=== PATIENT | female | born 1955 | race Caucasian/White ===

== ENCOUNTER → 2017-06-09 15:09 | Outpatient (CLI) | payer MEDICAID, SELFPAY ==
[2017-06-09 17:17] LABS: Absolute Lymphocyte Count 1.75 X10^3/ul (0.83-4.51); Absolute Neutrophil Count 6.3 X10^3/uL (2.0-7.7); Basophil# 0.05 X10^3/uL; Basophil% 0.5 % (0-1); Eosinophil# 0.25 X10^3/uL; Eosinophils% 2.7 % (0-5); Hematocrit 44.1 % (37-47); Hemoglobin 13.7 g/dl (12.0-15.0); Lymphocyte # 1.75 X10^3/ul (4.0); Lymphocyte % 19.1 % (19-41); Mean Corp Hgb Conc 31.1 g/gl (32-36); Mean Corpuscular Hgb 26.7 pg (27.0-32.0); Mean Corpuscular Volume 85.8 fL (81-99); Mean Platelet Vol. 10.9 fl (6.2-12.0); Monocyte# 0.77 X10^3/uL; Monocyte% 8.4 % (0-10); Neutrophil # 6.34 X10^3/uL (2.7-7.7); Neutrophil % 69.1 % (47-70); Platelet Count 270 K/mm3 (150-450); RBC Distribution Width CV 16.2 % (11.6-14.6); RBC Distribution Width SD 51.2 fl (35.1-43.9); Red Blood Count 5.14 M/mm3 (4.2-5.4); White Blood Count 9.2 K/mm3 (4.4-11.0)
[2017-06-09 17:22] LABS: POSITIVE COUNT NO; POSITIVE DIFFERENTIAL NO; POSITIVE MORPHOLOGY NO
[2017-06-09 17:55] LABS: Vitamin D,25 Hydroxy 10.7 ng/mL (29.95-100.01)
[2017-06-09 18:07] LABS: ALB/GLOB Ratio 0.8 RATIO (0.9-2.4); AST(SGOT) 51 U/L (15-37); Alanine Aminotransfer ALT/SGPT 56 U/L (13-56); Albumin, Serum 3.2 g/dL (3.2-5.0); Alkaline Phosphatase 132 U/L (45-117); Anion Gap 10 (5-15); BUN 13 mg/dL (7-18); BUN/Creat Ratio 14.2 RATIO (10-20); Calcium,Total 9.4 mg/dL (8.5-10.1); Chloride 102 mmol/L (98-107); Creatinine, Serum 0.91 mg/dL (0.55-1.02); EST Glomerular Filtration Rate 67 mL/min (>60); Est Glom Filt Rate - Afr Amer 80 mL/min (>60); Globulin 4.1 g/dL (2.2-4.2); Glucose 149 mg/dL (74-106); Potassium 3.6 mmol/L (3.5-5.1); Protein, Total 7.3 g/dL (6.4-8.2); Sodium Level 141 mmol/L (136-145); Thyroid Stim Hormone (TSH) 0.97 uIU/mL (0.358-3.74)
[2017-06-11 11:03] LABS: Hep C Antibodies 0.1 s/co ratio (0.0-0.9)
== END ==
PROVIDERS: Family Provider Family Medicine Geriatric Medicine; PCP Family Medicine Geriatric Medicine; Visit Provider Family Medicine Geriatric Medicine
DX: E11.9 Type 2 diabetes mellitus without complications (principal); E55.9 Vitamin D deficiency, unspecified; I10 Essential (primary) hypertension; Z13.89 Encounter for screening for other disorder
CPT/HCPCS: 36415; 80053; 82306; 84443; 85025; 86803

== ENCOUNTER → 2017-08-07 14:25 | Outpatient (CLI) | payer MEDICAID, SELFPAY | PROVIDERS: Family Provider Family Medicine Geriatric Medicine; PCP Family Medicine Geriatric Medicine; Visit Provider Nurse Practitioner Acute Care | DX: G47.33 Obstructive sleep apnea (adult) (pediatric) (principal) | CPT/HCPCS: 98960; G0463 ==

== ENCOUNTER → 2017-09-02 13:47 | Outpatient (CLI) | payer MEDICAID, SELFPAY ==
[2017-09-02 17:20] LABS: Absolute Lymphocyte Count 1.71 X10^3/ul (0.83-4.51); Absolute Neutrophil Count 4.5 X10^3/uL (2.0-7.7); Basophil# 0.04 X10^3/uL; Basophil% 0.6 % (0-1); Eosinophil# 0.24 X10^3/uL; Eosinophils% 3.3 % (0-5); Hematocrit 42.2 % (37-47); Hemoglobin 12.9 g/dl (12.0-15.0); Lymphocyte # 1.71 X10^3/ul (4.0); Lymphocyte % 23.7 % (19-41); Mean Corp Hgb Conc 30.6 g/gl (32-36); Mean Corpuscular Hgb 27.3 pg (27.0-32.0); Mean Corpuscular Volume 89.4 fL (81-99); Mean Platelet Vol. 10.7 fl (6.2-12.0); Monocyte# 0.74 X10^3/uL; Monocyte% 10.2 % (0-10); Neutrophil # 4.48 X10^3/uL (2.7-7.7); Neutrophil % 62.1 % (47-70); Platelet Count 230 K/mm3 (150-450); RBC Distribution Width CV 14.4 % (11.6-14.6); RBC Distribution Width SD 47.1 fl (35.1-43.9); Red Blood Count 4.72 M/mm3 (4.2-5.4); White Blood Count 7.2 K/mm3 (4.4-11.0)
[2017-09-02 17:23] LABS: POSITIVE COUNT NO; POSITIVE DIFFERENTIAL NO; POSITIVE MORPHOLOGY NO
[2017-09-02 17:58] LABS: ALB/GLOB Ratio 0.8 RATIO (0.9-2.4); AST(SGOT) 53 U/L (15-37); Alanine Aminotransfer ALT/SGPT 51 U/L (13-56); Albumin, Serum 3.1 g/dL (3.2-5.0); Alkaline Phosphatase 104 U/L (45-117); Anion Gap 9 (5-15); BUN 10 mg/dL (7-18); BUN/Creat Ratio 11.4 RATIO (10-20); Chloride 105 mmol/L (98-107); Creatinine, Serum 0.88 mg/dL (0.55-1.02); EST Glomerular Filtration Rate 70 mL/min (>60); Est Glom Filt Rate - Afr Amer 84 mL/min (>60); Globulin 3.8 g/dL (2.2-4.2); Glucose 152 mg/dL (74-106); Potassium 4.4 mmol/L (3.5-5.1); Protein, Total 6.9 g/dL (6.4-8.2); Sodium Level 142 mmol/L (136-145)
== END ==
PROVIDERS: Family Provider Family Medicine Geriatric Medicine; PCP Family Medicine Geriatric Medicine; Visit Provider Family Medicine Geriatric Medicine
DX: R10.9 Unspecified abdominal pain (principal)
CPT/HCPCS: 80053; 85025

== ENCOUNTER → 2017-09-02 15:58 | Outpatient (CLI) | payer MEDICAID, SELFPAY ==
--- NOTE | 2017-09-02 16:05 | RAD_ITS ---
STUDY: X-RAY - ABDOMEN/PELVIS REASON FOR EXAM: Female, 62 years old. Nausea. Diarrhea. Constipation. TECHNIQUE: AP supine and upright views of the abdomen and pelvis. COMPARISON: May 30, 2016. FINDINGS: Normal visualized lung bases. There is an unremarkable bowel gas pattern. There is no demonstrated free abdominal air. The visualized liver, spleen and kidneys are grossly normal in size and morphology. Normal soft tissue structures. Normal visualized osseous structures. RAD/Abd Inc Decub and/or Erect IMPRESSION: Normal x-ray examination of the abdomen and pelvis. Electronically Signed: Mauricio Grfifin MD at 16:55 EDT , Service support ,
== END ==
PROVIDERS: Family Provider Family Medicine Geriatric Medicine; PCP Family Medicine Geriatric Medicine; Visit Provider Family Medicine Geriatric Medicine
DX: R10.9 Unspecified abdominal pain (principal)
CPT/HCPCS: 74019; 80053; 85025

== ENCOUNTER → 2017-10-02 11:46 | Outpatient (CLI) | payer MEDICAID, SELFPAY ==
[2017-10-02 13:28] LABS: ALB/GLOB Ratio 0.8 RATIO (0.9-2.4); AST(SGOT) 45 U/L (15-37); Alanine Aminotransfer ALT/SGPT 50 U/L (13-56); Albumin, Serum 3.2 g/dL (3.2-5.0); Alkaline Phosphatase 102 U/L (45-117); Anion Gap 9 (5-15); BUN 8 mg/dL (7-18); BUN/Creat Ratio 7.5 RATIO (10-20); Calcium,Total 9.4 mg/dL (8.5-10.1); Chloride 103 mmol/L (98-107); Creatinine, Serum 1.07 mg/dL (0.55-1.02); EST Glomerular Filtration Rate 55 mL/min (>60); Est Glom Filt Rate - Afr Amer 67 mL/min (>60); Globulin 3.9 g/dL (2.2-4.2); Glucose 147 mg/dL (74-106); Protein, Total 7.1 g/dL (6.4-8.2); Sodium Level 142 mmol/L (136-145); Thyroid Stim Hormone (TSH) 1.61 uIU/mL (0.358-3.74)
[2017-10-02 15:36] LABS: Absolute Lymphocyte Count 1.62 X10^3/ul (0.83-4.51); Absolute Neutrophil Count 3.5 X10^3/uL (2.0-7.7); Basophil# 0.05 X10^3/uL; Basophil% 0.8 % (0-1); Eosinophil# 0.21 X10^3/uL; Eosinophils% 3.5 % (0-5); Hematocrit 41.6 % (37-47); Hemoglobin 13.3 g/dl (12.0-15.0); Lymphocyte # 1.62 X10^3/ul (4.0); Mean Corpuscular Hgb 28.2 pg (27.0-32.0); Mean Corpuscular Volume 88.1 fL (81-99); Monocyte# 0.65 X10^3/uL; Monocyte% 10.8 % (0-10); Neutrophil # 3.46 X10^3/uL (2.7-7.7); Neutrophil % 57.7 % (47-70); POSITIVE COUNT NO; POSITIVE DIFFERENTIAL NO; POSITIVE MORPHOLOGY NO; Platelet Count 209 K/mm3 (150-450); RBC Distribution Width CV 13.7 % (11.6-14.6); RBC Distribution Width SD 44.3 fl (35.1-43.9); Red Blood Count 4.72 M/mm3 (4.2-5.4)
== END ==
PROVIDERS: Family Provider Family Medicine Geriatric Medicine; PCP Family Medicine Geriatric Medicine; Visit Provider Family Medicine Geriatric Medicine
DX: E11.9 Type 2 diabetes mellitus without complications (principal); I10 Essential (primary) hypertension
CPT/HCPCS: 36415; 80053; 84443; 85025

== ENCOUNTER → 2017-10-03 09:02 | Outpatient (CLI) | payer MEDICAID, SELFPAY | PROVIDERS: Family Provider Family Medicine Geriatric Medicine; PCP Family Medicine Geriatric Medicine; Visit Provider Family Medicine Geriatric Medicine | DX: R19.7 Diarrhea, unspecified (principal) | CPT/HCPCS: 87493 ==

== ENCOUNTER → 2017-10-21 11:30 | Outpatient (CLI) | payer MEDICAID, SELFPAY ==
--- NOTE | 2017-10-21 11:35 | VDLE_ITS ---
Reason For Study: LEG SWELLING RIGHT LEFT GSV is normal. GSV is normal. CFV is compressible, spontaneous, phasic, CFV is compressible, spontaneous, phasic, competent and demonstrates normal competent, and demonstrates normal augmentation. augmentation. FV is compressible, spontaneous, phasic, FV is compressible, spontaneous, phasic, competent and demonstrates normal competent and demonstrates normal augmentation. augmentation. POP V is compressible, spontaneous, phasic, POP V is compressible, spontaneous, phasic, competent and demonstrates normal competent and demonstrates normal augmentation. augmentation. T/P Trunk is compressible. T/P Trunk is compressible. PTV is compressible. PTV is compressible. PTV visualized distally only. PTV visualized distally only. Procedure Exam performed in department. The study was technically difficult. A preliminary report was called and/or faxed to Dr. Nair. Interpretation Summary Deep veins of the lower extremities are bilaterally patent and compressible segmentally. There is no evidence of deep vein thrombosis on either side. Valvular competence appears intact within the proximal deep venous systems bilaterally. The greater saphenous veins appear bilaterally patent and compressible segmentally. The proximal portions of the posterior tibial veins were not visualized bilaterally. Ordering Physician: Kumar Nair Referring Physician: Kumar Nair Chi Performed By: Pattie Barnard RVT
[2017-10-21 12:35] LABS: Absolute Lymphocyte Count 1.78 X10^3/ul (0.83-4.51); Absolute Neutrophil Count 3.2 X10^3/uL (2.0-7.7); Anion Gap 7 (5-15); BUN 9 mg/dL (7-18); BUN/Creat Ratio 8.5 RATIO (10-20); Basophil# 0.04 X10^3/uL; Basophil% 0.7 % (0-1); Chloride 103 mmol/L (98-107); Creatinine, Serum 1.06 mg/dL (0.55-1.02); EST Glomerular Filtration Rate 56 mL/min (>60); Eosinophil# 0.22 X10^3/uL; Eosinophils% 3.8 % (0-5); Est Glom Filt Rate - Afr Amer 68 mL/min (>60); Glucose 176 mg/dL (74-106); Hematocrit 40.2 % (37-47); Hemoglobin 12.6 g/dl (12.0-15.0); Lymphocyte # 1.78 X10^3/ul (4.0); Lymphocyte % 30.6 % (19-41); Mean Corp Hgb Conc 31.3 g/gl (32-36); Mean Corpuscular Hgb 27.7 pg (27.0-32.0); Mean Corpuscular Volume 88.4 fL (81-99); Mean Platelet Vol. 11.1 fl (6.2-12.0); Monocyte# 0.54 X10^3/uL; Monocyte% 9.3 % (0-10); Neutrophil # 3.22 X10^3/uL (2.7-7.7); Neutrophil % 55.3 % (47-70); Platelet Count 198 K/mm3 (150-450); Potassium 4.2 mmol/L (3.5-5.1); RBC Distribution Width CV 14.1 % (11.6-14.6); RBC Distribution Width SD 44.8 fl (35.1-43.9); Red Blood Count 4.55 M/mm3 (4.2-5.4); Sodium Level 144 mmol/L (136-145); White Blood Count 5.8 K/mm3 (4.4-11.0)
[2017-10-21 12:36] LABS: POSITIVE COUNT NO; POSITIVE DIFFERENTIAL NO; POSITIVE MORPHOLOGY NO
[2017-10-21 13:06] LABS: D-Dimer Quantitative (DVT/PE) 0.64 FEU/ug/m (0.27-0.49)
== END ==
PROVIDERS: Family Provider Family Medicine Geriatric Medicine; PCP Family Medicine Geriatric Medicine; Visit Provider Family Medicine Geriatric Medicine
DX: R60.0 Localized edema (principal); R06.02 Shortness of breath
CPT/HCPCS: 36415; 80048; 85025; 85379; 93970

== ENCOUNTER → 2017-10-30 14:53 | Outpatient (CLI) | payer MEDICAID, SELFPAY ==
[2017-10-30 17:38] LABS: Anion Gap 5 (5-15); BUN 13 mg/dL (7-18); BUN/Creat Ratio 10.6 RATIO (10-20); Calcium,Total 9.2 mg/dL (8.5-10.1); Chloride 96 mmol/L (98-107); Creatinine, Serum 1.23 mg/dL (0.55-1.02); EST Glomerular Filtration Rate 47 mL/min (>60); Est Glom Filt Rate - Afr Amer 57 mL/min (>60); Glucose 328 mg/dL (74-106); Potassium 4.2 mmol/L (3.5-5.1); Sodium Level 137 mmol/L (136-145)
== END ==
PROVIDERS: Family Provider Family Medicine Geriatric Medicine; PCP Family Medicine Geriatric Medicine; Visit Provider Family Medicine Geriatric Medicine
DX: F32.9 Major depressive disorder, single episode, unspecified (principal)
CPT/HCPCS: 36415; 80048

== ENCOUNTER → 2017-12-04 09:44 | Outpatient (CLI) | payer MEDICAID, SELFPAY | PROVIDERS: Family Provider Family Medicine Geriatric Medicine; PCP Family Medicine Geriatric Medicine; Visit Provider Family Medicine Geriatric Medicine | DX: R19.7 Diarrhea, unspecified (principal) | CPT/HCPCS: 74019 ==

== ENCOUNTER → 2018-01-01 15:01 | Outpatient (CLI) | payer MEDICAID, SELFPAY ==
[2018-01-01 17:12] LABS: Absolute Lymphocyte Count 0.99 X10^3/ul (0.83-4.51); Absolute Neutrophil Count 3.2 X10^3/uL (2.0-7.7); Basophil# 0.04 X10^3/uL; Basophil% 0.8 % (0-1); Eosinophil# 0.13 X10^3/uL; Eosinophils% 2.7 % (0-5); Hematocrit 41.1 % (37-47); Hemoglobin 13.2 g/dl (12.0-15.0); Lymphocyte # 0.99 X10^3/ul (4.0); Lymphocyte % 20.2 % (19-41); Mean Corp Hgb Conc 32.1 g/gl (32-36); Mean Corpuscular Hgb 28.3 pg (27.0-32.0); Mean Platelet Vol. 11.8 fl (6.2-12.0); Monocyte# 0.54 X10^3/uL; Neutrophil # 3.19 X10^3/uL (2.7-7.7); Neutrophil % 65.1 % (47-70); Platelet Count 165 K/mm3 (150-450); RBC Distribution Width SD 44.9 fl (35.1-43.9); Red Blood Count 4.67 M/mm3 (4.2-5.4); White Blood Count 4.9 K/mm3 (4.4-11.0)
[2018-01-01 17:18] LABS: POSITIVE COUNT NO; POSITIVE DIFFERENTIAL NO; POSITIVE MORPHOLOGY NO
[2018-01-01 17:24] LABS: ALB/GLOB Ratio 0.7 RATIO (0.9-2.4); AST(SGOT) 148 U/L (15-37); Alanine Aminotransfer ALT/SGPT 86 U/L (13-56); Albumin, Serum 2.9 g/dL (3.2-5.0); Alkaline Phosphatase 140 U/L (45-117); Anion Gap 10 (5-15); BUN 9 mg/dL (7-18); BUN/Creat Ratio 9.1 RATIO (10-20); Chloride 94 mmol/L (98-107); Creatinine, Serum 0.99 mg/dL (0.55-1.02); EST Glomerular Filtration Rate 60 mL/min (>60); Est Glom Filt Rate - Afr Amer 73 mL/min (>60); Glucose 347 mg/dL (74-106); Potassium 4.3 mmol/L (3.5-5.1); Protein, Total 6.9 g/dL (6.4-8.2); Sodium Level 137 mmol/L (136-145)
== END ==
PROVIDERS: Family Provider Family Medicine Geriatric Medicine; PCP Family Medicine Geriatric Medicine; Visit Provider Family Medicine Geriatric Medicine
DX: E11.9 Type 2 diabetes mellitus without complications (principal); I10 Essential (primary) hypertension
CPT/HCPCS: 36415; 80053; 84443; 85025

== ENCOUNTER 2018-02-18 09:01 | Day surgery (SDC) | payer MEDICAID, SELFPAY ==
--- NOTE | 2018-02-04 15:20 | RAD_ITS ---
STUDY: X-RAY CHEST REASON FOR EXAM: Female, 62 years old. Shortness of breath and dizziness TECHNIQUE: PA and lateral views of the chest. COMPARISON: 02/03/2017 FINDINGS: The lungs are clear and expanded. There is no demonstrated pleural abnormality. Normal size heart. There are calcified mediastinal lymph nodes. Normal visualized pulmonary arteries. Normal visualized aortic arch and descending thoracic aorta. Normal visualized thoracic spine. Normal visualized ribs, clavicles, and shoulders. There is no demonstrated abnormality of the visualized soft tissue structures of the upper abdomen. RAD/Chest PA and Lateral IMPRESSION: No acute pulmonary process Electronically Signed: Sukhwinder Leary MD at 15:22 EDT , Service support ,
[2018-02-04 15:31] LABS: Absolute Lymphocyte Count 1.41 X10^3/ul (0.83-4.51); Absolute Neutrophil Count 3.1 X10^3/uL (2.0-7.7); Basophil# 0.05 X10^3/uL; Basophil% 0.9 % (0-1); Eosinophil# 0.24 X10^3/uL; Eosinophils% 4.5 % (0-5); Hematocrit 40.6 % (37-47); Hemoglobin 12.8 g/dl (12.0-15.0); Lymphocyte # 1.41 X10^3/ul (4.0); Lymphocyte % 26.3 % (19-41); Mean Corp Hgb Conc 31.5 g/gl (32-36); Mean Corpuscular Hgb 27.9 pg (27.0-32.0); Mean Corpuscular Volume 88.6 fL (81-99); Mean Platelet Vol. 11.1 fl (6.2-12.0); Monocyte# 0.55 X10^3/uL; Monocyte% 10.3 % (0-10); Neutrophil % 57.8 % (47-70); Platelet Count 159 K/mm3 (150-450); RBC Distribution Width CV 14.1 % (11.6-14.6); RBC Distribution Width SD 45.8 fl (35.1-43.9); Red Blood Count 4.58 M/mm3 (4.2-5.4); White Blood Count 5.4 K/mm3 (4.4-11.0)
[2018-02-04 15:32] LABS: POSITIVE COUNT NO; POSITIVE DIFFERENTIAL NO; POSITIVE MORPHOLOGY NO
[2018-02-04 15:43] LABS: International Normalized Ratio 1.2; Prothrombin Time (Protime)PT. 14.9 SECONDS (11.7-14.9)
[2018-02-04 15:44] LABS: Partial Thromboplast Time 26.4 Seconds (24.1-36.2)
[2018-02-04 15:56] LABS: Anion Gap 10 (5-15); BUN 11 mg/dL (7-18); BUN/Creat Ratio 10.8 RATIO (10-20); Calcium,Total 9.5 mg/dL (8.5-10.1); Chloride 96 mmol/L (98-107); Creatinine, Serum 1.02 mg/dL (0.55-1.02); EST Glomerular Filtration Rate 58 mL/min (>60); Est Glom Filt Rate - Afr Amer 71 mL/min (>60); Glucose 363 mg/dL (74-106); Potassium 3.6 mmol/L (3.5-5.1); Sodium Level 140 mmol/L (136-145)
[2018-02-10 09:02] VITALS: BMI 45.1
--- NOTE | 2018-02-18 10:46 | CL.D_ITS ---
Patient Name: FABIOLA RASMUSSEN Study Date: 02/18/2018 Performing: Sigifredo Qiu MD Ht: 68.89 inches 175 cm : 1955 Wt: 306.44 lbs 139 kg Age: 63 Gender: female BSA: 2.47 PROCEDURE(S) PERFORMED [id number]/COR/LV CLINICAL PROFILE AND INDICATIONS Indications: Suspected CAD, Other; dyspnea on exertion. Heart Failure: None Stress/Imaging Stress Echocardiogram: Yes Result: NegativeStress Echocardiogram: Negative Angina Classification Anginal Classification w/in 2 Weeks: CCS III CAD Presentations: Unstable angina. Comorbidities/Risk Factors: Hypertension Dyslipidemia CONCLUSIONS Normal coronary arteries Normal LV size, wall motion,and systolic function RECOMMENDATIONS Management as per referring Equity Research Analyst D/c plavix; pt's JENKINS most likely due to primary pulmonary issue. Manual sheath removal. DESCRIPTION OF PROCEDURE The patient arrived to the procedure lab. The risks and benefits of the procedure as well as a full d escription of our services here and current unavailability of surgical backup were fully explained to the patient and/or their significant other prior to the catheterization. The Timeout was completed, verifying the correct patient and procedure. The patient's procedural site was prepped and draped in the usual fashion. Local anesthetic was given subcutaneously to right groin region with Lidocaine 2%. Using a modified Seldinger technique, arterial access was obtained via the right femoral artery, a 4 Fr sheath was inserted Left Coronary Artery selective angiography was performed in multiple views us ing a 4 Fr. JL5 catheter. Right Coronary Artery selective angiography was then performed in multiple views using a 4 Fr. 3DRC catheter. Left Ventriculography was performed in BAUGH projection using a 4 Fr . Pigtail catheter. LV to AO pullback pressures were then recorded.The arterial sheath was pulled and manual compression applied until hemostasis is achieved. CORONARY ANGIOGRAPHY DOMINANCE: Right Dominant LEFT HEART ASSESSMENT Left Ventricular Ejection Fraction: by LV Gram 65 % Normal LV wall motion Normal Left Ventricular systolic function Normal Left Ventricular systolic function LVEDP: 19 mmHg LEFT MAIN: Angiographically normal LEFT ANTERIOR DECENDING ARTERY: Angiographically normal CIRCUMFLEX ARTERY: Angiographically normal RIGHT CORONARY ARTERY: Angiographically normal COMPLICATIONS No Complications PROCEDURE MEDICATIONS Oxygen: 2 L/min via nasal cannula Zofran 4 mg IV 02/18/2018 10:15:31 SUMMARY OF HEMODYNAMIC DATA Time AIR REST ECG 09:46:59 AO 146/58 (92) SA 10:23:44 LV 155/-20, 16 10:29:25 LV 146/-21, 18 10:29:32 LVp 150/-20, 19 10:29:42 AOp 148/58 (93) 10:29:47 Signed By Sigifredo Qiu MD On 02/18/2018 10:45:36 AM Sigifredo Qiu MD
== END 2018-02-18 15:15 | disposition home or self-care (01) ==
LOC: CLSP 09:02
PROVIDERS: Nurse Practitioner Family; Family Provider Internal Medicine; PCP Internal Medicine; Referring Provider Internal Medicine Cardiovascular Disease; Visit Provider Internal Medicine Cardiovascular Disease
DX: R06.09 Other forms of dyspnea (principal); E66.01 Morbid (severe) obesity due to excess calories; Z68.42 Body mass index [BMI] 45.0-49.9, adult; I10 Essential (primary) hypertension; E11.9 Type 2 diabetes mellitus without complications; J45.909 Unspecified asthma, uncomplicated; G47.33 Obstructive sleep apnea (adult) (pediatric); R60.0 Localized edema; E78.5 Hyperlipidemia, unspecified; F32.9 Major depressive disorder, single episode, unspecified; K21.9 Gastro-esophageal reflux disease without esophagitis; Z79.4 Long term (current) use of insulin; Z79.51 Long term (current) use of inhaled steroids; Z79.82 Long term (current) use of aspirin; Z79.891 Long term (current) use of opiate analgesic; Z79.899 Other long term (current) drug therapy
CPT/HCPCS: 36415; 71046; 80048; 85025; 85610; 85730; 93458; J7040; C1769; C1894; J2405; Q9967

== ENCOUNTER 2018-03-20 21:49 | Emergency (ER) | payer MEDICAID, SELFPAY ==
[2018-03-19 17:09] VITALS: BMI 40.8
[2018-03-20 21:49] VITALS: BP 120/66; PULSE 74; RESP 15; TEMP 36.3; BMI 40.4
[2018-03-20] MEDS: 0.9% Normal Saline 1,000 ML 1000 ML IV (22:35)
[2018-03-20] MEDS: Ondansetron 4 MG/2 ML Vial IV (22:35)
[2018-03-20] MEDS: Mag Hydrox/Al Hydrox/Simeth 30 ML UDC PO (22:46)
[2018-03-20 23:00] LABS: ALB/GLOB Ratio 0.6 RATIO (0.9-2.4); AST(SGOT) 51 U/L (15-37); Alanine Aminotransfer ALT/SGPT 23 U/L (13-56); Alkaline Phosphatase 146 U/L (45-117); Anion Gap 11 (5-15); BUN 15 mg/dL (7-18); BUN/Creat Ratio 9.7 RATIO (10-20); Calcium,Total 9.2 mg/dL (8.5-10.1); Chloride 94 mmol/L (98-107); Creatinine, Serum 1.54 mg/dL (0.55-1.02); EST Glomerular Filtration Rate 36 mL/min (>60); Est Glom Filt Rate - Afr Amer 44 mL/min (>60); Estimated Creatinine Clearance 39.58 ml/min; Globulin 4.8 g/dL (2.2-4.2); Glucose 362 mg/dL (74-106); Lipase 197 U/L (73-393); Potassium 3.5 mmol/L (3.5-5.1); Protein, Total 7.8 g/dL (6.4-8.2); Sodium Level 136 mmol/L (136-145)
[2018-03-20 23:03] LABS: Absolute Lymphocyte Count 1.64 X10^3/ul (0.83-4.51); Basophil# 0.03 X10^3/uL; Basophil% 0.5 % (0-1); Eosinophil# 0.14 X10^3/uL; Eosinophils% 2.1 % (0-5); Hematocrit 43.9 % (37-47); Hemoglobin 14.4 g/dl (12.0-15.0); Lymphocyte # 1.64 X10^3/ul (4.0); Lymphocyte % 25.2 % (19-41); Mean Corp Hgb Conc 32.8 g/gl (32-36); Mean Corpuscular Hgb 28.3 pg (27.0-32.0); Mean Corpuscular Volume 86.4 fL (81-99); Mean Platelet Vol. 11.3 fl (6.2-12.0); Monocyte# 0.62 X10^3/uL; Monocyte% 9.5 % (0-10); Neutrophil # 4.04 X10^3/uL (2.7-7.7); Neutrophil % 61.9 % (47-70); Platelet Count 227 K/mm3 (150-450); RBC Distribution Width CV 13.5 % (11.6-14.6); RBC Distribution Width SD 42.7 fl (35.1-43.9); Red Blood Count 5.08 M/mm3 (4.2-5.4); White Blood Count 6.5 K/mm3 (4.4-11.0)
[2018-03-20 23:07] LABS: POSITIVE COUNT NO; POSITIVE DIFFERENTIAL NO; POSITIVE MORPHOLOGY NO
--- NOTE | 2018-03-20 23:20 | ED.VISSUMM ---
- ER Visit Summary Date of Service: 03/20/18 Chief Complaint: Nausea vomiting and diarrhea History of Present Illness: The patient is a 63 F who presents with nausea vomiting and diarrhea for at least 3 months. She complains of feeling bloated. She complains of burning epigastric abdominal pain which is worse with eating. She notes that this is been worse over the past 2 days. She has been seen by her primary care physician. She was initially seen Dr. Nair and had a new appointment with Dr. Sims. She has had outpatient blood work, x-rays. She was referred for referred to surgery for upper endoscopy and also had a gastric emptying study ordered but did not follow-up with these. She saw her primary care physician again yesterday who again advised that she follow-up with surgery and have the gastric emptying study done. She states she has been prescribed Prilosec but it was not helping. However on further questioning she was only taking this sporadically and not consistently. She denies any fevers chest pain shortness of breath. Physical Examination: Afebrile vitals are normal Moist mucous membranes Heart regular rate and rhythm Lungs are clear Abdomen soft, epigastric tenderness without guarding without rebound nondistended Test Results: CBC CMP lipase notable for creatinine of 1.54 which is slightly increased from prior labs. Alkaline phosphatase and AST minimally elevated and similar to prior labs. Emergency Department Course and Treatment: Patient was treated here with IV fluids and Zofran. She was given a GI cocktail. On reevaluation she reports improvement but not resolution of symptoms. Given benign exam relatively unremarkable labs and chronicity of symptoms I do not feel any further emergent workup or hospital admission necessary at this time. I advised that if she begin taking Prilosec consistently. I advised that she follow-up with the Center is ordered by her primary care physician and surgical referral. She understands to return for new or worsening symptoms. She is agreeable to this plan. She was discharged. Treatment Plan: [] Disposition: Discharge Impression: Chronic epigastric abdominal pain Nausea vomiting diarrhea This note was generated with [employer] dictation software. It may contain incorrect words, spelling, and punctuation that were not noted in review of the chart prior to signing ED Disposition - Plan for ED Patient: Chief Complaint: Abd Pain Referrals: Chuck Sims MD [Primary Care Provider] -
--- NOTE | 2018-03-20 23:24 | ED.DCSUM_ITS ---
- ER Visit Summary Date of Service: 03/20/18 Chief Complaint: Nausea vomiting and diarrhea History of Present Illness: The patient is a 63 F who presents with nausea vomiting and diarrhea for at least 3 months. She complains of feeling bloated. She complains of burning epigastric abdominal pain which is worse with eating. She notes that this is been worse over the past 2 days. She has been seen by her primary care physician. She was initially seen Dr. Nair and had a new appointment with Dr. Sims. She has had outpatient blood work, x-rays. She was referred for referred to surgery for upper endoscopy and also had a gastric emptying study ordered but did not follow-up with these. She saw her primary care physician again yesterday who again advised that she follow-up with surgery and have the gastric emptying study done. She states she has been prescribed Prilosec but it was not helping. However on further questioning she was only taking this sporadically and not consistently. She denies any fevers chest pain shortness of breath. Physical Examination: Afebrile vitals are normal Moist mucous membranes Heart regular rate and rhythm Lungs are clear Abdomen soft, epigastric tenderness without guarding without rebound nondistended Test Results: CBC CMP lipase notable for creatinine of 1.54 which is slightly increased from prior labs. Alkaline phosphatase and AST minimally elevated and similar to prior labs. Emergency Department Course and Treatment: Patient was treated here with IV fluids and Zofran. She was given a GI cocktail. On reevaluation she reports improvement but not resolution of symptoms. Given benign exam relatively unremarkable labs and chronicity of symptoms I do not feel any further emergent workup or hospital admission necessary at this time. I advised that if she b egin taking Prilosec consistently. I advised that she follow-up with the Center is ordered by her primary care physician and surgical referral. She understands to return for new or worsening symptoms. She is agreeable to this plan. She was discharged. Treatment Plan: [] Disposition: Discharge Impression: Chronic epigastric abdominal pain Nausea vomiting diarrhea This note was generated with [employer] dictation software. It may contain incorrect words, spelling, and punctuation that were not noted in review of the chart prior to signing ED Disposition - Plan for ED Patient: Chief Complaint: Abd Pain Referrals: Chuck Sims MD [Primary Care Provider] -
--- NOTE | 2018-03-20 23:24 | ED.DEP ---
ED Disposition - Plan for ED Patient: Chief Complaint: Abd Pain Instructions: ED Abdominal Pain Unkn Cause Prescriptions: Omeprazole [Prilosec] 20 mg PO DAILY #30 cap Referrals: Chuck iSms MD [Primary Care Provider] -
[2018-03-20 23:37] VITALS: BP 122/57; PULSE 55; RESP 18; O2SAT 99
--- OUTSIDE RECORDS SUMMARY | 2018-06-24 07:57 | XMS RPT_ITS ---
:1955 Author Organization OHIP Support Name Relationship Address Phone CAM SMALL Unavailable [address] + [place] [address] UE Unavailable Unavailable Unavailable CAM SMALL Unavailable [address] + [place] [address] UE Unavailable Unavailable Unavailable CAM SMALL Unavailable [address] + [place] [address] UE Unavailable Unavailable Unavailable CAM SMALL Unavailable [address] + [place] [address] UE Unavailable Unavailable Unavailable CAM SMALL Unavailable [address] + [place] [address] UE Unavailable Unavailable Unavailable CAM SMALL Unavailable [address] + [place] [address] UE Unavailable Unavailable Unavailable CAM SMALL Unavailable [address] + [place] [address] UE Unavailable Unavailable Unavailable CAM SMALL Unavailable [address] + [place] [address] UE Unavailable Unavailable Unavailable CAM SMALL Unavailable [address] + [place] [address] UE Unavailable Unavailable Unavailable CAM SMALL Unavailable [address] + [place] [address] UE Unavailable Unavailable Unavailable CAM SMALL Unavailable [address] + [place] [address] UE Unavailable Unavailable Unavailable CAM SMALL Unavailable [address] + [place] [address] UE Unavailable Unavailable Unavailable CAM SMALL Unavailable [address] + [place] [address] UE Unavailable Unavailable Unavailable CAM SMALL Unavailable [address] + [place] [address] UE Unavailable Unavailable Unavailable CAM SMALL Unavailable [address] + [place] [address] UE Unavailable Unavailable Unavailable CAM SMALL Unavailable [address] + [place] [address] UE Unavailable Unavailable Unavailable CAM SMALL Unavailable [address] + [place] [address] UE Unavailable Unavailable Unavailable CAM SMALL Unavailable [address] + [place] [address] UE Unavailable Unavailable Unavailable CAM SMALL Unavailable [address] + [place] [address] UE Unavailable Unavailable Unavailable CAM SMALL Unavailable [address] + [place] [address] UE Unavailable Unavailable Unavailable CAM SMALL Unavailable [address] + [place] [address] UE Unavailable Unavailable Unavailable CAM SMALL Unavailable [address] + [place] [address] UE Unavailable Unavailable Unavailable CAM SMALL Unavailable [address] + [place] [address] UE Unavailable Unavailable Unavailable CAM SMALL Unavailable [address] + [place] [address] UE Unavailable Unavailable Unavailable CAM SMALL Unavailable [address] + [place] [address] UE Unavailable Unavailable Unavailable CAM SMALL Unavailable [address] + [place] [address] UE Unavailable Unavailable Unavailable CAM SMALL Unavailable [address] + [place] [address] UE Unavailable Unavailable Unavailable CAM SMALL Unavailable [address] + [place] [address] UE Unavailable Unavailable Unavailable CAM SMALL Unavailable [address] + [place] [address] UE Unavailable Unavailable Unavailable CAM SMALL Unavailable [address] + [place] [address] UE Unavailable Unavailable Unavailable CAM SMALL Unavailable [address] + [place] [address] UE Unavailable Unavailable Unavailable CAM SMALL Unavailable [address] + [place] [address] UE Unavailable Unavailable Unavailable CAM SMALL Unavailable [address] + [place] [address] UE Unavailable Unavailable Unavailable CAM SMALL Unavailable [address] + [place] [address] UE Unavailable Unavailable Unavailable CAM SMALL Unavailable [address] + [place] [address] UE Unavailable Unavailable Unavailable CAM SMALL Unavailable [address] + [place] [address] UE Unavailable Unavailable Unavailable Care Team Providers Name Role Phone Sigifredo Qiu Attending Unavailable Korey, Kumar Chi Referring Unavailable Oleghe, Efewongbe Attending Unavailable Oleghe, Efewongbe Referring Unavailable Oleghe, Efewongbe Primary Care Unavailable Augusto Cruz Attending Unavailable Robotham, Nancy Attending Unavailable Oleghe, Efewongbe Referring Unavailable Oleghe, Efewongbe Primary Care Unavailable Newton Medina Admitting Unavailable TereletsNewton brumfield Referring Unavailable Robotham, Nancy Consulting Unavailable SemenMadyson walkere Attending Unavailable Newton Medina Admitting Unavailable Newton Medina Attending Unavailable Newton Medina Referring Unavailable Oleghe, Efewongbe Primary Care Unavailable Robotham, Nancy Consulting Unavailable Newton Medina Consulting Unavailable Mike Dover Attending Unavailable Korey, Kumar Chi Referring Unavailable Newton Medina Admitting Unavailable Cari Montgomery PA-C Attending Unavailable Newton Medina Referring Unavailable Oleghe, Efewongbe Primary Care Unavailable Robotham, Nancy Consulting Unavailable Sementi, Vicky Consulting Unavailable Newton Medina Admitting Unavailable SemenVicky wakler Attending Unavailable Newton Medina Referring Unavailable Oleghe, Efewongbe Primary Care Unavailable Robotham, Nancy Consulting Unavailable Sementi, Vicky Consulting Unavailable Newton eMdina Admitting Unavailable SemenVicky walker Attending Unavailable Newton Medina Referring Unavailable Oleghe, Efewongbe Primary Care Unavailable Robotham, Nancy Consulting Unavailable Sementi, Vicky Consulting Unavailable Carol, Newton Admitting Unavailable Sementi, Vicky Attending Unavailable Carol, Newton Referring Unavailable Oleghe, Efewongbe Primary Care Unavailable Robotham, Nancy Consulting Unavailable Sementi, Vicky Consulting Unavailable Newton Gandhi GYN-C Attending Unavailable Oleghe, Efewongbe Referring Unavailable Sita Painter Attending Unavailable Robotham, Nancy Attending Unavailable Sementi, Vicky Referring Unavailable Barbra Fajardo Attending Unavailable Korey, Kumar Chi Referring Unavailable Korey, Kumar Chi Attending Unavailable Korey, Kumar Chi Primary Care Unavailable Fajardo, Barbra Attending Unavailable Fajardo, Barbra Referring Unavailable Korey, Kumar Chi Primary Care Unavailable Fajardo Barbra Attending Unavailable Korey, Kumar Chi Primary Care Unavailable Kishore Silva Attending Unavailable Sigifredo Qiu Attending Unavailable Korey, Kumar Chi Referring Unavailable Korey, Kumar Chi Primary Care Unavailable Korey, Kumar Chi Attending Unavailable Korey, Kumar Chi Primary Care Unavailable Korey, Kumar Chi Attending Unavailable Korey, Kumar Chi Referring Unavailable Korey, Kumar Chi Primary Care Unavailable Korey, Kumar Chi Attending Unavailable Korey, Kumar Chi Primary Care Unavailable Korey, Kumar Chi Attending Unavailable Korey, Kumar Chi Referring Unavailable Korey, Kumar Chi Primary Care Unavailable Korey, Kumar Chi Attending Unavailable Korey, Kumar Chi Referring Unavailable Korey, Kumar Chi Primary Care Unavailable Korey, Kumar Chi Attending Unavailable Korey, Kumar Chi Primary Care Unavailable Korey, Kumar Chi Attending Unavailable Korey, Kumar Chi Primary Care Unavailable Korey, Kumar Chi Attending Unavailable Korey, Kumar Chi Referring Unavailable Korey, Kumar Chi Primary Care Unavailable Carolina Prieto Attending Unavailable Korey, Kumar Chi Referring Unavailable Korey, Kumar Chi Attending Unavailable Korey, Kumar Chi Primary Care Unavailable Roof Justin H Attending Unavailable Korey, Kumar Chi Referring Unavailable Sigifredo Qiu Attending Unavailable Korey, Kumar Chi Referring Unavailable Sigifredo Qiu Attending Unavailable Sigifredo Qiu Referring Unavailable Roof, Justin H Consulting Unavailable Oleghe, Efewongbe Primary Care Unavailable Roof, Justin H Attending Unavailable Roof, Justin H Referring Unavailable Korey, Kumar Chi Primary Care Unavailable Oleghe, Efewongbe Attending Unavailable Korey, Kumar Chi Referring Unavailable Sigifredo Qiu Attending Unavailable Sigifredo Qiu Referring Unavailable PROBLEMS PROBLEMS DATE TYPE CONDITION / CODE ATTENDING STATUS SOURCE 04/03/2018 Unknown L89.302 - Pressure Newton Gandhi Active [place] ulcer of unspecified GYN-C [facility] buttock, stage 2 / Hospital L89.302(ICD-10) Repository 04/23/2018 Unknown R11.2 - Nausea with Robotham, Active [place] vomiting, unspecified Nancy [facility] / R11.2(ICD-10) Hospital Repository 04/23/2018 Unknown R10.13 - Epigastric Robotham, Active [place] pain / R10.13(ICD-10) [facility] Hospital Repository 04/23/2018 Unknown K29.70 - Gastritis, Robotham, Active [place] unspecified, without Nancy [facility] bleeding / Hospital K29.70(ICD-10) Repository 04/23/2018 Unknown K31.89 - Other Robotham, Active [place] diseases of stomach [facility] and duodenum / Hospital K31.89(ICD-10) Repository 02/18/2018 Unknown R06.00 - Dyspnea, Sigifredo Qiu Active [place] unspecified / Community R06.00(ICD-10) Hospital Repository 02/18/2018 Unknown E11.9 - Type 2 Sigifredo Qiu Active [place] diabetes mellitus [facility] without complications Hospital / E11.9(ICD-10) Repository 02/18/2018 Unknown I10 - Essential Sigifredo Qiu Active [place] (primary) hypertension [facility] / I10(ICD-10) Hospital Repository 02/18/2018 Unknown E78.5 - Sigifredo Qiu Active [place] Hyperlipidemia, [facility] unspecified / Hospital E78.5(ICD-10) Repository 02/18/2018 Unknown R94.39 - Abnormal Sigifredo Qiu Active [place] result of other [facility] cardiovascular Hospital function study / Repository R94.39(ICD-10) 02/18/2018 Unknown Z68.42 - Body mass Sigifredo Qiu Active [place] index (BMI) 45.0-49.9, Community adult / Z68.42(ICD-10) Hospital Repository 02/12/2018 Unknown R10.9 - Unspecified Oleghe, Active [place] abdominal pain / Efewongbe [facility] R10.9(ICD-10) Hospital Repository 02/12/2018 Unknown K31.84 - Gastroparesis Oleghe, Active [place] / K31.84(ICD-10) [facility] Hospital Repository 02/12/2018 Unknown R11.0 - Nausea / Oleghe, Active [place] R11.0(ICD-10) [facility] Repository 01/23/2018 Unknown R94.31 - Abnormal RoofJustin Active [place] electrocardiogram Community [ECG] [EKG] / Hospital R94.31(ICD-10) Repository 12/04/2017 Unknown R19.7 - Diarrhea, Koery, Kumar Chi Active [place] unspecified / Community R19.7(ICD-10) Hospital Repository 06/09/2017 Unknown E55.9 - Vitamin D Korey, Kumar Chi Active [place] deficiency, Community unspecified / Hospital E55.9(ICD-10) Repository 06/09/2017 Unknown Z13.89 - Encounter for Korey, Kumar Chi Active [place] screening for other Community disorder / Hospital Z13.89(ICD-10) Repository PROCEDURES PROCEDURES No Procedure Records FoundRESULTS RESULTS INTERNAL MEDICINE Observed: 04/09/2018 Status: F Source: [place] OFFICE VISIT 10:00 AM [facility] REPOSITORY [facility] [address] [place] [address] [place] [address] OFFICE VISIT Date of Service: 04/03/18 MR#: [id number] Acct: [id number] Name: TONYA RASMUSSEN Rep #: [id number] : 1955 Provider: Newton Gandhi NP Age/Sex: 63/F Location: [facility] Status: Signed Intake Vital Signs04/03/18 Body Mass Index (BMI) 40.6 04/03/18 Height 5 ft 9 in Intake Visit Reasons: 2week wound check Chief Complaint: F/U WOUND CHECK Is patient in pain?: Yes (lower back ) Pain scale (1-10): 6 Allergies cephalexin Adverse Reaction (Verified 03/24/18 14:28) Vomiting ciprofloxacin [From Cipro] Adverse Reaction (Verified 03/24/18 14:28) Nausea theophylline anhydrous [From Joe-Dur] Adverse Reaction (Verified 03/24/18 14:28) Nausea Medications Atenolol [Tenormin (beta shelby)] 50 mg PO BID 08/27/13 [History Confirmed 03/24/18] Losartan Potassium [Cozaar] 100 mg PO DAILY 08/27/13 [History Confirmed 03/24/18] traMADol [Ultram] 50 mg PO BID PRN PRN 08/19/16 [History Confirmed 03/24/18] Ropinirole HCl [Requip] 1 mg PO DAILY 02/11/17 [History Confirmed 03/24/18] insulin glargine (U-100) 100 unit/mL (3 mL) subcutaneous pen 60 unit SC DAILY ml 02/04/18 [History Confirmed 03/24/18] insulin lispro (U- 100) 100 unit/mL subcutaneous solution 20 unit SC .COMPLEX ml 02/04/18 [History Confirmed 03/24/18] calcium carbonate 600 mg lozenges 600 mg PO Q6H PRN PRN 03/19/18 [History Confirmed 03/24/18] Omeprazole [Prilosec] 20 mg PO DAILY #30 cap 03/20/18 [Rx Confirmed 03/24/18] Pregabalin [Lyrica] 75 mg PO BID 03/20/18 [History Confirmed 03/24/18] Albuterol Inhaler [Ventolin Hfa] 2 puff INHALATION PRN PRN 03/24/18 [History Confirmed 03/24/18] Cetirizine HCl [Zyrtec] 10 mg PO DAILY 03/24/18 [History Confirmed 03/24/18] Cranberry Fruit [Cranberry] 400 mg PO DAILY 03/24/18 [History Confirmed 03/24/18] Ergocalciferol [Vitamin D] 50,000 unit PO QMONTH 03/24/18 [History Confirmed 03/24/18] Fluticasone 220 Mcg [Flovent 220 Mcg] 2 puff INHALATION BID 03/24/18 [History Confirmed 03/24/18] Furosemide [Lasix] 40 mg PO BID 03/24/18 [History Confirmed 03/24/18] Lactobacillus Acidophilus [Acidophilus] 1 ea PO DAILY 03/24/18 [History Confirmed 03/24/18] Mag Hydrox/Al Hydrox/Simeth [Mylanta II] 15 ml PO Q4H PRN PRN 03/24/18 [History Confirmed 03/24/18] Ondansetron [Zofran Odt] 4 mg SUBLINGUAL Q8H PRN PRN 03/24/18 [History Confirmed 03/24/18] Tizanidine HCl [Zanaflex] 4 mg PO TID PRN PRN 03/24/18 [History Confirmed 03/24/18] Zolpidem Tartrate 10 mg PO DAILY 03/24/18 [History Confirmed 03/24/18] buPROPion XL [Wellbutrin Xl] 150 mg PO DAILY #30 tablet.xl 03/27/18 [Rx] Post menopausal: Yes PFSH Medical History Vitamin D deficiency (Chronic) Vision problems (Chronic) Osteoarthritis (Chronic) Back problem (Chronic) Seasonal allergies (Chronic) Shingles (Resolved) Depression (Chronic) Asthma (Chronic) Obstructive sleep apnea (Chronic) IBS (irritable bowel syndrome) (Chronic) Hypersomnia, unspecified (Chronic) GERD (gastroesophageal reflux disease) (Chronic) Type 2 diabetes mellitus (Chronic) Hypertension (Chronic) Abnormal electrocardiogram (Chronic) Hyperlipidemia (Chronic) Dyspnea (Chronic) Body mass index (BMI) of 45.0-49.9 in adult (Chronic) Abnormal cardiovascular stress test (Chronic) Chest pain on exertion (Resolved) Depression (Resolved) Surgical History History of left heart catheterization (Chronic 02/18/18) History of breast surgery (Acute) History of lumbar surgery (Chronic) Hx of cholecystectomy (Chronic) Family History Father Diabetes Heart disease Mother CVA (cerebral vascular accident) Psychiatric care Alzheimer disease Parkinson's disease Melanoma Osteoporosis Social History Smoking Status: Never smoker second hand exposure: No alcohol intake: never substance use type: does not use caffeine: Yes Type: coffee Number of servings: 2 what type of physical activity do you participate in: none seatbelt use: always do you feel safe at home: Yes additional social history: - retired [employer] HPI Chief Complaint: F/U WOUND CHECK Details: TONYA RASMUSSEN, is a 63 F who presents to the office today for a 2-week follow-up of her stage II pressure ulcer on the left buttock. She has a past medical history as listed above. The patient states that regarding her pressure ulcer on the left buttock, she has not noted any worsening, however she is unsure if there is any improvement. She has been using the daily Michaelle dressings without any difficulties and trying to stay off the area by alternating sitting positions in her chair at home. She denies any purulent drainage or systemic signs of infection at this time. It should be noted that patient did have a hospital stay from 03/24/2018 through 03/27/2018 for debility and nausea and vomiting and diarrhea thought to be secondary to IBS. The patient states that since being discharged from the hospital, her nausea and vomiting has resolved, however she continues to have approximately 3 episodes of diarrhea per day. She does state that she has a history of IBS with diarrhea. She also notes that she was started on Wellbutrin for her depression in the hospital and that she is tolerating this medication without any problems at this time. She does note that her blood sugars in the morning have been elevated and mostly greater than 200. Denies any hypo-or hyperglycemic symptoms though. She denies any other acute concerns at this time. ROS Const Constitutional: No weight change, body ache, chills, fatigue, sleep problems, fever(s), change in appetite, snoring, weakness, frequent falls, headache(s) or excessive sweating Eyes Eyes: No change in vision, eye pain, light sensitivity or blurry vision ENT ENT: No headache(s), abnormal hearing, ear pain, tinnitus, nasal congestion, sore throat or neck pain Resp Respiratory: No snoring, cough, shortness of breath or wheezing Cardio Cardiology: No excessive sweating, chest pain at rest, chest pain with exertion, shortness of breath, dyspnea on exertion, palpitations, orthopnea or lightheadedness Gastro GI: Positive for diarrhea (gastoparesis ); no abdominal pain, change in bowel habits, constipation, vomiting, nausea/dyspepsia or cramping Genitourinary-Female: No burning urination, painful urination, urinary incontinence, urinary frequency, abnormal vaginal bleeding, pelvic pain or other Musc Musculoskeletal: No neck pain, abnormal walking, joint pain, back pain, limited range of motion, numbness or tingling Skin Skin: Positive for skin ulcer (on back); no redness, dry skin, itching, lesions, wounds or rash Neuro Neurology: No weakness, frequent falls, headache(s), abnormal hearing, abnormal walking, numbness, tingling, abnormal speech, dizziness or memory loss Psych Psychiatric: No change in appetite, No memory loss, No anxiety, No depression, No Thoughts of harming yourself/Others Endo Endocrine: No fatigue, excessive sweating, cold intolerance, increased thirst/drinking, heat intolerance, flushing or increased hunger Aller/Imm Allergy/Immunologic: No wheezing, itchy eyes, hives or seasonal allergy symptoms Brijesh/Lymp Hematologic/Lymphatic: No easy bleeding, easy bruising or enlarged lymph nodes Exam Const General: cooperative, no acute distress Orientation: alert, awake, oriented x3 HENMT Head: atraumatic, normocephalic, normal to inspection Ears: hearing grossly normal bilaterally Resp Effort AND Inspection: normal respiratory effort, able to speak in complete sentences Auscultation: Bilateral: Clear to Auscultation Cardio Rate: regular rate Rhythm: regular rhythm Heart Sounds: S1 normal, S2 normal GI Inspection: obesity, normal to inspection Auscultation: normal bowel sounds Palpation: soft, no hepatosplenomegaly, nontender Skin General: dry skin Other: 0.5 x 0.5 stage II left buttock decubitus ulcer. Neuro General: alert, awake, oriented x3, moves all extremities, CN's II-XI intact bilaterally Extrem General: pedal edema Psych Appearance: grossly normal Mental Status: mental status grossly normal Mood: congruent mood Affect: normal affect Assessment AND Plan 1. Decubitus ulcer of buttock, stage 2 L89.302 Plan Referral to the wound healing center, no marked improvement on exam. Continue with daily Michaelle dressings and offloading mechanisms. Increase protein. Discussed red flag symptoms of infection that require urgent medical attention, patient verbalized understanding Orders Referrals: 2. IBS (irritable bowel syndrome) K58.9 Plan Patient does have a chronic history of IBS with diarrhea. Discussed conservative measures at this time such as utilizing fiber supplementation. Her nausea and vomiting has resolved. We will continue to follow. May need referral to GI in the future. 3. Type 2 diabetes mellitus E11.9 Plan Patient has noted fasting blood glucoses greater than 200, instructed her to increase her Lantus to 62 units nightly and to call in 1 week with a log and if still elevated will increase by another 2 units until better control. Patient to follow- up as previously scheduled and 4 weeks for her routine visit. 4. Depression F32.9 Plan Patient was started on Wellbutrin for her depression while at the hospital and is tolerating this medication well. Currently denies any thoughts of harming self or others. We will continue to follow. Wishes to hold off on counseling referral at this time. [place] disclaimer Plan Detail Follow Up As previously scheduled or sooner Coding Level of Care Code Off vis,est,level 4 Diagnoses Decubitus ulcer of buttock, stage 2 L89.302 IBS (irritable bowel syndrome) K58.9 Type 2 diabetes mellitus E11.9 Depression F32.9 04/09/18 1000 <Electronically signed by Newton MOREIRA> Date Newton MOREIRA Cosigner Signature: Date (if applicable) CC: DISCHARGE SUMMARY Observed: 04/02/2018 Status: F Source: CEMENT 1:30 PM [facility] REPOSITORY [facility] Medical Records Department [address] [place] [id number] Discharge Summary 03/27/18 1004 MR#: [id number] Acct: [id number] Name: TONYA RASMUSSEN Rep #: [id number] : 1955 63 From: Estelle Estes DO PCP: Chuck Sims MD Status: DIS ANAI Y Location: [place] [address] Discharge Date and Diagnosis Date of Admission: 03/24/18 Date of Discharge: 03/27/18 - Primary Discharge Diagnosis Active and Suspected Problems (Last Reviewed 03/24/18 @ 13:30 by Lissa Cantu) N/V/D of unknown etiology - resolved, suspect IBS Hypokalemia (Acute) Debility (Acute) - Secondary Discharge Diagnosis Chronic Problems (Last Reviewed 03/24/18 @ 13:30 by Lissa Cantu) History of left heart catheterization (Chronic 02/18/18) Normal coronaries and EF per [facility] done by Dr. Qiu @ [facility]: recommend looking at other/pulmonary causes of SOB Abdominal pain (Chronic) Vitamin D deficiency (Chronic) Vision problems (Chronic) Osteoarthritis (Chronic) Back problem (Chronic) Seasonal allergies (Chronic) Depression (Chronic) Asthma (Chronic) Obstructive sleep apnea (Chronic) IBS (irritable bowel syndrome) (Chronic) Hypersomnia, unspecified (Chronic) GERD (gastroesophageal reflux disease) (Chronic) Type 2 diabetes mellitus (Chronic) - uncontrolled Hypertension (Chronic) Abnormal electrocardiogram (Chronic) Hyperlipidemia (Chronic) Dyspnea (Chronic) Body mass index (BMI) of 45.0-49.9 in adult (Chronic) Abnormal cardiovascular stress test (Chronic) Stress echo 01/30/[address] or T wave changes to suggest ischemia but pt had extreme dyspnea Hospital Course and Treatment Imaging Results: Clinical Impression(s) from Imaging Studies Gastric Emptying Nuclear Medicine 03/25/18 07:44 IMPRESSION: 1. NORMAL 99m Tc sulfur colloid semi-solid phase (oatmeal) gastric emptying imaging examination. A. There is normal and preserved semi-solid phase gastric emptying compared to normal controls. (Alejandro chowdhury al, J Nucl Med Tech 38: 186, 2010). Electronically Signed: Jered Dempsey DO at 17:15 EST Tel , Service support , Laboratory Results - last 24 hr WBC RBC Consultations 03/24/18 21:04 Consult: Onc/Wound/building analyst/supervisor Routine Comment: Reason for Consult:: right buttocks pressure injury Procedures: EGD - Mild inflammation in the gastric antrum. The gastric antrum showed chronic inflammation and the GE junction showed no intestinal metaplasia., - - Gastric emptying study-normal Summary of Care Provided: The patient is a 63-year-old female with a past medical history of gastroparesis (per old H AND P), vitamin D deficiency, osteoarthritis, depression, asthma, obstructive sleep apnea, irritable bowel syndrome, hypersomnia, GERD, diabetes mellitus type 2, hypertension, hyperlipidemia, morbid obesity, osteoarthritis and chronic back pain who presented to the emergency department at [facility] on 03/24/2018 with complaint of persistent nausea and vomiting for several weeks. She was afebrile with stable vital signs at presentation to the emergency department. CBC was unremarkable. Potassium was low at 3.2 and the BUN was 8 with a creatinine of 1.1. Creatinine in January 2018 to 1.02. She was admitted to the hospital for observation and general surgery was consulted for possible endoscopy. A gastric emptying study was done and was normal with no evidence of gastroparesis. EGD was performed by Dr. Schulte and showed only mild gastritis in the gastric antrum with the pathology showing chronic inflammation. Biopsy was taken at the GE junction and there was no metaplasia present. Her symptoms resolved while she was in the hospital and prior to discharge she was eating a diet with no nausea or vomiting. She lives alone and she has no one to talk to. She admitted to being depressed and in fact had been evicted from her home prior to presenting to the hospital. She was very tearful several times with several different health care providers during her hosital stay. The SW was in contact with her family preservation caseworker at [facility] during the admission. She had been on Effexor in the past but, quit taking it because it decreased her libido. She was started on Wellbutrin XL 150 mg p.o. daily and we discussed the major side effects. She was initially wanting to go to [facility] [place] but changed her mind and wanted to go home with her friend Denice. She discharged home and will be staying with her friend Denice until other living circumstances could be provided. PHYSICAL EXAM: GENERAL: alert, oriented X 3, Cooperative, NAD ORAL: moist mucosa, no mucosal lesions NECK: No JVD, supple, trachea midline LUNGS: CTA, symmetric chest expansion HEART: RRR, Normal S1 and S2, no rub, no gallop ABDOMEN: soft, NT, ND, BS present, no guarding with palpation obese EXTREMITIES: no edema, no cyanosis, no calf tenderness SKIN: No rashes, no breakdown NEUROLOGIC: no focal neurologic deficits PSYCH: appropriate, normal affect, pleasant This note was generated with EZ4U dictation software. It may contain incorrect words, spelling, and punctuation that were not noted in checking the note before signing. - Physical Exam Vital Signs Temp Pulse Resp BP Pulse Ox 97.7 F L 65 18 101/47 L 92 03/27/18 08:20 03/27/18 08:21 03/27/18 08:21 03/27/18 08:20 03/27/18 08:21 Oxygen Delivery Method Room Air Weight: 275 lb 5.718 oz Body Mass Index (BMI) 40.6 Orthostatic Vital Signs Start: 03/26/18 06:10 Freq: q24h Status: Active Protocol: Activity Type Activity Date Activity User E-Sign Co-Sign Detail Recorded Client Recorded Date Recorded By Document 03/26/18 06:10 CDB [id number] 03/26/18 06:15 CDB Intake and Output for Last 24 Hours Intake Total 2891 / 2891 3270 / 3270 745 / 745 Output Total 300 / 300 1000 / 1000 Balance 2591 / 2591 2270 / 2270 745 / 745 Microbiology Past 72 Hours 03/25/18 16:53 Enteric Bacteriology - Final Stool 03/25/18 16:53 C. difficile DNA Amplification - Final Stool 03/25/18 16:53 Stool Lactoferrin - Final Stool Laboratory Tests Past 24 Hrs WBC 6.1 RBC 4.38 Hgb 12.4 Hct 39.5 MCV 90.2 MCH 28.3 MCHC 31.4 L RDW 14.7 H RDW Differential 48.3 H POC Glucose POC Glucose 135 H 199 H 197 H POC Glucose 128 H Discharge Activity: Return to Normal Activity Call your doctor if you observe: Fever of 101 or Higher Home Medications: Medications to take at Discharge Atenolol [Tenormin (beta shelby)] 50 mg PO BID 08/27/13 Losartan Potassium [Cozaar] 100 mg PO DAILY 08/27/13 traMADol [Ultram] 50 mg PO BID PRN PRN 08/19/16 Ropinirole HCl [Requip] 1 mg PO DAILY 02/11/17 insulin glargine (U-100) 100 unit/mL (3 mL) subcutaneous pen 60 unit SC DAILY ml 02/04/18 insulin lispro (U- 100) 100 unit/mL subcutaneous solution 20 unit SC .COMPLEX ml 02/04/18 calcium carbonate 600 mg lozenges 600 mg PO Q6H PRN PRN 03/19/18 Omeprazole [Prilosec] 20 mg PO DAILY #30 cap 03/20/18 Pregabalin [Lyrica] 75 mg PO BID 03/20/18 Albuterol Inhaler [Ventolin Hfa] 2 puff INHALATION PRN PRN 03/24/18 Cetirizine HCl [Zyrtec] 10 mg PO DAILY 03/24/18 Cranberry Fruit [Cranberry] 400 mg PO DAILY 03/24/18 Ergocalciferol [Vitamin D] 50,000 unit PO QMONTH 03/24/18 Fluticasone 220 Mcg [Flovent 220 Mcg] 2 puff INHALATION BID 03/24/18 Furosemide [Lasix] 40 mg PO BID 03/24/18 Lactobacillus Acidophilus [Acidophilus] 1 each PO DAILY 03/24/18 Mag Hydrox/Al Hydrox/Simeth [Mylanta II] 15 ml PO Q4H PRN PRN 03/24/18 Ondansetron [Zofran Odt] 4 mg SUBLINGUAL Q8H PRN PRN 03/24/18 Tizanidine HCl [Zanaflex] 4 mg PO TID PRN PRN 03/24/18 Zolpidem Tartrate 10 mg PO DAILY 03/24/18 buPROPion XL [Wellbutrin Xl] 150 mg PO DAILY #30 tablet.xl 03/27/18 Following Prescrptions Were Given to Patient: buPROPion XL [Wellbutrin Xl] 150 mg PO DAILY #30 tablet.xl Primary Care Physician: Chuck Sims MD [Primary Care Provider] - Please follow up with your Primary Care Physician in: 2 weeks Disposition: Home - with her friend Denice Minutes spent on discharge:: 35 Patient Condition:: Good Medical Necessity - Tobacco Use Smoking Status: Never smoker Tobacco Use: Non-smoker Meaningful Use Info Meaningful Use Diagnoses (Choose all that apply): None applicable Code Visit Inpatient E AND M: 02405 Disch Hosp 04/02/18 1330 <Electronically signed by Estelle Estes DO> Date Estelle Estes DO Cosigner Signature (if applicable): Date CC: Vicky Estes; Chuck Sims MD Signed BEDSIDE GLUCOSE Collected: 03/27/2018 Status: F Source: NIRAV 11:37 AM [facility] REPOSITORY TYPE CODE TESTS RESULT OUT OF REFERENCE UNITS RANGE LAB L501.080 70-110 mg/dL High BEDSIDE GLU 224 Result Comment: MANAGEMENT OF PATIENT CARE PER NURSING PROTOCOL Performed By: #### L501.080 #### [facility] Point of Care [address] [place] [address] DISCHARGE INSTRUCTION Observed: 03/27/2018 Status: F Source: NIRAV 10:04 AM [facility] REPOSITORY [facility] Medical Records Department [address] [place] [address] Instructions for Home/Discharge Instructions 03/27/18 0955 MR#: [id number] Acct: [id number] Name: TONYA RASMUSSEN Rep #: [id number] : 1955 63 From: Estelle Estes DO PCP: Chuck Sims MD Status: ADM ANAI - Discharge Diagnoses Current Active Problems: Current Active and Chronic Problems (Last Reviewed 03/24/18 @ 13:30 by Lissa Cantu) Debility (Acute) Chronic nausea and vomiting-etiology unk (Acute) You will use the following diet at home:: Other - if you have recurrent diarrhea I would encourage you to try a dairy free, gluten free diet, 1800 calorie diet Your food should be the consistency of: Mechanical soft (ground) Your liquids should be the consistency of: Regular/Thin Discharge Activity: Return to Normal Activity Call your doctor if you observe: Fever of 101 or Higher Additional Instructions: 1. Your HGBA1C is way to high. It is 10.7 and ideally it should be less than 7.0. Your blood sugars in the hospital have been pretty good on way less insulin......what this means is you are not following the diabetic/low carb diet. 2. I have started you on a new anti-depressant called Wellbutrin. This will not suppress libido. It can cause dry mouth and constipation. Take it in the morning once daily. 3. The gastric emptying study shows that your stomach empties normally. The scope showed minimal inflammation of the stomach. If the diarrhea and bloating and abdominal pain start again I would consider a dairly free, gluten free diet OR Dr. Sims may want to start you on a medication to treat irritable bowel. Allergies/Adverse Reactions: Allergies cephalexin Adverse Reaction (Verified 03/24/18 14:28) Vomiting ciprofloxacin [From Cipro] Adverse Reaction (Verified 03/24/18 14:28) Nausea theophylline anhydrous [From Joe-Dur] Adverse Reaction (Verified 03/24/18 14:28) Nausea Medications to take at Discharge Atenolol [Tenormin (beta hselby)] 50 mg PO BID 08/27/13 Losartan Potassium [Cozaar] 100 mg PO DAILY 08/27/13 traMADol [Ultram] 50 mg PO BID PRN PRN 08/19/16 Ropinirole HCl [Requip] 1 mg PO DAILY 02/11/17 insulin glargine (U-100) 100 unit/mL (3 mL) subcutaneous pen 60 unit SC DAILY ml 02/04/18 insulin lispro (U- 100) 100 unit/mL subcutaneous solution 20 unit SC .COMPLEX ml 02/04/18 calcium carbonate 600 mg lozenges 600 mg PO Q6H PRN PRN 03/19/18 Omeprazole [Prilosec] 20 mg PO DAILY #30 cap 03/20/18 Pregabalin [Lyrica] 75 mg PO BID 03/20/18 Albuterol Inhaler [Ventolin Hfa] 2 puff INHALATION PRN PRN 03/24/18 Cetirizine HCl [Zyrtec] 10 mg PO DAILY 03/24/18 Cranberry Fruit [Cranberry] 400 mg PO DAILY 03/24/18 Ergocalciferol [Vitamin D] 50,000 unit PO QMONTH 03/24/18 Fluticasone 220 Mcg [Flovent 220 Mcg] 2 puff INHALATION BID 03/24/18 Furosemide [Lasix] 40 mg PO BID 03/24/18 Lactobacillus Acidophilus [Acidophilus] 1 each PO DAILY 03/24/18 Mag Hydrox/Al Hydrox/Simeth [Mylanta II] 15 ml PO Q4H PRN PRN 03/24/18 Ondansetron [Zofran Odt] 4 mg SUBLINGUAL Q8H PRN PRN 03/24/18 Tizanidine HCl [Zanaflex] 4 mg PO TID PRN PRN 03/24/18 Zolpidem Tartrate 10 mg PO DAILY 03/24/18 buPROPion XL [Wellbutrin Xl] 150 mg PO DAILY #30 tablet.xl 03/27/18 The following prescriptions were given: buPROPion XL [Wellbutrin Xl] 150 mg PO DAILY #30 tablet.xl Primary Care Physician: Chuck Sims MD [Primary Care Provider] - Please follow up with your Primary Care Physician in: 2 weeks Test Results: Test results from this visit will be discussed in further detail at your follow-up appointment, if applicable. Proposed Discharge Date: 03/27/18 03/27/18 1004 <Electronically signed by Estelle Estes DO> Date Estelle Estes DO CC: Chuck Sims MD; Nancy Schulte MD BEDSIDE GLUCOSE Collected: 03/27/2018 Status: F Source: [place] 6:46 AM [facility] REPOSITORY TYPE CODE TESTS RESULT OUT OF REFERENCE UNITS RANGE LAB L501.080 70-110 mg/dL High BEDSIDE GLU 135 Result Comment: MANAGEMENT OF PATIENT CARE PER NURSING PROTOCOL Performed By: #### L501.080 #### [facility] Point of Care [facility] [address] [place], [place] [address] CBC W/DIFF, AUTOMATED Collected: 03/27/2018 Status: F Source: [place] 5:25 AM [facility] REPOSITORY TYPE CODE TESTS RESULT OUT OF RANGE REFERENCE UNITS LAB L100.1000 4.4-11.0 K/mm3 Normal WBC 6.1 LAB L100.1200 4.2-5.4 M/mm3 Normal RBC 4.38 LAB L100.1300 12.0-15.0 g/dl Normal HGB 12.4 LAB L100.1400 37-47 % Normal HCT 39.5 LAB L100.1500 81-99 fL Normal MCV 90.2 LAB L100.1600 27.0-32.0 pg Normal MCH 28.3 LAB L100.1700 32-36 g/gl Low MCHC 31.4 LAB L100.1810 11.6-14.6 % High RDW CV 14.7 LAB L100.1820 35.1-43.9 fl High RDW SD 48.3 LAB L100.1900 150-450 K/mm3 Normal PLT 210 LAB L100.2000 6.2-12.0 fl Normal MPV 10.3 LAB L100.2100 47-70 % Normal NEUT% 48.2 LAB L100.2200 19-41 % Normal LY% 35.4 LAB L100.2300 0-10 % Normal MONO% 10.0 LAB L100.2400 0-5 % High EO% 5.5 LAB L100.2500 0-1 % Normal BASO% 0.7 LAB L100.2550 0.0-0.9 % Normal IM GRAN % 0.200 Result Comment: IG% - Immature Granulocytes (promyelocytes, myelocytes and metamyelocytes) > 1% indicates that a LEFT SHIFT is Present. LAB L100.2620 2.0-7.7 X10 3/uL Normal Absolute Neut 3.0 LAB L100.2720 0.83-4.51 X10 3/ul Normal Absolute Lymph 2.17 Performed By: #### L100.0100 #### [facility] [address] [place], [address] BASIC METABOLIC Collected: 03/27/2018 Status: F Source: [place] PROFILE ([facility]) 5:25 AM [facility] REPOSITORY TYPE CODE TESTS RESULT OUT OF RANGE REFERENCE UNITS LAB L501.0100 74-106 mg/dL High GLU 138 Result Comment: Fasting Glucose result greater than or equal to 126 mg/dL suggests DIABETES MELLITUS per A.D.A. criteria. Please note revised GLUCOSE reference range effective 2017. LAB L501.1000 7-18 mg/dL Low BUN 5 LAB L501.1100 0.55-1.02 mg/dL Normal CREAT,SERUM 0.82 Result Comment: The validity of the calculated GFR AND GFRAA in patients over 70 years has not been determined. Clinical correlation is essential. LAB L501.1110 >60 mL/min Normal EST GFR 75 Result Comment: Non- GFR Calc LAB L501.1115 >60 mL/min Normal EST GFR - AA 91 Result Comment: GFR Calc LAB L501.1255 ml/min Normal Estimated CRCL 74.34 LAB L501.1300 10-20 RATIO Low BUN/CRE 6.1 LAB L501.2200 8.5-10 mg/dL Low .1 CA 7.6 LAB L501.5300 136-14 mmol/L High 5 NA 148 LAB L501.5600 3.5-5. mmol/L Normal 1 K 4.2 LAB L501.5900 98-107 mmol/L High CL 114 LAB L501.6100 21.0-3 mmol/L Normal 2.0 CO2 27.0 LAB L501.6200 5-15 Normal GAP 7 Performed By: #### L500.2500, L501.2300, L501.5200 #### [facility] [address] [place], [address] PHOSPHORUS Collected: 03/27/2018 Status: F Source: [place] 5:25 AM [facility] REPOSITORY TYPE CODE TESTS RESULT OUT OF RANGE REFERENCE UNITS LAB L501.2300 2.5-4.9 mg/dL Normal PHOS 2.7 Performed By: #### L500.2500, L501.2300, L501.5200 #### [facility] [address] [place], [address] MAGNESIUM Collected: 03/27/2018 Status: F Source: [place] 5:25 AM [facility] REPOSITORY TYPE CODE TESTS RESULT OUT OF RANGE REFERENCE UNITS LAB L501.5200 1.6-2.6 mg/dL Normal MG 2.1 Performed By: #### L500.2500, L501.2300, L501.5200 #### [facility] [address] [place], [address] BEDSIDE GLUCOSE Collected: 03/26/2018 Status: F Source: NIRAV 10:32 PM [facility] REPOSITORY TYPE CODE TESTS RESULT OUT OF REFERENCE UNITS RANGE LAB L501.080 70-110 mg/dL High BEDSIDE GLU 199 Result Comment: MANAGEMENT OF PATIENT CARE PER NURSING PROTOCOL Performed By: #### L501.080 #### [facility] Point of Care [address] [place] [address] BEDSIDE GLUCOSE Collected: 03/26/2018 Status: F Source: NIRAV 5:41 PM [facility] REPOSITORY TYPE CODE TESTS RESULT OUT OF REFERENCE UNITS RANGE LAB L501.080 70-110 mg/dL High BEDSIDE GLU 197 Result Comment: MANAGEMENT OF PATIENT CARE PER NURSING PROTOCOL Performed By: #### L501.080 #### [facility] Point of Care [address] [place] [address] BEDSIDE GLUCOSE Collected: 03/26/2018 Status: F Source: [place] 12:52 PM [facility] REPOSITORY TYPE CODE TESTS RESULT OUT OF REFERENCE UNITS RANGE LAB L501.080 70-110 mg/dL High BEDSIDE GLU 128 Result Comment: MANAGEMENT OF PATIENT CARE PER NURSING PROTOCOL Performed By: #### L501.080 #### [facility] Point of Care [address] [place] [address] OPERATIVE REPORT - Observed: 03/26/2018 Status: F Source: [place] ENDOSCOPY 12:18 PM [facility] REPOSITORY [facility] Medical Records Department [address] [place] [address] Operative Report - Endoscopy MR#: [id number] Acct: [id number] Name: TONYA RASMUSSEN Rep #: [id number] : 1955 63 From: Nancy Schulte MD PCP: Chuck Sims MD Status: ADM ANAI Patient Name: Tonya Rasmussen Procedure Date: 03/26/2018 11:54 AM Date of : 1955 Age: 63 Procedure: Upper GI endoscopy Indications: Epigastric abdominal pain, Nausea with vomiting Providers: Nancy Schulte MD Referring MD: Newton Medina Medicines: Monitored Anesthesia Care Patient Profile: This is a 63 year old female. Complications: No immediate complications. Procedure: Pre-Anesthesia Assessment: - Prior to the procedure, a History and Physical was performed, and patient medications and allergies were reviewed. The patient's tolerance of previous anesthesia was also reviewed. The risks and benefits of the procedure and the sedation options and risks were discussed with the patient. All questions were answered, and informed consent was obtained. Prior Anticoagulants: The patient has taken no previous anticoagulant or antiplatelet agents. ASA Grade Assessment: II - A patient with mild systemic disease. After reviewing the risks and benefits, the patient was deemed in satisfactory condition to undergo the procedure. After obtaining informed consent, the endoscope was passed under direct vision. Throughout the procedure, the patient's blood pressure, pulse, and oxygen saturations were monitored continuously. The gastroscope was introduced through the mouth, and advanced to the second part of duodenum. The upper GI endoscopy was accomplished without difficulty. The patient tolerated the procedure well. Scope In: 12:04:39 PM Scope Out: 12:09:32 PM Total Procedure Duration Time 0 hours 4 minutes 53 seconds Findings: The examined duodenum was normal. Mild inflammation was found in the gastric antrum. Biopsies were taken with a cold forceps for histology. Biopsies were taken with a cold forceps for Helicobacter pylori cultures. Mild mucosal changes were found at the gastroesophageal junction. Biopsies were taken with a cold forceps for histology. Impression: - Normal examined duodenum. - Gastritis. Biopsied. - Mucosal changes in the gastroesophageal junction. Biopsied. Recommendation: - Await pathology results. - [facility] patient [facility]. - Continue present medications including PPI. Procedure Code(s): --- Professional --- 12078, Esophagogastroduodenoscopy, flexible, transoral; with biopsy, single or multiple Diagnosis Code(s): --- Professional --- K29.70, Gastritis, unspecified, without bleeding K31.89, Other diseases of stomach and duodenum R10.13, Epigastric pain R11.2, Nausea with vomiting, unspecified CPT copyright 2017 [employer]. All rights reserved. The codes documented in this report are preliminary and upon medical billing coder review may be revised to meet current compliance requirements. MD Nancy Gold MD 03/26/2018 12:18:31 PM This report has been signed electronically. Number of Addenda: 0 Note Initiated On: 03/26/2018 11:54 AM 03/26/18 1218 Date Nancy Schulte MD Cosigner Signature: Date (if indicated) CC: Vicky Estes; Chuck Sims MD; Newton Medina DO; Nancy Schulte MD Date Dictated: 03/26/18 1154 Date Transcribed: Regional Economist: TR Signed GASTRIC BIOPSY Observed: 03/26/2018 Status: F Source: [place] 11:30 AM [facility] REPOSITORY Patient: TONYA RASMUSSEN : 1955 (63/F) Acct Num: [id number] Phys: Vicky Estes Unit Num: [id number] Loc: MS2 [id number] Specimen: [id number] Received: 03/26/18 - 1403 Spec Type: Gastric Bx TISSUES 1 TISSUES: A. Gastric mucous membrane B. Gastric mucous membrane COMMENT A. The results of immunohistochemistry for Helicobacter pylori will be reported separately ([id number]). B. Alcian blue/PAS stain with matched control is used in the evaluation of the specimen. GROSS DESCRIPTION A - Received in fixative is one container labeled with the patient's name and designated antrum biopsy. The specimen consists of one irregular fragment of light merida soft tissue that measures 0.3 x 0.3 x 0.1 cm. The specimen is totally submitted in one cassette. B - Received in fixative is one container labeled with the patient's name and designated GE junction biopsy. The specimen consists of one irregular fragment of light merida soft tissue that measures 0.3 x 0.3 x 0.1 cm. The specimen is totally submitted in one cassette. / RAMONE:cristhian 03/26/18 TC:3 CPT: 72558 x2, 91763 HEADER OPERATION: EGD ([facility]) PRE-OP DIAGNOSIS: Epigastric pain, nausea and vomiting TISSUE SUBMITTED: A - Antrum biopsy for H. pylori and path, B - GE junction biopsy MICROSCOPIC DESCRIPTION Slides are reviewed. A. The specimen shows fragments of gastric mucosa with chronic inflammatory cell infiltrates in the lamina propria consisting of lymphocytes and plasma cells, consistent with mild chronic gastritis. MICROSCOPIC DIAGNOSIS A. Antral biopsy: Mild gastritis. B. GE junction, biopsy: A fragment of gastric mucosa with chronic inflammation. Intestinal metaplasia (goblet cell metaplasia) is not identified. See comment. RAMONE:cristhian 03/27/18 Signed Junior Berry MD 03/30/18 <signature on file> Performed By: #### PGASB #### [facility] [address] [place], [address] BEDSIDE GLUCOSE Collected: 03/26/2018 Status: F Source: NIRAV 6:54 AM [facility] REPOSITORY TYPE CODE TESTS RESULT OUT OF REFERENCE UNITS RANGE LAB L501.080 70-110 mg/dL High BEDSIDE GLU 139 Result Comment: MANAGEMENT OF PATIENT CARE PER NURSING PROTOCOL Performed By: #### L501.080 #### [facility] Point of Care [address] [place] [address] COMPREHENSIVE METABOLIC Collected: 03/26/2018 Status: F Source: NIRAV PROFIL 5:25 AM [facility] REPOSITORY TYPE CODE TESTS RESULT OUT OF RANGE REFERENCE UNITS LAB L501.0100 74-106 mg/dL High GLU 143 Result Comment: Fasting Glucose result greater than or equal to 126 mg/dL suggests DIABETES MELLITUS per A.D.A. criteria. Please note revised GLUCOSE reference range effective 2017. LAB L501.1000 7-18 mg/dL Normal BUN 7 LAB L501.1100 0.55-1.02 mg/dL High CREAT,SERUM 1.11 Result Comment: The validity of the calculated GFR AND GFRAA in patients over 70 years has not been determined. Clinical correlation is essential. LAB L501.1110 >60 mL/min Low EST GFR 53 Result Comment: Non- GFR Calc LAB L501.1115 >60 mL/min Normal EST GFR - AA 64 Result Comment: GFR Calc LAB L501.1255 ml/min Normal Estimated CRCL 54.92 LAB L501.1300 10-20 RATIO Low BUN/CRE 6.3 LAB L501.1500 6.4-8. g/dL Low 2 T PROT 6.2 LAB L501.1800 3.2-5. g/dL Low 0 ALB 2.4 LAB L501.1950 2.2-4. g/dL Normal 2 GLOB 3.8 LAB L501.2000 0.9-2. RATIO Low 4 A/G 0.6 LAB L501.2200 8.5-10 mg/dL Low .1 CA 8.0 LAB L501.4100 15-37 U/L Normal AST 32 LAB L501.4305 45-117 U/L Normal ALK P 112 LAB L501.4405 13-56 U/L Normal ALT 17 LAB L501.4600 0.20-1 mg/dL Normal .00 T BILI 0.60 LAB L501.5300 136-14 mmol/L Normal 5 NA 144 LAB L501.5600 3.5-5. mmol/L Normal 1 K 3.5 LAB L501.5900 98-107 mmol/L Normal CL 106 LAB L501.6100 21.0-3 mmol/L Normal 2.0 CO2 30.0 LAB L501.6200 5-15 Normal GAP 8 Performed By: #### L500.4050, L500.4100, L501.2300, L501.5200 #### [facility] [address] [facility] [place], [place], [id number] LIPID PROFILE Collected: 03/26/2018 Status: F Source: [place] 5:25 AM [facility] REPOSITORY TYPE CODE TESTS RESULT OUT OF RANGE REFERENCE UNITS LAB L501.4900 200 mg/dL Normal CHOL 104 Result Comment: <200 mg/dL Desirable 200-240 mg/dL Borderline >240 mg/dL High Risk LAB L501.5000 mg/dL Normal TRIG 138 Result Comment: The drugs N-Acetylcysteine and Metamizole may falsely depress this assay. Serum Triglycerides Reference Interval Normal <150 mg/dL Borderline high 150 - 199 mg/dL High 200 - 499 mg/dL Very High > or = 500 mg/dL LAB L501.6400 mg/dL Low HDL 26 Result Comment: The drugs N-Acetylcysteine and Metamizole may falsely depress this assay. Reference Range HDL <40 mg/dL Low HDL Cholesterol HDL >or= 60 mg/dL High HDL Cholesterol LAB L501.6500 0-130 mg/dL Normal LDL 50 LAB L501.6600 5-40 mg/dL Normal VLDL 28 Performed By: #### L500.4050, L500.4100, L501.2300, L501.5200 #### [facility] [address] [place], [place], [id number] PHOSPHORUS Collected: 03/26/2018 Status: F Source: [place] 5:25 AM [facility] REPOSITORY TYPE CODE TESTS RESULT OUT OF RANGE REFERENCE UNITS LAB L501.2300 2.5-4.9 mg/dL Normal PHOS 2.5 Performed By: #### L500.4050, L500.4100, L501.2300, L501.5200 #### [facility] [address] [place], [address] MAGNESIUM Collected: 03/26/2018 Status: F Source: C[place] 5:25 AM [facility] REPOSITORY TYPE CODE TESTS RESULT OUT OF RANGE REFERENCE UNITS LAB L501.5200 1.6-2.6 mg/dL Normal MG 2.2 Performed By: #### L500.4050, L500.4100, L501.2300, L501.5200 #### [facility] [address] [facility] [place], [address] IMMUNOHISTOCHEMISTRY Observed: 03/26/2018 Status: F Source: [place] 12:00 AM [facility] REPOSITORY Patient: TONYA RASMUSSEN : 1955 (63/F) Acct Num: [id number] Phys: Vicky Estes Unit Num: [id number] Loc: MS2 [id number] Specimen: [id number] Received: 03/26/181446 Spec Type: IMMUNO TISSUES 1 TISSUES: A. Stomach, NOS SPECIMEN INFORMATION: Tissue Source: A - Antrum biopsy Clinical Info: Epigastric pain, nausea and vomiting Specimen Number: [id number] CPT code: 99818 METHODOLOGY: Deparaffinized sections of prefer/formalin-fixed tissue or PAP/DQ stained slides are incubated with monoclonal/polyclonal antibodies/oligonucleotide probes. Localization is made via biotin free immunoperoxidase method. Appropriate controls are performed and reacted as expected. Results on target cell population are indicated in the following table: RESULTS: ANTIBODY / CLONE RESULT Block A H Pylori (polyclonal) negative These tests were developed and their performance characteristics determined by [facility]. They may not have been cleared or approved by the U.S. Food and Drug Administration. The FDA has determined that such clearance or approval is not necessary. INTERPRETATION: A. Antrum, biopsy: Negative for Helicobacter pylori organisms. SJ:cristhian 03/27/18 PHYSICIAN AND INSTITUTION [address] [address] Signed Junior Berry MD 03/30/18 <signature on file> Performed By: #### PIMM #### [facility] Laboratory [address] [facility]. [place], [place], [address] BEDSIDE GLUCOSE Collected: 03/25/2018 Status: F Source: NIRAV 9:01 PM [facility] REPOSITORY TYPE CODE TESTS RESULT OUT OF REFERENCE UNITS RANGE LAB L501.080 70-110 mg/dL High BEDSIDE GLU 228 Result Comment: MANAGEMENT OF PATIENT CARE PER NURSING PROTOCOL Performed By: #### L501.080 #### [facility] Point of Care [address] [place] [address]. [place], [place] [id number] STOOL Observed: 03/25/2018 Status: F Source: NIRAV LACTOFERRIN/WBC 4:53 PM [facility] REPOSITORY Comments: SPECIMEN ALREADY IN LAB Stool Lacto/WBC Normal Reference Range = Negative Fecal WBC Lactoferrin Positive: Fecal WBC Lactoferrin present Performed By: #### M100.0605 #### [facility] Laboratory [address] [place] [address]. [place], [place], [id number] Observed: 03/25/2018 Status: F Source: NIRAV CDIFF (MOLECULAR) 4:53 PM [facility] REPOSITORY Is the patient receiving laxatives? N New/unexplained onset of 3 or more stools in past 24 hrs? Y Cdiff-Molecular Normal Reference Range = Negative C. Diff DNA Negative- No toxigenic C. Diff DNA Detected NAAT METHOD Testing was performed using nucleic acid amplification Performed By: #### M100.6796 #### [facility] [address] [place] [address]. [place], [place], [address] Observed: 03/25/2018 Status: F Source: NIRAV ENTERIC PATHOGEN 4:53 PM [facility] PANEL STOOL REPOSITORY Comments: SPECIMEN ALREADY IN LAB EP PANEL STOOL Normal Reference Range = Not Detected Not detected for Campylobacter group, Salmonella species, Shigella species, Vibrio Group, Yersinia enterocolitica, EHEC (Shiga Toxin 1, Shiga Toxin 2), Norovirus Gl/Gll, and Rotavirus A. Other common stool pathogens are not detected on this panel include: Aeromonas/Plesiomonas or parasites. Order testing for these organisms separately if suspected. This is an amplified DNA test which makes it both specific and sensitive. CAMPYLOBACTER Not Detected Salmonella Not Detected Shigella sp. Not Detected Shiga Toxin Not Detected Yersinia Not Detected VIBRIO Not Detected Norovirus Not Detected Rotavirus Not Detected Performed By: #### M100.637 #### [facility] Laboratory [address] [place], [address] BEDSIDE GLUCOSE Collected: 03/25/2018 Status: F Source: CEMENT 4:13 PM [facility] REPOSITORY TYPE CODE TESTS RESULT OUT OF REFERENCE UNITS RANGE LAB L501.080 70-110 mg/dL High BEDSIDE GLU 226 Result Comment: MANAGEMENT OF PATIENT CARE PER NURSING PROTOCOL Performed By: #### L501.080 #### [facility] Point of Care [address] [facility] [place] [address] BEDSIDE GLUCOSE Collected: 03/25/2018 Status: F Source: CEMENT 11:33 AM [facility] REPOSITORY TYPE CODE TESTS RESULT OUT OF REFERENCE UNITS RANGE LAB L501.080 70-110 mg/dL High BEDSIDE GLU 130 Result Comment: MANAGEMENT OF PATIENT CARE PER NURSING PROTOCOL Performed By: #### L501.080 #### [facility] Point of Care [address] [facility] [address] GASTRIC EMPTYING Observed: 03/25/2018 Status: F Source: CEMENT STUDY 7:45 AM [facility] REPOSITORY [facility] Imaging Services [address] [place] [address] Gastric Emptying Study MR#: [id number] Acct: [id number] Name: TONYA RASMUSSEN Rep #: [id number] : 1955 F 63 From: Jered Dempsey DO PCP: Chuck Sims MD Status: ADM ANAI Study: Gastric Emptying Study Date of Exam: 03/25/18 Exam# [id number] Ordering Dr: Estelle Estes DO CLINICAL: 63-year-old diabetic female with reported history of chronic nausea. SEMI-SOLID PHASE 99m Tc SULFUR COLLOID GASTRIC EMPTYING STUDY COMPARISON: None available FINDINGS: The patient was administered 1.2 mCi of 99m Tc sulfur colloid mixed with oatmeal and consumed per os. Image acquisitions in the anterior-posterior projections for a total of 60 minutes. There is prompt visualization of the stomach. There is no gastroesophageal reflux identified. The T1/2 linear fit was calculated to be 36.62 minutes, (Normal: 12-56 minutes). NM/Gastric Emptying Study IMPRESSION: 1. NORMAL 99m Tc sulfur colloid semi-solid phase (oatmeal) gastric emptying imaging examination. A. There is normal and preserved semi-solid phase gastric emptying compared to normal controls. (Alejandro et al, J Nucl Med Tech 38: 186, 2010). Electronically Signed: Jered Dempsey DO at 17:15 EST Tel , Service support , CC: Vicky Estes; Chuck Sims MD; Newton Medina DO Regional Economist: Signed CBC W/DIFF, AUTOMATED Collected: 03/25/2018 Status: F Source: NIRAV 7:04 AM [facility] REPOSITORY TYPE CODE TESTS RESULT OUT OF RANGE REFERENCE UNITS LAB L100.1000 4.4-11.0 K/mm3 Normal WBC 9.4 LAB L100.1200 4.2-5.4 M/mm3 Normal RBC 5.02 LAB L100.1300 12.0-15.0 g/dl Normal HGB 14.1 LAB L100.1400 37-47 % Normal HCT 43.8 LAB L100.1500 81-99 fL Normal MCV 87.3 LAB L100.1600 27.0-32.0 pg Normal MCH 28.1 LAB L100.1700 32-36 g/gl Normal MCHC 32.2 LAB L100.1810 11.6-14.6 % Normal RDW CV 14.2 LAB L100.1820 35.1-43.9 fl High RDW SD 44.7 LAB L100.1900 150-450 K/mm3 Normal PLT 246 LAB L100.2000 6.2-12.0 fl Normal MPV 10.4 LAB L100.2100 47-70 % Normal NEUT% 52.7 LAB L100.2200 19-41 % Normal LY% 32.4 LAB L100.2300 0-10 % High MONO% 11.9 LAB L100.2400 0-5 % Normal EO% 2.3 LAB L100.2500 0-1 % Normal BASO% 0.4 LAB L100.2550 0.0-0.9 % Normal IM GRAN % 0.300 Result Comment: IG% - Immature Granulocytes (promyelocytes, myelocytes and metamyelocytes) > 1% indicates that a LEFT SHIFT is Present. LAB L100.2620 2.0-7.7 X10 3/uL Normal Absolute Neut 5.0 LAB L100.2720 0.83-4.51 X10 3/ul Normal Absolute Lymph 3.06 Performed By: #### L100.0100, L500.2500 #### [facility] [address] [place], [address] BASIC METABOLIC Collected: 03/25/2018 Status: F Source: CEMENT PROFILE ([facility]) 7:04 AM [facility] REPOSITORY TYPE CODE TESTS RESULT OUT OF RANGE REFERENCE UNITS LAB L501.0100 74-106 mg/dL High GLU 114 Result Comment: Fasting Glucose result from 100 to 125 mg/dL suggests IMPAIRED HOMEOSTASIS per A.D.A. criteria. Please note revised GLUCOSE reference range effective 2017. LAB L501.1000 7-18 mg/dL Normal BUN 7 LAB L501.1100 0.55-1.02 mg/dL High CREAT,SERUM 1.06 Result Comment: The validity of the calculated GFR AND GFRAA in patients over 70 years has not been determined. Clinical correlation is essential. LAB L501.1110 >60 mL/min Low EST GFR 56 Result Comment: Non- GFR Calc LAB L501.1115 >60 mL/min Normal EST GFR - AA 68 Result Comment: GFR Calc LAB L501.1255 ml/min Normal Estimated CRCL 57.51 LAB L501.1300 10-20 RATIO Low BUN/CRE 6.6 LAB L501.2200 8.5-10 mg/dL Low .1 CA 7.9 LAB L501.5300 136-14 mmol/L Normal 5 NA 141 LAB L501.5600 3.5-5. mmol/L Low 1 K 3.1 LAB L501.5900 98-107 mmol/L Normal CL 106 LAB L501.6100 21.0-3 mmol/L Normal 2.0 CO2 26.0 LAB L501.6200 5-15 Normal GAP 9 Performed By: #### L100.0100, L500.2500 #### [facility] [address] [place], [address] HEMOGLOBIN A1C Collected: 03/25/2018 Status: F Source: NIRAV 7:04 AM [facility] REPOSITORY TYPE CODE TESTS RESULT OUT OF RANGE REFERENCE UNITS LAB L501.9985 4.2-6.3 % High HGB A1C 10.7 Performed By: #### L501.9985 #### [facility] [address] [facility] [address] PARTIAL THROMBOPLAST Collected: 03/25/2018 Status: F Source: NIRAV TIME 7:04 AM [facility] REPOSITORY TYPE CODE TESTS RESULT OUT OF RANGE REFERENCE UNITS LAB L300.4310 24.1-36.2 Seconds Normal PTT 26.9 Performed By: #### L300.4310 #### [facility] [address] [place], [address] BEDSIDE GLUCOSE Collected: 03/25/2018 Status: F Source: NIRAV 6:25 AM [facility] REPOSITORY TYPE CODE TESTS RESULT OUT OF REFERENCE UNITS RANGE LAB L501.080 70-110 mg/dL High BEDSIDE GLU 115 Result Comment: MANAGEMENT OF PATIENT CARE PER NURSING PROTOCOL Performed By: #### L501.080 #### [facility] Point of Care [address] [place] [address] BEDSIDE GLUCOSE Collected: 03/24/2018 Status: F Source: NIRAV 10:01 PM [facility] REPOSITORY TYPE CODE TESTS RESULT OUT OF REFERENCE UNITS RANGE LAB L501.080 70-110 mg/dL High BEDSIDE GLU 210 Result Comment: MANAGEMENT OF PATIENT CARE PER NURSING PROTOCOL Performed By: #### L501.080 #### [facility] Point of Care [address] [place] [address] HISTORY AND PHYSICAL Observed: 03/24/2018 Status: F Source: CEMENT EXAM 9:04 PM [facility] REPOSITORY [facility] Medical Records Department [address] [place] [address] History and Physical 03/24/182040 MR#: [id number] Acct: [id number] Name: TONYA RASMUSSEN Rep #: [id number] : 1955 63 From: Newton Medina DO PCP: Chuck Sims MD Status: ADM ANAI Y Location: [place] [address] Problem List (1) Debility Status: Acute (2) Chronic nausea and vomiting-etiology unk Status: Acute History of Present Illness Date of Admission: 03/24/18 Chief Complaint: Generalized debility, persistent nausea and vomiting times weeks The patient is a 63 year old F who was seen in the emergency room at [facility] after being sent there by a general surgeon who she saw in consultation today for persistent nausea and vomiting times several weeks-patient states that she is unable to keep any food down, according to general surgery, this was confirmed by a friend who stays with the patient. Patient also complained of generalized weakness. Patient's past medical record here that the last time she had an EGD performed was 2016 and it showed only GERD. Patient denies any shortness of breath, chest pain, cough, fever, or chills. Patient had lab performed in the emergency room, CBC was unremarkable, chemistry panel was remarkable for a creatinine of 1.1, potassium of 3.2, and a glucose of 250. Patient's BUN was not elevated despite the patient stating that she had not been able to eat or drink for several days. Patient lives alone, she admitted that she was unable to care for herself and requested admission for generalized debility and persistent nausea and vomiting. Patient will be placed in observation status on [facility] 2, she will be seen in consultation by general surgery and hopefully an EGD will be performed before her discharge to a [facility] facility. PT and OT will see the patient during her observation stay. Past Medical History Past Medical History (Chronic Problems): Chronic Problems (Last Reviewed 03/24/18 @ 13:30 by Lissa Cantu) History of left heart catheterization (Chronic 02/18/18) Normal coronaries and EF per [facility] done by Dr. Qiu @ [facility]: recommend looking at other/pulmonary causes of SOB Gastroparesis (Chronic) Abdominal pain (Chronic) Vitamin D deficiency (Chronic) Vision problems (Chronic) Osteoarthritis (Chronic) Back problem (Chronic) Seasonal allergies (Chronic) Depression (Chronic) Asthma (Chronic) Obstructive sleep apnea (Chronic) IBS (irritable bowel syndrome) (Chronic) Hypersomnia, unspecified (Chronic) GERD (gastroesophageal reflux disease) (Chronic) Type 2 diabetes mellitus (Chronic) Hypertension (Chronic) Abnormal electrocardiogram (Chronic) Hyperlipidemia (Chronic) Dyspnea (Chronic) Body mass index (BMI) of 45.0-49.9 in adult (Chronic) Abnormal cardiovascular stress test (Chronic) Stress echo 01/30/[address] or T wave changes to suggest ischemia but pt had extreme dyspnea Medical History: Medical History (Last Reviewed 03/24/18 @ 13:30 by Lissa Cantu) Vitamin D deficiency (Chronic) E55.9 Vision problems (Chronic) H54.7 Osteoarthritis (Chronic) M19.90 Back problem (Chronic) M53.9 Seasonal allergies (Chronic) J30.2 Shingles (Resolved) B02.9 Depression (Chronic) F32.9 Asthma (Chronic) J45.909 Obstructive sleep apnea (Chronic) G47.33 IBS (irritable bowel syndrome) (Chronic) K58.9 Hypersomnia, unspecified (Chronic) G47.10 GERD (gastroesophageal reflux disease) (Chronic) K21.9 Type 2 diabetes mellitus (Chronic) E11.9 Hypertension (Chronic) I10 Abnormal electrocardiogram (Chronic) R94.31 Hyperlipidemia (Chronic) E78.5 Dyspnea (Chronic) R06.00 Body mass index (BMI) of 45.0-49.9 in adult (Chronic) Z68.42 Abnormal cardiovascular stress test (Chronic) R94.39 Stress echo 01/30/[address] or T wave changes to suggest ischemia but pt had extreme dyspnea Chest pain on exertion (Resolved) R07.9 Depression (Resolved) F32.9 Allergies cephalexin Adverse Reaction (Verified 03/24/18 14:28) Vomiting ciprofloxacin [From Cipro] Adverse Reaction (Verified 03/24/18 14:28) Nausea theophylline anhydrous [From Joe-Dur] Adverse Reaction (Verified 03/24/18 14:28) Nausea Home Medications: Ambulatory Orders Medication Instructions Recorded Atenolol [Tenormin (Beta [facility])] 50 mg PO BID 0523/14 Losartan Potassium [Cozaar] 100 mg PO DAILY 08/27/13 Surgical History: Surgical History (Last Reviewed 03/24/18 @ 13:30 by Lissa Cantu) History of left heart catheterization (Chronic) Onset Date: 02/18/18 Z98.890 Normal coronaries and EF per [facility] done by Dr. 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[employer] SOFTWARE PROGRAMMER history Lives: Alone Smoking Status: Never smoker Tobacco Use: Non-smoker Alcohol: None Drugs: None - *Family History Maternal Family History: Family History (Last Reviewed 03/24/18 @ 13:30 by Lissa Cantu) Father Diabetes Heart disease Mother CVA (cerebral vascular accident) Psychiatric care Alzheimer disease Parkinson's disease Melanoma Osteoporosis History Items: - - Parkinson's disease Paternal Family History: Family History (Last Reviewed 03/24/18 @ 13:30 by Lissa Cantu) Father Diabetes Heart disease Mother CVA (cerebral vascular accident) Psychiatric care Alzheimer disease Parkinson's disease Melanoma Osteoporosis History Items: Diabetes Review of Systems Constitutional: Reports: Weakness, Fatigue. Denies: Anorexia, Chills, Fever, Night Sweats, Malaise Eyes: Denies: Blurred vision, Cataracts, Conjunctivae Inflammation, Double vision, Drainage HEENT: Denies: Difficulty Swallowing, Dysphasia, Ear Pain, Eye Pain, Hearing Changes, Nasal bleeding, Nasal Congestion, Post Nasal Drip Cardiovascular: Denies: Chest Pain, Claudication, Chest Pressure, Chest Tightness, Edema, Heaviness Respiratory: Denies: Cough, Hemoptysis, Pleuritic Pain, Shortness of Breath Gastrointestinal: Reports: Nausea, Vomiting. Denies: Abdominal Pain, Constipation, Diarrhea, Dyspepsia, Hematemesis, Hematochezia, Melena Genitourinary: Denies: Dysuria, Frequency, Hematuria, Incontinence, Nocturia Musculoskeletal: Reports: Back Pain. Denies: Foot Pain, Hand Pain, Joint swelling, Joint Tenderness, Leg Pain Skin: Reports: Wounds - Small wound to the right buttocks- timeframe unknown. Denies: Dryness, Jaundice, Pruritis, Rash Neurological: Denies: Blurred vision, Double vision, Change in Speech, Slurred speech, Incoordination, Numbness, Tremor, Seizures Psychiatric: Denies: Anxiety, Depression, Homicidal Ideations, Suicidal Ideations Endocrine: Denies: Heat/ Cold Intolerance, Polydipsia, Hx of Irradiation, Hx of Thyroiditis Hematologic/ Lymphatic: Denies: Adenopathy, Anemia, Easy Bruising, Petechiae, Purpura, Hx of blood clot VTE Information - Inpt Only VTE Present on Admission: No VTE Mechan Device Prophylaxis: None VTE Pharm Prophylaxis ordered?: Yes Patient Problems: Active and Suspected Problems (Last Reviewed 03/24/18 @ 13:30 by Lissa Cantu) Debility (Acute) Chronic nausea and vomiting-etiology unk (Acute) - Physical Exam General: Alert, Oriented x3, Cooperative, No apparent distress, Well developed, Well nourished HEENT: Atraumatic, PERRLA, EOMI, Normocephalic Oral: Moist Mucosa Neck: Supple, No JVD, Negative Carotid Bruits, No Nuchal Rigidity, Trachea Midline, Thyroid Normal Size and Texture Lungs: Clear to auscultation, Normal air movement, No rhonchi, No wheeze, No rales Cardiovascular: Regular rate, Regular Rhythm, Normal S1, Normal S2, No murmurs, No Ectopic Activity, PMI Normal, No rub noted, No Gallop Abdomen: Bowel Sounds Present, Soft, Non Tender, Non-Distended, No hernias noted Extremities: No clubbing, No cyanosis, No edema, Capillary Refill Less than 3 Seconds Skin: Ulcer/ Wound - Stage II pressure ulceration right buttocks medial-1 cm diameter, - - There is a small stage II pressure ulceration of the medial part of the right buttocks, this area is only 1 cm in diameter, no purulent drainage was noted Musculoskeletal: No Tenderness to Palpation of Joints or Extremities, No Muscle Wasting Neurological: Cranial nerves II-XII grossly intact, Neuro grossly intact, Sensory exam intact to light touch and pain, Coordination normal Psych/Mental Status: Normal Affect, Appropriate, Alert and oriented to time, place, person, mood and affect Vital Signs Temp Pulse Resp BP Pulse Ox 97.5 F L 52 L 16 150/56 H 96 03/24/18 16:50 03/24/18 16:50 03/24/18 16:50 03/24/18 16:50 03/24/18 16:50 Oxygen Delivery Method Room Air Weight: 124.9 kg Body Mass Index (BMI) 40.6 Intake and Output for Last 24 Hours Output Total 200 / 200 Balance -200 / -200 Laboratory Tests Past 24 Hrs WBC 6.8 RBC 5.15 Hgb 14.6 Hct 44.7 MCV 86.8 MCH 28.3 MCHC 32.7 POC Glucose POC Glucose 225 H Assessment/Plan All Active Problems (Last Reviewed 03/24/18 @ 13:30 by Lissa Cantu) Debility (Acute) Chronic nausea and vomiting-etiology unk (Acute) Decubitus ulcer of buttock, stage 2 (Acute) Shingles (Resolved) Chest pain on exertion (Resolved) Depression (Resolved) #1 generalized debility-exact etiology unclear, possibly psychologic overlay-patient was placed into observation status on [facility] 2, she was seen by PT and OT, patient wants to be admitted to a [facility] facility-she prefers [facility] #2 persistent nausea and vomiting times weeks according to the patient-patient has no evidence of dehydration however, patient will be seen by general surgery ( ) and she will need an EGD performed before she is transferred to a skilled facility, I talked with Dr. Schulte and she will try to do the EGD tomorrow if possible #3 type 2 diabetes-patient's blood sugars will be monitored #4 obstructive sleep apnea-noncompliant with treatment #5 GERD-again patient will need an EGD performed #6 morbid obesity #7 osteoarthritis #8 essential hypertension #9 pressure ulceration right decubitus-patient will be seen by wound care, currently she is using Aquacel on the wound daily #10 degenerative disc disease of the lumbar spine-patient is on Lyrica Code Visit OBSV E AND M: [id number] Initial observation care L3 03/24/182103 <Electronically signed by Newton Medina DO> Date Newton Medina DO Cosigner Signature: Date (if applicable) CC: Chuck Sims MD; Newton Medina Signed BEDSIDE GLUCOSE Collected: 03/24/2018 Status: F Source: CEMENT 5:06 PM [facility] REPOSITORY TYPE CODE TESTS RESULT OUT OF REFERENCE UNITS RANGE LAB L501.080 70-110 mg/dL High BEDSIDE GLU 225 Result Comment: MANAGEMENT OF PATIENT CARE PER NURSING PROTOCOL Performed By: #### L501.080 #### [facility] Point of Care [address] [facility] [address] EMERGENCY DEPARTMENT Observed: 03/24/2018 Status: F Source: CEMENT SUMMARY 3:41 PM [facility] REPOSITORY [facility] Medical Records Department [address] [place] [address] Emergency Department Summary 03/24/18 1536 MR#: [id number] Acct: [id number] Name: TONYA RASMUSSEN Rep #: [id number] : 1955 63 From: Yony Steele MD PCP: Chuck Sims MD Status: REG ER - ER Visit Summary Date of Service: 03/24/18 Chief Complaint: Nausea, vomiting diarrhea unable to care for self History of Present Illness: The patient is a 63 F who was seen several days ago in the emergency department and discharged to home. She was seen today by . She presents because of nausea, vomiting diarrhea for 3+ months. He states she is thirsty, has dry mouth and reports orthostatic symptoms. She states she is unable to care for herself. She lives alone. She denies fever, chills night sweats. She denies ocular, visual auditory symptoms. She denies cardiac respiratory symptoms. She denies dysuria, frequency or urgency. She denies hematuria. Past medical history of GERD, diabetes, hypertension, hypercholesterolemia, gastric paresis, and a bowel syndrome, obstructive sleep apnea and osteoarthritis. She is status post cholecystectomy. Physical Examination: Vital signs noted and blood pressure is slightly elevated 132/63. Heart rate 57. She is not febrile. She is edentulous. Dry mucosa. Nipples equal round reactive paradoxic muscle intact. Sclerae anicteric. TMs normal. Trachea midline. Lungs are clear to auscultation. Heart is slow and regular. Abdomen is soft nontender. She has not well groomed. Abdomen is soft nontender bowel sounds are diminished. She appears slightly pale. Neuro exam is nonfocal. Test Results: CBC is unremarkable. Electro panel is remarkable for a glucose of 250 and a creatinine 1.1. UA is pending. Emergency Department Course and Treatment: Consult was placed to case management and baseline blood work was obtained. I was informed by case management since she has care source she will require a 23 hour stay and insurance authorization before she can be placed. Treatment Plan: IV fluids and Case management to assist with discharge planning Disposition: 23-hour observation medical surgical floor Impression: 1. Nausea, vomiting diarrhea chronic 2. Mild dehydration 3. Renal insufficiency 4. Hyperglycemia, 250 in known diabetic 5. History of hypertension 6. History of irritable bowel syndrome 7. History of gastroparesis. This note was generated with EZ[employer] dictation software. It may contain incorrect words, spelling, and punctuation that were not noted in review of the chart prior to signing ED Disposition - Plan for ED Patient: Chief Complaint: Nausea/Vomiting Referrals: Chuck Sims MD [Primary Care Provider] - What to do if you have Problems For any increased pain, shortness of breath, bleeding, nausea or vomiting, chest pain, or any unexpected problems, contact your Primary Care Provider. Call [facility] ([phone]) or report to the closest Emergency Room. Call 911 if necessary. 03/24/18 1541 <Electronically signed by Yony Steele MD> Date Yony Steele MD Cosigner Signature (If Indicated): Date CC: Chuck Sims MD; Nancy Schulte MD CBC W/DIFF, AUTOMATED Collected: 03/24/2018 Status: F Source: NIRAV 3:02 PM [facility] REPOSITORY TYPE CODE TESTS RESULT OUT OF RANGE REFERENCE UNITS LAB L100.1000 4.4-11.0 K/mm3 Normal WBC 6.8 LAB L100.1200 4.2-5.4 M/mm3 Normal RBC 5.15 LAB L100.1300 12.0-15.0 g/dl Normal HGB 14.6 LAB L100.1400 37-47 % Normal HCT 44.7 LAB L100.1500 81-99 fL Normal MCV 86.8 LAB L100.1600 27.0-32.0 pg Normal MCH 28.3 LAB L100.1700 32-36 g/gl Normal MCHC 32.7 LAB L100.1810 11.6-14.6 % Normal RDW CV 13.7 LAB L100.1820 35.1-43.9 fl Normal RDW SD 43.1 LAB L100.1900 150-450 K/mm3 Normal PLT 199 LAB L100.2000 6.2-12.0 fl Normal MPV 9.9 LAB L100.2100 47-70 % Normal NEUT% 59.0 LAB L100.2200 19-41 % Normal LY% 27.3 LAB L100.2300 0-10 % High MONO% 11.2 LAB L100.2400 0-5 % Normal EO% 1.9 LAB L100.2500 0-1 % Normal BASO% 0.3 LAB L100.2550 0.0-0.9 % Normal IM GRAN % 0.300 Result Comment: IG% - Immature Granulocytes (promyelocytes, myelocytes and metamyelocytes) > 1% indicates that a LEFT SHIFT is Present. LAB L100.2620 2.0-7.7 X10 3/uL Normal Absolute Neut 4.0 LAB L100.2720 0.83-4.51 X10 3/ul Normal Absolute Lymph 1.85 Performed By: #### L100.0100 #### [facility] [address] [place], [address] BASIC METABOLIC Collected: 03/24/2018 Status: F Source: NIR[facility] PROFILE (BMP) 3:02 PM [facility] REPOSITORY TYPE CODE TESTS RESULT OUT OF RANGE REFERENCE UNITS LAB L501.0100 74-106 mg/dL High GLU 250 Result Comment: Glucose result greater than or equal to 200 mg/dL suggests DIABETES MELLITUS per A.D.A. criteria. Please note revised GLUCOSE reference range effective 2017. LAB L501.1000 7-18 mg/dL Normal BUN 8 LAB L501.1100 0.55-1.02 mg/dL High CREAT,SERUM 1.10 Result Comment: The validity of the calculated GFR AND GFRAA in patients over 70 years has not been determined. Clinical correlation is essential. LAB L501.1110 >60 mL/min Low EST GFR 54 Result Comment: Non- GFR Calc LAB L501.1115 >60 mL/min Normal EST GFR - AA 65 Result Comment: GFR Calc LAB L501.1255 ml/min Normal Estimated CRCL 55.42 LAB L501.1300 10-20 RATIO Low BUN/CRE 7.3 LAB L501.2200 8.5-10 mg/dL Normal .1 CA 8.8 LAB L501.5300 136-14 mmol/L Normal 5 NA 141 LAB L501.5600 3.5-5. mmol/L Low 1 K 3.2 LAB L501.5900 98-107 mmol/L Normal CL 101 LAB L501.6100 21.0-3 mmol/L Normal 2.0 CO2 30.0 LAB L501.6200 5-15 Normal GAP 10 Performed By: #### L500.2500 #### [facility] [address] [place], [address] SURGERY VISIT REPORT Observed: 03/24/2018 Status: F Source: CEMENT 2:20 PM [facility] REPOSITORY [facility] [address] [place] [address] OFFICE VISIT Date of Service: 03/24/18 MR#: [id number] Acct: [id number] Name: VALERYTONYA Kristyn Rep #: [id number] : 1955 Provider: Nancy Schulte MD Age/Sex: 63/F Location: [facility] Status: Signed Intake Vital Signs03/24/18 Body Mass Index (BMI) 40.4 Intake Visit Reasons: abd pain/vomiting/ diarrhea Chief Complaint: abd pain/ vomiting Informatics Consultant Required: No Is patient in pain?: No Allergies cephalexin Adverse Reaction (Verified 03/24/18 13:34) Vomiting ciprofloxacin [From Cipro] Adverse Reaction (Verified 03/24/18 13:34) Nausea theophylline anhydrous [From Joe-Dur] Adverse Reaction (Verified 03/24/18 13:34) Nausea Medications Atenolol [Tenormin (Beta Shelby)] 50 mg PO BID 08/27/13 [History Confirmed 03/24/18] Losartan Potassium [Cozaar] 100 mg PO DAILY 08/27/13 [History Confirmed 03/24/18] Zolpidem Tartrate [Ambien] 10 mg PO QHS PRN PRN 08/27/13 [History Confirmed 03/24/18] traMADol [Ultram (G)] 50 mg PO BID PRN PRN 08/19/16 [History Confirmed 03/24/18] Cranberry Fruit Extract [Cranberry] 250 mg PO DAILY 02/11/17 [History Confirmed 03/24/18] Ropinirole HCl [Requip] 1 mg PO DAILY 02/11/17 [History Confirmed 03/24/18] albuterol sulfate HFA 90 mcg/actuation aerosol inhaler 2 puff INHALATION Q4H PRN #18 g 06/09/17 [Rx Confirmed 03/24/18] aspirin 81 mg tablet,delayed release 81 mg PO QDAY 08/11/17 [History Confirmed 03/24/18] famciclovir 500 mg tablet 500 mg PO DAILY PRN 08/11/17 [History Confirmed 03/24/18] tizanidine 4 mg tablet 4 mg PO TID PRN 08/11/17 [History Confirmed 03/24/18] vortioxetine 20 mg tablet 20 mg PO .COMPLEX 08/11/17 [History Confirmed 03/24/18] furosemide 20 mg tablet 80 mg PO BID 02/04/18 [History Confirmed 03/24/18] insulin glargine (U-100) 100 unit/mL (3 mL) subcutaneous pen 60 unit SC DAILY ml 02/04/18 [History Confirmed 03/24/18] insulin lispro (U- 100) 100 unit/mL subcutaneous solution 20 unit SC .COMPLEX ml 02/04/18 [History Confirmed 03/24/18] cholecalciferol (vitamin D3) 50,000 unit capsule 50,000 unit PO QWEEK 02/12/18 [History Confirmed 03/24/18] fluticasone 220 mcg/actuation HFA aerosol inhaler 2 puff INHALATION BID g 02/12/18 [History Confirmed 03/24/18] fluticasone 50 mcg/actuation nasal spray,suspension 1 spray INTRANASAL DAILY 02/12/18 [History Confirmed 03/24/18] calcium carbonate 600 mg lozenges mg PO 03/19/18 [History Confirmed 03/24/18] Omeprazole [Prilosec] 20 mg PO DAILY #30 cap 03/20/18 [Rx Confirmed 03/24/18] Ondansetron [Zofran Odt] 4 mg PO Q8H PRN PRN #10 tab 03/20/18 [Rx Confirmed 03/24/18] Pregabalin [Lyrica] 75 mg PO BID 03/20/18 [History Confirmed 03/24/18] Is last menstrual period known: No Post menopausal: Yes Patient : No PFSH Medical History Vitamin D deficiency (Chronic) Vision problems (Chronic) Osteoarthritis (Chronic) Back problem (Chronic) Seasonal allergies (Chronic) Shingles (Resolved) Depression (Chronic) Asthma (Chronic) Obstructive sleep apnea (Chronic) IBS (irritable bowel syndrome) (Chronic) Hypersomnia, unspecified (Chronic) GERD (gastroesophageal reflux disease) (Chronic) Type 2 diabetes mellitus (Chronic) Hypertension (Chronic) Abnormal electrocardiogram (Chronic) Hyperlipidemia (Chronic) Dyspnea (Chronic) Body mass index (BMI) of 45.0-49.9 in adult (Chronic) Abnormal cardiovascular stress test (Chronic) Chest pain on exertion (Resolved) Depression (Resolved) Surgical History History of left heart catheterization (Chronic 02/18/18) History of breast surgery (Acute) History of lumbar surgery (Chronic) Hx of cholecystectomy (Chronic) Family History Father Diabetes Heart disease Mother CVA (cerebral vascular accident) Psychiatric care Alzheimer disease Parkinson's disease Melanoma Osteoporosis Social History Smoking Status: Never smoker second hand exposure: No alcohol intake: never substance use type: does not use caffeine: Yes Type: coffee Number of servings: 2 what type of physical activity do you participate in: none seatbelt use: always do you feel safe at home: Yes additional social history: - retired HPI HPI HPI: TONYA RASMUSSEN, is a 63 F who presents to the office today for EGD. Patient has been complaining of epigastric pain for months and patient states that she cannot room last time she was able to eat. She states food and liquids have been coming back up positive nausea and vomiting patient also states she is having diarrhea that is now foul-smelling for the last week. Normally patient does have diarrhea because she has IBS. Patient did go the ER on 03/20 and she was sent home after giving IV fluids and Zofran as well as some omeprazole. Patient states that her epigastric pains in 12/15 constantly that my Mylanta and omeprazole may help a little bit but she is only been on the omeprazole for 5 days. Patient has been staying with a friend for this weekend not been able to keep any food down and the friend corroborates the story. However patient does live on her own and states she cannot care for herself and she does have a decubitus ulcer as well as she does not get up very often. ROS General General: Yes weight change and appetite; no fatigue, colon cancer, breast cancer or weakness HEENT HEENT: Yes difficulty swallowing; no eye injury, eye surgery, swollen glands or hoarseness Endo Endocrine: Yes diabetes mellitus; no thyroid disease, thyroid cancer, Hair loss, heat intolerance or cold intolerance Cardio Cardiovascular: Yes high blood pressure; no murmur, pacemaker, heart disease, atrial fibrillation, heart attack, heart stent, palpitations, shortness of breat with exertion or chest pain Psych Psychiatric: Yes depression and anxiety; no hearing voices Resp Respiratory: No shortness of breath, Yes sleep apnea, No cough, No COPD, Yes asthma, No emphysema, No wheezing Gastro Gastrointestinal: Yes abdominal pain, Yes nausea or vomiting, Yes diarrhea, No constipation, No blood in stool, Yes acid reflux, Yes hemorrhoids, Yes ulcers, No gallbladder problem, No black,tarry stools Brijesh Hematologic: No blood thinners, No blood disorders, No bleeding, No anemia, No blood clots Neuro Neurologic: No weakness Exam Const General: frail appearing Cardio Heart Sounds: no murmurs GI Inspection: non-distended, obesity Palpation: soft, no guarding, tender in the epigastrum and in the LUQ Assessment AND Plan Problems 1. Epigastric pain R10.13 2. N AND V (nausea and vomiting) R11.2 3. Dehydration E86.0 Plan Discussed with the patient and her friend that her main issue is she is not able to keep any food or liquid down with the nausea and vomiting and is dehydrated. Recommend the patient go to the ER. Patient also states that she is unable to care for self discussed that that she may need help with placement so that she is able to better care of herself, including IV hydration, wound care to decubitus ulcer (per pt). Discussed that we could do an EGD in the future to check and see if there is anything obvious that could be causing this. Patient was also referred for gastric emptying study which initially she did not get I believe this has been reordered by Dr. Sims her PCP. I have discussed the above with the patient. I have offered the patient EGD for evaluation. I have explained the risks/benefits of the procedure and described the procedure. I have discussed the risks with the patient, including but not limited to: infection, bleeding, perforation of the GI tract requiring emergency surgery, inability to complete the procedure, injury to any internal organs, complications of anesthesia, etc. - the patient understands and agrees to proceed. I have answered all the patient's questions to the patient's satisfaction and the patient has no further questions. Nancy Schulte M.D. Pager: [phone] [facility] [address] [place] [address], [address] [place] [address] Office: [phone] Plan Detail Follow Up will plan EGD in future once pt medically stable/hydrated Coding Level of Care Code Off vis,est,level 4 Diagnoses Epigastric pain R10.13 N AND V (nausea and vomiting) R11.2 Dehydration E86.0 Time Spent (min) 30 03/24/18 1420 <Electronically signed by Nancy Schulte MD> Date Nancy Schulte MD Cosigner Signature: Date (if applicable) CC: Chuck Sims MD INTERNAL MEDICINE Observed: 03/24/2018 Status: F Source: NIRAV OFFICE VISIT 8:41 AM [facility] [address] [place] [address] [place] [address] OFFICE VISIT Date of Service: 03/19/18 MR#: [id number] Acct: [id number] Name: TONYA RASMUSSEN Rep #: [id number] : 1955 Provider: Chuck Sims MD Age/Sex: 63/F Location: [facility] Status: Signed Intake Vital Signs03/19/18 Height 5 ft 9 in 03/19/18 Weight: 277 lb 03/19/18 Body Mass Index (BMI) 40.8 03/19/18 Blood Pressure 131/75 H Intake Visit Reasons: 4 WK FOLLOW UP Chief Complaint: 4 Week FU Is patient in pain?: No Allergies cephalexin Adverse Reaction (Verified 03/20/18 21:55) Vomiting ciprofloxacin [From Cipro] Adverse Reaction (Verified 03/19/18 17:12) Nausea theophylline anhydrous [From Joe-Dur] Adverse Reaction (Verified 03/19/18 17:12) Nausea Medications Atenolol [Tenormin (Beta [place])] 50 mg PO BID 08/27/13 [History Confirmed 03/20/18] Losartan Potassium [Cozaar] 100 mg PO DAILY 08/27/13 [History Confirmed 03/19/18] Zolpidem Tartrate [Ambien] 10 mg PO QHS PRN PRN 08/27/13 [History Confirmed 03/20/18] traMADol [Ultram (G)] 50 mg PO BID PRN PRN 08/19/16 [History Confirmed 03/20/18] Cranberry Fruit Extract [Cranberry] 250 mg PO DAILY 02/11/17 [History Confirmed 03/19/18] Ropinirole HCl [Requip] 1 mg PO DAILY 02/11/17 [History Confirmed 03/19/18] albuterol sulfate HFA 90 mcg/actuation aerosol inhaler 2 puff INHALATION Q4H PRN #18 g 06/09/17 [Rx Confirmed 03/19/18] aspirin 81 mg tablet,delayed release 81 mg PO QDAY 08/11/17 [History Confirmed 03/19/18] famciclovir 500 mg tablet 500 mg PO DAILY PRN 08/11/17 [History Confirmed 03/19/18] tizanidine 4 mg tablet 4 mg PO TID PRN 08/11/17 [History Confirmed 03/19/18] vortioxetine 20 mg tablet 20 mg PO .COMPLEX 08/11/17 [History Confirmed 03/19/18] furosemide 20 mg tablet 80 mg PO BID 02/04/18 [History Confirmed 03/20/18] insulin glargine (U-100) 100 unit/mL (3 mL) subcutaneous pen 60 unit SC DAILY ml 02/04/18 [History Confirmed 03/20/18] insulin lispro (U- 100) 100 unit/mL subcutaneous solution 20 unit SC .COMPLEX ml 02/04/18 [History Confirmed 03/20/18] cholecalciferol (vitamin D3) 50,000 unit capsule 50,000 unit PO QWEEK 02/12/18 [History Confirmed 03/19/18] fluticasone 220 mcg/actuation HFA aerosol inhaler 2 puff INHALATION BID g 02/12/18 [History Confirmed 03/19/18] fluticasone 50 mcg/actuation nasal spray,suspension 1 spray INTRANASAL DAILY 02/12/18 [History Confirmed 03/19/18] calcium carbonate 600 mg lozenges mg PO 03/19/18 [History Confirmed 03/19/18] Omeprazole [Prilosec] 20 mg PO DAILY #30 cap 03/20/18 [Rx] Ondansetron [Zofran Odt] 4 mg PO Q8H PRN PRN #10 tab 03/20/18 [Rx] Pregabalin [Lyrica] 75 mg PO BID 03/20/18 [History Confirmed 03/20/18] PFSH Medical History Vitamin D deficiency (Chronic) Vision problems (Chronic) Osteoarthritis (Chronic) Back problem (Chronic) Seasonal allergies (Chronic) Shingles (Resolved) Depression (Chronic) Asthma (Chronic) Obstructive sleep apnea (Chronic) IBS (irritable bowel syndrome) (Chronic) Hypersomnia, unspecified (Chronic) GERD (gastroesophageal reflux disease) (Chronic) Type 2 diabetes mellitus (Chronic) Hypertension (Chronic) Abnormal electrocardiogram (Chronic) Hyperlipidemia (Chronic) Dyspnea (Chronic) Body mass index (BMI) of 45.0-49.9 in adult (Chronic) Abnormal cardiovascular stress test (Chronic) Chest pain on exertion (Resolved) Depression (Resolved) Surgical History History of left heart catheterization (Chronic 02/18/18) History of breast surgery (Acute) History of lumbar surgery (Chronic) Hx of cholecystectomy (Chronic) Family History Father Diabetes Heart disease Mother CVA (cerebral vascular accident) Psychiatric care Alzheimer disease Parkinson's disease Melanoma Osteoporosis Social History Smoking Status: Never smoker second hand exposure: No alcohol intake: never substance use type: does not use caffeine: Yes Type: coffee Number of servings: 2 what type of physical activity do you participate in: none seatbelt use: always do you feel safe at home: Yes additional social history: - retired HPI HPI Chief Complaint: 4 Week FU Details: TONYA RASMUSSEN, is a 63 F who presents to the office today for follow-up. During her last visit, she had presented with complaints of abdominal pain, and early satiety and change in her bowel habits. She was referred to general surgery for an EGD, a gastric emptying study and labs were ordered however patient did not get any of this done. She has noted no improvement in her symptoms. She states that she is barely able to keep anything down. She also reports left buttock pain/wound which she noted a couple of days ago. She states that she has been applying Neosporin with no significant change. She denies any discharge from the area. She admits to sitting for prolonged hours during the day. ROS Const Constitutional: Positive for weight change (Weight loss); no chills, fatigue, fever(s), frequent falls, malaise, weakness, sleep problems or change in appetite Eyes Eyes: No blurry vision, change in vision, double vision, discharge or visual disturbances ENT ENT: No abnormal hearing, ear pain, ear pressure, tinnitus or dizziness/vertigo Resp Respiratory: No cough, shortness of breath or wheezing Cardio Cardiology: No chest pain at rest, chest pain with exertion, shortness of breath, dyspnea on exertion, generalized swelling, irregular heart rhythm, lightheadedness, orthopnea, fast heart rate or palpitations Gastro GI: Positive for diarrhea (Green), vomiting and incontinent of stools; no abdominal pain, change in bowel habits, constipation or nausea/dyspepsia Genitourinary-Female: No difficulty urinating, burning urination, painful urination, urinary incontinence, urinary frequency, urinary urgency, urinary hesitancy, urinary retention, Frequent nighttime urination/ nocturia, sexual problems, genital lesions, abnormal vaginal bleeding, pelvic pain, vaginal dryness, vaginal odor or Vaginal Itching Musc Musculoskeletal: No joint pain, back pain, joint swelling, limited range of motion, numbness or tingling Skin Skin: Positive for sores (Between Butt Cheeks); no change in skin color, rash or wounds Breast Breast: No breast lump or breast pain Neuro Neurology: No frequent falls, weakness, visual disturbances, abnormal hearing, numbness, tingling, unsteady gait/balance, dizziness, loss of vision or memory loss Psych Psychiatric: No change in appetite, No memory loss, No anxiety, No depression, No Thoughts of harming yourself/Others Endo Endocrine: No fatigue, heat intolerance, increased thirst/drinking, increased hunger or increased urination Aller/Imm Allergy/Immunologic: No wheezing or seasonal allergy symptoms Brijesh/Lymp Hematologic/Lymphatic: No easy bleeding, easy bruising or enlarged lymph nodes Exam Const General: cooperative, no acute distress Orientation: alert, awake, oriented x3 [facility] Head: atraumatic, normocephalic, normal to inspection Ears: hearing grossly normal bilaterally Resp Effort AND Inspection: normal respiratory effort, able to speak in complete sentences Auscultation: Bilateral: Clear to Auscultation Cardio Rate: regular rate Rhythm: regular rhythm Heart Sounds: S1 normal, S2 normal GI Inspection: obesity Palpation: soft, no hepatosplenomegaly Skin General: dry skin Other: 0.5 x 0.5 stage II - III left buttock decubitus ulcer. Neuro General: alert, awake, oriented x3, moves all extremities, CN's II-XI intact bilaterally Extrem General: pedal edema Psych Appearance: grossly normal Mental Status: mental status grossly normal Mood: congruent mood Affect: normal affect Assessment AND Plan 1. Abdominal pain R10.9 Plan Ongoing. Poorly tolerant of meals. Reports episodes of nausea and vomiting. Had been referred for EGD however patient did not follow-up on scheduled date. She was advised to reschedule and have this done. She was also advised to follow-up with initial order for gastric emptying study and blood work. Follow-up with results. 2. Gastroparesis K31.84 Plan Same as above. Blood sugar log or A1c not done also. She was advised to follow-up with this. 3. Decubitus ulcer of buttock, stage 2 L89.302 Plan Patient admits to sitting for prolonged hours daily. Offloading advised. Starter Kit for Pomogran given. Change daily after cleansing with soap and water. Follow-up in 2 weeks. If worsening is noted, will refer to the wound center. This note was generated with E[employer] dictation software. It may contain incorrect words, spelling, and punctuation that were not noted in checking the note before signing. Coding Level of Care Code Off vis,est,level 3 Diagnoses Abdominal pain R10.9 Gastroparesis K31.84 Decubitus ulcer of buttock, stage 2 L89.302 03/24/18 0840 <Electronically signed by Chuck Sims MD> Date Chuck Sims MD Cosigner Signature: Date (if applicable) CC: DISCHARGE INSTRUCTION Observed: 03/20/2018 Status: F Source: CEMENT 11:25 PM [facility] REPOSITORY [facility] Medical Records Department [address] [place] [address] Discharge Instruction 03/20/18 2324 MR#: [id number] Acct: [id number] Name: TONYA RASMUSSEN Rep #: [id number] : 1955 63 From: Augusto Cruz MD PCP: Chuck Sims MD Status: REG ER ED Disposition - Plan for ED Patient: Chief Complaint: Abd Pain Instructions: ED Abdominal Pain Unkn Cause Prescriptions: Omeprazole [Prilosec] 20 mg PO DAILY #30 cap Referrals: Chuck Sims MD [Primary Care Provider] - What to do if you have Problems For any increased pain, shortness of breath, bleeding, nausea or vomiting, chest pain, or any unexpected problems, contact your Primary Care Provider. Call [facility] ([phone]) or report to the closest Emergency Room. Call 911 if necessary. 03/20/182324 <Electronically signed by Augusto Cruz MD> Date Augusto Cruz MD Cosigner Signature (If Indicated): Date CC: Chuck Sims MD EMERGENCY DEPARTMENT Observed: 03/20/2018 Status: F Source: CEMENT SUMMARY 11:24 PM [facility] REPOSITORY [facility] Medical Records Department [address] [place] [address] Emergency Department Summary 03/20/18 2320 MR#: [id number] Acct: [id number] Name: TONYA RASMUSSEN Rep #: [id number] : 1955 63 From: Augusto Cruz MD PCP: Chuck Sims MD Status: REG ER - ER Visit Summary Date of Service: 03/20/18 Chief Complaint: Nausea vomiting and diarrhea History of Present Illness: The patient is a 63 F who presents with nausea vomiting and diarrhea for at least 3 months. She complains of feeling bloated. She complains of burning epigastric abdominal pain which is worse with eating. She notes that this is been worse over the past 2 days. She has been seen by her primary care physician. She was initially seen Dr. Nair and had a new appointment with Dr. Sims. She has had outpatient blood work, x-rays. She was referred for referred to surgery for upper endoscopy and also had a gastric emptying study ordered but did not follow-up with these. She saw her primary care physician again yesterday who again advised that she follow-up with surgery and have the gastric emptying study done. She states she has been prescribed Prilosec but it was not helping. However on further questioning she was only taking this sporadically and not consistently. She denies any fevers chest pain shortness of breath. Physical Examination: Afebrile vitals are normal Moist mucous membranes Heart regular rate and rhythm Lungs are clear Abdomen soft, epigastric tenderness without guarding without rebound nondistended Test Results: CBC CMP lipase notable for creatinine of 1.54 which is slightly increased from prior labs. Alkaline phosphatase and AST minimally elevated and similar to prior labs. Emergency Department Course and Treatment: Patient was treated here with IV fluids and Zofran. She was given a GI cocktail. On reevaluation she reports improvement but not resolution of symptoms. Given benign exam relatively unremarkable labs and chronicity of symptoms I do not feel any further emergent workup or hospital admission necessary at this time. I advised that if she begin taking Prilosec consistently. I advised that she follow-up with the Center is ordered by her primary care physician and surgical referral. She understands to return for new or worsening symptoms. She is agreeable to this plan. She was discharged. Treatment Plan: [] Disposition: Discharge Impression: Chronic epigastric abdominal pain Nausea vomiting diarrhea This note was generated with EZ4U dictation software. It may contain incorrect words, spelling, and punctuation that were not noted in review of the chart prior to signing ED Disposition - Plan for ED Patient: Chief Complaint: Abd Pain Referrals: Chuck Sims MD [Primary Care Provider] - What to do if you have Problems For any increased pain, shortness of breath, bleeding, nausea or vomiting, chest pain, or any unexpected problems, contact your Primary Care Provider. Call [employer] [facility] ([phone]) or report to the closest Emergency Room. Call 911 if necessary. 03/20/18 4733 <Electronically signed by Augusto Cruz MD> Date Augusto Cruz MD Cosigner Signature (If Indicated): Date CC: Chuck Sims MD COMPREHENSIVE METABOLIC Collected: 03/20/2018 Status: F Source: NIRAV TAVERAS 10:06 PM [facility] REPOSITORY TYPE CODE TESTS RESULT OUT OF RANGE REFERENCE UNITS LAB L501.0100 74-106 mg/dL High GLU 362 Result Comment: Glucose result greater than or equal to 200 mg/dL suggests DIABETES MELLITUS per A.D.A. criteria. Please note revised GLUCOSE reference range effective 2017. LAB L501.1000 7-18 mg/dL Normal BUN 15 LAB L501.1100 0.55-1.02 mg/dL High CREAT,SERUM 1.54 Result Comment: The validity of the calculated GFR AND GFRAA in patients over 70 years has not been determined. Clinical correlation is essential. LAB L501.1110 >60 mL/min Low EST GFR 36 Result Comment: Non- GFR Calc LAB L501.1115 >60 mL/min Low EST GFR - AA 44 Result Comment: GFR Calc LAB L501.1255 ml/min Normal Estimated CRCL 39.58 LAB L501.1300 10-20 RATIO Low BUN/CRE 9.7 LAB L501.1500 6.4-8. g/dL Normal 2 T PROT 7.8 LAB L501.1800 3.2-5. g/dL Low 0 ALB 3.0 LAB L501.1950 2.2-4. g/dL High 2 GLOB 4.8 LAB L501.2000 0.9-2. RATIO Low 4 A/G 0.6 LAB L501.2200 8.5-10 mg/dL Normal .1 CA 9.2 LAB L501.4100 15-37 U/L High AST 51 Result Comment: Slight Hemolysis, Result may be falsely increased. LAB L501.4305 45-117 U/L High ALK P 146 LAB L501.4405 13-56 U/L Normal ALT 23 LAB L501.4600 0.20-1.00 mg/dL Normal T BILI 0.70 LAB L501.5300 136-145 mmol/L Normal NA 136 LAB L501.5600 3.5-5.1 mmol/L Normal K 3.5 Result Comment: Slight Hemolysis, Result may be falsely increased. LAB L501.5900 98-107 mmol/L Low CL 94 LAB L501.6100 21.0-32.0 mmol/L Normal CO2 31.0 LAB L501.6200 5-15 Normal GAP 11 Performed By: #### L500.4050, L501.2450 #### [facility] [address] [place], [address] LIPASE Collected: 03/20/2018 Status: F Source: CEMENT 10:06 PM [facility] REPOSITORY TYPE CODE TESTS RESULT OUT OF RANGE REFERENCE UNITS LAB L501.2450 73-393 U/L Normal LIPASE 197 Performed By: #### L500.4050, L501.2450 #### [facility] [address] [place], [address] CBC W/DIFF, AUTOMATED Collected: 03/20/2018 Status: F Source: CEMENT 10:06 PM [facility] REPOSITORY TYPE CODE TESTS RESULT OUT OF RANGE REFERENCE UNITS LAB L100.1000 4.4-11.0 K/mm3 Normal WBC 6.5 LAB L100.1200 4.2-5.4 M/mm3 Normal RBC 5.08 LAB L100.1300 12.0-15.0 g/dl Normal HGB 14.4 LAB L100.1400 37-47 % Normal HCT 43.9 LAB L100.1500 81-99 fL Normal MCV 86.4 LAB L100.1600 27.0-32.0 pg Normal MCH 28.3 LAB L100.1700 32-36 g/gl Normal MCHC 32.8 LAB L100.1810 11.6-14.6 % Normal RDW CV 13.5 LAB L100.1820 35.1-43.9 fl Normal RDW SD 42.7 LAB L100.1900 150-450 K/mm3 Normal PLT 227 LAB L100.2000 6.2-12.0 fl Normal MPV 11.3 LAB L100.2100 47-70 % Normal NEUT% 61.9 LAB L100.2200 19-41 % Normal LY% 25.2 LAB L100.2300 0-10 % Normal MONO% 9.5 LAB L100.2400 0-5 % Normal EO% 2.1 LAB L100.2500 0-1 % Normal BASO% 0.5 LAB L100.2550 0.0-0.9 % Normal IM GRAN % 0.800 Result Comment: IG% - Immature Granulocytes (promyelocytes, myelocytes and metamyelocytes) > 1% indicates that a LEFT SHIFT is Present. LAB L100.2620 2.0-7.7 X10 3/uL Normal Absolute Neut 4.0 LAB L100.2720 0.83-4.51 X10 3/ul Normal Absolute Lymph 1.64 Performed By: #### L100.0100 #### [facility] [address] [place], [address] INTERNAL MEDICINE Observed: 02/16/2018 Status: F Source: CEMENT OFFICE VISIT 4:28 PM [facility] REPOSITORY [facility] [address] [place] [address] [place] [address] OFFICE VISIT Date of Service: 02/12/18 MR#: [id number] Acct: [id number] Name: TONYA RASMUSSEN Rep #: [id number] : 1955 Provider: Chuck Sims MD Age/Sex: 63/F Location: [facility] [place] Status: Signed Intake Vital Signs02/12/18 Height 59 ft 02/12/18 Weight: 297 lb 02/12/18 Body Mass Index (BMI) 0.4 02/12/18 Blood Pressure 135/72 H Intake Visit Reasons: EST CARE Chief Complaint: Est Care Is patient in pain?: Yes (Back) Pain scale (1-10): 4 Allergies ciprofloxacin [From Cipro] Adverse Reaction (Verified 02/12/18 15:18) Nausea theophylline anhydrous [From Joe-Dur] Adverse Reaction (Verified 02/12/18 15:18) Nausea Medications Atenolol [Tenormin (Beta Shelby)] 50 mg PO BID 08/27/13 [History Confirmed 02/12/18] Losartan Potassium [Cozaar] 100 mg PO DAILY 08/27/13 [History Confirmed 02/12/18] Zolpidem Tartrate [Ambien] 5 mg PO QHS PRN PRN 08/27/13 [History Confirmed 02/12/18] Trazodone ER [Oleptro Er] 150 mg PO QHS 08/19/16 [History Confirmed 02/12/18] traMADol [Ultram (G)] 50 mg PO BID PRN PRN 08/19/16 [History Confirmed 02/12/18] Cranberry Fruit Extract [Cranberry] 250 mg PO DAILY 02/11/17 [History Confirmed 02/12/18] Ropinirole HCl [Requip] 1 mg PO DAILY 02/11/17 [History Confirmed 02/12/18] albuterol sulfate HFA 90 mcg/actuation aerosol inhaler 2 puff INHALATION Q4H PRN #18 g 06/09/17 [Rx Confirmed 02/12/18] aspirin 81 mg tablet,delayed release 81 mg PO QDAY 08/11/17 [History Confirmed 02/12/18] famciclovir 500 mg tablet 500 mg PO DAILY PRN 08/11/17 [History Confirmed 02/12/18] pregabalin 150 mg capsule 150 mg PO .q day cap 08/11/17 [History Confirmed 02/12/18] tizanidine 4 mg tablet 4 mg PO TID PRN 08/11/17 [History Confirmed 02/12/18] vortioxetine 20 mg tablet 20 mg PO .COMPLEX 08/11/17 [History Confirmed 02/12/18] clopidogrel 75 mg tablet 75 mg PO DAILY #30 tab 02/04/18 [Rx Confirmed 02/12/18] furosemide 20 mg tablet 40 mg PO DAILY 02/04/18 [History Confirmed 02/12/18] insulin glargine (U-100) 100 unit/mL (3 mL) subcutaneous pen 60 unit SC DAILY ml 02/04/18 [History Confirmed 02/12/18] insulin lispro (U- 100) 100 unit/mL subcutaneous solution 20 unit SC .COMPLEX ml 02/04/18 [History Confirmed 02/12/18] cholecalciferol (vitamin D3) 50,000 unit capsule 50,000 unit PO QWEEK 02/12/18 [History Confirmed 02/12/18] fluticasone 220 mcg/actuation HFA aerosol inhaler 2 puff INHALATION BID g 02/12/18 [History Confirmed 02/12/18] fluticasone 50 mcg/actuation nasal spray,suspension 1 spray INTRANASAL DAILY 02/12/18 [History Confirmed 02/12/18] metoclopramide 10 mg tablet 10 mg PO Q6H 02/12/18 [History Confirmed 02/12/18] omeprazole 40 mg capsule,delayed release 40 mg PO DAILY 02/12/18 [History Confirmed 02/12/18] PFSH Medical History Vitamin D deficiency (Chronic) Vision problems (Chronic) Osteoarthritis (Chronic) Back problem (Chronic) Seasonal allergies (Chronic) Shingles (Resolved) Depression (Chronic) Asthma (Chronic) Obstructive sleep apnea (Chronic) IBS (irritable bowel syndrome) (Chronic) Hypersomnia, unspecified (Chronic) GERD (gastroesophageal reflux disease) (Chronic) Type 2 diabetes mellitus (Chronic) Hypertension (Chronic) Abnormal electrocardiogram (Chronic) Hyperlipidemia (Chronic) Dyspnea (Chronic) Body mass index (BMI) of 45.0-49.9 in adult (Chronic) Abnormal cardiovascular stress test (Chronic) Chest pain on exertion (Resolved) Depression (Resolved) Surgical History History of breast surgery (Acute) History of lumbar surgery (Chronic) Hx of cholecystectomy (Chronic) Family History Father Diabetes Heart disease Mother CVA (cerebral vascular accident) Psychiatric care Alzheimer disease Parkinson's disease Melanoma Osteoporosis Social History Smoking Status: Never smoker second hand exposure: No alcohol intake: never substance use type: does not use caffeine: Yes Type: coffee Number of servings: 2 what type of physical activity do you participate in: none seatbelt use: always do you feel safe at home: Yes additional social history: - retired [employer] Chief Complaint: Est Care Details: TONYA RASMUSSEN, is a 63yo F who presents to the office today to establish care. She also has some concerns. She reports worsening abdominal pain over the last couple of months. Associated with nausea and early satiety. She states that she has lost about 20 pounds over this period. She has chronic history of reflux and last EGD was in 2001. She has tried several anti-acids with minimal relief and is currently on Mylanta and Tums. She also reports a history of diabetes and has been told that she had gastroparesis. Her last A1c was around 8. She has not had gastric emptying studies to the best of her knowledge. Follows up with Dr. Qiu in preparation she is scheduled to have had cath next week due to worsening shortness of breath, leg swelling and chest pain. She reports a history of sleep apnea but does admit to being poorly compliant with her CPAP. She denies any known history of pulmonary hypertension. ROS Const Constitutional: Positive for sleep problems; no fatigue, fever(s), frequent falls, weakness or change in appetite Eyes Eyes: No change in vision, double vision, discharge or visual disturbances ENT ENT: No abnormal hearing, ear pain, ear pressure, tinnitus or dizziness/vertigo Resp Respiratory: Positive for shortness of breath Cardio Cardiology: Positive for chest pain with exertion and dyspnea on exertion; no chest pain at rest, shortness of breath, generalized swelling, irregular heart rhythm, lightheadedness, orthopnea, fast heart rate or palpitations Gastro GI: Positive for abdominal pain, constipation, diarrhea, nausea/dyspepsia, vomiting, bloating and heartburn; no change in bowel habits Genitourinary-Female: Positive for urinary incontinence; no difficulty urinating, burning urination, painful urination, urinary frequency, urinary urgency, urinary hesitancy, urinary retention, Frequent nighttime urination/ nocturia, sexual problems, genital lesions, abnormal vaginal bleeding, pelvic pain, vaginal dryness, vaginal odor or Vaginal Itching Musc Musculoskeletal: Positive for back pain, numbness (Legs AND feet) and tingling (Legs AND feet); no joint pain, joint swelling or limited range of motion Skin Skin: Positive for dry skin; no change in skin color, rash or wounds Breast Breast: No breast lump or breast pain Neuro Neurology: Positive for numbness (Legs AND feet) and tingling (Legs AND feet); no frequent falls, weakness, abnormal hearing, unsteady gait/balance, dizziness, loss of vision, memory loss or visual disturbances Psych Psychiatric: No memory loss, No anxiety, No change in appetite, No Thoughts of harming yourself/Others Endo Endocrine: No fatigue, heat intolerance, increased thirst/drinking, increased hunger or increased urination Aller/Imm Allergy/Immunologic: No seasonal allergy symptoms Brijesh/Lymp Hematologic/Lymphatic: No easy bleeding, easy bruising or enlarged lymph nodes Exam Const General: cooperative, no acute distress Orientation: alert, awake, oriented x3 HENMT Head: atraumatic, normocephalic, normal to inspection Ears: hearing grossly normal bilaterally Resp Effort AND Inspection: normal respiratory effort, able to speak in complete sentences Auscultation: Bilateral: Clear to Auscultation Cardio Rate: regular rate Rhythm: regular rhythm Heart Sounds: S1 normal, S2 normal GI Inspection: obesity Palpation: soft, no hepatosplenomegaly Skin General: dry skin Neuro General: alert, awake, oriented x3, moves all extremities, CN's II-XI intact bilaterally Extrem General: pedal edema Psych Appearance: grossly normal Mental Status: mental status grossly normal Mood: congruent mood Affect: normal affect Assessment AND Plan 1. Abdominal pain R10.9 Plan Said to have been ongoing for months. Need upper abdominal pain. Prior history of cholecystectomy. Chronic history of GERD/reflux not very responsive to treatment. Associated history of nausea and vomiting. 20 pound weight loss. Referred to general surgery for possible EGD. Orders Referrals: 2. Gastroparesis K31.84 Plan Patient reports a prior history of gastroparesis. Has not had a gastric emptying study done. History of poorly controlled diabetes. Gastric emptying study ordered. Optimal blood sugar control strongly recommended. Small frequent meals. Follow-up in 1 month. Orders Orders: 3. Type 2 diabetes mellitus E11.9 Plan Not very well controlled per patient. Last A1c per patient was around 8. She admits to not been very compliant with medication or diet. Compliance strongly recommended. A1c ordered. Advised to keep a blood sugar log and follow- up in a month. Orders Orders: 4. Obstructive sleep apnea G47.33 Plan Chronic history of. Not very compliant with her CPAP. Now reports leg swelling and shortness of breath. ? Possibility of pulmonary hypertension due to poorly controlled sleep apnea. Compliance strongly encouraged. Scheduled to have a heart cath next week. Will await results and possibly refer to pulmonary for sleep apnea management and if present pulmonary hypertension. This note was generated with Swivelation software. It may contain incorrect words, spelling, and punctuation that were not noted in checking the note before signing. Plan Detail Other Orders Orders: Referrals: Coding Level of Care Code Off vis,new,level 4 Diagnoses Abdominal pain R10.9 Gastroparesis K31.84 Type 2 diabetes mellitus E11.9 Obstructive sleep apnea G47.33 02/16/18 1628 <Electronically signed by Chuck Sims MD> Date Chuck Sims MD Cosigner Signature: Date (if applicable) CC: OFFICE VISIT REPORT Observed: 02/15/2018 Status: F Source: NIRAV 12:34 PM [place] [address] [place] [address] OFFICE VISIT Date of Service: 02/04/18 MR#: [id number] Acct: [id number] Patient: TONYA RASMUSSEN Rep #: [id number] : 1955 Provider: Sigifredo Qiu MD Age/Sex: 62/F [place] [facility] [place] Signed Intake Intake Visit Reasons: (KISHORE) CATH TEACHING Chief Complaint: vaginal irritation Allergies ciprofloxacin [From Cipro] Adverse Reaction (Verified 02/12/18 15:18) Nausea theophylline anhydrous [From Joe-Dur] Adverse Reaction (Verified 02/12/18 15:18) Nausea Medications Atenolol [Tenormin (Beta Shelby)] 50 mg PO BID 08/27/13 [History Confirmed 02/12/18] Losartan Potassium [Cozaar] 100 mg PO DAILY 08/27/13 [History Confirmed 02/12/18] Zolpidem Tartrate [Ambien] 5 mg PO QHS PRN PRN 08/27/13 [History Confirmed 02/12/18] Trazodone ER [Oleptro Er] 150 mg PO QHS 08/19/16 [History Confirmed 02/12/18] traMADol [Ultram (G)] 50 mg PO BID PRN PRN 08/19/16 [History Confirmed 02/12/18] Cranberry Fruit Extract [Cranberry] 250 mg PO DAILY 02/11/17 [History Confirmed 02/12/18] Ropinirole HCl [Requip] 1 mg PO DAILY 02/11/17 [History Confirmed 02/12/18] albuterol sulfate HFA 90 mcg/actuation aerosol inhaler 2 puff INHALATION Q4H PRN #18 g 06/09/17 [Rx Confirmed 02/12/18] aspirin 81 mg tablet,delayed release 81 mg PO QDAY 08/11/17 [History Confirmed 02/12/18] famciclovir 500 mg tablet 500 mg PO DAILY PRN 08/11/17 [History Confirmed 02/12/18] pregabalin 150 mg capsule 150 mg PO .q day cap 08/11/17 [History Confirmed 02/12/18] tizanidine 4 mg tablet 4 mg PO TID PRN 08/11/17 [History Confirmed 02/12/18] vortioxetine 20 mg tablet 20 mg PO .COMPLEX 08/11/17 [History Confirmed 02/12/18] clopidogrel 75 mg tablet 75 mg PO DAILY #30 tab 02/04/18 [Rx Confirmed 02/12/18] furosemide 20 mg tablet 40 mg PO DAILY 02/04/18 [History Confirmed 02/12/18] insulin glargine (U-100) 100 unit/mL (3 mL) subcutaneous pen 60 unit SC DAILY ml 02/04/18 [History Confirmed 02/12/18] insulin lispro (U- 100) 100 unit/mL subcutaneous solution 20 unit SC .COMPLEX ml 02/04/18 [History Confirmed 02/12/18] cholecalciferol (vitamin D3) 50,000 unit capsule 50,000 unit PO QWEEK 02/12/18 [History Confirmed 02/12/18] fluticasone 220 mcg/actuation HFA aerosol inhaler 2 puff INHALATION BID g 02/12/18 [History Confirmed 02/12/18] fluticasone 50 mcg/actuation nasal spray,suspension 1 spray INTRANASAL DAILY 02/12/18 [History Confirmed 02/12/18] metoclopramide 10 mg tablet 10 mg PO Q6H 02/12/18 [History Confirmed 02/12/18] omeprazole 40 mg capsule,delayed release 40 mg PO DAILY 02/12/18 [History Confirmed 02/12/18] Nurse's Note: Patient here for cath teaching as has not had one before. Instructed about Plavix 75 mg: to start today and take 1 daily for cath next . RX to [facility]. She is to decrease her ASA to 81 mg a day. She will have echo this Fri at 2pm. She is going for labs and CXR now after instructions. She watched video. She verbalized understanding of all instructions (NPO after midnight night before, hold insulin and Lasix am of procedure, take other meds listed with sips of water). Assessment AND Plan Medications New: Discontinued: mometasone 200 mcg/actuation Discontinued Reason:2 puffs Inhalation Q12H 13 grams 6RF Pt no longer taking 02/15/18 1234 <Electronically signed by Sigifredo Qiu MD> Date Sigifredo Qiu MD Cosigner Signature: Date (if applicable) CC: Ksihore Silva CHEST PA AND LATERAL Observed: 02/04/2018 Status: F Source: NIRAV 3:09 PM [facility] REPOSITORY [facility] Imaging Services [address] [place], [place] [address] [address] Chest PA and Lateral MR#: [id number] Acct: [id number] Name: TONYA RASMUSSEN Rep #: [id number] : 1955 F 62 From: Prem Leary MD PCP: Korey YUNG,uKmar Avila [place] [facility] [place] Study: Chest PA and Lateral Date of Exam: 02/04/18 Exam# [id number] Ordering Dr: Justin Jarvis GYN-C STUDY: X-RAY CHEST REASON FOR EXAM: Female, 62 years old. Shortness of breath and dizziness TECHNIQUE: PA and lateral views of the chest. COMPARISON: 02/03/2017 FINDINGS: The lungs are clear and expanded. There is no demonstrated pleural abnormality. Normal size heart. There are calcified mediastinal lymph nodes. Normal visualized pulmonary arteries. Normal visualized aortic arch and descending thoracic aorta. Normal visualized thoracic spine. Normal visualized ribs, clavicles, and shoulders. There is no demonstrated abnormality of the visualized soft tissue structures of the upper abdomen. RAD/Chest PA and Lateral IMPRESSION: No acute pulmonary process Electronically Signed: Sukhwinder Leary MD at 15:22 EDT , Service support , CC: DAVE Jarvis; Kumar Nair MD Regional Economist: Signed CBC W/DIFF, AUTOMATED Collected: 02/04/2018 Status: F Source: NIRAV 10:30 AM [facility] REPOSITORY TYPE CODE TESTS RESULT OUT OF RANGE REFERENCE UNITS LAB L100.1000 4.4-11.0 K/mm3 Normal WBC 5.4 LAB L100.1200 4.2-5.4 M/mm3 Normal RBC 4.58 LAB L100.1300 12.0-15.0 g/dl Normal HGB 12.8 LAB L100.1400 37-47 % Normal HCT 40.6 LAB L100.1500 81-99 fL Normal MCV 88.6 LAB L100.1600 27.0-32.0 pg Normal MCH 27.9 LAB L100.1700 32-36 g/gl Low MCHC 31.5 LAB L100.1810 11.6-14.6 % Normal RDW CV 14.1 LAB L100.1820 35.1-43.9 fl High RDW SD 45.8 LAB L100.1900 150-450 K/mm3 Normal PLT 159 LAB L100.2000 6.2-12.0 fl Normal MPV 11.1 LAB L100.2100 47-70 % Normal NEUT% 57.8 LAB L100.2200 19-41 % Normal LY% 26.3 LAB L100.2300 0-10 % High MONO% 10.3 LAB L100.2400 0-5 % Normal EO% 4.5 LAB L100.2500 0-1 % Normal BASO% 0.9 LAB L100.2550 0.0-0.9 % Normal IM GRAN % 0.200 Result Comment: IG% - Immature Granulocytes (promyelocytes, myelocytes and metamyelocytes) > 1% indicates that a LEFT SHIFT is Present. LAB L100.2620 2.0-7.7 X10 3/uL Normal Absolute Neut 3.1 LAB L100.2720 0.83-4.51 X10 3/ul Normal Absolute Lymph 1.41 Performed By: #### L100.0100 #### [facility] [address] [place], [address] PROTHROMBIN TIME W/INR Collected: 02/04/2018 Status: F Source: CEMENT 10:30 AM [facility] REPOSITORY TYPE CODE TESTS RESULT OUT OF RANGE REFERENCE UNITS LAB L300.4150 11.7-14.9 SECONDS Normal PROTIME 14.9 LAB L300.4200 Normal INR 1.2 Performed By: #### L300.3900, L300.4310 #### [facility] [address] [place], [address] PARTIAL THROMBOPLAST Collected: 02/04/2018 Status: F Source: CEMENT TIME 10:30 AM [facility] REPOSITORY TYPE CODE TESTS RESULT OUT OF RANGE REFERENCE UNITS LAB L300.4310 24.1-36.2 Seconds Normal PTT 26.4 Performed By: #### L300.3900, L300.4310 #### [facility] [address] [facility] [address] BASIC METABOLIC Collected: 02/04/2018 Status: F Source: CEMENT PROFILE (BMP) 10:30 AM [facility] REPOSITORY TYPE CODE TESTS RESULT OUT OF RANGE REFERENCE UNITS LAB L501.0100 74-106 mg/dL High GLU 363 Result Comment: Glucose result greater than or equal to 200 mg/dL suggests DIABETES MELLITUS per A.D.A. criteria. Please note revised GLUCOSE reference range effective 2017. LAB L501.1000 7-18 mg/dL Normal BUN 11 LAB L501.1100 0.55-1.02 mg/dL Normal CREAT,SERUM 1.02 Result Comment: The validity of the calculated GFR AND GFRAA in patients over 70 years has not been determined. Clinical correlation is essential. LAB L501.1110 >60 mL/min Low EST GFR 58 Result Comment: Non- GFR Calc LAB L501.1115 >60 mL/min Normal EST GFR - AA 71 Result Comment: GFR Calc LAB L501.1300 10-20 RATIO Normal BUN/CRE 10.8 LAB L501.2200 8.5-10.1 mg/dL CA Normal 9.5 LAB L501.5300 136-145 mmol/L NA Normal 140 LAB L501.5600 3.5-5.1 mmol/L K Normal 3.6 LAB L501.5900 98-107 mmol/L Low CL 96 LAB L501.6100 21.0-32.0 mmol/L High CO2 34.0 LAB L501.6200 5-15 Normal GAP 10 Performed By: #### L500.2500 #### [facility] [address], [address] CARDIOLOGY VISIT Observed: 01/23/2018 Status: F Source: CEMENT REPORT 3:23 PM [facility] REPOSITORY [facility] [address] [place] [address] OFFICE VISIT Date of Service: 01/23/18 MR#: [id number] Acct: [id number] Name: TONYA RASMUSSEN Rep #: [id number] : 1955 Provider: DAVE Jarvis Age/Sex: 62/F Location: [facility] [place] Status: Signed HPI HPI Chief Complaint: vaginal irritation Details: TONYA RASMUSSEN, is a 62 F who presents to the office today for a cardiovascular outpatient follow-up. She has a history of severe obesity, hypertension, lifelong non-smoker, nondrinker, type 2 diabetes, asthma, status post laparoscopic cholecystectomy in 2002, obstructive sleep apnea with BiPAP therapy. She has a positive family history in her father of bypass surgery in his 70s, and mother and had no significant coronary disease. Her stress echocardiogram in January 2017 was considered positive due to profound shortness of breath, but due to shingles she did not undergo a heart catheterization. Pt. denies chest, arm, jaw, or neck discomfort. Her exercise tolerance is stable. Pt. denies symptoms of palpitations, lightheadedness, dizziness, near syncope, or syncopal episodes. Pt. denies edema or claudication issues. Pt. denies orthopnea, PND, fever, chills, blood in urine, blood in stool, myalgia, or unexplainable fatigue. She was taking 80mg of lasix BID d/t lower extremity edema. Upon follow-up for nausea, vomiting, and edema or lasix was discontinued. Since this was discontinued she developed worsening lower extremity edema and started lasix 40mg PO daily on her own. She denies unchanged SOB. She states SOB on mild exertion. Intake Vital Signs01/23/18 Height 5 ft 9 in 01/23/18 Weight: 306 lb 01/23/18 Body Mass Index (BMI) 45.1 01/23/18 Blood Pressure 128/74 H H H 01/23/18 Blood Pressure Location Lt brachial Intake Visit Reasons: Pitting edema Allergies ciprofloxacin [From Cipro] Adverse Reaction (Verified 01/23/18 13:14) Nausea theophylline anhydrous [From Joe-Dur] Adverse Reaction (Verified 01/23/18 13:14) Nausea Medications Atenolol [Tenormin (Beta Shelby)] 50 mg PO BID 08/27/13 [History Confirmed 12/31/17] Insulin Glargine [Lantus SoloStar Pen] 30 units SC QHS 08/27/13 [History Confirmed 12/31/17] Insulin Lispro [Humalog] 10 - 12 unit SQ TID 08/27/13 [History Confirmed 12/31/17] Losartan Potassium [Cozaar] 100 mg PO DAILY 08/27/13 [History Confirmed 12/31/17] Zolpidem Tartrate [Ambien] 5 mg PO QHS PRN PRN 08/27/13 [History Confirmed 12/31/17] Trazodone ER [Oleptro Er] 150 mg PO QHS 08/19/16 [History Confirmed 12/31/17] traMADol [Ultram (G)] 50 mg PO BID PRN PRN 08/19/16 [History Confirmed 12/31/17] Acetaminophen with Codeine [Acetaminophen-Cod #3 Tablet] 1 ea PO PRN PRN 02/11/17 [History Confirmed 12/31/17] Cranberry Fruit Extract [Cranberry] 250 mg PO DAILY 02/11/17 [History Confirmed 12/31/17] Estradiol [Estrace Vaginal Cream] 1 gm VAGINAL Q7D 02/11/17 [History Confirmed 12/31/17] Ropinirole HCl [Requip] 1 mg PO DAILY 02/11/17 [History Confirmed 12/31/17] albuterol sulfate HFA 90 mcg/actuation aerosol inhaler 2 puff INHALATION Q4H PRN #18 g 06/09/17 [Rx Confirmed 12/31/17] mometasone 200 mcg/actuation HFA aerosol inhaler 2 puff INHALATION Q12H #13 g 06/09/17 [Rx Confirmed 12/31/17] aspirin 81 mg tablet,delayed release 81 mg PO QDAY 08/11/17 [History Confirmed 12/31/17] famciclovir 500 mg tablet 500 mg PO DAILY PRN 08/11/17 [History Confirmed 12/31/17] pregabalin 150 mg capsule 150 mg PO .q day cap 08/11/17 [History Confirmed 12/31/17] tizanidine 4 mg tablet 4 mg PO TID PRN 08/11/17 [History Confirmed 12/31/17] vortioxetine 20 mg tablet 20 mg PO .COMPLEX 08/11/17 [History Confirmed 12/31/17] fluconazole 150 mg tablet 150 mg PO .COMPLEX #2 tab 12/31/17 [Rx Confirmed 12/31/17] nystatin 100,000 unit/gram topical cream 1 applic TOPICAL BID PRN #15 g 12/31/17 [Rx Confirmed 12/31/17] triamcinolone acetonide 0.5 % topical cream 1 applic TOPICAL BID #15 g 12/31/17 [Rx Confirmed 12/31/17] furosemide 80 mg tablet 40 mg PO DAILY tab 01/23/18 [History Confirmed 01/23/18] PFSH Medical History Type 2 diabetes mellitus (Chronic) Hypertension (Chronic) Abnormal electrocardiogram (Chronic) Hyperlipidemia (Chronic) Dyspnea (Chronic) Body mass index (BMI) of 45.0-49.9 in adult (Chronic) Abnormal cardiovascular stress test (Chronic) Shingles (Acute) Asthma (Chronic) Depression (Chronic) GERD (gastroesophageal reflux disease) (Chronic) Hypersomnia, unspecified (Chronic) IBS (irritable bowel syndrome) (Chronic) Obstructive sleep apnea (Chronic) Chest pain on exertion (Resolved) Depression (Resolved) Surgical History History of lumbar surgery (Chronic) Hx of cholecystectomy (Chronic) Family History Father Diabetes Heart disease Mother CVA (cerebral vascular accident) Psychiatric care Alzheimer disease Parkinson's disease Social History Smoking Status: Never smoker second hand exposure: No alcohol intake: never substance use type: does not use caffeine: Yes Type: coffee Number of servings: 2 what type of physical activity do you participate in: none seatbelt use: always do you feel safe at home: Yes additional social history: - retired ROS Const Const: Negative for fatigue, weakness, body ache, fever(s) or chills ENT ENT: Negative for dizziness Cardio Chest Pain: No Palpitations: No Edema: Bilateral Muscle aches with walking: None Resp Respiratory: Positive for SOB with activity; negative for SOB at rest, SOB orthopnea\SOB lying down or paroxysmal nocturnal dyspnea GI GI: Negative nausea, black,tarry stools, bright, red blood in stools or vomiting blood/hematemesis : Negative for hematuria or frequent nighttime urination/ nocturia Musc Musc: Negative for muscle aches/ myalgia Skin Skin: Negative non-healing lesions or rash Neuro Neuro: Negative for weakness, dizziness, lightheadedness, near syncope, syncope or orthostatic symptoms Endo Endo: Negative for fatigue Allergy Allergy/Immunology: Negative for rash Cardiology Exam Const Appearance: cooperative, healthy appearing and no acute distress Nutritional Appearance: well nourished and obese Orientation: alert, oriented x3 and oriented to person Head Head: normal to inspection, atraumatic and normocephalic Nose: external nose normal Face and Sinus: face symmetric Mouth: oral mucosae normal Eyes General: appearance normal, both eyes and all related structures Eyelids: eyelids normal Conjunctivae: conjunctivae normal Pupils: PERRL and normal by confrontation EOM: EOM intact bilaterally Neck Neck: normal visual inspection and full ROM Carotids: normal carotid upstroke Chest Chest inspection: normal inspection of the chest, symmetric chest movement and normal respiratory effort Auscultation: Bilateral: Clear to Auscultation Cardio Palpation: normal PMI Rate: regular rate Rhythm: regular rhythm Heart sounds: S1 normal and S2 normal; negative rub, gallop or murmur GI GI: normal to inspection, no hepatosplenomegaly, bowel sounds present and obese Neuro General: alert, oriented x3, awake, CN's II-XI intact bilaterally and moves all extremities Skin Skin: no rashes or lesions noted Extremities Pulses: Normal: Right Posterior Tibial Pulse, Left Posterior Tibial Pulse, Right Radial Pulse, Left Radial Pulse Lower Extremity Edema: +3: Bilateral Psych Psychological: normal affect Supplemental Info Stress echocardiogram from January 2017 was a technically difficult study. Resting ejection fraction 65%. It was considered to be a normal, adequate, modified Mike treadmill echocardiogram negative for ischemia by both EKG and echocardiographic criteria. She had very poor exercise capacity for age. She had appropriate blood pressure response to exercise. Assessment AND Plan 1. Dyspnea on exertion R06.09 Plan She continues to have dyspnea on exertion despite improvement in asthma. Her most recent stress echocardiogram January 2017 was normal and considered negative for ischemia by ECG and echocardiographic to. However, she became severely short of breath rather quickly. It was discussed at last office visit to consider heart catheterization due to this shortness of breath. However, this was delayed due to improvement in symptoms. This will be discussed further with Dr. Qiu regarding further evaluation with a heart catheterization. It was recommended that she undergo an echocardiogram to evaluate valvular status. Her stress echocardiogram showed ejection fraction 65%. She declined at this time and would like to see if a heart catheterization will be done first. 2. Edema, unspecified type R60.9 Plan This is patient's main concern. Her diuretic has been adjusted due to nausea. She was asked to adjust her diuretic to Lasix 40 mg twice daily. Hopefully with diuresis her lower extremity edema will improve. However, her edema is most likely multifactorial. 3. Essential hypertension I10 Plan Patient's blood pressure is well-controlled today in the office. We will continue to monitor this. We will not make any medication regimen changes. Orders Orders: 4. Pure hypercholesterolemia E78.00; E78.0 Plan It was recommended at last office visit that she begin a statin medication. She did not wish to do this at this time. Plan Detail Other Orders Orders: Additional Comments Thank you for allowing us to participate in the patient's plan of care, if you have any questions please do not hesitate to call. This note was generated using a voice recognition system and there may be incorrect words, spelling, or punctuation that were not noted upon reviewing the office note prior to saving. Coding Level of Care Code Off vis,est,level 3 Diagnoses Dyspnea on exertion R06.09 Dyspnea type: dyspnea on exertion Edema, unspecified type R60.9 Edema type: unspecified Essential hypertension I10 Hypertension type: essential hypertension Pure hypercholesterolemia E78.00; E78.0 Hyperlipidemia type: pure hypercholesterolemia Coding Level of Care Code Off vis,est,level 3 Diagnoses Dyspnea on exertion R06.09 Dyspnea type: dyspnea on exertion Edema, unspecified type R60.9 Edema type: unspecified Essential hypertension I10 Hypertension type: essential hypertension Pure hypercholesterolemia E78.00; E78.0 Hyperlipidemia type: pure hypercholesterolemia 01/23/18 1523 <Electronically signed by Justin GARCIAC> Date Justin GARCIAC Cosigner Signature: Date (if applicable) CC: GYN Justin Jarvis; Sigifredo Qiu MD; Kumar Nari MD CBC W/DIFF, AUTOMATED Collected: 01/01/2018 Status: F Source: NIRAV 3:02 PM [facility] REPOSITORY TYPE CODE TESTS RESULT OUT OF RANGE REFERENCE UNITS LAB L100.1000 4.4-11.0 K/mm3 Normal WBC 4.9 LAB L100.1200 4.2-5.4 M/mm3 Normal RBC 4.67 LAB L100.1300 12.0-15.0 g/dl Normal HGB 13.2 LAB L100.1400 37-47 % Normal HCT 41.1 LAB L100.1500 81-99 fL Normal MCV 88.0 LAB L100.1600 27.0-32.0 pg Normal MCH 28.3 LAB L100.1700 32-36 g/gl Normal MCHC 32.1 LAB L100.1810 11.6-14.6 % Normal RDW CV 14.0 LAB L100.1820 35.1-43.9 fl High RDW SD 44.9 LAB L100.1900 150-450 K/mm3 Normal PLT 165 LAB L100.2000 6.2-12.0 fl Normal MPV 11.8 LAB L100.2100 47-70 % Normal NEUT% 65.1 LAB L100.2200 19-41 % Normal LY% 20.2 LAB L100.2300 0-10 % High MONO% 11.0 LAB L100.2400 0-5 % Normal EO% 2.7 LAB L100.2500 0-1 % Normal BASO% 0.8 LAB L100.2550 0.0-0.9 % Normal IM GRAN % 0.200 Result Comment: IG% - Immature Granulocytes (promyelocytes, myelocytes and metamyelocytes) > 1% indicates that a LEFT SHIFT is Present. LAB L100.2620 2.0-7.7 X10 3/uL Normal Absolute Neut 3.2 LAB L100.2720 0.83-4.51 X10 3/ul Normal Absolute Lymph 0.99 Performed By: #### L100.0100 #### [facility] [address] [place], [address] COMPREHENSIVE METABOLIC Collected: 01/01/2018 Status: F Source: [facility] 3:02 PM [facility] REPOSITORY TYPE CODE TESTS RESULT OUT OF RANGE REFERENCE UNITS LAB L501.0100 74-106 mg/dL High GLU 347 Result Comment: Glucose result greater than or equal to 200 mg/dL suggests DIABETES MELLITUS per A.D.A. criteria. Please note revised GLUCOSE reference range effective 2017. LAB L501.1000 7-18 mg/dL Normal BUN 9 LAB L501.1100 0.55-1.02 mg/dL Normal CREAT,SERUM 0.99 Result Comment: The validity of the calculated GFR AND GFRAA in patients over 70 years has not been determined. Clinical correlation is essential. LAB L501.1110 >60 mL/min Normal EST GFR 60 Result Comment: Non- GFR Calc LAB L501.1115 >60 mL/min Normal EST GFR - AA 73 Result Comment: GFR Calc LAB L501.1300 10-20 RATIO Low BUN/CRE 9.1 LAB L501.1500 6.4-8.2 g/dL Normal T PROT 6.9 LAB L501.1800 3.2-5.0 g/dL Low ALB 2.9 LAB L501.1950 2.2-4.2 g/dL Normal GLOB 4.0 LAB L501.2000 0.9-2.4 RATIO Low A/G 0.7 LAB L501.2200 8.5-10.1 mg/dL Normal CA 9.0 LAB L501.4100 15-37 U/L High AST 148 LAB L501.4305 45-117 U/L High ALK P 140 LAB L501.4405 13-56 U/L High ALT 86 LAB L501.4600 0.20-1.00 mg/dL Normal T BILI 0.80 LAB L501.5300 136-145 mmol/L Normal NA 137 LAB L501.5600 3.5-5.1 mmol/L Normal K 4.3 LAB L501.5900 98-107 mmol/L Low CL 94 LAB L501.6100 21.0-32.0 mmol/L High CO2 33.0 LAB L501.6200 5-15 Normal GAP 10 Performed By: #### L500.4050, L501.9520 #### [facility] [address] [facility] [facility] [place], [address] THYROID STIM HORMONE Collected: 01/01/2018 Status: F Source: NIRAV (TSH) 3:02 PM [facility] REPOSITORY TYPE CODE TESTS RESULT OUT OF RANGE REFERENCE UNITS LAB L501.9520 0.358-3.74 uIU/mL Normal TSH 1.40 Performed By: #### L500.4050, L501.9520 #### [facility] [address] [place], [address] FEED WEIGHER OFFICE VISIT Observed: 12/31/2017 Status: F Source: NIRAV REPORT 12:08 PM [facility] REPOSITORY [facility] [address] [place] [address] OFFICE VISIT Date of Service: 12/31/17 MR#: [id number] Acct: [id number] Name: TONYA RASMUSSEN Kristyn Rep #: [id number] : 1955 Provider: DAVE Prieto Age/Sex: 62/F Location: [facility] Status: Signed Intake Vital Signs12/31/17 Height 5 ft 9 in 12/31/17 Weight: 305 lb 6 oz 12/31/17 Body Mass Index (BMI) 45.1 12/31/17 Blood Pressure 118/70 Intake Visit Reasons: ? vaginal infection Chief Complaint: vaginal irritation Informatics Consultant Required: No Is patient in pain?: Yes Allergies ciprofloxacin [From Cipro] Adverse Reaction (Verified 12/31/17 11:34) Nausea theophylline anhydrous [From Joe-Dur] Adverse Reaction (Verified 12/31/17 11:34) Nausea Medications Atenolol [Tenormin (Beta [place])] 50 mg PO BID 08/27/13 [History Confirmed 12/31/17] Insulin Glargine [Lantus SoloStar Pen] 30 units SC QHS 08/27/13 [History Confirmed 12/31/17] Insulin Lispro [Humalog] 10 - 12 unit SQ TID 08/27/13 [History Confirmed 12/31/17] Losartan Potassium [Cozaar] 100 mg PO DAILY 08/27/13 [History Confirmed 12/31/17] Zolpidem Tartrate [Ambien] 5 mg PO QHS PRN PRN 08/27/13 [History Confirmed 12/31/17] Trazodone ER [Oleptro Er] 150 mg PO QHS 08/19/16 [History Confirmed 12/31/17] traMADol [Ultram (G)] 50 mg PO BID PRN PRN 08/19/16 [History Confirmed 12/31/17] Acetaminophen with Codeine [Acetaminophen-Cod #3 Tablet] 1 ea PO PRN PRN 02/11/17 [History Confirmed 12/31/17] Cranberry Fruit Extract [Cranberry] 250 mg PO DAILY 02/11/17 [History Confirmed 12/31/17] Estradiol [Estrace Vaginal Cream] 1 gm VAGINAL Q7D 02/11/17 [History Confirmed 12/31/17] Ropinirole HCl [Requip] 1 mg PO DAILY 02/11/17 [History Confirmed 12/31/17] albuterol sulfate HFA 90 mcg/actuation aerosol inhaler 2 puff INHALATION Q4H PRN #18 g 06/09/17 [Rx Confirmed 12/31/17] mometasone 200 mcg/actuation HFA aerosol inhaler 2 puff INHALATION Q12H #13 g 06/09/17 [Rx Confirmed 12/31/17] aspirin 81 mg tablet,delayed release 81 mg PO QDAY 08/11/17 [History Confirmed 12/31/17] famciclovir 500 mg tablet 500 mg PO DAILY PRN 08/11/17 [History Confirmed 12/31/17] pregabalin 150 mg capsule 150 mg PO .q day cap 08/11/17 [History Confirmed 12/31/17] tizanidine 4 mg tablet 4 mg PO TID PRN 08/11/17 [History Confirmed 12/31/17] vortioxetine 20 mg tablet 20 mg PO .COMPLEX 08/11/17 [History Confirmed 12/31/17] furosemide 20 mg tablet 20 mg PO QDAY 08/14/17 [History Confirmed 12/31/17] fluconazole 150 mg tablet 150 mg PO .COMPLEX #2 tab 12/31/17 [Rx Confirmed 12/31/17] nystatin 100,000 unit/gram topical cream 1 applic TOPICAL BID PRN #15 g 12/31/17 [Rx Confirmed 12/31/17] triamcinolone acetonide 0.5 % topical cream 1 applic TOPICAL BID #15 g 12/31/17 [Rx Confirmed 12/31/17] Is last menstrual period known: No Post menopausal: Yes Patient : No : No PFSH Medical History Type 2 diabetes mellitus (Chronic) Hypertension (Chronic) Abnormal electrocardiogram (Chronic) Hyperlipidemia (Chronic) Dyspnea (Chronic) Body mass index (BMI) of 45.0-49.9 in adult (Chronic) Abnormal cardiovascular stress test (Chronic) Shingles (Acute) Asthma (Chronic) Depression (Chronic) GERD (gastroesophageal reflux disease) (Chronic) Hypersomnia, unspecified (Chronic) IBS (irritable bowel syndrome) (Chronic) Obstructive sleep apnea (Chronic) Chest pain on exertion (Resolved) Depression (Resolved) Surgical History History of lumbar surgery (Chronic) Hx of cholecystectomy (Chronic) Family History Father Diabetes Heart disease Mother CVA (cerebral vascular accident) Psychiatric care Alzheimer disease Parkinson's disease Social History Smoking Status: Never smoker second hand exposure: No alcohol intake: never substance use type: does not use caffeine: Yes Type: coffee Number of servings: 2 what type of physical activity do you participate in: none seatbelt use: always do you feel safe at home: Yes additional social history: - retired HPI ? vaginal infection: Details: TONYA RASMUSSEN is a 62 year old who presents for external and internal vaginal pain, itching, burning X 1 week. Using desitin without benefit. Uncontrolled diabetic. States really [place] when urine touches skin. Pregancy History 0 Elective abortions Hx Para Spontaneous abortions Exam Other: Significant erythema upper inner thighs, vulva and into vagina with some cracking. Consistent with monilia Assessment AND Plan Problems 1. Monilial intertrigo B37.2 Plan Rx nystatin, triamcinolone, diflucan Loose clothing. Avoid other topical creams, powders. RTO prn Medications New: Discontinued: Coding Level of Care Code Off vis,new,level 3 Diagnoses Monilial intertrigo B37.2 12/31/17 120 <Electronically signed by Carolina MOREIRA> Date Carolina GARCIAC Cosigner Signature: Date (if applicable) CC: ABD INC DECUB Observed: 12/04/2017 Status: F Source: NIRAV AND/OR ERECT 9:48 AM [facility] REPOSITORY [facility] Imaging Services [address] [place] [id number] Abd Inc Decub and/or Erect MR#: [id number] Acct: [id number] Name: TONYA RASMUSSEN Rep #: [id number] : 1955 F 62 From: Parth Adhikari MD PCP: Korey YUNG,Kumar Avila Status: REG CLI Study: Abd Inc Decub and/or Erect Date of Exam: 12/04/17 Exam# [id number] Ordering Dr: Kumar Nair MD STUDY: X-RAY - ABDOMEN/PELVIS REASON FOR EXAM: Female, 62 years old. Diarrhea TECHNIQUE: AP supine and upright views of the abdomen and pelvis. COMPARISON: Prior study 09/02/2017 FINDINGS: Normal visualized lung bases. Formed stool is seen throughout the colon to the level of the rectosigmoid. There is no demonstrated free abdominal air. The visualized liver, spleen and kidneys are grossly normal in size and morphology. Normal soft tissue structures. There are status post laminectomy changes at L3-L5. RAD/Abd Inc Decub and/or Erect IMPRESSION: Status post laminectomy changes of L3-L5. The bowel pattern is unremarkable with no evidence of ileus or obstruction. There is no free intraperitoneal air. Electronically Signed: Parth Adhikari MD at 17:03 EDT , Service support , CC: Kumar Nair MD Regional Economist: Signed BASIC METABOLIC Collected: 10/30/2017 Status: F Source: NIRAV PROFILE (BMP) 2:57 PM [facility] REPOSITORY TYPE CODE TESTS RESULT OUT OF RANGE REFERENCE UNITS LAB L501.0100 74-106 mg/dL High GLU 328 Result Comment: Glucose result greater than or equal to 200 mg/dL suggests DIABETES MELLITUS per A.D.A. criteria. Please note revised GLUCOSE reference range effective 2017. LAB L501.1000 7-18 mg/dL Normal BUN 13 LAB L501.1100 0.55-1.02 mg/dL High CREAT,SERUM 1.23 Result Comment: The validity of the calculated GFR AND GFRAA in patients over 70 years has not been determined. Clinical correlation is essential. LAB L501.1110 >60 mL/min Low EST GFR 47 Result Comment: Non- GFR Calc LAB L501.1115 >60 mL/min Low EST GFR - AA 57 Result Comment: GFR Calc LAB L501.1300 10-20 RATIO Normal BUN/CRE 10.6 LAB L501.2200 8.5-10.1 mg/dL CA Normal 9.2 LAB L501.5300 136-145 mmol/L NA Normal 137 LAB L501.5600 3.5-5.1 mmol/L K Normal 4.2 LAB L501.5900 98-107 mmol/L Low CL 96 LAB L501.6100 21.0-32.0 mmol/L High CO2 36.0 LAB L501.6200 5-15 Normal GAP 5 Performed By: #### L500.2500 #### [facility] [address], [address] VENOUS DUPLEX LOWER Observed: 10/21/2017 Status: F Source: CEMENT EXTREMITY 12:18 PM [facility] REPOSITORY [facility] Cardiovascular Services [address] [place] [address] Venous Duplex US - Mani Extrem 10/21/17 1135 MR#: [id number] Acct: [id number] Name: TONYA RASMUSSEN Rep #: [id number] : 1955 62 From: Geo Cabrera MD Attending Dr: Korey YUNG,Kumar Avila Status: REG CLI Ordering Dr: Kumar Nair MD Date: 10/21/17 Location: CVS Sex: F C Admitted: Reason For Study: LEG SWELLING RIGHT LEFT GSV is normal. GSV is normal. CFV is compressible, spontaneous, phasic, CFV is compressible, spontaneous, phasic, competent and demonstrates normal competent, and demonstrates normal augmentation. augmentation. FV is compressible, spontaneous, phasic, FV is compressible, spontaneous, phasic, competent and demonstrates normal competent and demonstrates normal augmentation. augmentation. POP V is compressible, spontaneous, phasic, POP V is compressible, spontaneous, phasic, competent and demonstrates normal competent and demonstrates normal augmentation. augmentation. T/P Trunk is compressible. T/P Trunk is compressible. PTV is compressible. PTV is compressible. PTV visualized distally only. PTV visualized distally only. Procedure Exam performed in department. The study was technically difficult. A preliminary report was called and/or faxed to Dr. Nair. Interpretation Summary Deep veins of the lower extremities are bilaterally patent and compressible segmentally. There is no evidence of deep vein thrombosis on either side. Valvular competence appears intact within the proximal deep venous systems bilaterally. The greater saphenous veins appear bilaterally patent and compressible segmentally. The proximal portions of the posterior tibial veins were not visualized bilaterally. Ordering Physician: Kumar Nair Referring Physician: Kumar Nair Chi Performed By: Pattie Barnard RVT 10/21/17 1218 Date Geo Cabrera MD CC: Kumar Nair MD Date Dictated: 10/21/17 1135 Date Transcribed: 10/21/17 1218 Regional Economist: Signed BASIC METABOLIC Collected: 10/21/2017 Status: F Source: NIRAV PROFILE (BMP) 12:13 PM [facility] REPOSITORY TYPE CODE TESTS RESULT OUT OF RANGE REFERENCE UNITS LAB L501.0100 74-106 mg/dL High GLU 176 Result Comment: Fasting Glucose result greater than or equal to 126 mg/dL suggests DIABETES MELLITUS per A.D.A. criteria. Please note revised GLUCOSE reference range effective 2017. LAB L501.1000 7-18 mg/dL Normal BUN 9 LAB L501.1100 0.55-1.02 mg/dL High CREAT,SERUM 1.06 Result Comment: The validity of the calculated GFR AND GFRAA in patients over 70 years has not been determined. Clinical correlation is essential. LAB L501.1110 >60 mL/min Low EST GFR 56 Result Comment: Non- GFR Calc LAB L501.1115 >60 mL/min Normal EST GFR - AA 68 Result Comment: GFR Calc LAB L501.1300 10-20 RATIO Low BUN/CRE 8.5 LAB L501.2200 8.5-10.1 mg/dL Normal CA 10.0 LAB L501.5300 136-145 mmol/L Normal NA 144 LAB L501.5600 3.5-5.1 mmol/L Normal K 4.2 LAB L501.5900 98-107 mmol/L Normal CL 103 LAB L501.6100 21.0-32.0 mmol/L High CO2 34.0 LAB L501.6200 5-15 Normal GAP 7 Performed By: #### L500.2500 #### [facility] [address] [place], [address] CBC W/DIFF, AUTOMATED Collected: 10/21/2017 Status: F Source: CEMENT 12:13 PM [facility] REPOSITORY TYPE CODE TESTS RESULT OUT OF RANGE REFERENCE UNITS LAB L100.1000 4.4-11.0 K/mm3 Normal WBC 5.8 LAB L100.1200 4.2-5.4 M/mm3 Normal RBC 4.55 LAB L100.1300 12.0-15.0 g/dl Normal HGB 12.6 LAB L100.1400 37-47 % Normal HCT 40.2 LAB L100.1500 81-99 fL Normal MCV 88.4 LAB L100.1600 27.0-32.0 pg Normal MCH 27.7 LAB L100.1700 32-36 g/gl Low MCHC 31.3 LAB L100.1810 11.6-14.6 % Normal RDW CV 14.1 LAB L100.1820 35.1-43.9 fl High RDW SD 44.8 LAB L100.1900 150-450 K/mm3 Normal PLT 198 LAB L100.2000 6.2-12.0 fl Normal MPV 11.1 LAB L100.2100 47-70 % Normal NEUT% 55.3 LAB L100.2200 19-41 % Normal LY% 30.6 LAB L100.2300 0-10 % Normal MONO% 9.3 LAB L100.2400 0-5 % Normal EO% 3.8 LAB L100.2500 0-1 % Normal BASO% 0.7 LAB L100.2550 0.0-0.9 % Normal IM GRAN % 0.300 Result Comment: IG% - Immature Granulocytes (promyelocytes, myelocytes and metamyelocytes) > 1% indicates that a LEFT SHIFT is Present. LAB L100.2620 2.0-7.7 X10 3/uL Normal Absolute Neut 3.2 LAB L100.2720 0.83-4.51 X10 3/ul Normal Absolute Lymph 1.78 Performed By: #### L100.0100 #### [facility] [address] [place], [place], [address] D-DIMER QUANTITATIVE Collected: 10/21/2017 Status: C Source: NIRAV (DVT/PE) 12:13 PM [facility] REPOSITORY Order Comment: CRITICAL VALUE VERIFIED. CALLED TO PHIL 10/21/17 1306 Makenzie Charles. RESULTS READ BACK BY SAME . TYPE CODE TESTS RESULT OUT OF RANGE REFERENCE UNITS LAB L300.8000 0.27-0.49 FEU/ug/m High alert D-DIMER 0.64 QUANT Result Comment: D-Dimer ELEVATED (>0.49): Additional studies and clinical assessments are indicated to conclude diagnosis of: Deep Vein Thrombosis (DVT) or Pulmonary Embolism (PE) CRITICAL VALUE VERIFIED. CALLED TO MILA 10/21/17 1305 Makenzie Charles. RESULTS READ BACK BY GALI . AMENDED REPORT 10/21/17 1306 D-DIMER QUANT previously reported as: 0.64 *H FEU/ug/m D-Dimer ELEVATED (>0.49): Additional studies and clinical assessments are indicated to conclude diagnosis of: Deep Vein Thrombosis (DVT) or Pulmonary Embolism (PE) Performed By: #### L300.8000 #### [facility] [address] [facility] [facility] [place], [place], [address] Observed: 10/03/2017 Status: F Source: NIRAV CDIFF (MOLECULAR) 8:00 AM [facility] REPOSITORY Cdiff-Molecular Normal Reference Range = Negative C. Diff DNA Negative- No toxigenic C. Diff DNA Detected NAAT METHOD Testing was performed using nucleic acid amplification Performed By: #### M100.6796 #### [facility] [address], [address] COMPREHENSIVE METABOLIC Collected: 10/02/2017 Status: F Source: NIRAV PROFIL 11:49 AM [facility] REPOSITORY TYPE CODE TESTS RESULT OUT OF RANGE REFERENCE UNITS LAB L501.0100 74-106 mg/dL High GLU 147 Result Comment: Fasting Glucose result greater than or equal to 126 mg/dL suggests DIABETES MELLITUS per A.D.A. criteria. Please note revised GLUCOSE reference range effective 2017. LAB L501.1000 7-18 mg/dL Normal BUN 8 LAB L501.1100 0.55-1.02 mg/dL High CREAT,SERUM 1.07 Result Comment: The validity of the calculated GFR AND GFRAA in patients over 70 years has not been determined. Clinical correlation is essential. LAB L501.1110 >60 mL/min Low EST GFR 55 Result Comment: Non- GFR Calc LAB L501.1115 >60 mL/min Normal EST GFR - AA 67 Result Comment: GFR Calc LAB L501.1300 10-20 RATIO Low BUN/CRE 7.5 LAB L501.1500 6.4-8.2 g/dL Normal T PROT 7.1 LAB L501.1800 3.2-5.0 g/dL Normal ALB 3.2 LAB L501.1950 2.2-4.2 g/dL Normal GLOB 3.9 LAB L501.2000 0.9-2.4 RATIO Low A/G 0.8 LAB L501.2200 8.5-10.1 mg/dL Normal CA 9.4 LAB L501.4100 15-37 U/L High AST 45 LAB L501.4305 45-117 U/L Normal ALK P 102 LAB L501.4405 13-56 U/L Normal ALT 50 LAB L501.4600 0.20-1.00 mg/dL Normal T BILI 0.50 LAB L501.5300 136-145 mmol/L Normal NA 142 LAB L501.5600 3.5-5.1 mmol/L Normal K 4.0 LAB L501.5900 98-107 mmol/L Normal CL 103 LAB L501.6100 21.0-32.0 mmol/L Normal CO2 30.0 LAB L501.6200 5-15 Normal GAP 9 Performed By: #### L500.4050, L501.9520 #### [facility] [address] [place], [place], [id number] THYROID STIM HORMONE Collected: 10/02/2017 Status: F Source: NIRAV (TSH) 11:49 AM [facility] REPOSITORY TYPE CODE TESTS RESULT OUT OF RANGE REFERENCE UNITS LAB L501.9520 0.358-3.74 uIU/mL Normal TSH 1.61 Performed By: #### L500.4050, L501.9520 #### [facility] [place] [address], [address] CBC W/DIFF, AUTOMATED Collected: 10/02/2017 Status: F Source: NIRAV 11:49 AM [facility] REPOSITORY TYPE CODE TESTS RESULT OUT OF RANGE REFERENCE UNITS LAB L100.1000 4.4-11.0 K/mm3 Normal WBC 6.0 LAB L100.1200 4.2-5.4 M/mm3 Normal RBC 4.72 LAB L100.1300 12.0-15.0 g/dl Normal HGB 13.3 LAB L100.1400 37-47 % Normal HCT 41.6 LAB L100.1500 81-99 fL Normal MCV 88.1 LAB L100.1600 27.0-32.0 pg Normal MCH 28.2 LAB L100.1700 32-36 g/gl Normal MCHC 32.0 LAB L100.1810 11.6-14.6 % Normal RDW CV 13.7 LAB L100.1820 35.1-43.9 fl High RDW SD 44.3 LAB L100.1900 150-450 K/mm3 Normal PLT 209 LAB L100.2000 6.2-12.0 fl Normal MPV 11.0 LAB L100.2100 47-70 % Normal NEUT% 57.7 LAB L100.2200 19-41 % Normal LY% 27.0 LAB L100.2300 0-10 % High MONO% 10.8 LAB L100.2400 0-5 % Normal EO% 3.5 LAB L100.2500 0-1 % Normal BASO% 0.8 LAB L100.2550 0.0-0.9 % Normal IM GRAN % 0.200 Result Comment: IG% - Immature Granulocytes (promyelocytes, myelocytes and metamyelocytes) > 1% indicates that a LEFT SHIFT is Present. LAB L100.2620 2.0-7.7 X10 3/uL Normal Absolute Neut 3.5 LAB L100.2720 0.83-4.51 X10 3/ul Normal Absolute Lymph 1.62 Performed By: #### L100.0100 #### [facility] [address] [place], [address] ABD INC DECUB Observed: 09/02/2017 Status: F Source: NIRAV AND/OR ERECT 4:04 PM [facility] REPOSITORY [facility] Imaging Services [address] [place] [address] Abd Inc Decub and/or Erect MR#: [id number] Acct: [id number] Name: TONYA RASMUSSEN Rep #: [id number] : 1955 F 62 From: Mauricio Griffin MD PCP: Kumar Nair MD, Chi Status: REG CLI Study: Abd Inc Decub and/or Erect Date of Exam: 09/02/17 Exam# [id number] Ordering Dr: Kumar Nair MD STUDY: X-RAY - ABDOMEN/PELVIS REASON FOR EXAM: Female, 62 years old. Nausea. Diarrhea. Constipation. TECHNIQUE: AP supine and upright views of the abdomen and pelvis. COMPARISON: May 30, 2016. FINDINGS: Normal visualized lung bases. There is an unremarkable bowel gas pattern. There is no demonstrated free abdominal air. The visualized liver, spleen and kidneys are grossly normal in size and morphology. Normal soft tissue structures. Normal visualized osseous structures. RAD/Abd Inc Decub and/or Erect IMPRESSION: Normal x-ray examination of the abdomen and pelvis. Electronically Signed: Mauricio Griffin MD at 16:55 EDT , Service support , CC: Kumar Nair MD Regional Economist: Signed CBC W/DIFF, AUTOMATED Collected: 09/02/2017 Status: F Source: CEMENT 1:53 PM [facility] REPOSITORY TYPE CODE TESTS RESULT OUT OF RANGE REFERENCE UNITS LAB L100.1000 4.4-11.0 K/mm3 Normal WBC 7.2 LAB L100.1200 4.2-5.4 M/mm3 Normal RBC 4.72 LAB L100.1300 12.0-15.0 g/dl Normal HGB 12.9 LAB L100.1400 37-47 % Normal HCT 42.2 LAB L100.1500 81-99 fL Normal MCV 89.4 LAB L100.1600 27.0-32.0 pg Normal MCH 27.3 LAB L100.1700 32-36 g/gl Low MCHC 30.6 LAB L100.1810 11.6-14.6 % Normal RDW CV 14.4 LAB L100.1820 35.1-43.9 fl High RDW SD 47.1 LAB L100.1900 150-450 K/mm3 Normal PLT 230 LAB L100.2000 6.2-12.0 fl Normal MPV 10.7 LAB L100.2100 47-70 % Normal NEUT% 62.1 LAB L100.2200 19-41 % Normal LY% 23.7 LAB L100.2300 0-10 % High MONO% 10.2 LAB L100.2400 0-5 % Normal EO% 3.3 LAB L100.2500 0-1 % Normal BASO% 0.6 LAB L100.2550 0.0-0.9 % Normal IM GRAN % 0.100 Result Comment: IG% - Immature Granulocytes (promyelocytes, myelocytes and metamyelocytes) > 1% indicates that a LEFT SHIFT is Present. LAB L100.2620 2.0-7.7 X10 3/uL Normal Absolute Neut 4.5 LAB L100.2720 0.83-4.51 X10 3/ul Normal Absolute Lymph 1.71 Performed By: #### L100.0100 #### [facility] [address] [place], [place], [address] COMPREHENSIVE METABOLIC Collected: 09/02/2017 Status: F Source: NIRAV [facility] 1:53 PM [facility] REPOSITORY TYPE CODE TESTS RESULT OUT OF RANGE REFERENCE UNITS LAB L501.0100 74-106 mg/dL High GLU 152 Result Comment: Fasting Glucose result greater than or equal to 126 mg/dL suggests DIABETES MELLITUS per A.D.A. criteria. Please note revised GLUCOSE reference range effective 2017. LAB L501.1000 7-18 mg/dL Normal BUN 10 LAB L501.1100 0.55-1.02 mg/dL Normal CREAT,SERUM 0.88 Result Comment: The validity of the calculated GFR AND GFRAA in patients over 70 years has not been determined. Clinical correlation is essential. LAB L501.1110 >60 mL/min Normal EST GFR 70 Result Comment: Non- GFR Calc LAB L501.1115 >60 mL/min Normal EST GFR - AA 84 Result Comment: GFR Calc LAB L501.1300 10-20 RATIO Normal BUN/CRE 11.4 LAB L501.1500 6.4-8.2 g/dL T Normal PROT 6.9 LAB L501.1800 3.2-5.0 g/dL Low ALB 3.1 LAB L501.1950 2.2-4.2 g/dL Normal GLOB 3.8 LAB L501.2000 0.9-2.4 RATIO Low A/G 0.8 LAB L501.2200 8.5-10.1 mg/dL CA Normal 9.0 LAB L501.4100 15-37 U/L High AST 53 LAB L501.4305 45-117 U/L Normal ALK P 104 LAB L501.4405 13-56 U/L Normal ALT 51 LAB L501.4600 0.20-1.00 mg/dL T Normal BILI 0.50 LAB L501.5300 136-145 mmol/L NA Normal 142 LAB L501.5600 3.5-5.1 mmol/L K Normal 4.4 LAB L501.5900 98-107 mmol/L CL Normal 105 LAB L501.6100 21.0-32.0 mmol/L Normal CO2 28.0 LAB L501.6200 5-15 Normal GAP 9 Performed By: #### L500.4050 #### [facility] [address] [place], [address] CARDIOLOGY VISIT Observed: 08/14/2017 Status: F Source: NIRAV REPORT 1:38 PM [facility] REPOSITORY [facility] [address] [place] [address] OFFICE VISIT Date of Service: 08/14/17 MR#: [id number] Acct: [id number] Name: TONYA RASMUSSEN Rep #: [id number] : 1955 Provider: Sigifredo Qiu MD Age/Sex: 62/F [place] [facility] [place] Signed HPI HPI Chief Complaint: Routine f/u Details: Referring physician: Dr. Schumacher Mrs. Rasmussen is a very pleasant 62-year-old severely obese female with a history of hypertension, lifelong nonsmoker, nondrinker, type II diabetes, asthma,status post laparoscopic cholecystectomy in 2002,no previous known cardiac history, last stress testwas a Lexiscannuclear in 2011 which was negative. Patient states that about 2 months prior to our initial visit, while she was rushing around in the rain trying to complete her chores, she developed severe shortness of breath with associated midsternal chest pressure as if someone had just punched her in the chest. The symptoms lasted for several minutes, and then resolved, nor were they present prior to this event. She did not seek medical attention at that time and reported to who referred her for evaluation. She has a positive family history in her father of bypass surgery in his 70s, and mother but had no significant coronary disease. In addition she has excessive snoring, wakes herself up with her own snoring, feels tired in the morning after sleeping, has a headache, and daytime somnolence and occasional falling asleep at a stoplight. She also complained of lower extremity edema during the hot weather, but this has resolved. On 01/30/17 she underwent a treadmill echocardiogram in which she only went 4 minutes and had profound dyspnea which may be an anginal equivalent. She denies any exertional angina, chest pain or change in activity level. 04/03/17 she underwent a sleep study which was positive for LUIZ and was referred for BiPAP therapy. Patient was seen by Dr. Dover who helped her with her asthma, and her shortness of breath has markedly improved. She originally was referred for catheterization in January 2017 but declined due to shingles. In our office today her blood pressure is 120/62, and pulse is 70 and regular. Her physical exam demonstrates no carotid bruits, clear lungs bilaterally, no wheezing, regular rate and rhythm, normal S1/S2, no murmurs or S3/S4 noted. She has no edema. Lipids are pending. EKG demonstrates normal sinus rhythm, normal axis, normal intervals, no evidence of previous myocardial infarction. Intake Vital Signs08/14/17 Height 5 ft 9 in Intake Visit Reasons: 6 M FU Allergies ciprofloxacin [From Cipro] Adverse Reaction (Verified 08/14/17 13:16) Nausea theophylline anhydrous [From Joe-Dur] Adverse Reaction (Verified 08/14/17 13:16) Nausea Medications Atenolol [Tenormin (Beta [facility])] 50 mg PO BID 08/27/13 [History Confirmed 08/14/17] Insulin Glargine [Lantus SoloStar Pen] 30 units SC QHS 08/27/13 [History Confirmed 08/14/17] Insulin Lispro [Humalog] 10 - 12 unit SQ TID 08/27/13 [History Confirmed 08/14/17] Losartan Potassium [Cozaar] 100 mg PO DAILY 08/27/13 [History Confirmed 08/14/17] Zolpidem Tartrate [Ambien] 5 mg PO QHS PRN PRN 08/27/13 [History Confirmed 08/14/17] Trazodone ER [Oleptro Er] 150 mg PO QHS 08/19/16 [History Confirmed 08/14/17] traMADol [Ultram (G)] 50 mg PO BID PRN PRN 08/19/16 [History Confirmed 08/14/17] Acetaminophen with Codeine [Acetaminophen-Cod #3 Tablet] 1 ea PO PRN PRN 02/11/17 [History Confirmed 08/14/17] Cranberry Fruit Extract [Cranberry] 250 mg PO DAILY 02/11/17 [History Confirmed 08/14/17] Estradiol [Estrace Vaginal Cream] 1 gm VAGINAL Q7D 02/11/17 [History Confirmed 08/14/17] Ropinirole HCl [Requip] 1 mg PO DAILY 02/11/17 [History Confirmed 08/14/17] albuterol sulfate HFA 90 mcg/actuation aerosol inhaler 2 puff INHALATION Q4H PRN #18 g 06/09/17 [Rx Confirmed 08/14/17] mometasone 200 mcg/actuation HFA aerosol inhaler 2 puff INHALATION Q12H #13 g 06/09/17 [Rx Confirmed 08/14/17] aspirin 81 mg tablet,delayed release 81 mg PO QDAY 08/11/17 [History Confirmed 08/14/17] famciclovir 500 mg tablet 500 mg PO DAILY PRN 08/11/17 [History Confirmed 08/14/17] pregabalin 150 mg capsule 150 mg PO .q day cap 08/11/17 [History Confirmed 08/14/17] tizanidine 4 mg tablet 4 mg PO TID PRN 08/11/17 [History Confirmed 08/14/17] vortioxetine 20 mg tablet 20 mg PO .COMPLEX 08/11/17 [History Confirmed 08/14/17] azithromycin 1 gram oral packet 1 g PO QDAY 08/14/17 [History Confirmed 08/14/17] furosemide 20 mg tablet 20 mg PO QDAY 08/14/17 [History Confirmed 08/14/17] PFSH Medical History Type 2 diabetes mellitus (Chronic) Hypertension (Chronic) Abnormal electrocardiogram (Chronic) Hyperlipidemia (Chronic) Dyspnea (Chronic) Body mass index (BMI) of 45.0-49.9 in adult (Chronic) Abnormal cardiovascular stress test (Chronic) Shingles (Acute) Asthma (Chronic) Depression (Chronic) GERD (gastroesophageal reflux disease) (Chronic) Hypersomnia, unspecified (Chronic) IBS (irritable bowel syndrome) (Chronic) Obstructive sleep apnea (Chronic) Chest pain on exertion (Resolved) Depression (Resolved) Surgical History History of lumbar surgery (Chronic) Hx of cholecystectomy (Chronic) Family History Father Diabetes Heart disease Mother CVA (cerebral vascular accident) Psychiatric care Alzheimer disease Parkinson's disease Social History Smoking Status: Never smoker second hand exposure: No alcohol intake: never substance use type: does not use caffeine: Yes Type: coffee Number of servings: 2 what type of physical activity do you participate in: none ROS Const Const: Negative for fatigue, weakness, difficulty sleeping, frequent falls, excessive sweating or headache(s) Eyes Eyes: Negative for loss of peripheral vision, transient loss of vision, blurry vision or double vision ENT ENT: Positive for other (Has chronic gum/tooth infections. Having tooth extractions next week.); negative for headache(s), dizziness, Nosebleed/epistaxis or balance problems Cardio Chest Pain: No Edema: Bilateral (trace BLE ankle edema) Muscle aches with walking: None Resp Respiratory: Positive for SOB with activity (when rushing aroung to do activities); negative for SOB at rest, SOB orthopnea\SOB lying down or paroxysmal nocturnal dyspnea Additional Details: CPAP GI GI: Negative nausea or heartburn : Negative for hematuria Musc Musc: Negative for muscle aches/ myalgia, muscle weakness, joint pain or balance problems Skin Skin: Negative non-healing lesions, unusual bruising or rash Neuro Neuro: Negative for weakness, frequent falls, blurry vision, lightheadedness, orthostatic symptoms, double vision, headache(s) or dizziness Brijesh Hematologic/Lymphatic: Negative for easy bruising Endo Endo: Negative for fatigue, excessive sweating or increased thirst/drinking Psych Psych: Negative for anxiety or depression Allergy Allergy/Immunology: Negative for hives, Negative for rash Cardiology Exam Const Appearance: cooperative, healthy appearing and no acute distress Nutritional Appearance: well nourished Orientation: alert, oriented x3 and oriented to person Head Head: normal to inspection, atraumatic and normocephalic Nose: external nose normal Face and Sinus: face symmetric Mouth: oral mucosae normal Eyes General: appearance normal, both eyes and all related structures Eyelids: eyelids normal Conjunctivae: conjunctivae normal Pupils: PERRL and normal by confrontation EOM: EOM intact bilaterally Neck Neck: normal visual inspection and full ROM Carotids: normal carotid upstroke Chest Chest inspection: normal inspection of the chest Auscultation: Bilateral: Clear to Auscultation Cardio Palpation: normal PMI Rate: regular rate Rhythm: regular rhythm Heart sounds: S1 normal and S2 normal GI GI: normal to inspection, no hepatosplenomegaly and bowel sounds present Neuro General: alert, oriented x3, awake, CN's II-XI intact bilaterally and moves all extremities Skin Skin: no rashes or lesions noted Extremities Pulses: Normal: Right Femoral Pulse, Left Femoral Pulse, Right Dorsalis Pedis Pulse, Left Dorsalis Pedis Pulse, Right Posterior Tibial Pulse, Left Posterior Tibial Pulse, Right Radial Pulse, Left Radial Pulse Lower Extremity Edema: None: Bilateral Psych Psychological: normal affect Assessment AND Plan 1. Abnormal cardiovascular stress test R94.39 Stress echo 01/30/[address] or T wave changes to suggest ischemia but pt had extreme dyspnea Plan 1. Abnormal cardiac stress test: Although the patient had profound dyspnea on exertion and only 1 about 4 minutes under stress test, she is quite obese, and her shortness of breath has markedly improved with asthma treatment. She has had no angina. At this point I believe we can hold off on catheterization until such time as her symptoms worsen. Her blood pressure is much better controlled. Recommend that she continue baby aspirin, atenolol, Lasix and losartan. 2. Hyperlipidemia E78.5 Plan 2. Hyperlipidemia: The patient reports that her cholesterol is under excellent control although I do not have those lipids. This apparently is controlled by Dr. Schumacher her PCP. Her LDL should be less than 70 given her diabetes. 3. Hypertension I10 Plan 3. Hypertension: Patient's blood pressure is optimized. Continue present management. In addition she is trying to use her CPAP as well as possible, but she works the payroll lead unfortunately. 4. Return office in 6 months. This note was generated using a voice recognition system and there may be incorrect words, spelling or punctuation that were not noted when reviewing the office note prior to saving. Plan Detail Follow Up +6M (Lazarus) Coding Level of Care Code Off vis,est,level 3 Diagnoses Abnormal cardiovascular stress test R94.39 Hyperlipidemia E78.5 Hypertension I10 Coding Level of Care Code Off vis,est,level 3 Diagnoses Abnormal cardiovascular stress test R94.39 Hyperlipidemia E78.5 Hypertension I10 08/14/17 1338 <Electronically signed by Sigifredo Qiu MD> Date Sigifredo Qiu MD Cosigner Signature: Date (if applicable) CC: Kumar Nair MD CBC W/DIFF, AUTOMATED Collected: 06/09/2017 Status: F Source: NIRAV 3:11 PM [facility] REPOSITORY TYPE CODE TESTS RESULT OUT OF RANGE REFERENCE UNITS LAB L100.1000 4.4-11.0 K/mm3 Normal WBC 9.2 LAB L100.1200 4.2-5.4 M/mm3 Normal RBC 5.14 LAB L100.1300 12.0-15.0 g/dl Normal HGB 13.7 LAB L100.1400 37-47 % Normal HCT 44.1 LAB L100.1500 81-99 fL Normal MCV 85.8 LAB L100.1600 27.0-32.0 pg Low MCH 26.7 LAB L100.1700 32-36 g/gl Low MCHC 31.1 LAB L100.1810 11.6-14.6 % High RDW CV 16.2 LAB L100.1820 35.1-43.9 fl High RDW SD 51.2 LAB L100.1900 150-450 K/mm3 Normal PLT 270 LAB L100.2000 6.2-12.0 fl Normal MPV 10.9 LAB L100.2100 47-70 % Normal NEUT% 69.1 LAB L100.2200 19-41 % Normal LY% 19.1 LAB L100.2300 0-10 % Normal MONO% 8.4 LAB L100.2400 0-5 % Normal EO% 2.7 LAB L100.2500 0-1 % Normal BASO% 0.5 LAB L100.2550 0.0-0.9 % Normal IM GRAN % 0.200 Result Comment: IG% - Immature Granulocytes (promyelocytes, myelocytes and metamyelocytes) > 1% indicates that a LEFT SHIFT is Present. LAB L100.2620 2.0-7.7 X10 3/uL Normal Absolute Neut 6.3 LAB L100.2720 0.83-4.51 X10 3/ul Normal Absolute Lymph 1.75 Performed By: #### L100.0100 #### [facility] [address] [place], [address] VITAMIN D,25 HYDROXY Collected: 06/09/2017 Status: F Source: NIRAV 3:11 PM [facility] REPOSITORY TYPE CODE TESTS RESULT OUT OF REFERENCE UNITS RANGE LAB L506.1000 29.95-100.01 ng/mL Low Vitamin D 10.7 25-OH Result Comment: Vitamin D 25(OH) Status Range Deficiency <20 ng/mL (50nmol/L) Insuffciency 20 - 30 ng/mL (50 - 75 nmol/L) Sufficiency 30 - 100 ng/mL (75 - 250 nmol/L) Toxicity >100 ng/mL (>250 nmol/L) Performed By: #### L506.1000 #### [facility] [address] [place], [address] COMPREHENSIVE METABOLIC Collected: 06/09/2017 Status: F Source: NIRAV [facility] 3:11 PM [facility] REPOSITORY TYPE CODE TESTS RESULT OUT OF RANGE REFERENCE UNITS LAB L501.0100 74-106 mg/dL High GLU 149 Result Comment: Fasting Glucose result greater than or equal to 126 mg/dL suggests DIABETES MELLITUS per A.D.A. criteria. Please note revised GLUCOSE reference range effective 2017. LAB L501.1000 7-18 mg/dL Normal BUN 13 LAB L501.1100 0.55-1.02 mg/dL Normal CREAT,SERUM 0.91 Result Comment: The validity of the calculated GFR AND GFRAA in patients over 70 years has not been determined. Clinical correlation is essential. LAB L501.1110 >60 mL/min Normal EST GFR 67 Result Comment: Non- GFR Calc LAB L501.1115 >60 mL/min Normal EST GFR - AA 80 Result Comment: GFR Calc LAB L501.1300 10-20 RATIO Normal BUN/CRE 14.2 LAB L501.1500 6.4-8.2 g/dL T Normal PROT 7.3 LAB L501.1800 3.2-5.0 g/dL Normal ALB 3.2 LAB L501.1950 2.2-4.2 g/dL Normal GLOB 4.1 LAB L501.2000 0.9-2.4 RATIO Low A/G 0.8 LAB L501.2200 8.5-10.1 mg/dL CA Normal 9.4 LAB L501.4100 15-37 U/L High AST 51 LAB L501.4305 45-117 U/L High ALK P 132 LAB L501.4405 13-56 U/L Normal ALT 56 Result Comment: Please note revised ALT reference range effective 2017. LAB L501.4600 0.20-1.00 mg/dL Normal T BILI 0.60 LAB L501.5300 136-145 mmol/L Normal NA 141 LAB L501.5600 3.5-5.1 mmol/L Normal K 3.6 LAB L501.5900 98-107 mmol/L Normal CL 102 LAB L501.6100 21.0-32.0 mmol/L Normal CO2 29.0 LAB L501.6200 5-15 Normal GAP 10 Performed By: #### L500.4050, L501.9520 #### [facility] [address] [facility] [facility] [place], [place], [address] THYROID STIM HORMONE Collected: 06/09/2017 Status: F Source: CEMENT (TSH) 3:11 PM [facility] REPOSITORY TYPE CODE TESTS RESULT OUT OF RANGE REFERENCE UNITS LAB L501.9520 0.358-3.74 uIU/mL Normal TSH 0.97 Performed By: #### L500.4050, L501.9520 #### [facility] [address] [place], [place], [address] HEPATITIS C ANTIBODIES Collected: 06/09/2017 Status: F Source: CEMENT 3:11 PM [facility] REPOSITORY TYPE CODE TESTS RESULT OUT OF RANGE REFERENCE UNITS LAB L3100.0650 0.0-0.9 s/co ratio Normal HEP C AB 0.1 Result Comment: Negative: < 0.8 Indeterminate: 0.8 - 0.9 Positive: > 0.9 The CDC recommends that a positive HCV antibody result be followed up with a HCV Nucleic Acid Amplification test (127704). Performed at: [facility] [id number] Senior Geologist: Rubin Nazario PhD, Phone: [phone] Performed By: #### L3100.0625 #### [facility] (refer to report for specific site) refer to report for address and phone number PULMONARY VISIT REPORT Observed: 06/09/2017 Status: F Source: CEMENT 3:07 PM [facility] REPOSITORY [facility] [address] [place] [address] OFFICE VISIT Date of Service: 06/09/17 MR#: [id number] Acct: [id number] Name: TONYA RASMUSSEN Rep #: [id number] : 1955 Provider: Barbra Fajardo Age/Sex: 62/F Location: [facility] [place] Status: Signed Assessment AND Plan 1. Moderate asthma, unspecified whether complicated, unspecified whether persistent J45.909 Status Chronic Plan She has had more wheezing recently, will place her back on her previous routine maintenance medications of an inhaled corticosteroid. According to her current prescription coverage it looks like Asmanex is best covered for her. She was instructed to rinse her mouth out after each use. She was also issued a prescription for a rescue inhaler. Pulmonary function test has been ordered. Follow-up in [address] Dover to discuss test results and determine if the current inhalant program is correct. 2. LUIZ (obstructive sleep apnea) G47.33 Status Chronic Plan She has been using and benefiting from current BiPAP settings. No indication for titration study at this time. Continue current prescription. Follow- up with Dr. Dover in 3 months. 3. Body mass index (BMI) of 45.0-49.9 in adult Z68.42 Status Chronic Plan She has been able to lose 10 pounds recently, she plans to continue cleaning eating and exercise. Continue to encourage weight loss. Plan Detail Other Orders Orders: Other Medications New: albuterol sulfate HFA 90 mcg/actuation (Vento2 puffs Inhalation Q4H PRN shortness of flako serafin HFA) th or wheezing Follow Up 3 Months (BWA) HPI 3 M FU: Chief Complaint: LUIZ HPI Comments Details: This patient presents to the office today for routine follow-up on her newly diagnosed obstructive sleep apnea, as well as her moderate persistent asthma. She is ambulatory and currently in room air. She has not been seen in the ED urgent care for any breathing problems since her last office visit. She has not required antibiotics or prednisone for any respiratory infections. She is not currently on any maintenance inhalers. She reports that previously she was on Pulmicort daily, and had a Ventolin rescue inhaler. She does not currently have a rescue inhaler. She does report increase in wheezing and shortness of breath. She has an occasional dry cough. She notices that her cough is most commonly present at night. She has shortness of breath on exertion, denies any shortness of breath during conversation or at rest. See complete review of systems. He completed a complete polysomnogram on March that showed an overall CMS apnea hypotony index of 8 events per hour, impression was mild obstructive sleep apnea and a CPAP titration study was recommended. Titration study was completed on April 03, 2017 and shows that she requires BiPAP of 21/15 cm of water. She was set up with BiPAP, and was using it faithfully. She was noticing that she felt more rested, denied any snoring through the mask or episodes of nocturia. Unfortunately, she recently spent some time in [place] taking care of an ill friend. Because of his illness he was restless at night and she was fearful that he would fall. During that time she did not wear the BiPAP. While not using her BiPAP she did notice that she felt more tired. She looks forward to being home and being able to wear her BiPAP faithfully again. She does report some lower extremity edema, is currently on diuretic for this. Intake Vital Signs06/09/17 Height 5 ft 9 in 06/09/17 Weight: 315 lb Intake Visit Reasons: 3 M FU [facility] [place] Vendor: [facility] Accompanied by: Self Allergies ciprofloxacin [From Cipro] Adverse Reaction (Verified 06/09/17 13:46) Nausea ciprofloxacin HCl [From Cipro] Adverse Reaction (Verified 06/09/17 13:46) Nausea theophylline anhydrous [From Joe-Dur] Adverse Reaction (Verified 06/09/17 13:46) Nausea Medications Atenolol [Tenormin (Beta [facility])] 50 mg PO BID 08/27/13 [History Confirmed 06/09/17] Insulin Glargine [Lantus SoloStar Pen] 30 units SC QHS 08/27/13 [History Confirmed 06/09/17] Insulin Lispro [Humalog] 10 - 12 unit SQ TID 08/27/13 [History Confirmed 06/09/17] Losartan Potassium [Cozaar] 100 mg PO DAILY 08/27/13 [History Confirmed 06/09/17] Zolpidem Tartrate [Ambien] 5 mg PO QHS PRN PRN 08/27/13 [History Confirmed 06/09/17] Furosemide [Lasix] 20 mg PO DAILY 08/19/16 [History Confirmed 06/09/17] Pregabalin [Lyrica] 150 mg PO DAILY 08/19/16 [History Confirmed 06/09/17] TraMADol [Ultram (G)] 50 mg PO BID PRN PRN 08/19/16 [History Confirmed 06/09/17] Trazodone ER [Oleptro Er] 150 mg PO QHS 08/19/16 [History Confirmed 06/09/17] Acetaminophen with Codeine [Acetaminophen-Cod #3 Tablet] 1 ea PO PRN PRN 02/11/17 [History Confirmed 06/09/17] Amoxicillin/Potassium Clav [Augmentin 875-125 Tablet] 1 ea PO PRN PRN 02/11/17 [History Confirmed 06/09/17] Cranberry Fruit Extract [Cranberry] 250 mg PO DAILY 02/11/17 [History Confirmed 06/09/17] Esomeprazole Magnesium [Nexium 24Hr] 20 mg PO DAILY 02/11/17 [History Confirmed 06/09/17] Estradiol [Estrace Vaginal Cream] 1 gm VAGINAL Q7D 02/11/17 [History Confirmed 06/09/17] Famciclovir [Famvir] 500 mg PO DAILY 02/11/17 [History Confirmed 06/09/17] Famotidine 40 mg PO DAILY 02/11/17 [History Confirmed 06/09/17] Ropinirole HCl [Requip] 1 mg PO DAILY 02/11/17 [History Confirmed 06/09/17] Vortioxetine Hydrobromide [Brintellix] 40 mg PO DAILY 02/11/17 [History Confirmed 06/09/17] albuterol sulfate HFA 90 mcg/actuation aerosol inhaler 2 puff INHALATION Q4H PRN #18 g 06/09/17 [Rx Confirmed 06/09/17] mometasone 200 mcg/actuation HFA aerosol inhaler 2 puff INHALATION Q12H #13 g 06/09/17 [Rx Confirmed 06/09/17] PFSH Medical History Asthma (Chronic) Depression (Chronic) Type 2 diabetes mellitus (Chronic) GERD (gastroesophageal reflux disease) (Chronic) Hypertension (Chronic) Nausea with vomiting (Chronic) Superficial dyspareunia (Chronic) Chest pain on exertion (Chronic) Abnormal electrocardiogram (Chronic) Hyperlipidemia (Chronic) Dyspnea (Chronic) Daytime somnolence (Chronic) Hypersomnia (Chronic) Body mass index (BMI) of 45.0-49.9 in adult (Chronic) Abnormal cardiovascular stress test (Chronic) Surgical History History of cholecystectomy (Resolved) Family History Father Diabetes Heart disease Mother CVA (cerebral vascular accident) Psychiatric care Alzheimer disease Social History Smoking Status: Never smoker second hand exposure: No alcohol intake: never substance use type: does not use caffeine: Yes Type: coffee Number of servings: 2 what type of physical activity do you participate in: none Review of Systems Const CONSTITUTIONAL: Positive body ache; negative anorexia, chills, daytime sleepiness, fever(s), night sweats, oral thrush, stops breathing during sleep, weight loss, sleeping in chair, fatigue, weight loss, weight gain, frequent colds, seasonal allergies, other, headache(s) or orthopnea EETM Ear Nose Throat Mouth: Positive hearing normal and dry mouth in morning; negative hard of hearing, hoarseness, change in vision, itchy eyes, eye pain, swallowing Difficulty, ear pain, nose bleed, headache(s), mouth pain, nasal congestion, nasal discharge, post nasal drip, sinus pain, sinus pressure, sore throat or other Cardio Cardiovascular: Negative chest pain, chest pain at rest, chest pain with activity, irregular heart rhythm, edema, shortness of breath when lying down, palpitations, murmur or other Resp Respiratory: Positive as per HPI, shortness of breath, wheezing and apnea; negative pain with cough, chest congestion, cough, chest tightness, pain on inspiration, inhalers, increase use of rescue inhalers, snoring or other Gastro Gastrointestional: Negative bloody stools, change in appetite, difficulty swallowing, reflux, hematemesis, melena stool, loose stool, constipation or other Genitourinary: Negative blood in urine, nocturia, pain with urination or other Musc Musculoskeletal: Positive body pain and back pain; negative neck pain or other Skin/Breast Skin/Breast: Positive dry skin; negative itching, rash, unusual bruising, breast lump or other Neuro Neurological: Negative restless legs, confusion, weakness or other Psych Psychocological: Positive hopelessness; negative abnormal sleep pattern, anxiety, thoughts of hurting self/others or other Lymph Lymphatic: Positive easy bleeding and easy bruising; negative swollen lymph nodes or other Exam Const Constitutional: Positive conversant, cooperative, in no acute respiratory distress, healthy appearing, well developed, well nourished, good hygiene and obese Head Head: Positive normocephalic and atraumatic; negative cyanosis of lips/distal nose Eyes Eye: Positive clear conjunctiva and nystagmus; negative scleral abnormality Ears Ear: Positive hearing normal and external ears normal; negative hard of hearing Nose Nose: Positive external nose normal and no nasal discharge; negative epistaxis Mouth Mouth: Positive oral mucosae normal, good dentition and crowded posterior oropharynx; negative post nasal drip, malodorous breath, no lesions or oral thrush present Mallampati Score: III: Mallampati Score Neck Neck: Positive normal visual inspection, full ROM, trachea midline, thick neck and female neck greater than 37 cm (15 in); negative lymphadenopathy, JVD or tender Chest Wall Chest: Positive normal inspection of the chest and symmetric chest movement; negative increased A/P diameter Resp lung sounds: Positive wheeze present on forced exhalation, diminished, normal expiratory time and normal respiratory effort; negative rhonchi, rales or dullness to percussion Cardio Cardiac: Positive regular rate, regular rhythm, S1 normal and S2 normal; negative murmur GI GI: Positive normal to inspection, normal bowel sounds and obese; negative distended Genitourinary: Positive deferred Musc Musculoskeletal: Positive steady gait and ROM normal; negative kyphosis or scoliosis Skin Pulmonary Skin Exam: Positive intact; negative rash, lesion, ulcers, erythema, dermal atrophy or scaly Pulses Pulse: Yes pulses normal x4 extremities Extremities Extremities: Yes edema Location: lower extremity location: Bilateral leg swelling: pitting pitting: trace, Yes capillary refill normal, No clubbing, No stasis dermatitis, No cyanosis Neuro Neurologic: Yes conversant, Yes no focal neuro deficits, Yes cooperative, Yes normal cognition, Yes normal coordination, Yes understands questions, Yes normal concentration Lymph Lymphatic: No lymphadenopathy, No tenderness, No cervical adenopathy, No axillary adenopathy Psych Appearance: Positive grossly normal, eye contact and well kempt Mental Status: Positive mental status grossly normal Mood: Positive congruent mood Affect: Positive normal affect Coding Level of Care Code Off vis,est,level 4 Diagnoses Moderate asthma, unspecified whether complicated, unspecified whether persistent J45.909 Asthma severity: moderate Asthma persistence: unspecified Asthma complication type: unspecified LUIZ (obstructive sleep apnea) G47.33 Body mass index (BMI) of 45.0-49.9 in adult Z68.42 06/09/17 1507 <Electronically signed by Barbra MOREIRA> Date Barbra MOREIRA Cosigner Signature: Date (if applicable) CC: Kumar Nair MD ALLERGIES ALLERGIES DATE TYPE / CODE NAME / CODE REACTION SEVERITY SOURCE 03/24/2018 Drug theophylline Nausea Unknown Dazey Allergy/416 anhydrous/[id number] [place] [id number]([address]) Repository 03/24/2018 Drug ciprofloxacin/F0060 Nausea Unknown Nirav Allergy/416 46528(RXNORM) [facility] 064459([facility] ED CT) Repository 03/24/2018 Drug cephalexin/N1615227 Vomiting Unknown Nirav Allergy/416 16(RXNORM) [facility] 263586([facility] ED CT) Repository 06/09/2017 Drug ciprofloxacin Nausea Unknown Dazey Allergy/416 HCl/[id number](RXNO [facility] 974916([facility] ED CT) Repository ENCOUNTERS ENCOUNTERS ADMIT/DISCHARGE ACCOUNT ADMITTING ENCOUNTER LOCATION SOURCE NUMBER CLASS 04/09/2018 [id number] Ambulatory BMSBuilding:B [place] 6 [place] Repository 04/03/2018/ [id number] Ambulatory BMSBuilding:B Nirav 8 4 [place].[facility] Repository 03/24/2018/ [id number] Thuy Medina Nirav Daz[place] 8 7 [place] [facility] ing:VP6Ovec: Repository TP667Fjl: 1 03/24/2018 [id number] Thyu Medina BMSBuilding:B Dazey 9 [place] Repository 03/24/2018 [id number] Tere[place], Ambulatory BMSBuilding:B Nirav 9 [place] [facility] Repository 03/24/2018 [id number] Tereletsky, Ambulatory BMSBuilding:B Nirav 9 [place] Repository 03/24/2018 [id number] Tereletsky, Ambulatory BMSBuilding:B Nirav 0 [place] Repository 03/24/2018 [id number] Shruthieletsky, Ambulatory BMSBuilding:B Nirav 4 [place] Repository 03/24/2018/ [id number] Ambulatory BMSBuilding:B Nirav 8 8 [place] Repository 03/24/2018/ [id number] Ambulatory BMSBuilding:B Nirav 8 9 [facility] Repository 03/20/2018/ [id number] Emergency Nirav Nirav 8 4 [facility] Hospital ing:ED Repository 03/20/2018 [id number] Ambulatory BMSBuilding:B Nirav 6 [place] Repository 03/19/2018/ [id number] Ambulatory BMSBuilding:B Nirav 8 9 [place].[facility] Repository 02/25/2018 [id number] Ambulatory Dazey Nirav 5 [facility] Hospital ing:CVS Repository 02/18/2018/ [id number] Ambulatory Dazey Nirav 8 7 [facility] Hospital ing:CLSP Repository 02/18/2018/ [id number] Ambulatory BMSBuilding:W Nirav 8 0 [facility] Repository 02/12/2018/ [id number] Ambulatory BMSBuilding:B Dazey 8 2 [place] Repository 02/04/2018/ [id number] Ambulatory BMSBuilding:B Nirav 8 6 [place] Repository 01/23/2018/ [id number] Ambulatory BMSBuilding:B Dazey 8 2 [place] Repository 01/01/2018 [id number] Ambulatory Nirav Nirav 5 [facility] Hospital ing:POLAB3 Repository 12/31/2017/ [id number] Ambulatory BMSBuilding:B Dazey 8 5 [place] Repository 12/04/2017 [id number] Ambulatory Nirav Dazey 4 [facility] ing[facility]RAD Repository 11/13/2017 [id number] Ambulatory Nirav Nirav 1 [facility] ing:LAB.FUTUR Repository E 10/30/2017 [id number] Ambulatory Nirav Nirav 1 [facility] ing:POLAB3 Repository 10/21/2017 [id number] Ambulatory Dazey Dazey 3 [facility] ing:[facility]S Repository 10/03/2017 [id number] Ambulatory Dazey Nirav 0 [facility] ing:LABSPEC Repository 10/02/2017 [id number] Ambulatory Dazey Nirav 4 [facility] ing:POLAB3 Repository 09/02/2017 [id number] Ambulatory Dazey Nirav 4 [facility] ing:RAD Repository 09/02/2017 [id number] Ambulatory Nirav Dazey 6 [facility] ing:POLAB3 Repository 08/14/2017/ [id number] Ambulatory BMSBuilding:B Nirav 8 7 [facility] Repository 08/11/2017 [id number] Ambulatory BMSBuilding:B Dazey 2 [place] Repository 08/07/2017 [id number] Ambulatory Dazey Nirav 1 [facility] ing:SL Repository 07/21/2017 [id number] Ambulatory Nirav Dazey 7 [facility] ing:PSN Repository 06/09/2017 [id number] Ambulatory Dazey Dazey 6 [facility] ing:POLAB3 Repository 06/09/2017/ [id number] Ambulatory BMSBuilding:B Nirav 8 8 [place].[facility] Repository 05/08/2017 [id number] Ambulatory BMSBuilding:B Nirav 5 [place].[facility]placed [facility] Repository PAYERS PAYERS ENCOUNTER GUARANTOR PAYER SUBSCRIBER SOURCE 04/09/2018 TONYA Simons Primary TONYA Simons [place] [id number] [facility] Number: [id number] [place] [id number] Repository 53475Fjr: (330) Date:2018-04-09P O [phone] (HP) [address]ATTN: [place] [address]BH: 04/09/2018 Secondary NOT GIVENUNK Nirav Insurance:SELF PAY [facility] Number: Effective Repository Date:2018-04-09 04/03/2018 TONYA Simons Primary TONYA Simons Nirav [id number] Insurance:CARESOURCEP FRECHETTEDOB: Community JANET olicy Number: [id number] [place] [id number] Repository 14624Bsy: (330) Date:2018-03-19P O [phone] (HP) [address]ATTN: [place] [address]VE: 04/03/2018 Secondary NOT GIVENUNK Nirav Insurance:SELF PAY [facility] Number: Effective Repository Date:2018-04-01 03/24/2018 TONYA Simons Primary TONYA Simons [place] [id number] Insurance:CARESOURCEP FRECHETTEDOB: Community JANET olicy Number: [id number] Valley, [place] [id number] Repository 43067Mqy: (330) Date:2018-03-24P O [phone] () [address]ATTN: [place] [address]OD: 03/24/2018 Secondary NOT GIVENUNK Dazey Insurance:SELF PAY [facility] Number: Effective Repository Date:2018-03-24 03/24/2018 TONYA Simons Primary TONYA Simons Nirav [id number] Insurance:CARESOURCEP FRECHETTEDOB: Community JANET olicy Number: [id number] Valley, [place] [id number] Repository 29123Tpo: (330) Date:2018-03-24P O [phone] (HP) [address]ATTN: [place] [address]KS: 03/24/2018 Secondary NOT GIVENUNK Dazey Insurance:SELF PAY [facility] Number: Effective Repository Date:2018-03-24 03/24/2018 TONYA Simons Primary TONYA Simons Nirav [id number] Insurance:CARESOURCEP FRECHETTEDOB: Community JANET olicy Number: [id number] Valley, [place] [id number] Repository 93642Uqc: (330) Date:2018-03-24P O [phone] (HP) [address]ATTN: [place] [address]WY: 03/24/2018 Secondary NOT GIVENUNK Nirav Insurance:SELF PAY [facility] Number: Effective Repository Date:2018-03-24 03/24/2018 TONYA Simons Primary TONYA Simons Nirav [id number] Insurance:CARESOURCEP FRECHETTEDOB: Community JANET olicy Number: [id number] Valley, [place] [id number] Repository 51236Mip: ([phone]) Date:2018-03-24P O [phone] (HP) [address]ATTN: [place] [address]PN: 03/24/2018 Secondary NOT GIVENUNK Dazey Insurance:SELF PAY [facility] Number: Effective Repository Date:2018-03-24 03/24/2018 TONYA Simons Primary TONYA Simons Nirav [id number] Insurance:CARESOURCEP FRECHETTEDOB: Community JANET olicy Number: [id number] Valley, [place] [id number] Repository 84795Iiw: (330) Date:2018-03-24P O [phone] (HP) [address]ATTN: [place] [address]EM: 03/24/2018 Secondary NOT GIVENUNK Nirav Insurance:SELF PAY [facility] Number: Effective Repository Date:2018-03-24 03/24/2018 TONYA Simons Primary TONYA Simons [place] [id number] Insurance:CARESOURCEP FRECHETTEDOB: Community JANET olicy Number: [id number] Valley, [place] [id number] Repository 77179Pai: (330) Date:2018-03-24P O [phone] () [address]ATTN: [place] [address]JN: 03/24/2018 Secondary NOT GIVENUNK Nirav Insurance:SELF PAY [facility] Number: Effective Repository Date:2018-03-24 03/24/2018 TONYA Simons Primary TONYA Simons [place] [id number] Insurance:CARESOURCEP FRECHETTEDOB: Community JANET olicy Number: [id number] Valley, [place] [id number] Repository 95237Hrk: (330) Date:2018-03-24P O [phone] () [address]ATTN: [place] [address]YK: 03/24/2018 Secondary NOT GIVENUNK Nirav Insurance:SELF PAY [facility] Number: Effective Repository Date:2018-03-24 03/24/2018 TONYA Simons Primary TONYA Simons [place] [id number] Insurance:CARESOURCEP FRECHETTEDOB: Community JANET olicy Number: [id number] Valley, [place] [id number] Repository 29207Gmm: (330) Date:2018-03-23P O [phone] () [address]ATTN: [place] [address]ZV: 03/24/2018 Secondary NOT GIVENUNK Dazey Insurance:SELF PAY [facility] Number: Effective Repository Date:2018-03-24 03/20/2018 TONYA Simons Primary TONYA Simons [place] [id number] Insurance:CARESOURCEP FRECHETTEDOB: Community JANET olicy Number: [id number] Valley, [place] [id number] Repository 573[address]Jmr: (330) Date:2018-03-20P O [phone] (HP) [address]ATTN: [place] [address]MI: 03/20/2018 Secondary NOT GIVENUNK Nirav Insurance:SELF PAY [facility] Number: Effective Repository Date:2018-03-20 03/20/2018 TONYA Simons Primary TONYA Simons Nirav [id number] Insurance:CARESOURCEP FRECHETTEDOB: Community JANET olicy Number: [id number] Valley, [place] [id number] Repository 23[address]Owv: (330) Date:2017-08-14P O [phone] () [address]ATTN: [place] [address]HB: 03/20/2018 Secondary NOT GIVENUNK Nirav Insurance:SELF PAY [facility] Number: Effective Repository Date:2017-08-14 03/19/2018 TONYA Simons Primary TONYA Simons [place] [id number] Insurance:CARESOURCEP FRECHETTEDOB: Community JANET olicy Number: [id number] Valley, [place] [id number] Repository 79[address]Nre: (330) Date:2018-02-12P O [phone] () [address]ATTN: [place] [address]OE: 03/19/2018 Secondary NOT GIVENUNK Dazey Insurance:SELF PAY [facility] Number: Effective Repository Date:2018-03-16 02/25/2018 TONYA Simons Primary TONYA Simons [place] [id number] Insurance:CARESOURCEP FRECHETTEDOB: Community JANET olicy Number: [id number] Valley, [place] [id number] Repository 27823Bql: (330) Date:2018-02-02P O [phone] (HP) [address]ATTN: [place] [address]NF: 02/25/2018 Secondary NOT GIVENUNK Nirav Insurance:SELF PAY [facility] Number: Effective Repository Date:2018-02-06 02/18/2018 TONYA Simons Primary TONYA Simons Nirav [id number] Insurance:CARESOURCEP FRECHETTEDOB: Community JANET olicy Number: [id number] Valley, [place] [id number] Repository 64179Vlo: (330) Date:2018-02-02P O [phone] (HP) [address]ATTN: CLAIMS [facility] [place] [address]MZ: 02/18/2018 Secondary NOT GIVENUNK Nirav Insurance:SELF PAY [facility] Number: Effective Repository Date:2018-02-02 02/18/2018 TONYA Simons Primary TONYA Simons Nirav [id number] Insurance:CARESOURCEP FRECHETTEDOB: Community JANET olicy Number: [id number] Valley, [place] [id number] Repository 38786Imj: ([phone]) Date:2018-02-02P O [phone] (HP) [address]ATTN: [place] [address]LU: 02/18/2018 Secondary NOT GIVENUNK Nirav Insurance:SELF PAY [facility] Number: Effective Repository Date:2018-02-18 02/12/2018 TONYA Simons Primary TONYA Simons [place] [id number] Insurance:CARESOURCEP FRECHETTEDOB: Community JANET olicy Number: [id number] Valley, [place] [id number] Repository 595[address]Dbp: (330) Date:2018-01-27P O [phone] (HP) [address]ATTN: [place] [address]ZK: 02/12/2018 Secondary NOT GIVENUNK Dazey Insurance:SELF PAY [facility] Number: Effective Repository Date:2018-02-12 02/04/2018 TONYA Simons Primary TONYA Simons Nirav [id number] Insurance:CARESOURCEP FRECHETTEDOB: Community JANET olicy Number: [id number] Valley, [place] [id number] Repository 00908Gtg: (330) Date:2018-02-04 O [phone] () [address]ATTN: [place] [address]PK: 02/04/2018 Secondary NOT GIVENUNK Dazey Insurance:SELF PAY [facility] Number: Effective Repository Date:2018-02-04 01/23/2018 TONYA Simons Primary TONYA Simons [place] [id number] Insurance:CARESOURCEP FRECHETTEDOB: Community JANET olicy Number: [id number] Valley, [place] [id number] Repository 99157Sgz: (330) Date:2018-01-21P O [phone] () [address]ATTN: [place] [address]SN: 01/23/2018 Secondary NOT GIVENUNK Dazey Insurance:SELF PAY [facility] Number: Effective Repository Date:2018-01-23 01/01/2018 TONYA Simons Primary TONYA Simons Nirav [id number] Insurance:CARESOURCEP FRECHETTEDOB: Community JANET olicy Number: [id number] Valley, [place] [id number] Repository 55039Wet: (330) Date:2018-01-01P O [phone] () [address]ATTN: [place] [address]VN: 01/01/2018 Secondary NOT GIVENUNK Nirav Insurance:SELF PAY [facility] Number: Effective Repository Date:2018-01-01 12/31/2017 TONYA Simons Primary TONYA Simons [place] [id number] Insurance:CARESOURCEP FRECHETTEDOB: Community JANET olicy Number: [id number] Valley, [place] [id number] Repository 58394Jmi: (330) Date:2017-12-30P O [phone] (HP) [address]ATTN: [place] [address]RW: 12/31/2017 Secondary NOT GIVENUNK Nirav Insurance:SELF PAY [facility] Number: Effective Repository Date:2017-12-31 12/04/2017 TONYA Simons Primary TONYA Simons Nirav [id number] Insurance:CARESOURCEP FRECHETTEDOB: Community JANET olicy Number: [id number] Valley, [place] [id number] Repository 22366Wcv: (330) Date:2017-12-04P O [phone] () [address]ATTN: [place] [address]SO: 12/04/2017 Secondary NOT GIVENUNK Dazey Insurance:SELF PAY [facility] Number: Effective Repository Date:2017-12-04 11/13/2017 TONYA Simons Primary TONYA Simons [place] [id number] Insurance:CARESOURCEP FRECHETTEDOB: Community JANET olicy Number: [id number] Valley, [place] [id number] Repository 79356Mcg: (330) Date:2017-10-30P O [phone] () [address]ATTN: [place] [address]PB: 11/13/2017 Secondary NOT GIVENUNK Dazey Insurance:SELF PAY [facility] Number: Effective Repository Date:2017-10-30 10/30/2017 TONYA Simons Primary TONYA Simons Nirav [id number] Insurance:CARESOURCEP FRECHETTEDOB: Community JANET olicy Number: [id number] Valley, [place] [id number] Repository 98441Zan: (330) Date:2017-10-30P O [phone] (HP) [address]ATTN[place] [address]CZ: 10/30/2017 Secondary NOT GIVENUNK Dazey Insurance:SELF PAY [facility] Number: Effective Repository Date:2017-10-30 10/21/2017 TONYA Simons Primary TONYA Simons [place] [id number] Insurance:CARESOURCEP FRECHETTEDOB: Community JANET olicy Number: [id number] Valley, [place] [id number] Repository 53[address]Jgq: (330) Date:2017-10-21P O [phone] (HP) [address]ATTN: CLAIMS [facility] [place] [address]VC: 10/21/2017 Secondary NOT GIVENUNK Dazey Insurance:SELF PAY [facility] Number: Effective Repository Date:2017-10-21 10/03/2017 TONYA Simons Primary TONYA Simons [place] [id number] Insurance:CARESOURCEP FRECHETTEDOB: Community JANET olicy Number: [id number] Valley, [place] [id number] Repository 24513Oeu: (330) Date:2017-10-03P O [phone] (HP) [address]ATTN: [place] [address]BG: 10/03/2017 Secondary NOT GIVENUNK Dazey Insurance:SELF PAY [facility] Number: Effective Repository Date:2017-10-03 10/02/2017 TONYA Simons Primary TONYA Simons Nirav [id number] Insurance:CARESOURCEP FRECHETTEDOB: Community JANET olicy [place]: [id number] [id number] Repository [address]Eud: ([phone]) Date:2017-10-02P O [phone] (HP) [address]ATTN: [place] [address]AV: 10/02/2017 Secondary NOT GIVENUNK Nirav Insurance:SELF PAY [facility] Number: Effective Repository Date:2017-10-02 09/02/2017 TONYA Simons Primary TONYA Simons Dazey [id number] Insurance:CARESOURCEP FRECHETTEDOB: Community JNAET olicy Number: [id number], [place] [id number] Repository [address]Iwb: ([phone]) Date:2017-09-02P O [phone] () [address]ATTN: [place] [address]ZS: 09/02/2017 Secondary NOT GIVENUNK Dazey Insurance:SELF PAY [facility] Number: Effective Repository Date:2017-09-02 09/02/2017 TONYA Simons Primary TONYA Simons Nirav [id number] Insurance:CARESOURCEP FRECHETTEDOB: Community JANET olicy Number: [id number], [place] [id number] Repository 17[address]Rrs: ([phone]) Date:2017-09-02P O [phone] () [address]ATTN: [place] [address]LI: 09/02/2017 Secondary NOT GIVENUNK Nirav Insurance:SELF PAY [facility] Number: Effective Repository Date:2017-09-02 08/14/2017 TONYA Simons Primary TONYA Simons Nirav [id number] Insurance:CARESOURCEP FRECHETTEDOB: Community JANET olicy Number: [id number], [place] [id number] Repository [address]Igg: ([phone]) Date:2017-03-18 O [phone] () [address]ATTN: [place] [address]EW: 08/14/2017 Secondary NOT GIVENUNK Nirav Insurance:SELF PAY [facility] Number: Effective Repository Date:2017-08-14 08/11/2017 TONYA Simons Primary TONYA Simons Dazey [id number] Insurance:CARESOURCEP FRECHETTEDOB: Community JANET olicy Number: [id number] Valley, [place] [id number] Repository [address]Mvi: (330) Date:2017-08-11P O [phone] (HP) [address]ATTN: [place] [address]RY: 08/11/2017 Secondary NOT GIVENUNK Dazey Insurance:SELF PAY [facility] Number: Effective Repository Date:2017-08-11 08/07/2017 TONYA Simons Primary TONYA Simons Dazey [id number] Insurance:CARESOURCEP FRECHETTEDOB: Community JANET olicy Number: [id number] Valley, [place] [id number] Repository [address]Bch: (330) Date:2017-07-16P O [phone] () [address]ATTN: [place] [address]TR: 08/07/2017 Secondary NOT GIVENUNK Dazey Insurance:SELF PAY [facility] Number: Effective Repository Date:2017-07-16 07/21/2017 TONYA Simons Primary TONYA Simons Dazey [id number] Insurance:CARESOURCEP FRECHETTEDOB: Community JANET olicy Number: [id number] Valley, [place] [id number] Repository [address]Xgt: ([phone]) Date:2017-06-09 O [phone] () [address]ATTN: [place] [address]KE: 07/21/2017 Secondary NOT GIVENUNK Nirav Insurance:SELF PAY [facility] Number: Effective Repository Date:2017-06-09 06/09/2017 TONYA Simons Primary TONYA Simons Dazey [id number] Insurance:CARESOURCEP FRECHETTEDOB: Community JANET olicy Number: [id number] Valley, [place] [id number] Repository [address]Vax: (330) Date:2017-06-09P O [phone] (HP) [address]ATTN: [place] [address]VK: 06/09/2017 Secondary NOT GIVENUNK Nirav Insurance:SELF PAY [facility] Number: Effective Repository Date:2017-06-09 06/09/2017 TONYA Simons Primary TONYA Simons Dazey [id number] Insurance:CARESOURCEP FRECHETTEDOB: Community JANET olicy Number: [id number] Valley, [place] [id number] Repository [address]Psc: ([phone]) Date:2017-03-17P O [phone] () [address]ATTN: [place] [address]AB: 06/09/2017 Secondary NOT GIVENUNK Dazey Insurance:SELF PAY [facility] Number: Effective Repository Date:2017-03-17 05/08/2017 Tonya Simons Primary Tonya Simons Nirav [id number] Insurance:CARESOURCEP FrechetteDOB: Community Janet olicy Number: [id number] [id number] Repository [address]Vce: ([phone]) Date:2017-03-13P O [phone] () [address]ATTN: [place] [address]EZ: 05/08/2017 Secondary NOT GIVENUNK Nirav Insurance:SELF PAY [facility] Number: Effective Repository Date:2017-03-13
== END 2018-03-20 23:38 | disposition home or self-care (01) ==
LOC: ED 22:32
PROVIDERS: Emergency Provider Emergency Medicine; Family Provider Internal Medicine; PCP Internal Medicine
DX: R10.13 Epigastric pain (principal); G89.29 Other chronic pain; R11.2 Nausea with vomiting, unspecified; R19.7 Diarrhea, unspecified; I10 Essential (primary) hypertension; E11.9 Type 2 diabetes mellitus without complications; Z79.4 Long term (current) use of insulin; Z79.891 Long term (current) use of opiate analgesic; Z79.899 Other long term (current) drug therapy
CPT/HCPCS: 80053; 83690; 85025; 96361; 96374; 99284; J7030; A4216; J2405

== ENCOUNTER 2018-03-24 14:22 | Observation (INO) | payer MEDICAID, SELFPAY ==
[2018-03-24 13:38] VITALS: BMI 40.4
[2018-03-24 14:25] VITALS: BP 132/63; PULSE 57; RESP 16; TEMP 36.6; O2SAT 100; BMI 40.4
[2018-03-24] MEDS: Ondansetron 4 MG/2 ML Vial IV (15:09)
[2018-03-24 15:12] LABS: Absolute Lymphocyte Count 1.85 X10^3/ul (0.83-4.51); Basophil# 0.02 X10^3/uL; Basophil% 0.3 % (0-1); Eosinophil# 0.13 X10^3/uL; Eosinophils% 1.9 % (0-5); Hematocrit 44.7 % (37-47); Hemoglobin 14.6 g/dl (12.0-15.0); Lymphocyte # 1.85 X10^3/ul (4.0); Lymphocyte % 27.3 % (19-41); Mean Corp Hgb Conc 32.7 g/gl (32-36); Mean Corpuscular Hgb 28.3 pg (27.0-32.0); Mean Corpuscular Volume 86.8 fL (81-99); Mean Platelet Vol. 9.9 fl (6.2-12.0); Monocyte# 0.76 X10^3/uL; Monocyte% 11.2 % (0-10); Neutrophil # 3.99 X10^3/uL (2.7-7.7); Platelet Count 199 K/mm3 (150-450); RBC Distribution Width CV 13.7 % (11.6-14.6); RBC Distribution Width SD 43.1 fl (35.1-43.9); Red Blood Count 5.15 M/mm3 (4.2-5.4); White Blood Count 6.8 K/mm3 (4.4-11.0)
[2018-03-24 15:14] LABS: POSITIVE COUNT NO; POSITIVE DIFFERENTIAL NO; POSITIVE MORPHOLOGY NO
[2018-03-24 15:20] LABS: Anion Gap 10 (5-15); BUN 8 mg/dL (7-18); BUN/Creat Ratio 7.3 RATIO (10-20); Calcium,Total 8.8 mg/dL (8.5-10.1); Chloride 101 mmol/L (98-107); EST Glomerular Filtration Rate 54 mL/min (>60); Est Glom Filt Rate - Afr Amer 65 mL/min (>60); Estimated Creatinine Clearance 55.42 ml/min; Glucose 250 mg/dL (74-106); Potassium 3.2 mmol/L (3.5-5.1); Sodium Level 141 mmol/L (136-145)
--- NOTE | 2018-03-24 15:36 | ED.VISSUMM ---
- ER Visit Summary Date of Service: 03/24/18 Chief Complaint: Nausea, vomiting diarrhea unable to care for self History of Present Illness: The patient is a 63 F who was seen several days ago in the emergency department and discharged to home. She was seen today by . She presents because of nausea, vomiting diarrhea for 3+ months. He states she is thirsty, has dry mouth and reports orthostatic symptoms. She states she is unable to care for herself. She lives alone. She denies fever, chills night sweats. She denies ocular, visual auditory symptoms. She denies cardiac respiratory symptoms. She denies dysuria, frequency or urgency. She denies hematuria. Past medical history of GERD, diabetes, hypertension, hypercholesterolemia, gastric paresis, and a bowel syndrome, obstructive sleep apnea and osteoarthritis. She is status post cholecystectomy. Physical Examination: Vital signs noted and blood pressure is slightly elevated 132/63. Heart rate 57. She is not febrile. She is edentulous. Dry mucosa. Nipples equal round reactive paradoxic muscle intact. Sclerae anicteric. TMs normal. Trachea midline. Lungs are clear to auscultation. Heart is slow and regular. Abdomen is soft nontender. She has not well groomed. Abdomen is soft nontender bowel sounds are diminished. She appears slightly pale. Neuro exam is nonfocal. Test Results: CBC is unremarkable. Electro panel is remarkable for a glucose of 250 and a creatinine 1.1. UA is pending. Emergency Department Course and Treatment: Consult was placed to case management and baseline blood work was obtained. I was informed by case management since she has care source she will require a 23 hour stay and insurance authorization before she can be placed. Treatment Plan: IV fluids and Case management to assist with discharge planning Disposition: 23-hour observation medical surgical floor Impression: 1. Nausea, vomiting diarrhea chronic 2. Mild dehydration 3. Renal insufficiency 4. Hyperglycemia, 250 in known diabetic 5. History of hypertension 6. History of irritable bowel syndrome 7. History of gastroparesis. This note was generated with [employer] dictation software. It may contain incorrect words, spelling, and punctuation that were not noted in review of the chart prior to signing ED Disposition - Plan for ED Patient: Chief Complaint: Nausea/Vomiting Referrals: Chuck Sims MD [Primary Care Provider] -
--- NOTE | 2018-03-24 15:39 | CM.ED ---
SOCIAL WORK ASSESSMENT REFERRAL DATE: 03/24/18 DATE OF ASSESSMENT: 03/24/18 INFORMANT: DR. YAO REASON FOR CONSULT: PT UNABLE TO CARE FOR SELF, WANTING [facility] PLACEMENT INFORMATION OBTAINED FROM: PT AND PT'S FRIEND, NAMAN DILLON (H) [phone] (C) [phone] LIVING ARRANGEMENTS: PT LIVES HOME ALONE IN AN APARTMENT WITH 1 STEP TO ENTER. PT AND FRIEND REPORT PT HAS BEEN STAYING WITH FRIEND SINCE FRIDAY SHE WAS NOT FEELING WELL ENOUGH TO CARE FOR SELF IN OWN HOME. EMPLOYMENT/FINANCIAL: PT PREVIOUSLY WAS HOME HEALTH AIDE. FRIEND REPORTS PT HAS HAD TO PULL FROM SKILLED NURSING SO HAS LIMITED INCOME. SUPPORTS: PT HAS GOOD SUPPORT FROM TWO FRIENDS, NAMAN DILLON AND HER BROTHER, SUNDEEP (BOTH PRESENT FOR ASSESSMENT). PT STATES HPOA IS BROTHER, CAM SMALL [phone]. SOCIAL/FAMILY STRESSORS: PT AND FRIEND STATES PT WAS IN ED ON FRIDAY AND IS NOT GETTING ANY BETTER. PT STATES HAS BEEN SICK FOR 4 MONTHS AND IS JUST EMOTIONALLY AND PHYSICALLY OVERWHELMED D/T ILLNESS. FRIEND MET WITH THIS WORKER PRIVATELY OUTSIDE PT'S ROOM AND STATES PT INFORMED HER SHE HAS BEEN PULLING FROM HER SKILLED NURSING AND HAS FINANCIAL BURDENS. FRIEND REPORTS PT STATED SHE IS BEING THREATENED WITH EVICTION. MENTAL HEALTH HX: PT WITH HX OF DEPRESSION AND REPORTS IS TREATED WITH MEDICATION AND FOLLOWS WITH COUNSELOR, LINN AT [facility]. SUBSTANCE ABUSE HX:PT DENIES ANY HX OF SUBSTANCE ABUSE. PHYSICIANS/PRACTITIONERS: PT FOLLOWS WITH DR. RAO FOR PRIMARY CARE. ASSESSMENT: WATCH ELECTRICIAN REFERRED FOR [facility] D/C PLANNING/[facility] PLACEMENT. PT REPORTED IS UNABLE TO CARE FOR SELF. THIS WORKER MET WITH PT AND PT'S FRIENDS, SUNDEEP AND NAMAN IN ROOM. PT GAVE PERMISSION FOR THIS WORKER TO SPEAK OPENLY WITH FRIENDS PRESENT. PT STATES HAS BEEN SICK FOR THE LAST 4 MONTHS AND WAS IN THE ED FRIDAY AND CONTINUES TO HAVE NAUSEA AND VOMITING. PT AND FRIEND FEEL PT WOULD BENEFIT FROM SNF. PT REQUESTING REFERRAL TO [facility] FIRST CHOICE AND [facility]OND CHOICE. PT ADMITS TO HX OF DEPRESSION AND STATES IS TREATED WITH MEDICATION AND FOLLOWS WITH COUNSELING AT [facility]. EXPLAINED PROCESS FOR REFERRAL AND NEED FOR INSURANCE AUTH PRIOR TO D/C. PT AND FRIEND VERBALIZE UNDERSTANDING. UPDATED DR. YAO ON THIS WORKER'S ASSESSMENT. ANTICIPATE PT TO BE ADMITTED OBSERVATION. PLAN: SNF- REFERRALS PENDING AT THIS TIME.
--- NOTE | 2018-03-24 16:04 | CM.ED ---
SOCIAL WORK NOTE SS MADE REFERRAL TO [facility], DO NOT ACCEPT PT'S INSURANCE AND NO BED AVAILABLE AT THIS TIME. CALL TO MÓNICA GASTONMAIL FOR JOHNNY REGARDING REFERRAL. AWAITING CALL BACK AT THIS TIME.
[2018-03-24 16:42] VITALS: BMI 40.6
[2018-03-24 16:44] VITALS: BMI 40.7
[2018-03-24 16:50] VITALS: BP 150/56; PULSE 52; RESP 16; TEMP 36.4; O2SAT 96
--- NOTE | 2018-03-24 16:57 | CM.ED ---
RECEIVED CALL BACK FROM JOHNNY AT [facility]. PER JOHNNY, WILL REVIEW REFERRAL AND GET BACK TO DUPLICATION SPECIALIST REGARDING BED CONFIRMATION.
[2018-03-24 17:21] LABS: Bedside Glucose 225 mg/dL (70-110)
[2018-03-24] MEDS: Insulin Lispro 100 UNIT/ML INSULN.PEN SC ×2 (17:33→22:02)
[2018-03-24] MEDS: Furosemide 40 MG Tablet PO (17:33)
[2018-03-24 20:15] VITALS: BP 121/48; PULSE 60; RESP 18; TEMP 36.4; O2SAT 99
[2018-03-24] MEDS: 0.9% Normal Saline 1,000 ML 75 ML IV (20:23)
[2018-03-24] MEDS: 0.9% NaCl Peripheral Flush Adult/Peds IV (20:23)
[2018-03-24] MEDS: traMADol 50 MG Tablet PO (20:28)
[2018-03-24] MEDS: Mag Hydrox/Al Hydrox/Simeth 30 ML UDC 15 ML PO (20:29)
--- NOTE | 2018-03-24 20:41 | PCM.HP.STD ---
Problem List (1) Debility Status: Acute (2) Chronic nausea and vomiting-etiology unk Status: Acute History of Present Illness Date of Admission: 03/24/18 Chief Complaint: Generalized debility, persistent nausea and vomiting times weeks The patient is a 63 year old F who was seen in the emergency room at [facility] after being sent there by a general surgeon who she saw in consultation today for persistent nausea and vomiting times several weeks-patient states that she is unable to keep any food down, according to general surgery, this was confirmed by a friend who stays with the patient. Patient also complained of generalized weakness. Patient's past medical record here that the last time she had an EGD performed was 2016 and it showed only GERD. Patient denies any shortness of breath, chest pain, cough, fever, or chills. Patient had lab performed in the emergency room, CBC was unremarkable, chemistry panel was remarkable for a creatinine of 1.1, potassium of 3.2, and a glucose of 250. Patient's BUN was not elevated despite the patient stating that she had not been able to eat or drink for several days. Patient lives alone, she admitted that she was unable to care for herself and requested admission for generalized debility and persistent nausea and vomiting. Patient will be placed in observation status on [facility] 2, she will be seen in consultation by general surgery and hopefully an EGD will be performed before her discharge to a residential facility. PT and OT will see the patient during her observation stay. Past Medical History Past Medical History (Chronic Problems): Chronic Problems (Last Reviewed 03/24/18 @ 13:30 by Lissa Cantu) History of left heart catheterization (Chronic 02/18/18) Normal coronaries and EF per [facility] done by Dr. Qiu @ [facility]: recommend looking at other/pulmonary causes of SOB Gastroparesis (Chronic) Abdominal pain (Chronic) Vitamin D deficiency (Chronic) Vision problems (Chronic) Osteoarthritis (Chronic) Back problem (Chronic) Seasonal allergies (Chronic) Depression (Chronic) Asthma (Chronic) Obstructive sleep apnea (Chronic) IBS (irritable bowel syndrome) (Chronic) Hypersomnia, unspecified (Chronic) GERD (gastroesophageal reflux disease) (Chronic) Type 2 diabetes mellitus (Chronic) Hypertension (Chronic) Abnormal electrocardiogram (Chronic) Hyperlipidemia (Chronic) Dyspnea (Chronic) Body mass index (BMI) of 45.0-49.9 in adult (Chronic) Abnormal cardiovascular stress test (Chronic) Stress echo 01/30/[address] or T wave changes to suggest ischemia but pt had extreme dyspnea Medical History: Medical History (Last Reviewed 03/24/18 @ 13:30 by Lissa Cantu) Vitamin D deficiency (Chronic) E55.9 Vision problems (Chronic) H54.7 Osteoarthritis (Chronic) M19.90 Back problem (Chronic) M53.9 Seasonal allergies (Chronic) J30.2 Shingles (Resolved) B02.9 Depression (Chronic) F32.9 Asthma (Chronic) J45.909 Obstructive sleep apnea (Chronic) G47.33 IBS (irritable bowel syndrome) (Chronic) K58.9 Hypersomnia, unspecified (Chronic) G47.10 GERD (gastroesophageal reflux disease) (Chronic) K21.9 Type 2 diabetes mellitus (Chronic) E11.9 Hypertension (Chronic) I10 Abnormal electrocardiogram (Chronic) R94.31 Hyperlipidemia (Chronic) E78.5 Dyspnea (Chronic) R06.00 Body mass index (BMI) of 45.0-49.9 in adult (Chronic) Z68.42 Abnormal cardiovascular stress test (Chronic) R94.39 Stress echo 01/30/[address] or T wave changes to suggest ischemia but pt had extreme dyspnea Chest pain on exertion (Resolved) R07.9 Depression (Resolved) F32.9 Allergies cephalexin Adverse Reaction (Verified 03/24/18 14:28) Vomiting ciprofloxacin [From Cipro] Adverse Reaction (Verified 03/24/18 14:28) Nausea theophylline anhydrous [From Joe-Dur] Adverse Reaction (Verified 03/24/18 14:28) Nausea Home Medications: Ambulatory Orders Medication Instructions Recorded Atenolol [Tenormin (Beta Shelby)] 50 mg PO BID 08/27/13 Losartan Potassium [Cozaar] 100 mg PO DAILY 08/27/13 traMADol [Ultram (G)] 50 mg PO BID PRN PRN 08/19/16 Ropinirole HCl [Requip] 1 mg PO DAILY 02/11/17 vortioxetine 20 mg tablet 40 mg PO DAILY 08/11/17 insulin glargine (U-100) 100 60 unit SC DAILY ml 02/04/18 unit/mL (3 mL) subcutaneous pen insulin lispro (U- 100) 100 20 unit SC .COMPLEX ml 02/04/18 unit/mL subcutaneous solution calcium carbonate 600 mg lozenges 600 mg PO Q6H PRN PRN 03/19/18 Omeprazole [Prilosec] 20 mg PO DAILY #30 cap 03/20/18 Pregabalin [Lyrica] 75 mg PO BID 03/20/18 Albuterol Inhaler [Ventolin Hfa] 2 puff INHALATION PRN PRN 03/24/18 Cetirizine HCl [Zyrtec] 10 mg PO DAILY 03/24/18 Cranberry Fruit [Cranberry] 400 mg PO DAILY 03/24/18 Ergocalciferol [Vitamin D] 50,000 unit PO QMONTH 03/24/18 Fluticasone 220 Mcg [Flovent (SP)] 2 puff INHALATION BID 03/24/18 Furosemide [Lasix] 40 mg PO BID 03/24/18 Lactobacillus Acidophilus 1 each PO DAILY 03/24/18 [Acidophilus] Mag Hydrox/Al Hydrox/Simeth 15 ml PO Q4H PRN PRN 03/24/18 [Mylanta II] Ondansetron [Zofran Odt] 4 mg SUBLINGUAL Q8H PRN PRN 03/24/18 Tizanidine HCl [Zanaflex] 4 mg PO TID PRN PRN 03/24/18 Zolpidem Tartrate 10 mg PO DAILY 03/24/18 Surgical History: Surgical History (Last Reviewed 03/24/18 @ 13:30 by Lissa Cantu) History of left heart catheterization (Chronic) Onset Date: 02/18/18 Z98.890 Normal coronaries and EF per [facility] done by Dr. 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 Lives: Alone Smoking Status: Never smoker Tobacco Use: Non-smoker Alcohol: None Drugs: None - *Family History Maternal Family History: Family History (Last Reviewed 03/24/18 @ 13:30 by Lissa Cantu) Father Diabetes Heart disease Mother CVA (cerebral vascular accident) Psychiatric care Alzheimer disease Parkinson's disease Melanoma Osteoporosis History Items: - - Parkinson's disease Paternal Family History: Family History (Last Reviewed 03/24/18 @ 13:30 by Lissa Cantu) Father Diabetes Heart disease Mother CVA (cerebral vascular accident) Psychiatric care Alzheimer disease Parkinson's disease Melanoma Osteoporosis History Items: Diabetes Review of Systems Constitutional: Reports: Weakness, Fatigue. Denies: Anorexia, Chills, Fever, Night Sweats, Malaise Eyes: Denies: Blurred vision, Cataracts, Conjunctivae Inflammation, Double vision, Drainage HEENT: Denies: Difficulty Swallowing, Dysphasia, Ear Pain, Eye Pain, Hearing Changes, Nasal bleeding, Nasal Congestion, Post Nasal Drip Cardiovascular: Denies: Chest Pain, Claudication, Chest Pressure, Chest Tightness, Edema, Heaviness Respiratory: Denies: Cough, Hemoptysis, Pleuritic Pain, Shortness of Breath Gastrointestinal: Reports: Nausea, Vomiting. Denies: Abdominal Pain, Constipation, Diarrhea, Dyspepsia, Hematemesis, Hematochezia, Melena Genitourinary: Denies: Dysuria, Frequency, Hematuria, Incontinence, Nocturia Musculoskeletal: Reports: Back Pain. Denies: Foot Pain, Hand Pain, Joint swelling, Joint Tenderness, Leg Pain Skin: Reports: Wounds - Small wound to the right buttocks-timeframe unknown. Denies: Dryness, Jaundice, Pruritis, Rash Neurological: Denies: Blurred vision, Double vision, Change in Speech, Slurred speech, Incoordination, Numbness, Tremor, Seizures Psychiatric: Denies: Anxiety, Depression, Homicidal Ideations, Suicidal Ideations Endocrine: Denies: Heat/ Cold Intolerance, Polydipsia, Hx of Irradiation, Hx of Thyroiditis Hematologic/ Lymphatic: Denies: Adenopathy, Anemia, Easy Bruising, Petechiae, Purpura, Hx of blood clot VTE Information - Inpt Only VTE Present on Admission: No VTE Mechan Device Prophylaxis: None VTE Pharm Prophylaxis ordered?: Yes Patient Problems: Active and Suspected Problems (Last Reviewed 03/24/18 @ 13:30 by Lissa Cantu) Debility (Acute) Chronic nausea and vomiting-etiology unk (Acute) - Physical Exam General: Alert, Oriented x3, Cooperative, No apparent distress, Well developed, Well nourished HEENT: Atraumatic, PERRLA, EOMI, Normocephalic Oral: Moist Mucosa Neck: Supple, No JVD, Negative Carotid Bruits, No Nuchal Rigidity, Trachea Midline, Thyroid Normal Size and Texture Lungs: Clear to auscultation, Normal air movement, No rhonchi, No wheeze, No rales Cardiovascular: Regular rate, Regular Rhythm, Normal S1, Normal S2, No murmurs, No Ectopic Activity, PMI Normal, No rub noted, No Gallop Abdomen: Bowel Sounds Present, Soft, Non Tender, Non-Distended, No hernias noted Extremities: No clubbing, No cyanosis, No edema, Capillary Refill Less than 3 Seconds Skin: Ulcer/ Wound - Stage II pressure ulceration right buttocks medial-1 cm diameter, - - There is a small stage II pressure ulceration of the medial part of the right buttocks, this area is only 1 cm in diameter, no purulent drainage was noted Musculoskeletal: No Tenderness to Palpation of Joints or Extremities, No Muscle Wasting Neurological: Cranial nerves II-XII grossly intact, Neuro grossly intact, Sensory exam intact to light touch and pain, Coordination normal Psych/Mental Status: Normal Affect, Appropriate, Alert and oriented to time, place, person, mood and affect Vital Signs Temp Pulse Resp BP Pulse Ox 97.5 F L 52 L 16 150/56 H 96 03/24/18 16:50 03/24/18 16:50 03/24/18 16:50 03/24/18 16:50 03/24/18 16:50 Oxygen Delivery Method Room Air Weight: 124.9 kg Body Mass Index (BMI) 40.6 Intake and Output for Last 24 Hours 03/22/18 03/23/18 03/24/18 23:59 23:59 23:59 Output Total 200 / 200 Balance -200 / -200 Laboratory Tests Past 24 Hrs 03/24/18 03/24/18 15:02 15:02 WBC 6.8 RBC 5.15 Hgb 14.6 Hct 44.7 MCV 86.8 MCH 28.3 MCHC 32.7 RDW 13.7 RDW Differential 43.1 Plt Count 199 MPV 9.9 Immature Gran % (Auto) 0.300 Neut % (Auto) 59.0 Lymph % (Auto) 27.3 [place] % (Auto) 11.2 H Eos % (Auto) 1.9 Baso % (Auto) 0.3 Absolute Neuts (auto) 4.0 Absolute Lymphs (auto) 1.85 Total Counted Not Reportable Sodium 141 Potassium 3.2 L Chloride 101 Carbon Dioxide 30.0 Anion Gap 10 BUN 8 Creatinine 1.10 H Estim Creat Clear Calc 55.42 Est GFR (MDRD) Af Amer 65 Est GFR (MDRD) Non-Af 54 L BUN/Creatinine Ratio 7.3 L Glucose 250 H Calcium 8.8 POC Glucose 03/24/18 17:06 POC Glucose 225 H Assessment/Plan All Active Problems (Last Reviewed 03/24/18 @ 13:30 by Lissa Cantu) Debility (Acute) Chronic nausea and vomiting-etiology unk (Acute) Decubitus ulcer of buttock, stage 2 (Acute) Shingles (Resolved) Chest pain on exertion (Resolved) Depression (Resolved) #1 generalized debility-exact etiology unclear, possibly psychologic overlay-patient was placed into observation status on [facility] 2, she was seen by PT and OT, patient wants to be admitted to a residential facility-she prefers [facility] #2 persistent nausea and vomiting times weeks according to the patient-patient has no evidence of dehydration however, patient will be seen by general surgery ( ) and she will need an EGD performed before she is transferred to a skilled facility, I talked with Dr. Schulte and she will try to do the EGD tomorrow if possible #3 type 2 diabetes-patient's blood sugars will be monitored #4 obstructive sleep apnea-noncompliant with treatment #5 GERD-again patient will need an EGD performed #6 morbid obesity #7 osteoarthritis #8 essential hypertension #9 pressure ulceration right decubitus-patient will be seen by wound care, currently she is using Aquacel on the wound daily #10 degenerative disc disease of the lumbar spine-patient is on Lyrica Code Visit OBSV E&M: 72100 Initial observation care L3
--- NOTE | 2018-03-24 20:46 | HP.PCM_ITS ---
Problem List (1) Debility Status: Acute (2) Chronic nausea and vomiting-etiology unk Status: Acute History of Present Illness Date of Admission: 03/24/18 Chief Complaint: Generalized debility, persistent nausea and vomiting times weeks The patient is a 63 year old F who was seen in the emergency room at [facility] after being sent there by a general surgeon who she saw in consultation today for persistent nausea and vomiting times several weeks- patient states that she is unable to keep any food down, according to general surgery, this was confirmed by a friend who stays with the patient. Patient also complained of generalized weakness. Patient's past medical record here that the last time she had an EGD performed was 2016 and it showed only GERD. Patient denies any shortness of breath, chest pain, cough, fever, or chills. Patient had lab performed in the emergency room, CBC was unremarkable, chemistry panel was remarkable for a creatinine of 1.1, potassium of 3.2, and a glucose of 250. Patient's BUN was not elevated despite the patient stating that she had not been able to eat or drink for several days. Patient lives alone, she admitted that she was unable to care for herself and requested admission for generalized debility and persistent nausea and vomiting. Patient will be placed in observation status on [facility] 2, she will be seen in consultation by general surgery and hopefully an EGD will be performed before her discharge to a correction facility. PT and OT will see the patient during her observation stay. Past Medical History Past Medical History (Chronic Problems): Chronic Problems (Last Reviewed 03/24/18 @ 13:30 by Lissa Cantu) History of left heart catheterization (Chronic 02/18/18) Normal coronaries and EF per [facility] done by Dr. Qiu @ [facility]: recommend looking at other/pulmonary causes of SOB Gastroparesis (Chronic) Abdominal pain (Chronic) Vitamin D deficiency (Chronic) Vision problems (Chronic) Osteoarthritis (Chronic) Back problem (Chronic) Seasonal allergies (Chronic) Depression (Chronic) Asthma (Chronic) Obstructive sleep apnea (Chronic) IBS (irritable bowel syndrome) (Chronic) Hypersomnia, unspecified (Chronic) GERD (gastroesophageal reflux disease) (Chronic) Type 2 diabetes mellitus (Chronic) Hypertension (Chronic) Abnormal electrocardiogram (Chronic) Hyperlipidemia (Chronic) Dyspnea (Chronic) Body mass index (BMI) of 45.0-49.9 in adult (Chronic) Abnormal cardiovascular stress test (Chronic) Stress echo 01/30/[address] or T wave changes to suggest ischemia but pt had extreme dyspnea Medical History: Medical History (Last Reviewed 03/24/18 @ 13:30 by Lissa Cantu) Vitamin D deficiency (Chronic) E55.9 Vision problems (Chronic) H54.7 Osteoarthritis (Chronic) M19.90 Back problem (Chronic) M53.9 Seasonal allergies (Chronic) J30.2 Shingles (Resolved) B02.9 Depression (Chronic) F32.9 Asthma (Chronic) J45.909 Obstructive sleep apnea (Chronic) G47.33 IBS (irritable bowel syndrome) (Chronic) K58.9 Hypersomnia, unspecified (Chronic) G47.10 GERD (gastroesophageal reflux disease) (Chronic) K21.9 Type 2 diabetes mellitus (Chronic) E11.9 Hypertension (Chronic) I10 Abnormal electrocardiogram (Chronic) R94.31 Hyperlipidemia (Chronic) E78.5 Dyspnea (Chronic) R06.00 Body mass index (BMI) of 45.0-49.9 in adult (Chronic) Z68.42 Abnormal cardiovascular stress test (Chronic) R94.39 Stress echo 01/30/[address] or T wave changes to suggest ischemia but pt had extreme dyspnea Chest pain on exertion (Resolved) R07.9 Depression (Resolved) F32.9 Allergies cephalexin Adverse Reaction (Verified 03/24/18 14:28) Vomiting ciprofloxacin [From Cipro] Adverse Reaction (Verified 03/24/18 14:28) Nausea theophylline anhydrous [From Joe-Dur] Adverse Reaction (Verified 03/24/18 14:28) Nausea Home Medications: Ambulatory Orders Medication Instructions Recorded Atenolol [Tenormin (Beta Shelby)] 50 mg PO BID 08/27/13 Losartan Potassium [Cozaar] 100 mg PO DAILY 08/27/13 traMADol [Ultram (G)] 50 mg PO BID PRN PRN 08/19/16 Ropinirole HCl [Requip] 1 mg PO DAILY 02/11/17 vortioxetine 20 mg tablet 40 mg PO DAILY 08/11/17 insulin glargine (U-100) 100 60 unit SC DAILY ml 02/04/18 unit/mL (3 mL) subcutaneous pen insulin lispro (U- 100) 100 20 unit SC .COMPLEX ml 02/04/18 unit/mL subcutaneous solution calcium carbonate 600 mg lozenges 600 mg PO Q6H PRN PRN 03/19/18 Omeprazole [Prilosec] 20 mg PO DAILY #30 cap 03/20/18 Pregabalin [Lyrica] 75 mg PO BID 03/20/18 Albuterol Inhaler [Ventolin Hfa] 2 puff INHALATION PRN PRN 03/24/18 Cetirizine HCl [Zyrtec] 10 mg PO DAILY 03/24/18 Cranberry Fruit [Cranberry] 400 mg PO DAILY 03/24/18 Ergocalciferol [Vitamin D] 50,000 unit PO QMONTH 03/24/18 Fluticasone 220 Mcg [Flovent (SP)] 2 puff INHALATION BID 03/24/18 Furosemide [Lasix] 40 mg PO BID 03/24/18 Lactobacillus Acidophilus 1 each PO DAILY 03/24/18 [Acidophilus] Mag Hydrox/Al Hydrox/Simeth 15 ml PO Q4H PRN PRN 03/24/18 [Mylanta II] Ondansetron [Zofran Odt] 4 mg SUBLINGUAL Q8H PRN PRN 03/24/18 Tizanidine HCl [Zanaflex] 4 mg PO TID PRN PRN 03/24/18 Zolpidem Tartrate 10 mg PO DAILY 03/24/18 Surgical History: Surgical History (Last Reviewed 03/24/18 @ 13:30 by Lissa Cantu) History of left heart catheterization (Chronic) Onset Date: 02/18/18 Z98.890 Normal coronaries and EF per [facility] done by Dr. 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 Lives: Alone Smoking Status: Never smoker Tobacco Use: Non-smoker Alcohol: None Drugs: None - *Family History Maternal Family History: Family History (Last Reviewed 03/24/18 @ 13:30 by Lissa Cantu) Father Diabetes Heart disease Mother CVA (cerebral vascular accident) Psychiatric care Alzheimer disease Parkinson's disease Melanoma Osteoporosis History Items: - - Parkinson's disease Paternal Family History: Family History (Last Reviewed 03/24/18 @ 13:30 by Lissa Cantu) Father Diabetes Heart disease Mother CVA (cerebral vascular accident) Psychiatric care Alzheimer disease Parkinson's disease Melanoma Osteoporosis History Items: Diabetes Review of Systems Constitutional: Reports: Weakness, Fatigue. Denies: Anorexia, Chills, Fever, Night Sweats, Malaise Eyes: Denies: Blurred vision, Cataracts, Conjunctivae Inflammation, Double vision, Drainage HEENT: Denies: Difficulty Swallowing, Dysphasia, Ear Pain, Eye Pain, Hearing Changes, Nasal bleeding, Nasal Congestion, Post Nasal Drip Cardiovascular: Denies: Chest Pain, Claudication, Chest Pressure, Chest Tightness, Edema, Heaviness Respiratory: Denies: Cough, Hemoptysis, Pleuritic Pain, Shortness of Breath Gastrointestinal: Reports: Nausea, Vomiting. Denies: Abdominal Pain, Constipation, Diarrhea, Dyspepsia, Hematemesis, Hematochezia, Melena Genitourinary: Denies: Dysuria, Frequency, Hematuria, Incontinence, Nocturia Musculoskeletal: Reports: Back Pain. Denies: Foot Pain, Hand Pain, Joint swelling, Joint Tenderness, Leg Pain Skin: Reports: Wounds - Small wound to the right buttocks-timeframe unknown. Denies: Dryness, Jaundice, Pruritis, Rash Neurological: Denies: Blurred vision, Double vision, Change in Speech, Slurred speech, Incoordination, Numbness, Tremor, Seizures Psychiatric: Denies: Anxiety, Depression, Homicidal Ideations, Suicidal Ideations Endocrine: Denies: Heat/ Cold Intolerance, Polydipsia, Hx of Irradiation, Hx of Thyroiditis Hematologic/ Lymphatic: Denies: Adenopathy, Anemia, Easy Bruising, Petechiae, Purpura, Hx of blood clot VTE Information - Inpt Only VTE Present on Admission: No VTE Mechan Device Prophylaxis: None VTE Pharm Prophylaxis ordered?: Yes Patient Problems: Active and Suspected Problems (Last Reviewed 03/24/18 @ 13:30 by Lissa Cantu) Debility (Acute) Chronic nausea and vomiting-etiology unk (Acute) - Physical Exam General: Alert, Oriented x3, Cooperative, No apparent distress, Well developed, Well nourished HEENT: Atraumatic, PERRLA, EOMI, Normocephalic Oral: Moist Mucosa Neck: Supple, No JVD, Negative Carotid Bruits, No Nuchal Rigidity, Trachea Midline, Thyroid Normal Size and Texture Lungs: Clear to auscultation, Normal air movement, No rhonchi, No wheeze, No rales Cardiovascular: Regular rate, Regular Rhythm, Normal S1, Normal S2, No murmurs, No Ectopic Activity, PMI Normal, No rub noted, No Gallop Abdomen: Bowel Sounds Present, Soft, Non Tender, Non-Distended, No hernias noted Extremities: No clubbing, No cyanosis, No edema, Capillary Refill Less than 3 Seconds Skin: Ulcer/ Wound - Stage II pressure ulceration right buttocks medial-1 cm diameter, - - There is a small stage II pressure ulceration of the medial part of the right buttocks, this area is only 1 cm in diameter, no purulent drainage was noted Musculoskeletal: No Tenderness to Palpation of Joints or Extremities, No Muscle Wasting Neurological: Cranial nerves II-XII grossly intact, Neuro grossly intact, Sensory exam intact to light touch and pain, Coordination normal Psych/Mental Status: Normal Affect, Appropriate, Alert and oriented to time, place, person, mood and affect Vital Signs Temp Pulse Resp BP Pulse Ox 97.5 F L 52 L 16 150/56 H 96 03/24/18 16:50 03/24/18 16:50 03/24/18 16:50 03/24/18 16:50 03/24/18 16:50 Oxygen Delivery Method Room Air Weight: 124.9 kg Body Mass Index (BMI) 40.6 Intake and Output for Last 24 Hours 03/22/18 03/23/18 03/24/18 23:59 23:59 23:59 Output Total 200 / 200 Balance -200 / -200 Laboratory Tests Past 24 Hrs 03/24/18 03/24/18 15:02 15:02 WBC 6.8 RBC 5.15 Hgb 14.6 Hct 44.7 MCV 86.8 MCH 28.3 MCHC 32.7 RDW 13.7 RDW Differential 43.1 Plt Count 199 MPV 9.9 Immature Gran % (Auto) 0.300 Neut % (Auto) 59.0 Lymph % (Auto) 27.3 [place] % (Auto) 11.2 H Eos % (Auto) 1.9 Baso % (Auto) 0.3 Absolute Neuts (auto) 4.0 Absolute Lymphs (auto) 1.85 Total Counted Not Reportable Sodium 141 Potassium 3.2 L Chloride 101 Carbon Dioxide 30.0 Anion Gap 10 BUN 8 Creatinine 1.10 H Estim Creat Clear Calc 55.42 Est GFR (MDRD) Af Amer 65 Est GFR (MDRD) Non-Af 54 L BUN/Creatinine Ratio 7.3 L Glucose 250 H Calcium 8.8 POC Glucose 03/24/18 17:06 POC Glucose 225 H Assessment/Plan All Active Problems (Last Reviewed 03/24/18 @ 13:30 by Lissa Cantu) Debility (Acute) Chronic nausea and vomiting-etiology unk (Acute) Decubitus ulcer of buttock, stage 2 (Acute) Shingles (Resolved) Chest pain on exertion (Resolved) Depression (Resolved) #1 generalized debility-exact etiology unclear, possibly psychologic overlay- patient was placed into observation status on [facility] 2, she was seen by PT and OT, patient wants to be admitted to a correction facility-she prefers [facility] #2 persistent nausea and vomiting times weeks according to the patient-patient has no evidence of dehydration however, patient will be seen by general surgery ( ) and she will need an EGD performed before she is transferred to a skilled facility, I talked with Dr. Schulte and she will try to do the EGD tomorrow if possible #3 type 2 diabetes-patient's blood sugars will be monitored #4 obstructive sleep apnea-noncompliant with treatment #5 GERD-again patient will need an EGD performed #6 morbid obesity #7 osteoarthritis #8 essential hypertension #9 pressure ulceration right decubitus-patient will be seen by wound care, currently she is using Aquacel on the wound daily #10 degenerative disc disease of the lumbar spine-patient is on Lyrica Code Visit OBSV E&M: [id number] Initial observation care L3
[2018-03-24] MEDS: Heparin Injection (Vial) 5,000 UNIT/ML VIAL 5000 UNIT SC ×2 (22:04→22:09)
[2018-03-24] MEDS: Atenolol 50 MG Tablet PO ×2 (22:05→22:09)
[2018-03-24] MEDS: Pregabalin 75 MG Capsule PO (22:08)
[2018-03-24] MEDS: hydrOXYzine PAM 25 MG Capsule PO (22:08)
[2018-03-24 22:15] LABS: Bedside Glucose 210 mg/dL (70-110)
[2018-03-25 02:15] VITALS: BP 132/94; PULSE 75; RESP 18; TEMP 36.2; O2SAT 97
[2018-03-25] MEDS: Mag Hydrox/Al Hydrox/Simeth 30 ML UDC 15 ML PO ×3 (02:57→20:35)
[2018-03-25 06:30] LABS: Bedside Glucose 115 mg/dL (70-110)
--- NOTE | 2018-03-25 07:32 | PCM.PROGNOTE ---
Patient Problems: Active and Suspected Problems (Last Reviewed 03/24/18 @ 13:30 by Lissa Cantu) Debility (Acute) Chronic nausea and vomiting-etiology unk (Acute) Subjective: The patient is a 63-year-old female with a past medical history of gastroparesis, vitamin D deficiency, osteoarthritis, depression, asthma,'s obstructive sleep apnea, irritable bowel syndrome, hypersomnia, GERD, diabetes mellitus type 2, hypertension, hyperlipidemia, morbid obesity, osteoarthritis and chronic back pain who presented to the emergency department at [facility] on 03/24/2018 with complaint of persistent nausea and vomiting for several weeks. She was afebrile with stable vital signs of presentation to the emergency department. CBC was unremarkable. Potassium was low at 3.2 and the BUN was 8 with a creatinine of 1.1. Creatinine in January 2018 to 1.02. She was admitted to the hospital for observation and general surgery was consulted for possible endoscopy. She has not been on a prokinetic agent. All events of the past 24 Hours have been reviewed Vital signs are stable and she is 97-99% saturated on room air. TMAX -afebrile I&O -oral intake since admission was 600 cc. Blood sugars -blood sugar at admission was 250. Fasting blood sugar today is 115 and the hemoglobin A1c is pending. Lab: Ending, will review when available. Weight: Her weight on February 10, 2018 was 306 pounds and currently she weighs 275 pounds and 5.7 ounces. Subjective: She denies ever being told she has gastroparesis. He complains of early satiety and having to have a bowel movement within 10-15 minutes after eating. She gets lightheaded when she stands up and sometimes feels her heart race. She admits to numbness in her feet. Tells me that her hemoglobin A1c has been as high as 14 in the past. Her last was 8. Hemoglobin A1c at admission was 10.7. Denies any recent antibiotics. No sick contacts. Not really complaining of abdominal pain. Gastric emptying study done today was normal - Physical Exam General: Alert, Oriented x3, Cooperative, No apparent distress, Well developed, Well nourished HEENT: Atraumatic, Normocephalic Oral: Moist Mucosa Neck: Supple, No JVD Lungs: Clear to auscultation Cardiovascular: Regular rate, Regular Rhythm, Normal S1, Normal S2, No murmurs, No Gallop Abdomen: Soft, Non Tender, Non-Distended, Hyperactive Bowel Sounds, Obese Extremities: No clubbing, No cyanosis, No edema Skin: No rashes, No breakdown Neurological: Cranial nerves II-XII grossly intact, Neuro grossly intact Psych/Mental Status: Normal Affect, Appropriate Vital Signs Temp Pulse Resp BP Pulse Ox 97.1 F L 75 18 132/94 H 97 03/25/18 02:15 03/25/18 02:15 03/25/18 02:15 03/25/18 02:15 03/25/18 02:15 Oxygen Delivery Method Room Air Weight: 275 lb 5.718 oz Body Mass Index (BMI) 40.6 Intake and Output for Last 24 Hours 03/23/18 03/24/18 03/25/18 23:59 23:59 23:59 Intake Total 1310 / 1310 Output Total 200 / 200 300 / 300 Balance -200 / -200 1010 / 1010 Laboratory Tests Past 24 Hrs 03/24/18 03/24/18 15:02 15:02 WBC 6.8 RBC 5.15 Hgb 14.6 Hct 44.7 MCV 86.8 MCH 28.3 MCHC 32.7 RDW 13.7 RDW Differential 43.1 Plt Count 199 MPV 9.9 Immature Gran % (Auto) 0.300 Neut % (Auto) 59.0 Lymph % (Auto) 27.3 [place] % (Auto) 11.2 H Eos % (Auto) 1.9 Baso % (Auto) 0.3 Absolute Neuts (auto) 4.0 Absolute Lymphs (auto) 1.85 Total Counted Not Reportable Sodium 141 Potassium 3.2 L Chloride 101 Carbon Dioxide 30.0 Anion Gap 10 BUN 8 Creatinine 1.10 H Estim Creat Clear Calc 55.42 Est GFR (MDRD) Af Amer 65 Est GFR (MDRD) Non-Af 54 L BUN/Creatinine Ratio 7.3 L Glucose 250 H Calcium 8.8 POC Glucose 03/25/18 03/24/18 03/24/18 06:25 22:01 17:06 POC Glucose 115 H 210 H 225 H Medical Necessity - Tobacco Use Smoking Status: Never smoker Tobacco Use: Non-smoker Assessment/Plan All Active Problems (Last Reviewed 03/24/18 @ 13:30 by Lissa Cantu) Debility (Acute) Chronic nausea and vomiting-etiology unk (Acute) Decubitus ulcer of buttock, stage 2 (Acute) Shingles (Resolved) Chest pain on exertion (Resolved) Depression (Resolved) impressions 1. nausea, early satiety, diarrhea without abdominal pain - gastric emptying study is negative. EGD scheduled tomorrow with Dr. Schulte. Trintellix has many GI side effects....will need to ask her how long she has been on the Trintellix and how this relates to her sx 2. Diabetes mellitus type 2-uncontrolled 3. Diabetic polyneuropathy 4. Vitamin D deficiency 5. Depression 6. Asthma 7. Obstructive sleep apnea 8. Irritable bowel syndrome 9. GERD 10. Hypertension 11. Hyperlipidemia 12. Morbid obesity 13. Hypokalemia Stool studies for fecal leukocytes and enteric pathogen panel. C. difficile has been sent and the results are currently pending. EGD in the a.m. with Dr. Schulte If the EGD is unremarkable and the gastric emptying study was normal need to consider getting her off Trintellix to see if the symptoms improve. Supplement the potassium Recheck lab in the a.m. Code Visit Inpatient E&M: 78691 Subs Hosp L2
[2018-03-25 07:33] VITALS: BP 126/61; PULSE 61; RESP 18; TEMP 36.4; O2SAT 93
--- NOTE | 2018-03-25 07:44 | NM_ITS ---
CLINICAL: 63-year-old diabetic female with reported history of chronic nausea. SEMI-SOLID PHASE 99m Tc SULFUR COLLOID GASTRIC EMPTYING STUDY COMPARISON: None available FINDINGS: The patient was administered 1.2 mCi of 99m Tc sulfur colloid mixed with oatmeal and consumed per os. Image acquisitions in the anterior-posterior projections for a total of 60 minutes. There is prompt visualization of the stomach. There is no gastroesophageal reflux identified. The T1/2 linear fit was calculated to be 36.62 minutes, (Normal: 12-56 minutes). NM/Gastric Emptying Study IMPRESSION: 1. NORMAL 99m Tc sulfur colloid semi-solid phase (oatmeal) gastric emptying imaging examination. A. There is normal and preserved semi-solid phase gastric emptying compared to normal controls. (Alejandro et al, J Nucl Med Tech 38: 186, 2010). Electronically Signed: Jered Dempsey DO at 17:15 EST Tel , Service support ,
[2018-03-25 07:50] LABS: Absolute Lymphocyte Count 3.06 X10^3/ul (0.83-4.51); Basophil# 0.04 X10^3/uL; Basophil% 0.4 % (0-1); Eosinophil# 0.22 X10^3/uL; Eosinophils% 2.3 % (0-5); Hematocrit 43.8 % (37-47); Hemoglobin 14.1 g/dl (12.0-15.0); Lymphocyte # 3.06 X10^3/ul (4.0); Lymphocyte % 32.4 % (19-41); Mean Corp Hgb Conc 32.2 g/gl (32-36); Mean Corpuscular Hgb 28.1 pg (27.0-32.0); Mean Corpuscular Volume 87.3 fL (81-99); Mean Platelet Vol. 10.4 fl (6.2-12.0); Monocyte# 1.12 X10^3/uL; Monocyte% 11.9 % (0-10); Neutrophil # 4.96 X10^3/uL (2.7-7.7); Neutrophil % 52.7 % (47-70); Platelet Count 246 K/mm3 (150-450); RBC Distribution Width CV 14.2 % (11.6-14.6); RBC Distribution Width SD 44.7 fl (35.1-43.9); Red Blood Count 5.02 M/mm3 (4.2-5.4); White Blood Count 9.4 K/mm3 (4.4-11.0)
[2018-03-25 08:00] LABS: POSITIVE COUNT NO; POSITIVE DIFFERENTIAL NO; POSITIVE MORPHOLOGY NO
[2018-03-25 08:16] LABS: Anion Gap 9 (5-15); BUN 7 mg/dL (7-18); BUN/Creat Ratio 6.6 RATIO (10-20); Calcium,Total 7.9 mg/dL (8.5-10.1); Chloride 106 mmol/L (98-107); Creatinine, Serum 1.06 mg/dL (0.55-1.02); EST Glomerular Filtration Rate 56 mL/min (>60); Est Glom Filt Rate - Afr Amer 68 mL/min (>60); Estimated Creatinine Clearance 57.51 ml/min; Glucose 114 mg/dL (74-106); Potassium 3.1 mmol/L (3.5-5.1); Sodium Level 141 mmol/L (136-145)
[2018-03-25 08:23] LABS: Hemoglobin A1c 10.7 % (4.2-6.3)
--- NOTE | 2018-03-25 08:51 | CASEMGMT ---
Addendum entered by Loren Olivares 03/25/18 10:55: SW spoke w/Kar[facility], she states can review referral, will need PT/OT. SW Faxed referral, will send PT/OT once completed. DIXIE Gold, COOK CHILL TECHNICIAN Original Note: LANDEN called [facility], message left for Karrie inquiring if they can take pt, requested return call. DIXIE Gold, COOK CHILL TECHNICIAN
--- NOTE | 2018-03-25 09:06 | PCM.PN.SRG ---
Patient Problems: Active and Suspected Problems (Last Reviewed 03/24/18 @ 13:30 by Lissa Cantu) Debility (Acute) Chronic nausea and vomiting-etiology unk (Acute) Subjective: Patient is evaluated resting comfortably in bed. She notes nausea, vomiting has greatly improved. She denies abdominal pain at this time. She notes she intermittently has epigastric pain. She also notes very potent flatus and diarrhea. She had an EGD and colonoscopy last year in August by Dr. Schulte which demonstrated unremarkable/normal colon. No biopsies were obtained. Upper scope demonstrated GERD. - Physical Exam General: Alert, Oriented x3, Cooperative Abdomen: Bowel Sounds Present, Soft, Non Tender, Obese Vital Signs Temp Pulse Resp BP Pulse Ox 97.5 F L 61 18 126/61 H 93 03/25/18 07:33 03/25/18 07:33 03/25/18 07:33 03/25/18 07:33 03/25/18 07:33 Oxygen Delivery Method Room Air Weight: 275 lb 5.718 oz Body Mass Index (BMI) 40.6 Intake and Output for Last 24 Hours 03/23/18 03/24/18 03/25/18 23:59 23:59 23:59 Intake Total 1310 / 1310 Output Total 200 / 200 300 / 300 Balance -200 / -200 1010 / 1010 Laboratory Tests Past 24 Hrs 03/24/18 03/24/18 03/25/18 15:02 15:02 07:04 WBC 6.8 9.4 RBC 5.15 5.02 Hgb 14.6 14.1 Hct 44.7 43.8 MCV 86.8 87.3 MCH 28.3 28.1 MCHC 32.7 32.2 RDW 13.7 14.2 RDW Differential 43.1 44.7 H Plt Count 199 246 MPV 9.9 10.4 Immature Gran % (Auto) 0.300 0.300 Neut % (Auto) 59.0 52.7 Lymph % (Auto) 27.3 32.4 [place] % (Auto) 11.2 H 11.9 H Eos % (Auto) 1.9 2.3 Baso % (Auto) 0.3 0.4 Absolute Neuts (auto) 4.0 5.0 Absolute Lymphs (auto) 1.85 3.06 Total Counted Not Reportable Not Reportable APTT Sodium 141 Potassium 3.2 L Chloride 101 Carbon Dioxide 30.0 Anion Gap 10 BUN 8 Creatinine 1.10 H Estim Creat Clear Calc 55.42 Est GFR (MDRD) Af Amer 65 Est GFR (MDRD) Non-Af 54 L BUN/Creatinine Ratio 7.3 L Glucose 250 H Hemoglobin A1c Calcium 8.8 03/25/18 03/25/18 03/25/18 07:04 07:04 07:04 WBC RBC Hgb Hct MCV MCH MCHC RDW RDW Differential Plt Count MPV Immature Gran % (Auto) Neut % (Auto) Lymph % (Auto) [place] % (Auto) Eos % (Auto) Baso % (Auto) Absolute Neuts (auto) Absolute Lymphs (auto) Total Counted APTT Pending Sodium 141 Potassium 3.1 L Chloride 106 Carbon Dioxide 26.0 Anion Gap 9 BUN 7 Creatinine 1.06 H Estim Creat Clear Calc 57.51 Est GFR (MDRD) Af Amer 68 Est GFR (MDRD) Non-Af 56 L BUN/Creatinine Ratio 6.6 L Glucose 114 H Hemoglobin A1c 10.7 H Calcium 7.9 L POC Glucose 03/25/18 03/24/18 03/24/18 06:25 22:01 17:06 POC Glucose 115 H 210 H 225 H Medical Necessity - Tobacco Use Smoking Status: Never smoker Tobacco Use: Non-smoker Assessment/Plan All Active Problems (Last Reviewed 03/24/18 @ 13:30 by Lissa Cantu) Debility (Acute) Chronic nausea and vomiting-etiology unk (Acute) Decubitus ulcer of buttock, stage 2 (Acute) Shingles (Resolved) Chest pain on exertion (Resolved) Depression (Resolved) I am following this patient in conjunction with Dr. Schulte Impression: Nausea, vomiting. Hx GERD. Epigastric pain Dr. Schulte will plan to perform an upper scope tomorrow around 11. Patient may have full liquids after her gastric emptying study. Procedure details, risks and benefits were reviewed. Patient has had the opportunity to ask and have questions answered. Patient verbally understands and agrees to proceed with the plan. Patient will be NPO after midnight. Code Visit Inpatient E&M: 70889 Subs Hosp L1
[2018-03-25] MEDS: 0.9% Normal Saline 1,000 ML 75 ML IV (09:47)
--- NOTE | 2018-03-25 10:20 | NURSING ---
wound photo: right inner buttock
[2018-03-25 10:37] LABS: Partial Thromboplast Time 26.9 Seconds (24.1-36.2)
[2018-03-25 11:41] LABS: Bedside Glucose 130 mg/dL (70-110)
[2018-03-25 13:49] VITALS: BP 117/58; PULSE 63; RESP 18; TEMP 36.7; O2SAT 98
[2018-03-25] MEDS: Pantoprazole Sodium 20 MG Tablet PO ×2 (14:02)
[2018-03-25] MEDS: Pramipexole Di-HCl 0.5 MG Tablet PO ×2 (14:03)
[2018-03-25] MEDS: Atenolol 50 MG Tablet PO (14:03)
[2018-03-25] MEDS: Losartan Potassium 100 MG Tablet PO ×2 (14:04)
[2018-03-25] MEDS: traMADol 50 MG Tablet PO (14:08)
[2018-03-25] MEDS: Pregabalin 75 MG Capsule PO ×2 (14:09)
--- NOTE | 2018-03-25 16:02 | CHAPLAIN ---
Type of Pastoral Visit _x__ Initial Visit ___ Follow-up Visit ___ On-call Visit ___ General Patient Visit ___ Spiritual Assessment ___ Family Conference ___ Bereavement ___ Rapid Response ___ Code Blue ___ Other (describe below) Pastoral Care Referral From _x__ Patient ___ Family ___ Nurse ___ Physician ___ Sales Representative Facility Services ___ Railroad Signal Operator ___ Other (describe below) Sacrament/Intervention _x__ Active listening ___ Anointing ___ Nondenominational ___ Bereavement ___ Communion _x__ Kayla exploration ___ _x__ Life review _x__ Prayer ___ Reconciliation ___ Sacrament of Sick _x__ Supportive presence ___ Wedding ___ Other (describe below) Pastoral Comments
[2018-03-25 16:21] LABS: Bedside Glucose 226 mg/dL (70-110)
[2018-03-25] MEDS: Insulin Lispro 100 UNIT/ML INSULN.PEN SC ×2 (16:59→21:02)
[2018-03-25 20:00] VITALS: BP 133/61; PULSE 54; RESP 16; TEMP 36.8; O2SAT 94
[2018-03-25] MEDS: Potassium Chloride 10mEq/100mL 10 MEQ/100 ML IV.SOLN. 100 MEQ IV BOLUS ×2 (20:42→22:46)
[2018-03-25] MEDS: tiZANidine HCl 2 MG Tablet 4 MG PO (20:43)
[2018-03-25] MEDS: Heparin Injection (Vial) 5,000 UNIT/ML VIAL 5000 UNIT SC (21:03)
[2018-03-25 21:10] LABS: Bedside Glucose 228 mg/dL (70-110)
[2018-03-25] MEDS: Zolpidem Tartrate 5 MG Tablet PO (22:50)
[2018-03-26] VITALS (10 sets, daily range): BP systolic 97–130; BP diastolic 45–82; PULSE 54–133; RESP 12–18; TEMP 36.2–36.6; O2SAT 94–99
--- NOTE | 2018-03-26 | IMM_PTH ---
PATIENT: FABIOLA RASMUSSEN LOC: MS2 U#:[id number] AGE/SX: 63/F [place] [facility] [place]24/[address]: Dr. Odalys Estes DO : 1955 BED: 1 DIS: 03/27/2018 SPEC #: [id number] RECD: 03/26/18 14:47 STATUS: SOUT REQ #: [id number] MARLEN: 03/26/18 00:[address]: Nancy Schulte DEPT: IMMUNOHISTOCHEMISTRY RECD BY: Ghazala Zamarripa ENTERED: 03/26/18 14:48 SP TYPE: IMMUNO OTHR DR: DO Dr. Chuck Orourke MD Dr. Mark Tereletsky, DO Tissues: A - Stomach, NOS Procedures: H Pylori (initial) Comments: @ Ordering doctor for H.PYLORI edited from to @ by WENDY at 03/26/18 1448 @ Submitting doctor edited from to @ by RGOOD at 03/26/18 1448 PHYSICIAN & INSTITUTION [place] [id number] SPECIMEN INFORMATION: Tissue Source: A - Antrum biopsy Clinical Info: Epigastric pain, nausea and vomiting Specimen Number: [id number] CPT code: 78189 METHODOLOGY: Deparaffinized sections of prefer/formalin-fixed tissue or PAP/DQ stained slides are incubated with monoclonal/polyclonal antibodies/oligonucleotide probes. Localization is made via biotin free immunoperoxidase method. Appropriate controls are performed and reacted as expected. Results on target cell population are indicated in the following table: RESULTS: ANTIBODY / CLONE RESULT Block A H Pylori (polyclonal) negative These tests were developed and their performance characteristics determined by [facility]. They may not have been cleared or approved by the U.S. Food and Drug Administration. The FDA has determined that such clearance or approval is not necessary. INTERPRETATION: A. Antrum, biopsy: Negative for Helicobacter pylori organisms. RAMONE:cristhian 03/27/18
[2018-03-26] MEDS: Potassium Chloride 10mEq/100mL 10 MEQ/100 ML IV.SOLN. 100 MEQ IV BOLUS ×2 (01:26→04:35)
[2018-03-26 06:14] LABS: ALB/GLOB Ratio 0.6 RATIO (0.9-2.4); AST(SGOT) 32 U/L (15-37); Alanine Aminotransfer ALT/SGPT 17 U/L (13-56); Albumin, Serum 2.4 g/dL (3.2-5.0); Alkaline Phosphatase 112 U/L (45-117); Anion Gap 8 (5-15); BUN 7 mg/dL (7-18); BUN/Creat Ratio 6.3 RATIO (10-20); Chloride 106 mmol/L (98-107); Cholesterol 104 mg/dL (200); Creatinine, Serum 1.11 mg/dL (0.55-1.02); EST Glomerular Filtration Rate 53 mL/min (>60); Est Glom Filt Rate - Afr Amer 64 mL/min (>60); Estimated Creatinine Clearance 54.92 ml/min; Globulin 3.8 g/dL (2.2-4.2); Glucose 143 mg/dL (74-106); High Density Lipoprotein 26 mg/dL; Magnesium 2.2 mg/dL (1.6-2.6); Phosphorus 2.5 mg/dL (2.5-4.9); Potassium 3.5 mmol/L (3.5-5.1); Protein, Total 6.2 g/dL (6.4-8.2); Sodium Level 144 mmol/L (136-145); Triglycerides 138 mg/dL; Very Low Density Lipoprotein 28 mg/dL (5-40)
[2018-03-26 07:01] LABS: Bedside Glucose 139 mg/dL (70-110)
[2018-03-26] MEDS: Budesonide Respules 0.5 MG/2 ML AMPUL.NEB. INHALATION ×2 (07:11→19:14)
--- NOTE | 2018-03-26 07:24 | PN_ITS ---
Patient Problems: Active and Suspected Problems (Last Reviewed 03/24/18 @ 13:30 by Lissa Cantu) Debility (Acute) Chronic nausea and vomiting-etiology unk (Acute) Subjective: All events of the past 24 hours been reviewed Afebrile since admission Orthostatic vital signs are positive with the heart rate going from 55 lying down to 133 standing up. The blood pressure went from 110/47 lying down to 97/60 standing up. Oral intake is 1125 since admission. Fluid balance is +3128 Lab today shows normal electrolytes with a potassium now 3.5 following supplementation. BUN is 7 with a creatinine of 1.11. LFTs are within normal limits. Gastric emptying study was negative To have EGD today with Dr. Schulte - Physical Exam Vital Signs Temp Pulse Resp BP Pulse Ox 98.3 F 54 L 16 110/47 L 98 03/25/18 20:00 03/26/18 07:12 03/26/18 07:12 03/26/18 06:10 03/26/18 07:12 Oxygen Delivery Method Room Air Weight: 275 lb 5.718 oz Body Mass Index (BMI) 40.6 Orthostatic Vital Signs Start: 03/26/18 06:10 Freq: q24h Status: Active Protocol: Activity Type Activity Date Activity User E-Sign Co-Sign Detail Recorded Client Recorded Date Recorded By Document 03/26/18 06:10 CDB [id number] 03/26/18 06:15 CDB 03/26/18 06:10 Orthostatic Vitals Standing -Blood Pressure (90/60-120/80 mm Hg) 97/60 -Extremity Use Right Arm -Pulse Rate (60-100 beats/min) 133 H Sitting -Blood Pressure (90/60-120/80 mm Hg) 125/66 H -Extremity Use Left Arm -Pulse Rate (60-100 beats/min) 65 Lying -Blood Pressure (90/60-120/80 mm Hg) 110/47 L -Extremity Use Left Arm -Pulse Rate (60-100 beats/min) 55 L Intake and Output for Last 24 Hours 03/24/18 03/25/18 03/26/18 23:59 23:59 23:59 Intake Total 2891 / 2891 1187 / 1187 Output Total 200 / 200 300 / 300 450 / 450 Balance -200 / -200 2591 / 2591 737 / 737 Microbiology Past 72 Hours 03/25/18 16:53 C. difficile DNA Amplification - Final Stool 03/25/18 16:53 Stool Lactoferrin - Final Stool Laboratory Tests Past 24 Hrs 03/25/18 03/25/18 03/25/18 07:04 07:04 07:04 WBC 9.4 RBC 5.02 Hgb 14.1 Hct 43.8 MCV 87.3 MCH 28.1 MCHC 32.2 RDW 14.2 RDW Differential 44.7 H Plt Count 246 MPV 10.4 Immature Gran % (Auto) 0.300 Neut % (Auto) 52.7 Lymph % (Auto) 32.4 [place] % (Auto) 11.9 H Eos % (Auto) 2.3 Baso % (Auto) 0.4 Absolute Neuts (auto) 5.0 Absolute Lymphs (auto) 3.06 Total Counted Not Reportable APTT 26.9 Sodium 141 Potassium 3.1 L Chloride 106 Carbon Dioxide 26.0 Anion Gap 9 BUN 7 Creatinine 1.06 H Estim Creat Clear Calc 57.51 Est GFR (MDRD) Af Amer 68 Est GFR (MDRD) Non-Af 56 L BUN/Creatinine Ratio 6.6 L Glucose 114 H Hemoglobin A1c Calcium 7.9 L Phosphorus Magnesium Total Bilirubin AST ALT Alkaline Phosphatase Total Protein Albumin Globulin Albumin/Globulin Ratio Triglycerides Cholesterol LDL Cholesterol VLDL Cholesterol HDL Cholesterol 03/25/18 03/26/18 07:04 05:25 WBC RBC Hgb Hct MCV MCH MCHC RDW RDW Differential Plt Count MPV Immature Gran % (Auto) Neut % (Auto) Lymph % (Auto) [place] % (Auto) Eos % (Auto) Baso % (Auto) Absolute Neuts (auto) Absolute Lymphs (auto) Total Counted APTT Sodium 144 Potassium 3.5 Chloride 106 Carbon Dioxide 30.0 Anion Gap 8 BUN 7 Creatinine 1.11 H Estim Creat Clear Calc 54.92 Est GFR (MDRD) Af Amer 64 Est GFR (MDRD) Non-Af 53 L BUN/Creatinine Ratio 6.3 L Glucose 143 H Hemoglobin A1c 10.7 H Calcium 8.0 L Phosphorus 2.5 Magnesium 2.2 Total Bilirubin 0.60 AST 32 ALT 17 Alkaline Phosphatase 112 Total Protein 6.2 L Albumin 2.4 L Globulin 3.8 Albumin/Globulin Ratio 0.6 L Triglycerides 138 Cholesterol 104 LDL Cholesterol 50 VLDL Cholesterol 28 HDL Cholesterol 26 L POC Glucose 03/26/18 03/25/18 03/25/18 06:54 21:01 16:13 POC Glucose 139 H 228 H 226 H 03/25/18 11:33 POC Glucose 130 H Medical Necessity - Tobacco Use Smoking Status: Never smoker Tobacco Use: Non-smoker Assessment/Plan All Active Problems (Last Reviewed 03/24/18 @ 13:30 by Lissa Cantu) Debility (Acute) Chronic nausea and vomiting-etiology unk (Acute) Decubitus ulcer of buttock, stage 2 (Acute) Shingles (Resolved) Chest pain on exertion (Resolved) Depression (Resolved)
--- NOTE | 2018-03-26 10:35 | NURSING ---
report called to Yesenia in [place]
--- NOTE | 2018-03-26 11:10 | CASEMGMT ---
Addendum entered by Luba Acevedo 03/26/18 13:34: SW received message from Karrie at [facility] stating she is able to accept pt and has submitted for pre-cert Original Note: Social Work Note SW faxed updated clinicals to Karrie at [facility]. SW placed a call to Karrie and left her a message informing her that this worker is following pt today and to let this worker know if she is able to accept pt. LANDEN waiting for call back from Karrie at [facility]. Plan: [facility] pending acceptance and pre-cert Luba Acevedo RIGGING SLINGER, SIEBEL ARCHITECT
--- NOTE | 2018-03-26 11:30 | GASB_PTH ---
PATIENT: FABIOLA RASMUSSEN LOC: MS2 U#:[id number] AGE/SX: 63/F ROOM: [facility] [place]03[place]24/[address]: Dr. Odalys Estes DO : 1955 BED: 1 DIS: 03/27/2018 SPEC #: [id number] RECD: 03/26/18 14:03 STATUS: CASSIUS BERTIN #: [id number] MARLEN: 03/26/18 11:[address]: Nancy Schulte DEPT: SURGICAL PATHOLOGY RECD BY: Jered Morejon ENTERED: 03/26/18 14:28 SP TYPE: Gastric Bx OTHR DR: DO Dr. Chuck Orourke MD Dr. Mark Tereletsky, DO Dr. Tamera Robotham, MD Tissues: A - Gastric mucous membrane B - Gastric mucous membrane Procedures: Special Stain Group II Surgery Specimen Level IV Alcian Blue/PAS (control) Comments: @ Ordering doctor for KRUPA edited from to @ by WENDY at 03/27/18923 @ Submitting doctor edited from to @ by RGOOD at 03/27/18923 HEADER OPERATION: EGD ([facility] [place]) PRE-OP DIAGNOSIS: Epigastric pain, nausea and vomiting TISSUE SUBMITTED: A - Antrum biopsy for H. pylori and path, B - GE junction biopsy MICROSCOPIC DIAGNOSIS A. Antral biopsy: Mild gastritis. B. GE junction, biopsy: A fragment of gastric mucosa with chronic inflammation. Intestinal metaplasia (goblet cell metaplasia) is not identified. See comment. SJ:cristhian 03/27/18 COMMENT A. The results of immunohistochemistry for Helicobacter pylori will be reported separately ([id number]). B. Alcian blue/PAS stain with matched control is used in the evaluation of the specimen. MICROSCOPIC DESCRIPTION Slides are reviewed. A. The specimen shows fragments of gastric mucosa with chronic inflammatory cell infiltrates in the lamina propria consisting of lymphocytes and plasma cells, consistent with mild chronic gastritis. GROSS DESCRIPTION A - Received in fixative is one container labeled with the patient's name and designated antrum biopsy. The specimen consists of one irregular fragment of light merida soft tissue that measures 0.3 x 0.3 x 0.1 cm. The specimen is totally submitted in one cassette. B - Received in fixative is one container labeled with the patient's name and designated GE junction biopsy. The specimen consists of one irregular fragment of light merida soft tissue that measures 0.3 x 0.3 x 0.1 cm. The specimen is totally submitted in one cassette. / SJ:rg 03/26/18 TC:3 CPT: 53053 x2, 84674
--- NOTE | 2018-03-26 12:18 | OP.ENDO_ITS ---
Patient Name: Tonya Richardson Procedure Date: 03/26/2018 11:54 AM Date of : 1955 Age: 63 Procedure: Upper GI endoscopy Indications: Epigastric abdominal pain, Nausea with vomiting Providers: Nancy Schulte MD Referring MD: Newton Medina Medicines: Monitored Anesthesia Care Patient Profile: This is a 63 year old female. Complications: No immediate complications. Procedure: Pre-Anesthesia Assessment: - Prior to the procedure, a History and Physical was performed, and patient medications and allergies were reviewed. The patient's tolerance of previous anesthesia was also reviewed. The risks and benefits of the procedure and the sedation options and risks were discussed with the patient. All questions were answered, and informed consent was obtained. Prior Anticoagulants: The patient has taken no previous anticoagulant or antiplatelet agents. ASA Grade Assessment: II - A patient with mild systemic disease. After reviewing the risks and benefits, the patient was deemed in satisfactory condition to undergo the procedure. After obtaining informed consent, the endoscope was passed under direct vision. Throughout the procedure, the patient's blood pressure, pulse, and oxygen saturations were monitored continuously. The gastroscope was introduced through the mouth, and advanced to the second part of duodenum. The upper GI endoscopy was accomplished without difficulty. The patient tolerated the procedure well. Scope In: 12:04:39 PM Scope Out: 12:09:32 PM Total Procedure Duration Time 0 hours 4 minutes 53 seconds Findings: The examined duodenum was normal. Mild inflammation was found in the gastric antrum. Biopsies were taken with a cold forceps for histology. Biopsies were taken with a cold forceps for Helicobacter pylori cultures. Mild mucosal changes were found at the gastroesophageal junction. Biopsies were taken with a cold forceps for histology. Impression: - Normal examined duodenum. - Gastritis. Biopsied. - Mucosal changes in the gastroesophageal junction. Biopsied. Recommendation: - Await pathology results. - [facility] patient to [facility]. - Continue present medications including PPI. Procedure Code(s): --- Professional --- 58650, Esophagogastroduodenoscopy, flexible, transoral; with biopsy, single or multiple Diagnosis Code(s): --- Professional --- K29.70, Gastritis, unspecified, without bleeding K31.89, Other diseases of stomach and duodenum R10.13, Epigastric pain R11.2, Nausea with vomiting, unspecified CPT copyright 2017 [employer]. All rights reserved. The codes documented in this report are preliminary and upon slat basket maker helper machine review may be revised to meet current compliance requirements. MD Nancy Gold MD 03/26/2018 12:18:31 PM This report has been signed electronically. Number of Addenda: 0 Note Initiated On: 03/26/2018 11:54 AM
[2018-03-26 12:55] LABS: Bedside Glucose 128 mg/dL (70-110)
[2018-03-26] MEDS: Pantoprazole Sodium 20 MG Tablet PO (14:54)
[2018-03-26] MEDS: Pregabalin 75 MG Capsule PO ×2 (14:55→22:35)
[2018-03-26] MEDS: Atenolol 50 MG Tablet PO ×2 (14:55→22:36)
[2018-03-26] MEDS: Losartan Potassium 100 MG Tablet PO (14:55)
[2018-03-26] MEDS: Pramipexole Di-HCl 0.5 MG Tablet PO (14:56)
[2018-03-26] MEDS: Insulin Lispro 100 UNIT/ML INSULN.PEN SC ×2 (17:43→22:34)
[2018-03-26 17:50] LABS: Bedside Glucose 197 mg/dL (70-110)
--- NOTE | 2018-03-26 18:43 | PCM.PROGNOTE ---
Patient Problems: Active and Suspected Problems (Last Reviewed 03/24/18 @ 13:30 by Lissa Cantu) Debility (Acute) Chronic nausea and vomiting-etiology unk (Acute) Subjective: All events of the past 24 hours were reviewed. Gastric emptying study was normal EGD today showed only mild gastritis She was able to take 1125 p.o. today. Blood sugars are mostly controlled Enteric pathogen panel was negative C. difficile was negative Fecal leukocytes are positive Continues to have loose stool Also continues to complain of nausea Objective: PHYSICAL EXAM: GENERAL: alert, oriented X 3, Cooperative, NAD ORAL: moist mucosa, no mucosal lesions NECK: No JVD, supple, trachea midline LUNGS: CTA, symmetric chest expansion HEART: RRR, Normal S1 and S2, no rub, no gallop ABDOMEN: soft, NT, ND, BS present, no guarding with palpation EXTREMITIES: no edema, no cyanosis, no calf tenderness SKIN: No rashes, no breakdown NEUROLOGIC: no focal neurologic deficits PSYCH: appropriate, normal affect, pleasant - Physical Exam Vital Signs Temp Pulse Resp BP Pulse Ox 97.8 F 55 L 14 130/58 H 99 03/26/18 12:45 03/26/18 12:45 03/26/18 12:45 03/26/18 12:45 03/26/18 12:45 Oxygen Delivery Method Room Air Weight: 275 lb 5.718 oz Body Mass Index (BMI) 40.6 Orthostatic Vital Signs Start: 03/26/18 06:10 Freq: q24h Status: Active Protocol: Activity Type Activity Date Activity User E-Sign Co-Sign Detail Recorded Client Recorded Date Recorded By Document 03/26/18 06:10 CDB [id number] 03/26/18 06:15 CDB 03/26/18 06:10 Orthostatic Vitals Standing -Blood Pressure (90/60-120/80 mm Hg) 97/60 -Extremity Use Right Arm -Pulse Rate (60-100 beats/min) 133 H Sitting -Blood Pressure (90/60-120/80 mm Hg) 125/66 H -Extremity Use Left Arm -Pulse Rate (60-100 beats/min) 65 Lying -Blood Pressure (90/60-120/80 mm Hg) 110/47 L -Extremity Use Left Arm -Pulse Rate (60-100 beats/min) 55 L Intake and Output for Last 24 Hours 03/24/18 03/25/18 03/26/18 23:59 23:59 23:59 Intake Total 2891 / 2891 3270 / 3270 Output Total 200 / 200 300 / 300 1000 / 1000 Balance -200 / -200 2591 / 2591 2270 / 2270 Microbiology Past 72 Hours 03/25/18 16:53 Enteric Bacteriology - Final Stool 03/25/18 16:53 C. difficile DNA Amplification - Final Stool 03/25/18 16:53 Stool Lactoferrin - Final Stool Laboratory Tests Past 24 Hrs 03/26/18 05:25 Sodium 144 Potassium 3.5 Chloride 106 Carbon Dioxide 30.0 Anion Gap 8 BUN 7 Creatinine 1.11 H Estim Creat Clear Calc 54.92 Est GFR (MDRD) Af Amer 64 Est GFR (MDRD) Non-Af 53 L BUN/Creatinine Ratio 6.3 L Glucose 143 H Calcium 8.0 L Phosphorus 2.5 Magnesium 2.2 Total Bilirubin 0.60 AST 32 ALT 17 Alkaline Phosphatase 112 Total Protein 6.2 L Albumin 2.4 L Globulin 3.8 Albumin/Globulin Ratio 0.6 L Triglycerides 138 Cholesterol 104 LDL Cholesterol 50 VLDL Cholesterol 28 HDL Cholesterol 26 L POC Glucose 03/26/18 03/26/18 03/26/18 17:41 12:52 06:54 POC Glucose 197 H 128 H 139 H 03/25/18 21:01 POC Glucose 228 H Medical Necessity - Tobacco Use Smoking Status: Never smoker Tobacco Use: Non-smoker Assessment/Plan All Active Problems (Last Reviewed 03/24/18 @ 13:30 by Lissa Cantu) Debility (Acute) Chronic nausea and vomiting-etiology unk (Acute) Decubitus ulcer of buttock, stage 2 (Acute) Shingles (Resolved) Chest pain on exertion (Resolved) Depression (Resolved) impressions 1. nausea, early satiety, diarrhea without abdominal pain - gastric emptying study is negative. EGD scheduled tomorrow with Dr. Schulte. Trintellix has many GI side effects....will need to ask her how long she has been on the Trintellix and how this relates to her sx 2. Diabetes mellitus type 2-uncontrolled 3. Diabetic polyneuropathy 4. Vitamin D deficiency 5. Depression 6. Asthma 7. Obstructive sleep apnea 8. Irritable bowel syndrome 9. GERD 10. Hypertension 11. Hyperlipidemia 12. Morbid obesity 13. Hypokalemia Gastric emptying study is normal, EGD showed only mild gastritis. I suspect the symptoms may be secondary to the Trintellix. We will decrease the Trintellix to 20 mg daily for 1 week and then to 10 mg daily for 1 week and then discontinue to see if symptoms improve. Will likely need to start a different antidepressant. She is currently not receiving Trintellix because this is not on formulary. We will have her try and have family bring in the Trintellix to prevent withdrawal symptoms since her dose is high. Recheck lab in the a.m. Plan on fci at discharge
[2018-03-26] MEDS: traMADol 50 MG Tablet PO (20:39)
[2018-03-26] MEDS: Zolpidem Tartrate 5 MG Tablet PO (22:33)
[2018-03-26 22:55] LABS: Bedside Glucose 199 mg/dL (70-110)
[2018-03-27 02:20] VITALS: BP 147/62; PULSE 61; RESP 18; TEMP 36.8; O2SAT 95
--- NOTE | 2018-03-27 02:39 | NURSING ---
IV pump alarming on entering pt's room 'infusion complete'. pt stated 'that was it' and she no longer wanted the infusion continued. Explained to patient the purpose of the IV fluids and potassium additive. Pt still wanting infusion to be stopped and wanted IV removed. She stated earlier in the evening that the IV site was tender and she wanted the infusion stopped after the current bag was complete. This nurse had offered to replace the IV earlier in the shift and pt declined. Offered again at this time and pt declined again. Explained the purpose of keeping IV access while pt is in hospital. Pt still wanting IV removed. Same attended and Charge nurse notified.
[2018-03-27] MEDS: tiZANidine HCl 2 MG Tablet 4 MG PO (03:32)
[2018-03-27 05:52] LABS: Absolute Lymphocyte Count 2.17 X10^3/ul (0.83-4.51); Basophil# 0.04 X10^3/uL; Basophil% 0.7 % (0-1); Eosinophil# 0.34 X10^3/uL; Eosinophils% 5.5 % (0-5); Hematocrit 39.5 % (37-47); Hemoglobin 12.4 g/dl (12.0-15.0); Lymphocyte # 2.17 X10^3/ul (4.0); Lymphocyte % 35.4 % (19-41); Mean Corp Hgb Conc 31.4 g/gl (32-36); Mean Corpuscular Hgb 28.3 pg (27.0-32.0); Mean Corpuscular Volume 90.2 fL (81-99); Mean Platelet Vol. 10.3 fl (6.2-12.0); Monocyte# 0.61 X10^3/uL; Neutrophil # 2.96 X10^3/uL (2.7-7.7); Neutrophil % 48.2 % (47-70); Platelet Count 210 K/mm3 (150-450); RBC Distribution Width CV 14.7 % (11.6-14.6); RBC Distribution Width SD 48.3 fl (35.1-43.9); Red Blood Count 4.38 M/mm3 (4.2-5.4); White Blood Count 6.1 K/mm3 (4.4-11.0)
[2018-03-27 05:55] LABS: POSITIVE COUNT NO; POSITIVE DIFFERENTIAL NO; POSITIVE MORPHOLOGY NO
[2018-03-27 06:11] LABS: Anion Gap 7 (5-15); BUN 5 mg/dL (7-18); BUN/Creat Ratio 6.1 RATIO (10-20); Calcium,Total 7.6 mg/dL (8.5-10.1); Chloride 114 mmol/L (98-107); Creatinine, Serum 0.82 mg/dL (0.55-1.02); EST Glomerular Filtration Rate 75 mL/min (>60); Est Glom Filt Rate - Afr Amer 91 mL/min (>60); Estimated Creatinine Clearance 74.34 ml/min; Glucose 138 mg/dL (74-106); Magnesium 2.1 mg/dL (1.6-2.6); Phosphorus 2.7 mg/dL (2.5-4.9); Potassium 4.2 mmol/L (3.5-5.1); Sodium Level 148 mmol/L (136-145)
[2018-03-27 06:51] LABS: Bedside Glucose 135 mg/dL (70-110)
[2018-03-27 08:20] VITALS: BP 101/47; PULSE 54; RESP 18; TEMP 36.5; O2SAT 94
[2018-03-27 08:21] VITALS: PULSE 65; RESP 18; O2SAT 92
[2018-03-27] MEDS: Budesonide Respules 0.5 MG/2 ML AMPUL.NEB. INHALATION (08:21)
[2018-03-27] MEDS: Pregabalin 75 MG Capsule PO (09:35)
[2018-03-27] MEDS: traMADol 50 MG Tablet PO (09:35)
[2018-03-27] MEDS: Pantoprazole Sodium 20 MG Tablet PO (09:37)
[2018-03-27] MEDS: Pramipexole Di-HCl 0.5 MG Tablet PO (09:37)
--- NOTE | 2018-03-27 10:03 | DCINST_ITS ---
- Discharge Diagnoses Current Active Problems: Current Active and Chronic Problems (Last Reviewed 03/24/18 @ 13:30 by Lissa Cantu) Debility (Acute) Chronic nausea and vomiting-etiology unk (Acute) You will use the following diet at home:: Other - if you have recurrent diarrhea I would encourage you to try a dairy free, gluten free diet, 1800 calorie diet Your food should be the consistency of: Mechanical soft (ground) Your liquids should be the consistency of: Regular/Thin Discharge Activity: Return to Normal Activity Call your doctor if you observe: Fever of 101 or Higher Additional Instructions: 1. Your HGBA1C is way to high. It is 10.7 and ideally it should be less than 7.0. Your blood sugars in the hospital have been pretty good on way less insulin......what this means is you are not following the diabetic/low carb diet. 2. I have started you on a new anti-depressant called Wellbutrin. This will not suppress libido. It can cause dry mouth and constipation. Take it in the morning once daily. 3. The gastric emptying study shows that your stomach empties normally. The scope showed minimal inflammation of the stomach. If the diarrhea and bloating and abdominal pain start again I would consider a dairly free, gluten free diet OR Dr. Sims may want to start you on a medication to treat irritable bowel. Allergies/Adverse Reactions: Allergies cephalexin Adverse Reaction (Verified 03/24/18 14:28) Vomiting ciprofloxacin [From Cipro] Adverse Reaction (Verified 03/24/18 14:28) Nausea theophylline anhydrous [From Joe-Dur] Adverse Reaction (Verified 03/24/18 14:28) Nausea Medications to take at Discharge Atenolol [Tenormin (beta tyrese)] 50 mg PO BID 08/27/13 Losartan Potassium [Cozaar] 100 mg PO DAILY 08/27/13 traMADol [Ultram] 50 mg PO BID PRN PRN 08/19/16 Ropinirole HCl [Requip] 1 mg PO DAILY 02/11/17 insulin glargine (U-100) 100 unit/mL (3 mL) subcutaneous pen 60 unit SC DAILY ml 02/04/18 insulin lispro (U- 100) 100 unit/mL subcutaneous solution 20 unit SC .COMPLEX ml 02/04/18 calcium carbonate 600 mg lozenges 600 mg PO Q6H PRN PRN 03/19/18 Omeprazole [Prilosec] 20 mg PO DAILY #30 cap 03/20/18 Pregabalin [Lyrica] 75 mg PO BID 03/20/18 Albuterol Inhaler [Ventolin Hfa] 2 puff INHALATION PRN PRN 03/24/18 Cetirizine HCl [Zyrtec] 10 mg PO DAILY 03/24/18 Cranberry Fruit [Cranberry] 400 mg PO DAILY 03/24/18 Ergocalciferol [Vitamin D] 50,000 unit PO QMONTH 03/24/18 Fluticasone 220 Mcg [Flovent 220 Mcg] 2 puff INHALATION BID 03/24/18 Furosemide [Lasix] 40 mg PO BID 03/24/18 Lactobacillus Acidophilus [Acidophilus] 1 each PO DAILY 03/24/18 Mag Hydrox/Al Hydrox/Simeth [Mylanta II] 15 ml PO Q4H PRN PRN 03/24/18 Ondansetron [Zofran Odt] 4 mg SUBLINGUAL Q8H PRN PRN 03/24/18 Tizanidine HCl [Zanaflex] 4 mg PO TID PRN PRN 03/24/18 Zolpidem Tartrate 10 mg PO DAILY 03/24/18 buPROPion XL [Wellbutrin Xl] 150 mg PO DAILY #30 tablet.xl 03/27/18 The following prescriptions were given: buPROPion XL [Wellbutrin Xl] 150 mg PO DAILY #30 tablet.xl Primary Care Physician: Chuck Sims MD [Primary Care Provider] - Please follow up with your Primary Care Physician in: 2 weeks Test Results: Test results from this visit will be discussed in further detail at your follow- up appointment, if applicable. Proposed Discharge Date: 03/27/18
--- NOTE | 2018-03-27 10:06 | DS.PCM_ITS ---
Discharge Date and Diagnosis Date of Admission: 03/24/18 Date of Discharge: 03/27/18 - Primary Discharge Diagnosis Active and Suspected Problems (Last Reviewed 03/24/18 @ 13:30 by Lissa Cantu) N/V/D of unknown etiology - resolved, suspect IBS Hypokalemia (Acute) Debility (Acute) - Secondary Discharge Diagnosis Chronic Problems (Last Reviewed 03/24/18 @ 13:30 by Lissa Cantu) History of left heart catheterization (Chronic 02/18/18) Normal coronaries and EF per [facility] done by Dr. Qiu @ [facility]: recommend looking at other/pulmonary causes of SOB Abdominal pain (Chronic) Vitamin D deficiency (Chronic) Vision problems (Chronic) Osteoarthritis (Chronic) Back problem (Chronic) Seasonal allergies (Chronic) Depression (Chronic) Asthma (Chronic) Obstructive sleep apnea (Chronic) IBS (irritable bowel syndrome) (Chronic) Hypersomnia, unspecified (Chronic) GERD (gastroesophageal reflux disease) (Chronic) Type 2 diabetes mellitus (Chronic) - uncontrolled Hypertension (Chronic) Abnormal electrocardiogram (Chronic) Hyperlipidemia (Chronic) Dyspnea (Chronic) Body mass index (BMI) of 45.0-49.9 in adult (Chronic) Abnormal cardiovascular stress test (Chronic) Stress echo 01/30/[address] or T wave changes to suggest ischemia but pt had extreme dyspnea Hospital Course and Treatment Imaging Results: Clinical Impression(s) from Imaging Studies Gastric Emptying Nuclear Medicine 03/25/18 07:44 IMPRESSION: 1. NORMAL 99m Tc sulfur colloid semi-solid phase (oatmeal) gastric emptying imaging examination. A. There is normal and preserved semi-solid phase gastric emptying compared to normal controls. (Alejandro et al, J Nucl Med Tech 38: 186, 2010). Electronically Signed: Jered Dempsey DO at 17:15 EST Tel , Service support , Laboratory Results - last 24 hr 03/26/18 03/26/18 03/26/18 12:52 17:41 22:32 WBC RBC Hgb Hct MCV MCH MCHC RDW RDW Differential Plt Count MPV Immature Gran % (Auto) Neut % (Auto) Lymph % (Auto) [place] % (Auto) Eos % (Auto) Baso % (Auto) Absolute Neuts (auto) Absolute Lymphs (auto) Total Counted Sodium Potassium Chloride Carbon Dioxide Anion Gap BUN Creatinine Estim Creat Clear Calc Est GFR (MDRD) Af Amer Est GFR (MDRD) Non-Af BUN/Creatinine Ratio Glucose Calcium Phosphorus Magnesium POC Glucose 128 H 197 H 199 H 03/27/18 03/27/18 03/27/18 05:25 05:25 06:46 WBC 6.1 RBC 4.38 Hgb 12.4 Hct 39.5 MCV 90.2 MCH 28.3 MCHC 31.4 L RDW 14.7 H RDW Differential 48.3 H Plt Count 210 MPV 10.3 Immature Gran % (Auto) 0.200 Neut % (Auto) 48.2 Lymph % (Auto) 35.4 [place] % (Auto) 10.0 Eos % (Auto) 5.5 H Baso % (Auto) 0.7 Absolute Neuts (auto) 3.0 Absolute Lymphs (auto) 2.17 Total Counted Not Reportable Sodium 148 H Potassium 4.2 Chloride 114 H Carbon Dioxide 27.0 Anion Gap 7 BUN 5 L Creatinine 0.82 Estim Creat Clear Calc 74.34 Est GFR (MDRD) Af Amer 91 Est GFR (MDRD) Non-Af 75 BUN/Creatinine Ratio 6.1 L Glucose 138 H Calcium 7.6 L Phosphorus 2.7 Magnesium 2.1 POC Glucose 135 H Consultations 03/24/18 21:04 Consult: Onc/Wound/drill foreman Routine Comment: Reason for Consult:: right buttocks pressure injury Procedures: EGD - Mild inflammation in the gastric antrum. The gastric antrum showed chronic inflammation and the GE junction showed no intestinal metaplasia., - - Gastric emptying study-normal Summary of Care Provided: The patient is a 63-year-old female with a past medical history of gastroparesis (per old H&P), vitamin D deficiency, osteoarthritis, depression, asthma, obstructive sleep apnea, irritable bowel syndrome, hypersomnia, GERD, diabetes mellitus type 2, hypertension, hyperlipidemia, morbid obesity, osteoarthritis and chronic back pain who presented to the emergency department at [facility] on 03/24/2018 with complaint of persistent nausea and vomiting for several weeks. She was afebrile with stable vital signs at presentation to the emergency department. CBC was unremarkable. Potassium was low at 3.2 and the BUN was 8 with a creatinine of 1.1. Creatinine in January 2018 to 1.02. She was admitted to the hospital for observation and general surgery was consulted for possible endoscopy. A gastric emptying study was done and was normal with no evidence of gastroparesis. EGD was performed by Dr. Schulte and showed only mild gastritis in the gastric antrum with the pathology showing chronic inflammation. Biopsy was taken at the GE junction and there was no metaplasia present. Her symptoms resolved while she was in the hospital and prior to discharge she was eating a diet with no nausea or vomiting. She lives alone and she has no one to talk to. She admitted to being depressed and in fact had been evicted from her home prior to presenting to the hospital. She was very tearful several times with several different health care providers during her hosital stay. The SW was in contact with her sample case porter at [facility] during the admission. She had been on Effexor in the past but, quit taking it because it decreased her libido. She was started on Wellbutrin XL 150 mg p.o. daily and we discussed the major side effects. She was initially wanting to go to [facility] at [place] but changed her mind and wanted to go home with her friend Denice. She discharged home and will be staying with her friend Denice until other living circumstances could be provided. PHYSICAL EXAM: GENERAL: alert, oriented X 3, Cooperative, NAD ORAL: moist mucosa, no mucosal lesions NECK: No JVD, supple, trachea midline LUNGS: CTA, symmetric chest expansion HEART: RRR, Normal S1 and S2, no rub, no gallop ABDOMEN: soft, NT, ND, BS present, no guarding with palpation obese EXTREMITIES: no edema, no cyanosis, no calf tenderness SKIN: No rashes, no breakdown NEUROLOGIC: no focal neurologic deficits PSYCH: appropriate, normal affect, pleasant This note was generated with NodePrimeation software. It may contain incorrect words, spelling, and punctuation that were not noted in checking the note before signing. - Physical Exam Vital Signs Temp Pulse Resp BP Pulse Ox 97.7 F L 65 18 101/47 L 92 03/27/18 08:20 03/27/18 08:21 03/27/18 08:21 03/27/18 08:20 03/27/18 08:21 Oxygen Delivery Method Room Air Weight: 275 lb 5.718 oz Body Mass Index (BMI) 40.6 Orthostatic Vital Signs Start: 03/26/18 06:10 Freq: q24h Status: Active Protocol: Activity Type Activity Date Activity User E-Sign Co-Sign Detail Recorded Client Recorded Date Recorded By Document 03/26/18 06:10 CDB [id number] 03/26/18 06:15 CDB 03/26/18 06:10 Orthostatic Vitals Standing -Blood Pressure (90/60-120/80 mm Hg) 97/60 -Extremity Use Right Arm -Pulse Rate (60-100 beats/min) 133 H Sitting -Blood Pressure (90/60-120/80 mm Hg) 125/66 H -Extremity Use Left Arm -Pulse Rate (60-100 beats/min) 65 Lying -Blood Pressure (90/60-120/80 mm Hg) 110/47 L -Extremity Use Left Arm -Pulse Rate (60-100 beats/min) 55 L Intake and Output for Last 24 Hours 03/25/18 03/26/18 03/27/18 23:59 23:59 23:59 Intake Total 2891 / 2891 3270 / 3270 745 / 745 Output Total 300 / 300 1000 / 1000 Balance 2591 / 2591 2270 / 2270 745 / 745 Microbiology Past 72 Hours 03/25/18 16:53 Enteric Bacteriology - Final Stool 03/25/18 16:53 C. difficile DNA Amplification - Final Stool 03/25/18 16:53 Stool Lactoferrin - Final Stool Laboratory Tests Past 24 Hrs 03/27/18 03/27/18 05:25 05:25 WBC 6.1 RBC 4.38 Hgb 12.4 Hct 39.5 MCV 90.2 MCH 28.3 MCHC 31.4 L RDW 14.7 H RDW Differential 48.3 H Plt Count 210 MPV 10.3 Immature Gran % (Auto) 0.200 Neut % (Auto) 48.2 Lymph % (Auto) 35.4 [place] % (Auto) 10.0 Eos % (Auto) 5.5 H Baso % (Auto) 0.7 Absolute Neuts (auto) 3.0 Absolute Lymphs (auto) 2.17 Total Counted Not Reportable Sodium 148 H Potassium 4.2 Chloride 114 H Carbon Dioxide 27.0 Anion Gap 7 BUN 5 L Creatinine 0.82 Estim Creat Clear Calc 74.34 Est GFR (MDRD) Af Amer 91 Est GFR (MDRD) Non-Af 75 BUN/Creatinine Ratio 6.1 L Glucose 138 H Calcium 7.6 L Phosphorus 2.7 Magnesium 2.1 POC Glucose 03/27/18 03/26/18 03/26/18 06:46 22:32 17:41 POC Glucose 135 H 199 H 197 H 03/26/18 12:52 POC Glucose 128 H Discharge Activity: Return to Normal Activity Call your doctor if you observe: Fever of 101 or Higher Home Medications: Medications to take at Discharge Atenolol [Tenormin (beta tyrese)] 50 mg PO BID 08/27/13 Losartan Potassium [Cozaar] 100 mg PO DAILY 08/27/13 traMADol [Ultram] 50 mg PO BID PRN PRN 08/19/16 Ropinirole HCl [Requip] 1 mg PO DAILY 02/11/17 insulin glargine (U-100) 100 unit/mL (3 mL) subcutaneous pen 60 unit SC DAILY ml 02/04/18 insulin lispro (U- 100) 100 unit/mL subcutaneous solution 20 unit SC .COMPLEX ml 02/04/18 calcium carbonate 600 mg lozenges 600 mg PO Q6H PRN PRN 03/19/18 Omeprazole [Prilosec] 20 mg PO DAILY #30 cap 03/20/18 Pregabalin [Lyrica] 75 mg PO BID 03/20/18 Albuterol Inhaler [Ventolin Hfa] 2 puff INHALATION PRN PRN 03/24/18 Cetirizine HCl [Zyrtec] 10 mg PO DAILY 03/24/18 Cranberry Fruit [Cranberry] 400 mg PO DAILY 03/24/18 Ergocalciferol [Vitamin D] 50,000 unit PO QMONTH 03/24/18 Fluticasone 220 Mcg [Flovent 220 Mcg] 2 puff INHALATION BID 03/24/18 Furosemide [Lasix] 40 mg PO BID 03/24/18 Lactobacillus Acidophilus [Acidophilus] 1 each PO DAILY 03/24/18 Mag Hydrox/Al Hydrox/Simeth [Mylanta II] 15 ml PO Q4H PRN PRN 03/24/18 Ondansetron [Zofran Odt] 4 mg SUBLINGUAL Q8H PRN PRN 03/24/18 Tizanidine HCl [Zanaflex] 4 mg PO TID PRN PRN 03/24/18 Zolpidem Tartrate 10 mg PO DAILY 03/24/18 buPROPion XL [Wellbutrin Xl] 150 mg PO DAILY #30 tablet.xl 03/27/18 Following Prescrptions Were Given to Patient: buPROPion XL [Wellbutrin Xl] 150 mg PO DAILY #30 tablet.xl Primary Care Physician: Chuck Sims MD [Primary Care Provider] - Please follow up with your Primary Care Physician in: 2 weeks Disposition: Home - with her friend Denice Minutes spent on discharge:: 35 Patient Condition:: Good Medical Necessity - Tobacco Use Smoking Status: Never smoker Tobacco Use: Non-smoker Meaningful Use Info Meaningful Use Diagnoses (Choose all that apply): None applicable Code Visit Inpatient E&M: 19631 Disch Hosp
[2018-03-27] MEDS: buPROPion (XL) 150 MG TABLET.XL PO (11:28)
[2018-03-27] MEDS: Loperamide 2 MG Capsule 4 MG PO (11:28)
[2018-03-27] MEDS: Insulin Lispro 100 UNIT/ML INSULN.PEN SC (11:37)
[2018-03-27 11:46] LABS: Bedside Glucose 224 mg/dL (70-110)
--- NOTE | 2018-03-27 14:40 | CASEMGMT ---
Addendum entered by Holly Anderson 03/27/18 15:50: SW provided pt with written information with Crisis phone number, suicide prevention lifeline phone number and phone number for Rob. Pt states she has all of this information and is aware of services. NABEEL Michael Original Note: Social Work SW spoke with physician who states pt is improving and feels she can return home today and does not need SNF placement. SW spoke with PT who confirms this and does not feel continued home health therapy is needed. SW entered pt room and introduced self and role at [facility]. Pt confirms that she feels she can return home at this time and then pt begins to cry. Pt informs SW that she has been evicted from her home and shows SW a text message she received from her landlord a few minutes ago stating that an eviction notice has been served today due to lack of payment. Pt very upset and crying. SW explained to pt that she can return to her home and has 30 days until she must be out of apartment. Pt stating understanding of this but that she does not know where she will go. When asked about social supports pt states her brother is important to her but he does not check on her often. Pt does have a friend who will transport home. Pt also states she has a block and case maker at [facility], Helena Theodore. Pt states she cannot reach her but was agreeable for SW to call her and let her know about eviction notice and needed assistance to find other housing. Emotional support provided to pt and pt then states all of this makes me feel suicidal. SW inquired of pt if she has ever attempted to harm herself in the past and pt denied any previous attempts. SW inquired if pt had a plan to harm herself and she states she would drive to a [employer] and put the exhaust in her car. Pt stating she has thought of this in the past. Pt then identifying protective measures stating, I believe in God and I know that I could never kill myself, it is not right. It would hurt my brother so much. Pt also stating I would have to be drunk or stoned to have enough courage to kill myself SW inquired of alcohol and drug use and pt adamantly denies use of any substance. Pt then proceeds to tell SW about difficult situations in her life several years ago. Pt becoming angry when sharing information. Very animated, pounding fist on her leg and raising voice for emphasis when explaining how upset she was about situation. LANDEN asked about mental health history. Pt states she has depression and is not currently medicated as the medicine makes her have no feelings at all. Pt has seen a counselor at [facility] in the past but states that counselor has left. SW encouraged pt to call and make an appointment with other counselor but pt states she will just have to start all over from the beginning and there is no guarantee that counselor will not leave. SW attempted to reorient pt to situation at hand. Discussed positive aspects of current situation, not needing hospitalization nor custodial and have a home to go to at this time. Pt did agree that these are positive things in life. LANDEN informed pt that SW will reach out to Helena Theodore CM at [facility] to be in contact with pt and encouraged pt to call [facility] to set up counseling appointment. Pt agreeable to return home and will call her friend for a ride home. VM left with TEO Montelongo requesting return call. SELENA left with Karrie at [facility] informing to cancel admission referral as pt will be returning home. LANDEN notified DESMOND Soler regarding suicidal comments by pt. RN notified of pt comments. Plan: Return home with no continued services at this time. NABEEL Michael
--- NOTE | 2018-03-27 16:06 | CASEMGMT ---
Social Work Assessment Referral Date: 03/27/2018 Date of Assessment: 03/27/2018 Informant: NABEEL Michael Reason for Consult: Suicidal Comment Information obtained from: Medical record and pt. Pt is a 63 y/o female that upon entering room is sitting upright in her chair with tears in her eyes. Throughout assessment she presents with a labile affect changing between various emotions and tones of voice throughout the duration of the assessment. Pt is alert and oriented x4 and able to participate. Living Arrangements: Pt reports to have been evicted by her landlord today. Confirm with the pt that she is getting a 30 day eviction notice and has time to sort out an alternative plan. Pt is very tearful and states that she is angry. Emotional support provided. Pt states that she is broke and unable to afford the rent. She does state that she will be able to stay with her friend Denice, but does not know for how long. Her friend Denice is picking her up at discharge and the pt will go to Denice's home to stay this weekend. Employment/Financial: Pt stopped working in 2014 when her late fiance was dying of cancer and she wanted to spend more time with him. States, this place took everything from me. 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 She states that she needed $2000 out of her OPERS and it was an all or nothing policy and she had to take all the funds out and there was a penalty of $20,000 and she was given $50,000. She has run through this paying for rent and utilities and other necessities. She is on Medicaid and gets assistance through [facility], but claims to have no funds at this time. Pt expresses extreme frustration and anger towards this entity. Emotional support provided and discuss at length the pt's experience while working here. Supports: Brother and friend, Denice. Pt states that she is not close with her brother, but she does identify him as a support. States that Denice and her family have taken the pt in, and they are her new family. Social/Family Stressors:The pt was made aware of her mother's affair while to her father at the age of 15. Reports an effort and need to fix it. Ultimately her parents and her mother the man she had an affair with. She reports that her mother abandoned her and they did not end up having a good relationship. She lived with her mother for a short while at the age of 19 and her step-father told her, If I was still living with my parents at the age of 19 or 20, I would be ashamed and put a gun to my head. She states that she told her mother and that her mother chose to stay with the pt's step-father and they never had a good relationship again. Pt felt alienated from her family. She did in the 70s and then got . She had a long-term fiance afterwards that passed of cancer. She expresses sadness, anger, frustration and pain as a result of his in 2014. Mental Health Hx: Pt reports a hx of depression and a hx of anti-depressants. States that this began when she found out that her late fiance had Stage IV Cancer. She has not seen a counselor in 8 months. She has a pillowcase folder at [facility], Helena Alejandraboca rat[place], that she feels comfortable with. She declines to have a counseling appointment at this time. Pt provided with contact information for [facility], and the Crisis Line through [facility]. Pt made suicidal comment while on inpatient unit. Completed the [place]-Suicide Severity Rating Scale with pt and determined that she could discharge safely into the community. Pt does report praying to not wake up to relieve the pain. States that if she were to kill herself she would take her car to a remote location and extend a hose from the exhaust pipe to the window and cause by CO2. She does have her own car, but will not have access to it this weekend as she is going to her friend's home and is unable to provide a location that she would do this at. States that she prays she just does not wake up and has a divine intervention such as a heart attack like my cousin that she does not wake from. Protective Factors: Gnosticist - Pt states that she wants to be reunited with her late fiance in [facility], and knows that if she completes suicide she would not have an afterlife with him. She also identifies her brother and her friend Denice as supportive factors. States that her brother would feel guilty, and that she does not know that Denice could handle it as Denice has lost both her and son to suicide. Pt again confirms that she would not harm herself, and has not had these thoughts in a long time. Risk Factors: Feelings of abandonment by her mother in her childhood, and loss of her significant other 3 years ago. Substance Use Hx: Pt denies substance use or abuse. Interventions: C-SSRS and determined that pt is safe to discharge to community. Discussed case with NABEEL Mihcael and confirmed plan for home. Pt provided with contact information for pillowcase folder and the crisis line by NABEEL Michael. PLAN: Discharge to friend Denice's home. Bety Moore, TAIL END RIDER, MEDICAL CLAIMS EXAMINER
--- NOTE | 2018-03-30 11:09 | CASEMGMT ---
SW received a voicemail back from pt's field nurse case manager at [facility], Helena Snow, returning Holly's call from last week. Pt had given Holly permission to call Helena last week and let her know that pt was evicted. SW called Helena back at [facility], got her voicemail. SW did leave her a message letting her know that pt was evicted, and that she can call this SW back but would probably be best to call the pt directly as she is no longer in the hospital. DIXIE Gold, CHIEF HYDROELECTRIC STATION OPERATOR
--- OUTSIDE RECORDS SUMMARY | 2018-06-26 02:51 | XMS RPT_ITS ---
:1955 Author Organization OH[employer] Support Name Relationship Address Phone CAM SMALL Unavailable [address] + [place] [address] UE Unavailable Unavailable Unavailable CAM SMALL Unavailable [address] + [place] [address] UE Unavailable Unavailable Unavailable CAM SMALL Unavailable [address] + [place] [address] UE Unavailable Unavailable Unavailable CAM SMALL Unavailable [address] + [place] [address] UE Unavailable Unavailable Unavailable CAM SMALL Unavailable [address] + [place] [address] UE Unavailable Unavailable Unavailable CAM SMALL Unavailable [address] + [place] [address] UE Unavailable Unavailable Unavailable CAM SMALL Unavailable [address] + [place] [address] UE Unavailable Unavailable Unavailable CAM SMALL Unavailable [address] + [place] [address] UE Unavailable Unavailable Unavailable CAM SMALL Unavailable [address] + [place] [address] UE Unavailable Unavailable Unavailable CAM SMALL Unavailable [address] + [place] [address] UE Unavailable Unavailable Unavailable CAM SMALL Unavailable [address] + [place] [address] UE Unavailable Unavailable Unavailable CAM SMALL Unavailable [address] + [place] [address] UE Unavailable Unavailable Unavailable CAM SMALL Unavailable [address] + [place] [address] UE Unavailable Unavailable Unavailable CAM SMALL Unavailable [address] + [place] [address] UE Unavailable Unavailable Unavailable CAM SMALL Unavailable [address] + [place] [address] UE Unavailable Unavailable Unavailable CAM SMALL Unavailable [address] + [place] [address] UE Unavailable Unavailable Unavailable CAM SMALL Unavailable [address] + [place] [address] UE Unavailable Unavailable Unavailable CAM SMALL Unavailable [address] + [place] [address] UE Unavailable Unavailable Unavailable CAM SMALL Unavailable [address] + [place] [address] UE Unavailable Unavailable Unavailable CAM SMALL Unavailable [address] + [place] [address] UE Unavailable Unavailable Unavailable CAM SMALL Unavailable [address] + [place] [address] UE Unavailable Unavailable Unavailable CAM SMALL Unavailable [address] + [place] [address] UE Unavailable Unavailable Unavailable CAM SMALL Unavailable [address] + [place] [address] UE Unavailable Unavailable Unavailable CAM SMALL Unavailable [address] + [place] [address] UE Unavailable Unavailable Unavailable CAM SMALL Unavailable [address] + [place] [address] UE Unavailable Unavailable Unavailable CAM SMALL Unavailable [address] + [place] [address] UE Unavailable Unavailable Unavailable CAM SMALL Unavailable [address] + [place] [address] UE Unavailable Unavailable Unavailable CAM SMALL Unavailable [address] + [place] [address] UE Unavailable Unavailable Unavailable CAM SMALL Unavailable [address] + [place] [address] UE Unavailable Unavailable Unavailable CAM SMALL Unavailable [address] + [place] [address] UE Unavailable Unavailable Unavailable CAM SMALL Unavailable [address] + [place] [address] UE Unavailable Unavailable Unavailable CAM SMALL Unavailable [address] + [place] [address] UE Unavailable Unavailable Unavailable CAM SMALL Unavailable [address] + [place] [address] UE Unavailable Unavailable Unavailable CAM SMALL Unavailable [address] + [place] [address] UE Unavailable Unavailable Unavailable CAM SMALL Unavailable [address] + [place] [address] UE Unavailable Unavailable Unavailable CAM SMALL Unavailable [address] + [place] [address] UE Unavailable Unavailable Unavailable Care Team Providers Name Role Phone Sigifredo Qiu Attending Unavailable Korey, Kumar Chi Referring Unavailable Oleghe, Efewongbe Attending Unavailable Oleghe, Efewongbe Referring Unavailable Oleghe, Efewongbe Primary Care Unavailable Augusto Cruz Attending Unavailable Robotham, Nancy Attending Unavailable Oleghe, Efewongbe Referring Unavailable Oleghe, Efewongbe Primary Care Unavailable Newton Medina Admitting Unavailable ShruthieletsNewton brumfield Referring Unavailable Roboth[place], Nancy Consulting Unavailable Sementi, Vicky Attending Unavailable Newton Medina Admitting Unavailable Newton Medina Attending Unavailable Newton Medina Referring Unavailable Oleghe, Efewongbe Primary Care Unavailable Rob[place], Nancy Consulting Unavailable Newton Medina Consulting Unavailable Newton Medina Admitting Unavailable Cari Montgomery PA-C Attending Unavailable Newton Medina Referring Unavailable Oleghe, Efewongbe Primary Care Unavailable [place], Nancy Consulting Unavailable Sementi, Vicky Consulting Unavailable Carol Newton Admitting Unavailable Sementi, Vicky Attending Unavailable Newton Medina Referring Unavailable Oleghe, Efewongbe Primary Care Unavailable Roboth[place], Nancy Consulting Unavailable Sementi, Vicky Consulting Unavailable Carol Newton Admitting Unavailable Sementi, Vicky Attending Unavailable Newton Medina Referring Unavailable Oleghe, Efewongbe Primary Care Unavailable Robotham, Nancy Consulting Unavailable Sementi, Vicky Consulting Unavailable Newton Medina Admitting Unavailable Sementi, Vicky Attending Unavailable Tereletsky, Newton Referring Unavailable Oleghe, Efewongbe Primary Care Unavailable [place], Nancy Consulting Unavailable Sementi, Vicky Consulting Unavailable Newton Gandhi RECREATION FACILITY MANAGER-C Attending Unavailable Oleghe, Efewongbe Referring Unavailable Sita Painter Attending Unavailable Robotham, Nancy Attending Unavailable Sementi, Vicky Referring Unavailable Mike Dover Attending Unavailable Korey, Kumar Chi Referring Unavailable FajardoBarbra Attending Unavailable Korey, Kumar Chi Referring Unavailable Korey, Kumar Chi Attending Unavailable Korey, Kumar Chi Primary Care Unavailable Fajardo, Barbra Attending Unavailable Fajardo, Barbra Referring Unavailable Korey, Kuamr Chi Primary Care Unavailable Fajardo Barbra Attending [...] Unavailable Korey, Kumar Chi Primary Care Unavailable RoofJustin H Attending Unavailable Korey, Kumar Chi Referring [...] Unknown L89.302 - Pressure Newton Gandhi Active [facility] [place] ulcer of unspecified RECREATION FACILITY MANAGER-C [facility] buttock, stage 2 / Hospital L89.302(ICD-10) Repository 04/23/2018 Unknown R11.2 - Nausea with Rob[place]am, Active [place] vomiting, unspecified Nancy [facility] / R11.2(ICD-10) Hospital Repository 04/23/2018 Unknown R10.13 - Epigastric Rob[place]am, Active [place] pain / R10.13(ICD-10) [facility] Hospital Repository 04/23/2018 Unknown K29.70 - Gastritis, [place], Active [facility] [place] unspecified, without Nancy [facility] bleeding / Hospital K29.70(ICD-10) Repository 04/23/2018 Unknown K31.89 - Other Robotham, Active [place] diseases of stomach [facility] and duodenum / Hospital K31.89(ICD-10) Repository 02/18/2018 Unknown R06.00 - Dyspnea, Sigifredo Qiu Active [facility] unspecified / Community R06.00(ICD-10) Hospital Repository 02/18/2018 Unknown E11.9 - Type 2 Sigifredo Qiu Active [place] diabetes mellitus [facility] without complications Hospital / E11.9(ICD-10) Repository 02/18/2018 Unknown I10 - Essential Sigifredo Qiu Active [place] (primary) hypertension [facility] / I10(ICD-10) Hospital Repository 02/18/2018 Unknown E78.5 - Sigifredo Qiu Active [facility] [place] Hyperlipidemia, [facility] unspecified / Hospital E78.5(ICD-10) Repository 02/18/2018 Unknown R94.39 - Abnormal Sigifredo Qiu Active [place] result of other [facility] cardiovascular Hospital function study / Repository R94.39(ICD-10) 02/18/2018 Unknown Z68.42 - Body mass Sigifredo Qiu Active [place] index (BMI) 45.0-49.9, Community adult / Z68.42(ICD-10) Hospital Repository 02/12/2018 Unknown R10.9 - Unspecified Oleghe, Active [place] abdominal pain / Efewongbe [facility] R10.9(ICD-10) Hospital Repository 02/12/2018 Unknown K31.84 - Gastroparesis Oleghe, Active [place] / K31.84(ICD-10) [facility] Hospital Repository 02/12/2018 Unknown R11.0 - Nausea / Oleghe, Active [place] R11.0(ICD-10) [facility] Repository 01/23/2018 Unknown R94.31 - Abnormal RoofJustin Active [place] electrocardiogram Community [ECG] [EKG] / Hospital R94.31(ICD-10) Repository 12/04/2017 Unknown R19.7 - Diarrhea, Korey, Kumar Chi Active [place] unspecified / Community R19.7(ICD-10) Hospital Repository 06/09/2017 Unknown E55.9 - Vitamin D Korey, Kumar Chi Active [facility] deficiency, Community unspecified / Hospital E55.9(ICD-10) Repository 06/09/2017 Unknown Z13.89 - Encounter for Korey, Kumar Chi Active [facility] screening for other Community disorder / Hospital Z13.89(ICD-10) Repository PROCEDURES PROCEDURES No Procedure Records FoundRESULTS RESULTS INTERNAL MEDICINE Observed: 04/09/2018 Status: F Source: [place] OFFICE VISIT 10:00 AM [facility] REPOSITORY [facility] [address] [place] [address] [place] [address] OFFICE VISIT Date of Service: 04/03/18 MR#: [id number] Acct: [id number] Name: TONYA RASMUSSEN Rep #: [id number] : 1955 Provider: Newton Gandhi NP Age/Sex: 63/F Location: [facility] Status: Signed Intake Vital Signs04/03/18 Body [...] home: Yes additional social history: - retired [employer] HPI Chief Complaint: F/U WOUND CHECK Details: [...] DISCHARGE SUMMARY Observed: 04/02/2018 Status: F Source: [place] 1:30 PM [facility] REPOSITORY [facility] Medical Records Department [address] [place] [address] Discharge Summary 03/27/18 1004 MR#: [id number] Acct: [id number] Name: TONYA RASMUSSEN Rep #: [id number] : 1955 63 From: Estelle Estes DO PCP: Chuck Sims MD Status: DIS ANAI Y Location: [place] [address] Discharge Date and Diagnosis Date of Admission: [...] (Chronic 02/18/18) Normal coronaries and EF per [facility] done by Dr. Qiu @ [facility]: recommend looking at other/pulmonary causes [...] hr WBC RBC Consultations 03/24/18 21:04 Consult: Onc/Wound/practice business asst Routine Comment: Reason for Consult:: right buttocks [...] who presented to the emergency department at [facility] on 03/24/2018 with complaint of persistent nausea [...] The SW was in contact with her nurse case manager at [facility] during the admission. She had been on Effexor in the past but, quit taking it because it decreased her libido. She was started on Wellbutrin XL 150 mg p.o. daily and we discussed the major side effects. She was initially wanting to go to [facility] [place] but changed her mind and wanted to [...] affect, pleasant This note was generated with [employer] dictation software. It may contain incorrect words, [...] Date Recorded By Document 03/26/18 06:10 CDB [id number] 03/26/18 06:15 CDB Intake and Output for [...] applicable Code Visit Inpatient E AND M: 30595 Disch Hosp 04/02/18 1330 <Electronically signed by Estelle Estes DO> Date Estelle Estes DO Cosigner Signature (if applicable): Date CC: Vicky Estes; Chuck Sims MD Signed BEDSIDE GLUCOSE Collected: 03/27/2018 Status: F Source: [place] 11:37 AM [facility] REPOSITORY TYPE CODE TESTS RESULT OUT OF REFERENCE UNITS RANGE LAB L501.080 70-110 mg/dL High BEDSIDE GLU 224 Result Comment: MANAGEMENT OF PATIENT CARE PER NURSING PROTOCOL Performed By: #### L501.080 #### [facility] Point of Care [address] [place] [address] DISCHARGE INSTRUCTION Observed: 03/27/2018 Status: F Source: [place] 10:04 AM [facility] REPOSITORY [facility] Medical Records Department [address] [place] [address] Instructions for Home/Discharge Instructions 03/27/18 0955 MR#: [id number] Acct: [id number] Name: TONYA RASMUSSEN Rep #: [id number] : 1955 63 From: Estelle Estes DO [...] BEDSIDE GLUCOSE Collected: 03/27/2018 Status: F Source: [place] 6:46 AM [facility] REPOSITORY TYPE CODE TESTS RESULT OUT OF REFERENCE UNITS RANGE LAB L501.080 70-110 mg/dL High BEDSIDE GLU 135 Result Comment: MANAGEMENT OF PATIENT CARE PER NURSING PROTOCOL Performed By: #### L501.080 #### [facility] Point [facility] [place], [place] [address] CBC W/DIFF, AUTOMATED Collected: 03/27/2018 Status: F Source: [place] 5:25 AM [facility] REPOSITORY TYPE CODE TESTS RESULT OUT OF [...] Lymph 2.17 Performed By: #### L100.0100 #### [facility] [address] [place], [address] BASIC METABOLIC Collected: 03/27/2018 Status: F Source: [place] PROFILE ([facility]) 5:25 AM [facility] REPOSITORY TYPE CODE TESTS RESULT OUT OF [...] Performed By: #### L500.2500, L501.2300, L501.5200 #### [facility] [address] [place], [address] PHOSPHORUS Collected: 03/27/2018 Status: F Source: [place] 5:25 AM [facility] REPOSITORY TYPE CODE TESTS RESULT OUT OF RANGE REFERENCE UNITS LAB L501.2300 2.5-4.9 mg/dL Normal PHOS 2.7 Performed By: #### L500.2500, L501.2300, L501.5200 #### [facility] [address] [place], [address] MAGNESIUM Collected: 03/27/2018 Status: F Source: [place] 5:25 AM [facility] REPOSITORY TYPE CODE TESTS RESULT OUT OF RANGE REFERENCE UNITS LAB L501.5200 1.6-2.6 mg/dL Normal MG 2.1 Performed By: #### L500.2500, L501.2300, L501.5200 #### [facility] [address] [facility] [address] [place], [address] BEDSIDE GLUCOSE Collected: 03/26/2018 Status: F Source: [place] 10:32 PM [facility] REPOSITORY TYPE CODE TESTS RESULT OUT OF REFERENCE UNITS RANGE LAB L501.080 70-110 mg/dL High BEDSIDE GLU 199 Result Comment: MANAGEMENT OF PATIENT CARE PER NURSING PROTOCOL Performed By: #### L501.080 #### [facility] Point of Care [address] [place] [address] BEDSIDE GLUCOSE Collected: 03/26/2018 Status: F Source: [place] 5:41 PM [facility] REPOSITORY TYPE CODE TESTS RESULT OUT OF REFERENCE UNITS RANGE LAB L501.080 70-110 mg/dL High BEDSIDE GLU 197 Result Comment: MANAGEMENT OF PATIENT CARE PER NURSING PROTOCOL Performed By: #### L501.080 #### [facility] Point of Care [address] [place] [address] BEDSIDE GLUCOSE Collected: 03/26/2018 Status: F Source: [place] 12:52 PM [facility] REPOSITORY TYPE CODE TESTS RESULT OUT OF REFERENCE UNITS RANGE LAB L501.080 70-110 mg/dL High BEDSIDE GLU 128 Result Comment: MANAGEMENT OF PATIENT CARE PER NURSING PROTOCOL Performed By: #### L501.080 #### [facility] Point of Care [address] [place] [address] OPERATIVE REPORT - Observed: 03/26/2018 Status: F Source: [place] ENDOSCOPY 12:18 PM [facility] REPOSITORY [facility] Medical Records Department [address] [place] [address] Operative Report - Endoscopy MR#: [id number] Acct: [id number] Name: TONYA RASMUSSEN Rep #: [id number] : 1955 63 From: Nancy Schulte MD [...] including PPI. Procedure Code(s): --- Professional --- 03877, Esophagogastroduodenoscopy, flexible, transoral; with biopsy, single or multiple Diagnosis Code(s): --- Professional --- K29.70, Gastritis, unspecified, without bleeding K31.89, Other diseases of stomach and duodenum R10.13, Epigastric pain R11.2, Nausea with vomiting, unspecified CPT copyright 2017 [employer]. All rights reserved. The codes documented in this report are preliminary and upon supportive employment case manager review may be revised to meet current compliance requirements. MD Nancy Gold MD 03/26/2018 12:18:31 PM This report has been signed electronically. Number of Addenda: 0 Note Initiated On: 03/26/2018 11:54 AM 03/26/18 1218 Date Nancy Schulte MD Cosigner Signature: Date (if indicated) CC: Vicky Estes; Chuck Sims MD; Newton Medina DO; Nancy Schulte MD Date Dictated: 03/26/18 1154 Date Transcribed: Histopath Tech: TR Signed GASTRIC BIOPSY Observed: 03/26/2018 Status: F Source: [place] 11:30 AM [facility] REPOSITORY Patient: TONYA RASMUSSEN : 1955 (63/F) Acct Num: [id number] Phys: Vicky Estes Unit Num: [id number] Loc: MS2 MS254-7 Specimen: [id number] Received: 03/26/18 - 1403 Spec Type: Gastric Bx TISSUES 1 TISSUES: A. Gastric mucous membrane B. Gastric mucous membrane COMMENT A. The results of immunohistochemistry for Helicobacter pylori will be reported separately ([id number]). B. Alcian blue/PAS stain with matched control [...] one cassette. / RAMONE:cristhian 03/26/18 TC:3 CPT: 79953 x2, 64979 HEADER OPERATION: [place] PRE[place] DIAGNOSIS: Epigastric pain, nausea and vomiting [...] on file> Performed By: #### PGASB #### [facility] [address] [place], [address] BEDSIDE GLUCOSE Collected: 03/26/2018 Status: F Source: [place] 6:54 AM [facility] REPOSITORY TYPE CODE TESTS RESULT OUT OF REFERENCE UNITS RANGE LAB L501.080 70-110 mg/dL High BEDSIDE GLU 139 Result Comment: MANAGEMENT OF PATIENT CARE PER NURSING PROTOCOL Performed By: #### L501.080 #### [facility] Point of Care [address] [place] [address] COMPREHENSIVE METABOLIC Collected: 03/26/2018 Status: F Source: [place] PROFIL 5:25 AM [facility] REPOSITORY TYPE CODE TESTS RESULT OUT OF [...] By: #### L500.4050, L500.4100, L501.2300, L501.5200 #### [facility] [address] [facility] [place], [place], [id number] LIPID PROFILE Collected: 03/26/2018 Status: F Source: [place] 5:25 AM [facility] REPOSITORY TYPE CODE TESTS RESULT OUT OF [...] By: #### L500.4050, L500.4100, L501.2300, L501.5200 #### [facility] [address] [place], [place], [address] PHOSPHORUS Collected: 03/26/2018 Status: F Source: [place] 5:25 AM [facility] REPOSITORY TYPE CODE TESTS RESULT OUT OF RANGE REFERENCE UNITS LAB L501.2300 2.5-4.9 mg/dL Normal PHOS 2.5 Performed By: #### L500.4050, L500.4100, L501.2300, L501.5200 #### [facility] [address] [place], [address] MAGNESIUM Collected: 03/26/2018 Status: F Source: [place] 5:25 AM [facility] REPOSITORY TYPE CODE TESTS RESULT OUT OF RANGE REFERENCE UNITS LAB L501.5200 1.6-2.6 mg/dL Normal MG 2.2 Performed By: #### L500.4050, L500.4100, L501.2300, L501.5200 #### [facility] [address] [facility] [place], [address] IMMUNOHISTOCHEMISTRY Observed: 03/26/2018 Status: F Source: [place] 12:00 AM [facility] REPOSITORY Patient: TONYA RASMUSSEN : 1955 (63/F) Acct Num: [id number] Phys: Vicky Estes Unit Num: [id number] Loc: MS2 IL225-1 Specimen: [id number] Received: 03/26/181446 Spec Type: IMMUNO TISSUES 1 TISSUES: A. Stomach, NOS SPECIMEN INFORMATION: Tissue Source: A - Antrum biopsy Clinical Info: Epigastric pain, nausea and vomiting Specimen Number: [id number] CPT code: 28731 METHODOLOGY: Deparaffinized sections of prefer/formalin-fixed tissue or [...] developed and their performance characteristics determined by [facility]. They may not have been cleared or approved by the U.S. Food and Drug Administration. The FDA has determined that such clearance or approval is not necessary. INTERPRETATION: A. Antrum, biopsy: Negative for Helicobacter pylori organisms. SJ:cristhian 03/27/18 PHYS[facility]IAN [facility] [address] [address] Signed Junior Berry MD 03/30/18 <signature on file> Performed By: #### PIMM #### [facility] [address] [facility] [place], [place], [address] BEDSIDE GLUCOSE Collected: 03/25/2018 Status: F Source: [place] 9:01 PM [facility] REPOSITORY TYPE CODE TESTS RESULT OUT OF REFERENCE UNITS RANGE LAB L501.080 70-110 mg/dL High BEDSIDE GLU 228 Result Comment: MANAGEMENT OF PATIENT CARE PER NURSING PROTOCOL Performed By: #### L501.080 #### [facility] Point of Care [address] [place] [address]. [place], [place] [address] STOOL Observed: 03/25/2018 Status: F Source: [place] LACTOFERRIN/WBC 4:53 PM [facility] REPOSITORY Comments: SPECIMEN ALREADY IN LAB Stool Lacto/WBC Normal Reference Range = Negative Fecal WBC Lactoferrin Positive: Fecal WBC Lactoferrin present Performed By: #### M100.0605 #### [facility] [address] [place] [address]. [place], [place], [address] Observed: 03/25/2018 Status: F Source: [place] CDIFF (MOLECULAR) 4:53 PM [facility] REPOSITORY Is the patient receiving laxatives? N New/unexplained onset of 3 or more stools in past 24 hrs? Y Cdiff-Molecular Normal Reference Range = Negative C. Diff DNA Negative- No toxigenic C. Diff DNA Detected NAAT METHOD Testing was performed using nucleic acid amplification Performed By: #### M100.6796 #### [facility] [address] [place] [address]. [place], [place], [address] Observed: 03/25/2018 Status: F Source: [place] ENTERIC PATHOGEN 4:53 PM [facility] PANEL STOOL REPOSITORY Comments: SPECIMEN ALREADY IN [...] Not Detected Performed By: #### M100.637 #### [facility] [address] [place], [address] BEDSIDE GLUCOSE Collected: 03/25/2018 Status: F Source: [place] 4:13 PM [facility] REPOSITORY TYPE CODE TESTS RESULT OUT OF REFERENCE UNITS RANGE LAB L501.080 70-110 mg/dL High BEDSIDE GLU 226 Result Comment: MANAGEMENT OF PATIENT CARE PER NURSING PROTOCOL Performed By: #### L501.080 #### [facility] Point of Care [address] [facility] [place] [address] BEDSIDE GLUCOSE Collected: 03/25/2018 Status: F Source: [place] 11:33 AM [facility] REPOSITORY TYPE CODE TESTS RESULT OUT OF REFERENCE UNITS RANGE LAB L501.080 70-110 mg/dL High BEDSIDE GLU 130 Result Comment: MANAGEMENT OF PATIENT CARE PER NURSING PROTOCOL Performed By: #### L501.080 #### [facility] Point of Care [address] [facility] [place] [address] GASTRIC EMPTYING Observed: 03/25/2018 Status: F Source: [place] STUDY 7:45 AM [facility] REPOSITORY [facility] Imaging Services [address] [place] [address] Gastric Emptying Study MR#: [id number] Acct: [id number] Name: TONYA RASMUSSEN Rep #: [id number] : 1955 F 63 From: Jered Dempsey DO PCP: Chuck Sims MD Status: ADM ANAI Study: Gastric Emptying Study Date of Exam: 03/25/18 Exam# [id number] Ordering Dr: Estelle Estes DO CLINICAL: 63-year-old [...] Estes; Chuck Sims MD; Newton Medina DO Histopath Tech: Signed CBC W/DIFF, AUTOMATED Collected: 03/25/2018 Status: F Source: [place] 7:04 AM [facility] REPOSITORY TYPE CODE TESTS RESULT OUT OF [...] 3.06 Performed By: #### L100.0100, L500.2500 #### [facility] [address] [place], [address] BASIC METABOLIC Collected: 03/25/2018 Status: F Source: [place] PROFILE ([facility]) 7:04 AM [facility] REPOSITORY TYPE CODE TESTS RESULT OUT OF [...] 9 Performed By: #### L100.0100, L500.2500 #### [facility] [address] [place], [address] HEMOGLOBIN A1C Collected: 03/25/2018 Status: F Source: [place] 7:04 AM [facility] REPOSITORY TYPE CODE TESTS RESULT OUT OF RANGE REFERENCE UNITS LAB L501.9985 4.2-6.3 % High HGB A1C 10.7 Performed By: #### L501.9985 #### [facility] [address] [facility] [address] PARTIAL THROMBOPLAST Collected: 03/25/2018 Status: F Source: [place] TIME 7:04 AM [facility] REPOSITORY TYPE CODE TESTS RESULT OUT OF RANGE REFERENCE UNITS LAB L300.4310 24.1-36.2 Seconds Normal PTT 26.9 Performed By: #### L300.4310 #### [facility] [address] [place], [address] BEDSIDE GLUCOSE Collected: 03/25/2018 Status: F Source: NIRAV 6:25 AM [facility] REPOSITORY TYPE CODE TESTS RESULT OUT OF REFERENCE UNITS RANGE LAB L501.080 70-110 mg/dL High BEDSIDE GLU 115 Result Comment: MANAGEMENT OF PATIENT CARE PER NURSING PROTOCOL Performed By: #### L501.080 #### [facility] Point of Care [address] [place] [address] BEDSIDE GLUCOSE Collected: 03/24/2018 Status: F Source: NIRAV 10:01 PM [facility] REPOSITORY TYPE CODE TESTS RESULT OUT OF REFERENCE UNITS RANGE LAB L501.080 70-110 mg/dL High BEDSIDE GLU 210 Result Comment: MANAGEMENT OF PATIENT CARE PER NURSING PROTOCOL Performed By: #### L501.080 #### [facility] Point of Care [address] [place] [address] HISTORY AND PHYSICAL Observed: 03/24/2018 Status: F Source: [place] EXAM 9:04 PM [facility] REPOSITORY [facility] Medical Records Department [address] [place] [address] History and Physical 03/24/182040 MR#: [id number] Acct: [id number] Name: TONYA RASMUSSEN Rep #: [id number] : 1955 63 From: Newton Medina DO PCP: Chuck Sims MD Status: ADM ANAI Y Location: [place] [address] Problem List (1) Debility Status: Acute (2) Chronic nausea and vomiting-etiology unk Status: Acute History of Present Illness Date of Admission: 03/24/18 Chief Complaint: Generalized debility, persistent nausea and vomiting times weeks The patient is a 63 year old F who was seen in the emergency room at [facility] after being sent there by a general [...] will be placed in observation status on [facility] 2, she will be seen in consultation by general surgery and hopefully an EGD will be performed before her discharge to a long term facility. PT and OT will see the patient during her observation stay. Past Medical History Past Medical History (Chronic Problems): Chronic Problems (Last Reviewed 03/24/18 @ 13:30 by Lissa Cantu) History of left heart catheterization (Chronic 02/18/18) Normal coronaries and EF per [facility] done by Dr. Qiu @ [facility]: recommend looking at other/pulmonary causes [...] 02/18/18 Z98.890 Normal coronaries and EF per [facility] done by Dr. Qiu @ [facility]: recommend looking at other/pulmonary causes of SOB History of breast surgery Z98.890 Rt History of lumbar surgery Z98.890 Hx of cholecystectomy Z90.49 Surgical History: - - Lumbar laminectomy, cholecystectomy, surgery for removal of breast fibroids Psychiatric History: No pertinent psych hx ENT PHYSICIAN History: No pertinent ENT PHYSICIAN history Lives: Alone Smoking Status: Never smoker [...] overlay-patient was placed into observation status on [facility], she was seen by PT and OT, patient wants to be admitted to a long term facility-she prefers [facility] #2 persistent nausea and vomiting times weeks [...] Lyrica Code Visit OBSV E AND M: 97976 Initial observation care L3 03/24/182103 <Electronically signed by Newton Medina DO> Date Newton Medina DO Cosigner Signature: Date (if applicable) CC: Chuck Sims MD; Newton Medina Signed BEDSIDE GLUCOSE Collected: 03/24/2018 Status: F Source: [place] 5:06 PM [facility] REPOSITORY TYPE CODE TESTS RESULT OUT OF REFERENCE UNITS RANGE LAB L501.080 70-110 mg/dL High BEDSIDE GLU 225 Result Comment: MANAGEMENT OF PATIENT CARE PER NURSING PROTOCOL Performed By: #### L501.080 #### [facility] Point of Care [address] [place] [address] EMERGENCY DEPARTMENT Observed: 03/24/2018 Status: F Source: [place] SUMMARY 3:41 PM [facility] REPOSITORY [facility] Medical Records Department [address] [place] [address] Emergency Department Summary 03/24/18 1536 MR#: [id number] Acct: [id number] Name: TONYA RASMUSSEN Rep #: [id number] : 1955 63 From: Yony Steele MD [...] of gastroparesis. This note was generated with [employer] dictation software. It may contain incorrect words, [...] your Primary Care Provider. Call [facility] ([phone]) or report to the closest Emergency Room. Call 911 if necessary. 03/24/18 1541 <Electronically signed by Yony Steele MD> Date Yony Steele MD Cosigner Signature (If Indicated): Date CC: Chuck Sims MD; Nancy Schulte MD CBC W/DIFF, AUTOMATED Collected: 03/24/2018 Status: F Source: NIRAV 3:02 PM [facility] REPOSITORY TYPE CODE TESTS RESULT OUT OF [...] Lymph 1.85 Performed By: #### L100.0100 #### [facility] [address] [place], [address] BASIC METABOLIC Collected: 03/24/2018 Status: F Source: NIRAV PROFILE (BMP) 3:02 PM [facility] REPOSITORY TYPE CODE TESTS RESULT OUT OF [...] GAP 10 Performed By: #### L500.2500 #### [facility] [address] [facility] [place], [address] SURGERY VISIT REPORT Observed: 03/24/2018 Status: F Source: [place] 2:20 PM [facility] REPOSITORY [facility] [address] [place] [address] OFFICE VISIT Date of Service: 03/24/18 MR#: [id number] Acct: [id number] Name: VALERYTONYA Kristyn Rep #: [id number] : 1955 Provider: Nancy Schulte MD Age/Sex: 63/F Location: [facility] Status: Signed Intake Vital Signs03/24/18 Body Mass Index (BMI) 40.4 Intake Visit Reasons: abd pain/vomiting/ diarrhea Chief Complaint: abd pain/ vomiting Gun Perforator Required: No Is patient in pain?: No [...] no further questions. Nancy Schulte M.D. Pager: [phone] [facility] [address] [place] [address], [address] [place] [address] Office: [phone] Plan Detail Follow Up will plan EGD [...] F Source: NIRAV OFFICE VISIT 8:41 AM [facility] [address] [place] [address] OFFICE VISIT Date of Service: 03/19/18 MR#: [id number] Acct: [id number] Name: TONYA RASMUSSEN Rep #: [id number] : 1955 Provider: Chuck Sims MD Age/Sex: 63/F Location: [facility] Status: Signed Intake Vital Signs03/19/18 Height 5 [...] acute distress Orientation: alert, awake, oriented x3 [facility] Head: atraumatic, normocephalic, normal to inspection Ears: [...] wound center. This note was generated with [employer] dictation software. It may contain incorrect words, [...] DISCHARGE INSTRUCTION Observed: 03/20/2018 Status: F Source: [place] 11:25 PM [facility] REPOSITORY [facility] Medical Records Department [address] [place] [address] Discharge Instruction 03/20/18 2324 MR#: [id number] Acct: [id number] Name: TONYA RASMUSSEN Rep #: [id number] : 1955 63 From: Augusto Cruz MD [...] your Primary Care Provider. Call [facility] ([phone]) or report to the closest Emergency Room. Call 911 if necessary. 03/20/182324 <Electronically signed by Augusto Cruz MD> Date Augusto Cruz MD Cosigner Signature (If Indicated): Date CC: Chuck Sims MD EMERGENCY DEPARTMENT Observed: 03/20/2018 Status: F Source: [place] SUMMARY 11:24 PM [facility] REPOSITORY [facility] Medical Records Department [address] [place] [address] Emergency Department Summary 03/20/18 2320 MR#: [id number] Acct: [id number] Name: TONYA RASMUSSEN Rep #: [id number] : 1955 63 From: Augusto Cruz MD [...] vomiting diarrhea This note was generated with [employer] dictation software. It may contain incorrect words, [...] problems, contact your Primary Care Provider. Call [facility] ([phone]) or report to the closest Emergency Room. Call 911 if necessary. 03/20/18 3642 <Electronically signed by Augusto Cruz MD> Date Augusto Cruz MD Cosigner Signature (If Indicated): Date CC: Chuck Sims MD COMPREHENSIVE METABOLIC Collected: 03/20/2018 Status: F Source: NIRAV TAVERAS 10:06 PM [facility] REPOSITORY TYPE CODE TESTS RESULT OUT OF [...] 11 Performed By: #### L500.4050, L501.2450 #### [facility] [address] [facility] [place], [address] LIPASE Collected: 03/20/2018 Status: F Source: [place] 10:06 PM [facility] REPOSITORY TYPE CODE TESTS RESULT OUT OF RANGE REFERENCE UNITS LAB L501.2450 73-393 U/L Normal LIPASE 197 Performed By: #### L500.4050, L501.2450 #### [facility] [address] [facility] [place], [address] CBC W/DIFF, AUTOMATED Collected: 03/20/2018 Status: F Source: [place] 10:06 PM [facility] REPOSITORY TYPE CODE TESTS RESULT OUT OF [...] Lymph 1.64 Performed By: #### L100.0100 #### [facility] [address] [place], [address] INTERNAL MEDICINE Observed: 02/16/2018 Status: F Source: [place] OFFICE VISIT 4:28 PM [facility] REPOSITORY [facility] [address] [place] [address] [place] [address] OFFICE VISIT Date of Service: 02/12/18 MR#: [id number] Acct: [id number] Name: TONYA RASMUSSEN Rep #: [id number] : 1955 Provider: Chuck Sims MD Age/Sex: 63/F Location: [facility] Status: Signed Intake Vital Signs02/12/18 Height 59 [...] home: Yes additional social history: - retired [employer] Chief Complaint: Est Care Details: TONYA RASMUSSEN, [...] pulmonary hypertension. This note was generated with [employer] software. It may contain incorrect words, spelling, [...] 02/15/2018 Status: F Source: NIRAV 12:34 PM [place] [address] [place] [address] OFFICE VISIT Date of Service: 02/04/18 MR#: [id number] Acct: [id number] Patient: TONYA RASMUSSEN Rep #: [id number] : 1955 Provider: Sigifredo Qiu MD Age/Sex: 62/F Location: [place] Status: Signed Intake Intake Visit Reasons: (KISHORE) [...] for cath next . RX to [facility]. She is to decrease her ASA to [...] MD Cosigner Signature: Date (if applicable) CC: Kishore Silva CHEST PA AND LATERAL Observed: 02/04/2018 Status: F Source: NIRAV 3:09 PM [facility] REPOSITORY [facility] Imaging Services [address] [place], [place] [address] [address] Chest PA and Lateral MR#: [id number] Acct: [id number] Name: TONYA RASMUSSEN Rep #: [id number] : 1955 F 62 From: Prem Leary MD PCP: Korey YUNG,Kumar Avila Status: [facility] Study: Chest PA and Lateral Date of Exam: 02/04/18 Exam# [id number] Ordering Dr: Justin Jarvis RECREATION FACILITY MANAGER-C STUDY: X-RAY CHEST REASON FOR EXAM: Female, [...] , CC: DAVE Jarvis; Kumar Nair MD Histopath Tech: Signed CBC W/DIFF, AUTOMATED Collected: 02/04/2018 Status: F Source: NIRAV 10:30 AM [facility] REPOSITORY TYPE CODE TESTS RESULT OUT OF [...] Lymph 1.41 Performed By: #### L100.0100 #### [facility] [address] [place], [address] PROTHROMBIN TIME W/INR Collected: 02/04/2018 Status: F Source: [place] 10:30 AM [facility] REPOSITORY TYPE CODE TESTS RESULT OUT OF RANGE REFERENCE UNITS LAB L300.4150 11.7-14.9 SECONDS Normal PROTIME 14.9 LAB L300.4200 Normal INR 1.2 Performed By: #### L300.3900, L300.4310 #### [facility] [address] [place], [address] PARTIAL THROMBOPLAST Collected: 02/04/2018 Status: F Source: [place] TIME 10:30 AM [facility] REPOSITORY TYPE CODE TESTS RESULT OUT OF RANGE REFERENCE UNITS LAB L300.4310 24.1-36.2 Seconds Normal PTT 26.4 Performed By: #### L300.3900, L300.4310 #### [facility] [address] [facility] [address] BASIC METABOLIC Collected: 02/04/2018 Status: F Source: [place] PROFILE (BMP) 10:30 AM [facility] REPOSITORY TYPE CODE TESTS RESULT OUT OF [...] GAP 10 Performed By: #### L500.2500 #### [facility] [address] [place], [address] CARDIOLOGY VISIT Observed: 01/23/2018 Status: F Source: [place] REPORT 3:23 PM [facility] REPOSITORY [facility] [address] [place] [address] OFFICE VISIT Date of Service: 01/23/18 MR#: [id number] Acct: [id number] Name: TONYA RASMUSSEN Rep #: [id number] : 1955 Provider: DAVE Jarvis Age/Sex: 62/F Location: [facility] Status: Signed HPI HPI Chief Complaint: [...] GARCIAC Cosigner Signature: Date (if applicable) CC: RECREATION FACILITY MANAGER Justin Jarvis; Sigifredo Qiu MD; Kumar Nair MD CBC W/DIFF, AUTOMATED Collected: 01/01/2018 Status: F Source: NIRAV 3:02 PM [facility] REPOSITORY TYPE CODE TESTS RESULT OUT OF [...] Lymph 0.99 Performed By: #### L100.0100 #### [facility] [address] [place], [address] COMPREHENSIVE METABOLIC Collected: 01/01/2018 Status: F Source: [facility] 3:02 PM [facility] REPOSITORY TYPE CODE TESTS RESULT OUT OF [...] 10 Performed By: #### L500.4050, L501.9520 #### [facility] [address] [facility] [place], [address] THYROID STIM HORMONE Collected: 01/01/2018 Status: F Source: NIRAV (TSH) 3:02 PM [facility] REPOSITORY TYPE CODE TESTS RESULT OUT OF RANGE REFERENCE UNITS LAB L501.9520 0.358-3.74 uIU/mL Normal TSH 1.40 Performed By: #### L500.4050, L501.9520 #### [facility] [address] [place], [address] HOUSING COORDINATOR OFFICE VISIT Observed: 12/31/2017 Status: F Source: NIRAV REPORT 12:08 PM [facility] REPOSITORY [facility] [address] [place] [address] OFFICE VISIT Date of Service: 12/31/17 MR#: [id number] Acct: [id number] Name: TONYA RASMUSSEN Kristyn Rep #: [id number] : 1955 Provider: DAVE Prieto Age/Sex: 62/F Location: [facility] Status: Signed Intake Vital Signs12/31/17 Height 5 ft 9 in 12/31/17 Weight: 305 lb 6 oz 12/31/17 Body Mass Index (BMI) 45.1 12/31/17 Blood Pressure 118/70 Intake Visit Reasons: ? 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 12/31/17 1204 <Electronically signed by Carolina MOREIRA> Date Carolina G[place]CIAC Cosigner Signature: Date (if applicable) CC: ABD INC DECUB Observed: 12/04/2017 Status: F Source: NIRAV AND/OR ERECT 9:48 AM [facility] REPOSITORY [facility] Imaging Services [address] [place] [address] Abd Inc Decub and/or Erect MR#: [id number] Acct: [id number] Name: TONYA RASMUSSEN Rep #: [id number] : 1955 F 62 From: Parth Adhikari MD PCP: Korey YUNG,Kumar Avila Status: REG CLI Study: Abd Inc Decub and/or Erect Date of Exam: 12/04/17 Exam# [id number] Ordering Dr: Kumar Nair MD STUDY: X-RAY [...] Service support , CC: Kumar Nair MD Histopath Tech: Signed BASIC METABOLIC Collected: 10/30/2017 Status: F Source: NIRAV PROFILE (BMP) 2:57 PM [facility] REPOSITORY TYPE CODE TESTS RESULT OUT OF [...] GAP 5 Performed By: #### L500.2500 #### [facility] [address] [place], [address] VENOUS DUPLEX LOWER Observed: 10/21/2017 Status: F Source: [place] EXTREMITY 12:18 PM [facility] REPOSITORY [facility] Cardiovascular Services [address] [place] [address] Venous Duplex US - Mani Extrem 10/21/17 1135 MR#: [id number] Acct: [id number] Name: TONYA RASMUSSEN Rep #: [id number] : 1955 62 From: Geo Cabrera MD [...] Dictated: 10/21/17 1135 Date Transcribed: 10/21/17 1218 Histopath Tech: Signed BASIC METABOLIC Collected: 10/21/2017 Status: F Source: NIRAV PROFILE (BMP) 12:13 PM [facility] REPOSITORY TYPE CODE TESTS RESULT OUT OF [...] GAP 7 Performed By: #### L500.2500 #### [facility] [address] [place], [address] CBC W/DIFF, AUTOMATED Collected: 10/21/2017 Status: F Source: [place] 12:13 PM [facility] REPOSITORY TYPE CODE TESTS RESULT OUT OF [...] Lymph 1.78 Performed By: #### L100.0100 #### [facility] [address] [place], [place], [address] D-DIMER QUANTITATIVE Collected: 10/21/2017 Status: C Source: NIRAV (DVT/PE) 12:13 PM [facility] REPOSITORY Order Comment: CRITICAL VALUE VERIFIED. CALLED [...] Embolism (PE) Performed By: #### L300.8000 #### [facility] [address] [place], [place], [address] Observed: 10/03/2017 Status: F Source: NIRAV CDIFF (MOLECULAR) 8:00 AM [facility] REPOSITORY Cdiff-Molecular Normal Reference Range = Negative C. Diff DNA Negative- No toxigenic C. Diff DNA Detected NAAT METHOD Testing was performed using nucleic acid amplification Performed By: #### M100.6796 #### [facility] [address] [facility] [place], [address] COMPREHENSIVE METABOLIC Collected: 10/02/2017 Status: F Source: NIRAV PROFIL 11:49 AM [facility] REPOSITORY TYPE CODE TESTS RESULT OUT OF [...] 9 Performed By: #### L500.4050, L501.9520 #### [facility] [address] [place], [place], [address] THYROID STIM HORMONE Collected: 10/02/2017 Status: F Source: NIRAV (TSH) 11:49 AM [facility] REPOSITORY TYPE CODE TESTS RESULT OUT OF RANGE REFERENCE UNITS LAB L501.9520 0.358-3.74 uIU/mL Normal TSH 1.61 Performed By: #### L500.4050, L501.9520 #### [facility] [place], [address] CBC W/DIFF, AUTOMATED Collected: 10/02/2017 Status: F Source: NIRAV 11:49 AM [facility] REPOSITORY TYPE CODE TESTS RESULT OUT OF [...] Lymph 1.62 Performed By: #### L100.0100 #### [facility] [address] [place], [address] ABD INC DECUB Observed: 09/02/2017 Status: F Source: NIRAV AND/OR ERECT 4:04 PM [facility] REPOSITORY [facility] Imaging Services [address] [place] [address] Abd Inc Decub and/or Erect MR#: [id number] Acct: [id number] Name: TONYA RASMUSSEN Rep #: [id number] : 1955 F 62 From: Mauricio Griffin MD PCP: Kumar Nair MD, Chi Status: REG CLI Study: Abd Inc Decub and/or Erect Date of Exam: 09/02/17 Exam# [id number] Ordering Dr: Kumar Nair MD STUDY: X-RAY [...] Service support , CC: Kumar Nair MD Histopath Tech: Signed CBC W/DIFF, AUTOMATED Collected: 09/02/2017 Status: F Source: [place] 1:53 PM [facility] REPOSITORY TYPE CODE TESTS RESULT OUT OF [...] Lymph 1.71 Performed By: #### L100.0100 #### [facility] [address] [place], [place], [address] COMPREHENSIVE METABOLIC Collected: 09/02/2017 Status: F Source: [facility] [facility] 1:53 PM [facility] REPOSITORY TYPE CODE TESTS RESULT OUT OF [...] GAP 9 Performed By: #### L500.4050 #### [facility] [address] [place], [address] CARDIOLOGY VISIT Observed: 08/14/2017 Status: F Source: NIRAV REPORT 1:38 PM [facility] REPOSITORY [facility] 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 4. Return office in 6 months. [...] 06/09/2017 Status: F Source: NIRAV 3:11 PM [facility] REPOSITORY TYPE CODE TESTS RESULT OUT OF [...] Lymph 1.75 Performed By: #### L100.0100 #### [facility] [address] [place], [address] VITAMIN D,25 HYDROXY Collected: 06/09/2017 Status: F Source: NIRAV 3:11 PM [facility] REPOSITORY TYPE CODE TESTS RESULT OUT OF REFERENCE UNITS RANGE LAB L506.1000 29.95-100.01 ng/mL Low Vitamin D 10.7 25-OH Result Comment: Vitamin D 25(OH) Status Range Deficiency <20 ng/mL (50nmol/L) Insuffciency 20 - 30 ng/mL (50 - 75 nmol/L) Sufficiency 30 - 100 ng/mL (75 - 250 nmol/L) Toxicity >100 ng/mL (>250 nmol/L) Performed By: #### L506.1000 #### [facility] [address] [place], [address] COMPREHENSIVE METABOLIC Collected: 06/09/2017 Status: F Source: [facility] 3:11 PM [facility] REPOSITORY TYPE CODE TESTS RESULT OUT OF [...] 10 Performed By: #### L500.4050, L501.9520 #### [facility] [address] [place], [place], [address] THYROID STIM HORMONE Collected: 06/09/2017 Status: F Source: [place] (TSH) 3:11 PM [facility] REPOSITORY TYPE CODE TESTS RESULT OUT OF RANGE REFERENCE UNITS LAB L501.9520 0.358-3.74 uIU/mL Normal TSH 0.97 Performed By: #### L500.4050, L501.9520 #### [facility] [address] [place], [place], [address] HEPATITIS C ANTIBODIES Collected: 06/09/2017 Status: F Source: [place] 3:11 PM [facility] REPOSITORY TYPE CODE TESTS RESULT OUT OF RANGE REFERENCE UNITS LAB L3100.0650 0.0-0.9 s/co ratio Normal HEP C AB 0.1 Result Comment: Negative: < 0.8 Indeterminate: 0.8 - 0.9 Positive: > 0.9 The CDC recommends that a positive HCV antibody result be followed up with a HCV Nucleic Acid Amplification test (148850). Performed at: [facility] [id number] Instrument Tech: Rubin Nazario PhD, Phone: [phone] Performed By: #### L3100.0625 #### [facility] (refer to report for specific site) refer to report for address and phone number PULMONARY VISIT REPORT Observed: 06/09/2017 Status: F Source: [place] 3:07 PM [facility] REPOSITORY [facility] [address] [place] [address] OFFICE VISIT Date of Service: 06/09/17 MR#: [id number] Acct: [id number] Name: TONYA RASMUSSEN Rep #: [id number] : 1955 Provider: Barbra Fajardo Age/Sex: 62/F Location: [facility] Status: Signed Assessment AND Plan 1. Moderate [...] Unfortunately, she recently spent some time in [place] taking care of an ill friend. Because [...] lb Intake Visit Reasons: 3 M FU [facility] Vendor: ERUM Accompanied by: Self Allergies ciprofloxacin [...] SEVERITY SOURCE 03/24/2018 Drug theophylline Nausea Unknown [facility] Allergy/416 anhydrous/[id number] [place] [id number]([address]) Repository 03/24/2018 Drug ciprofloxacin/F0060 Nausea Unknown [place] Allergy/416 57179(RXNORM) [facility] 752523([facility] ED CT) Repository 03/24/2018 Drug cephalexin/[id number] Vomiting Unknown [place] Allergy/416 16(RXNORM) [facility] 306335([facility] ED CT) Repository 06/09/2017 Drug ciprofloxacin Nausea Unknown [facility] Allergy/416 HCl/[id number](RXNO [facility] 891635([facility] ED CT) Repository ENCOUNTERS ENCOUNTERS ADMIT/DISCHARGE ACCOUNT ADMITTING ENCOUNTER LOCATION SOURCE NUMBER CLASS 04/09/2018 [id number] Ambulatory BMSBuilding:B [facility] 6 [place] Repository 04/03/2018/ [id number] Ambulatory BMSBuilding:B [place] 8 4 [place].[facility] Repository 03/24/2018/ [id number] Thuy Medina [place] [facility] [address] [place] [facility] ing:MV6Btst: Repository CM126Sln: 1 03/24/2018 [id number] Thuy Medina BMSBuilding:B [facility] [address] [place] Repository 03/24/2018 [id number] [place], Ambulatory BMSBuilding:B [place] [address] [place].[facility] Repository 03/24/2018 [id number] [place], Ambulatory BMSBuilding:B [place] [address] [place] [facility] Repository 03/24/2018 [id number] Tereletsky, Ambulatory BMSBuilding:B Nirav 0 [place] Repository 03/24/2018 [id number] Shruthieletsky, Ambulatory BMSBuilding:B Nirav 4 [place] Repository 03/24/2018/ [id number] Ambulatory BMSBuilding:B Nirav 8 8 [place] Repository 03/24/2018/ [id number] Ambulatory BMSBuilding:B Nirav 8 9 [facility] Repository 03/20/2018/ [id number] Emergency Nirav Nirav 8 4 [facility] Hospital ing:ED Repository 03/20/2018 [id number] Ambulatory BMSBuilding:B Nirav 6 [place].[facility] Repository 03/19/2018/ [id number] Ambulatory BMSBuilding:B Nirav 8 9 [place].[facility] Repository 02/25/2018 [id number] Ambulatory [place] Nirav 5 [facility] Hospital ing:CVS Repository 02/18/2018/ [id number] Ambulatory [place] Nirav 8 7 [facility] Hospital ing:CLSP Repository 02/18/2018/ [id number] Ambulatory BMSBuilding:W Nirav 8 0 [facility] Repository 02/12/2018/ [id number] Ambulatory BMSBuilding:B [place] 8 2 [place].[facility] Repository 02/04/2018/ [id number] Ambulatory BMSBuilding:B Nirav 8 6 [place].[facility] Repository 01/23/2018/ [id number] Ambulatory BMSBuilding:B [place] 8 2 [place] Repository 01/01/2018 [id number] Ambulatory Nirav Nirav 5 [facility] Hospital ing:POLAB3 Repository 12/31/2017/ [id number] Ambulatory BMSBuilding:B [place] 8 5 [place] Hospital Repository 12/04/2017 [id number] Ambulatory [place]irav [place] 4 [facility] Repository 11/13/2017 [id number] Ambulatory Nirav Nirav 1 [facility] ing:LAB.FUTUR Repository E 10/30/2017 [id number] Ambulatory Nirav Nirav 1 [facility] ing:POLAB3 Repository 10/21/2017 [id number] Ambulatory [place] 3 [facility] ing[facility]CVS Repository 10/03/2017 [id number] Ambulatory [place] Nirav 0 [facility] ing[facility]LABSPEC Repository 10/02/2017 [id number] Ambulatory [place] Nirav 4 [facility] ing:POLAB3 Repository 09/02/2017 [id number] Ambulatory [place] Nirav 4 [facility] ing:RAD Repository 09/02/2017 [id number] Ambulatory [place]irav [place] 6 [facility] ing:POLAB3 Repository 08/14/2017/ [id number] Ambulatory BMSBuilding:B Nirav 8 7 [place] Repository 08/11/2017 [id number] Ambulatory BMSBuilding:B [place] 2 [place] Repository 08/07/2017 [id number] Ambulatory [place] Nirav 1 [facility] ing:SL Repository 07/21/2017 [id number] Ambulatory Nirav [place] 7 [facility] ing:PSN Repository 06/09/2017 [id number] Ambulatory [place] 6 [facility] ing:POLAB3 Repository 06/09/2017/ [id number] Ambulatory BMSBuilding:B Nirav 8 8 [place] Repository 05/08/2017 [id number] Ambulatory BMSBuilding:B Nirav 5 [place] Repository PAYERS PAYERS ENCOUNTER GUARANTOR PAYER SUBSCRIBER SOURCE 04/09/2018 TONYA Simons Primary TONYA Simons [place] [id number] Insurance:[facility] HEALTHEVANOB: [facility] Number: [id number], [place] [id number] Repository 26232Chh: (330) Date:2018-04-09P O [phone] (HP) [address]ATTN: [place] [address]ZZ: 04/09/2018 Secondary NOT GIVENUNK Nirav Insurance:SELF PAY [facility] Number: Effective Repository Date:2018-04-09 04/03/2018 TONYA Simons Primary TONYA Simons Nirav [id number] Insurance:CARESOURCEP FRECHETTEDOB: Community JANET olicy Number: [id number], [place] [id number] Repository 71623Kql: (330) Date:2018-03-19P O [phone] (HP) [address]ATTN: [place] [address]YN: 04/03/2018 Secondary NOT GIVENUNK Nirav Insurance:SELF PAY [facility] Number: Effective Repository Date:2018-04-01 03/24/2018 TONYA Simons Primary TONYA Simons [place] [id number] Insurance:CARESOURCEP FRECHETTEDOB: Community JANET olicy Number: [id number], [place] [id number] Repository 42578Kad: (330) Date:2018-03-24P O [phone] () [address]ATTN: [place] [address]DV: 03/24/2018 Secondary NOT GIVENUNK [place] Insurance:SELF PAY [facility] Number: Effective Repository Date:2018-03-24 03/24/2018 TONYA Simons Primary TONYA Simons Nirav [id number] Insurance:CARESOURCEP FRECHETTEDOB: Community JANET olicy Number: [id number], [place] [id number] Repository 68693Xhe: (330) Date:2018-03-24P O [phone] (HP) [address]ATTN: [place] [address]AX: 03/24/2018 Secondary NOT GIVENUNK [place] Insurance:SELF PAY [facility] Number: Effective Repository Date:2018-03-24 03/24/2018 TONYA Simons Primary TONYA Simons Nirav [id number] Insurance:CARESOURCEP FRECHETTEDOB: Community JANET olicy Number: [id number], [place] [id number] Repository 68936Pod: (330) Date:2018-03-24P O [phone] (HP) [address]ATTN: [place] [address]YZ: 03/24/2018 Secondary NOT GIVENUNK Nirav Insurance:SELF PAY [facility] Number: Effective Repository Date:2018-03-24 03/24/2018 TONYA Simons Primary TONYA Simons Nirav [id number] Insurance:CARESOURCEP FRECHETTEDOB: Community JANET olicy Number: [id number], [place] [id number] Repository 25622Ssf: (330) Date:2018-03-24P O [phone] (HP) [address]ATTN: [place] [address]FK: 03/24/2018 Secondary NOT GIVENUNK [place] Insurance:SELF PAY [facility] Number: Effective Repository Date:2018-03-24 03/24/2018 TONYA Simons Primary TONYA Simons Nirav [id number] Insurance:CARESOURCEP FRECHETTEDOB: Community JANET olicy Number: [id number], [place] [id number] Repository 65370Sbg: (330) Date:2018-03-24P O [phone] (HP) [address]ATTN: [place] [address]MI: 03/24/2018 Secondary NOT GIVENUNK Nirav Insurance:SELF PAY [facility] Hospital Number: Effective Repository Date:2018-03-24 03/24/2018 TONYA Simons Primary TONYA Simons [place] [id number] Insurance:CARESOURCEP FRECHETTEDOB: Community JANET olicy Number: [id number], [place] [id number] Repository 94787Joc: (330) Date:2018-03-24P O [phone] () [address]ATTN: [place] [address]LA: 03/24/2018 Secondary NOT GIVENUNK Nirav Insurance:SELF PAY [facility] Number: Effective Repository Date:2018-03-24 03/24/2018 TONYA Simons Primary TONYA Simons [place] [id number] Insurance:CARESOURCEP FRECHETTEDOB: Community JANET olicy Number: [id number], [place] [id number] Repository 19883Nmt: (330) Date:2018-03-24P O [phone] () [address]ATTN: [place] [address]FL: 03/24/2018 Secondary NOT GIVENUNK Nirav Insurance:SELF PAY [facility] Number: Effective Repository Date:2018-03-24 03/24/2018 TONYA Simons Primary TONYA Simons [place] [id number] Insurance:CARESOURCEP FRECHETTEDOB: Community JANET olicy Number: [id number], [place] [id number] Repository 97032Fje: (330) Date:2018-03-23P O [phone] () [address]ATTN: [place] [address]BN: 03/24/2018 Secondary NOT GIVENUNK [place] Insurance:SELF PAY [facility] Number: Effective Repository Date:2018-03-24 03/20/2018 TONYA Simons Primary TONYA Simons [place] [id number] Insurance:CARESOURCEP FRECHETTEDOB: Community JANET olicy Number: [id number], [place] [id number] Repository 67065Xgr: (330) Date:2018-03-20P O [phone] (HP) [address]ATTN: [place] [address]PR: 03/20/2018 Secondary NOT GIVENUNK Nirav Insurance:SELF PAY [facility] Number: Effective Repository Date:2018-03-20 03/20/2018 TONYA Simons Primary TONYA Simons Nirav [id number] Insurance:CARESOURCEP FRECHETTEDOB: Community JANET olicy Number: [id number], [place] [id number] Repository 95516Mif: (330) Date:2017-08-14P O [phone] () [address]ATTN: [place] [address]BL: 03/20/2018 Secondary NOT GIVENUNK Nirav Insurance:SELF PAY [facility] Number: Effective Repository Date:2017-08-14 03/19/2018 TONYA Simons Primary TONYA Simons [place] [id number] Insurance:CARESOURCEP FRECHETTEDOB: Community JANET olicy Number: [id number], [place] [id number] Repository 83898Dll: (330) Date:2018-02-12P O [phone] () [address]ATTN: [place] [address]HV: 03/19/2018 Secondary NOT GIVENUNK [place] Insurance:SELF PAY [facility] Number: Effective Repository Date:2018-03-16 02/25/2018 TONYA Simons Primary TONYA Simons [place] [id number] Insurance:CARESOURCEP FRECHETTEDOB: Community JANET olicy Number: [id number], [place] [id number] Repository 03685Fij: (330) Date:2018-02-02P O [phone] (HP) [address]ATTN: [place] [address]WW: 02/25/2018 Secondary NOT GIVENUNK Nirav Insurance:SELF PAY [facility] Number: Effective Repository Date:2018-02-06 02/18/2018 TONYA Simons Primary TONYA Simons Nirav [id number] Insurance:CARESOURCEP FRECHETTEDOB: Community JANET o[facility]y Number: [id number], [place] [id number] Repository 36872Ivy: (330) Date:2018-02-02P O [phone] (HP) [address]ATTN: CLAIMS [facility] [place] [address]ZI: 02/18/2018 Secondary NOT GIVENUNK Nirav Insurance:SELF PAY [facility] Number: Effective Repository Date:2018-02-02 02/18/2018 TONYA Simons Primary TONYA Simons Nirav [id number] Insurance:CARESOURCEP FRECHETTEDOB: Community JANET olicy Number: [id number], [place] [id number] Repository 70704Vuv: (460) Date:2018-02-02P O [phone] (HP) [address]ATTN: [place] [address]EX: 02/18/2018 Secondary NOT GIVENUNK Nirav Insurance:SELF PAY [facility] Number: Effective Repository Date:2018-02-18 02/12/2018 TONYA Simons Primary TONYA Simons [place] [id number] Insurance:CARESOURCEP FRECHETTEDOB: Community JANET olicy Number: [id number], [place] [id number] Repository 61327Wqm: (330) Date:2018-01-27P O [phone] (HP) [address]ATTN: [place] [address]ZM: 02/12/2018 Secondary NOT GIVENUNK [place] Insurance:SELF PAY [facility] Hospital Number: Effective Repository Date:2018-02-12 02/04/2018 TONYA Simons Primary TONYA Simons Nirav [id number] Insurance:CARESOURCEP FRECHETTEDOB: Community J[place]ET o[facility] Number: [id number], [place] [id number] Repository 84120Ewd: (330) Date:2018-02-04 O [phone] () [address]ATTN: [place] [address]PQ: 02/04/2018 Secondary NOT GIVENUNK [place] Insurance:SELF PAY [facility] Number: Effective Repository Date:2018-02-04 01/23/2018 TONYA Simons Primary TONYA Simons [place] [id number] Insurance:CARESOURCEP FRECHETTEDOB: Community JANET olicy Number: [id number], [place] [id number] Repository 19960Jts: (330) Date:2018-01-21P O [phone] () [address]ATTN: [place] [address]AR: 01/23/2018 Secondary NOT GIVENUNK [place] Insurance:SELF PAY [facility] Number: Effective Repository Date:2018-01-23 01/01/2018 TONYA Simons Primary TONYA Simons Nirav [id number] Insurance:CARESOURCEP FRECHETTEDOB: Community JANET o[facility]y Number: [id number], [place] [id number] Repository 66477Dfx: (330) Date:2018-01-01P O [phone] () [address]ATTN: [place] [address]LW: 01/01/2018 Secondary NOT GIVENUNK Nirav Insurance:SELF PAY [facility] Number: Effective Repository Date:2018-01-01 12/31/2017 TONYA Simons Primary TONYA Simons [place] [id number] Insurance:CARESOURCEP FRECHETTEDOB: Community JANET olicy Number: [id number], [place] [id number] Repository 80159Fva: (330) Date:2017-12-30P O [phone] (HP) [address]ATTN: [place] [address]HC: 12/31/2017 Secondary NOT GIVENUNK Nirav Insurance:SELF PAY [facility] Number: Effective Repository Date:2017-12-31 12/04/2017 TONYA Simons Primary TONYA Simons Nirav [id number] Insurance:CARESOURCEP FRECHETTEDOB: Community [place] o[facility] Number: [id number], [place] [id number] Repository 61200Vjo: (330) Date:2017-12-04P O [phone] () [address]ATTN: [place] [address]AA: 12/04/2017 Secondary NOT GIVENUNK [place] Insurance:SELF PAY [facility] Number: Effective Repository Date:2017-12-04 11/13/2017 TONYA Simons Primary TONYA Simons [place] [id number] Insurance:CARESOURCEP FRECHETTEDOB: Community J[place] o[facility] Number: [id number], [place] [id number] Repository 77325Itr: (330) Date:2017-10-30P O [phone] () [address]ATTN: [place] [address]CZ: 11/13/2017 Secondary NOT GIVENUNK [place] Insurance:SELF PAY [facility] Number: Effective Repository Date:2017-10-30 10/30/2017 TONYA Simons Primary TONYA Simons Nirav [id number] Insurance:CARESOURCEP FRECHETTEDOB: Community [facility] o[facility] Number: [id number], [place] [id number] Repository 30897Dve: (330) Date:2017-10-30P O [phone] (HP) [address]ATTN: [place] [address]NB: 10/30/2017 Secondary NOT GIVENUNK [place] Insurance:SELF PAY [facility] Number: Effective Repository Date:2017-10-30 10/21/2017 TONYA Simons Primary TONYA Simons [place] [id number] Insurance:CARESOURCEP FRECHETTEDOB: Community JANET olicy Number: [id number], [place] [id number] Repository 48039Swa: (330) Date:2017-10-21P O [phone] (HP) [address]ATTN: CLAIMS [facility] [place] [address]KE: 10/21/2017 Secondary NOT GIVENUNK [place] Insurance:SELF PAY [facility] Number: Effective Repository Date:2017-10-21 10/03/2017 TONYA Simons Primary TONYA Simons [place] [id number] Insurance:CARESOURCEP FRECHETTEDOB: Community JANET olicy Number: [id number], [place] [id number] Repository 42791Asr: (330) Date:2017-10-03P O [phone] (HP) [address]ATTN: [place] [address]WB: 10/03/2017 Secondary NOT GIVENUNK [place] Insurance:SELF PAY [facility] Number: Effective Repository Date:2017-10-03 10/02/2017 TONYA Simons Primary TONYA Simons Nirav [id number] Insurance:CARESOURCEP FRECHETTEDOB: Community JANET olicy Number: [id number], [place] [id number] Repository 17974Hca: (330) Date:2017-10-02P O [phone] (HP) [address]ATTN: [place] [address]FC: 10/02/2017 Secondary NOT GIVENUNK Nirav Insurance:SELF PAY [facility] Hospital Number: Effective Repository Date:2017-10-02 09/02/2017 TONYA Simons Primary TONYA Simons [place] [id number] Insurance:CARESOURCEP FRECHETTEDOB: Community JANET olicy Number: [id number], [place] [id number] Repository 91056Inr: (330) Date:2017-09-02P O [phone] () [address]ATTN: [place] [address]NC: 09/02/2017 Secondary NOT GIVENUNK [place] Insurance:SELF PAY [facility] Number: Effective Repository Date:2017-09-02 09/02/2017 TONYA Simons Primary TONYA Simons Nirav [id number] Insurance:CARESOURCEP FRECHETTEDOB: Community JANET olicy Number: [id number], [place] [id number] Repository 47502Vbu: (330) Date:2017-09-02P O [phone] () [address]ATTN: [place] [address]XJ: 09/02/2017 Secondary NOT GIVENUNK Nirav Insurance:SELF PAY [facility] Number: Effective Repository Date:2017-09-02 08/14/2017 TONYA Simons Primary TONYA Simons Nirav [id number] Insurance:CARESOURCEP FRECHETTEDOB: Community JANET olicy Number: [id number], [place] [id number] Repository 64613Ipf: (330) Date:2017-03-18 O [phone] () [address]ATTN: [place] [address]GZ: 08/14/2017 Secondary NOT GIVENUNK Nirav Insurance:SELF PAY [facility] Number: Effective Repository Date:2017-08-14 08/11/2017 TONYA Simons Primary TONYA Simons [place] [id number] Insurance:CARESOURCEP FRECHETTEDOB: Community JANET olicy Number: [id number], [place] [id number] Repository 53973Qsc: (330) Date:2017-08-11P O [phone] (HP) [address]ATTN: [place] [address]AM: 08/11/2017 Secondary NOT GIVENUNK [place] Insurance:SELF PAY [facility] Number: Effective Repository Date:2017-08-11 08/07/2017 TONYA Simons Primary TONYA Simons [place] [id number] Insurance:CARESOURCEP FRECHETTEDOB: Community JANET olicy Number: [id number], [place] [id number] Repository 64111Nus: (330) Date:2017-07-16P O [phone] () [address]ATTN: [place] [address]ZT: 08/07/2017 Secondary NOT GIVENUNK [place] Insurance:SELF PAY [facility] Number: Effective Repository Date:2017-07-16 07/21/2017 TONYA Simons Primary TONYA Simons [place] [id number] Insurance:CARESOURCEP FRECHETTEDOB: Community JANET olicy Number: [id number], [place] [id number] Repository 71281Plu: (330) Date:2017-06-09 O [phone] () [address]ATTN: [place] [address]TM: 07/21/2017 Secondary NOT GIVENUNK Nirav Insurance:SELF PAY [facility] Number: Effective Repository Date:2017-06-09 06/09/2017 TONYA Simons Primary TONYA Simons [place] [id number] Insurance:CARESOURCEP FRECHETTEDOB: Community JANET olicy Number: [id number], [place] [id number] Repository 02784Ixm: (330) Date:2017-06-09P O [phone] (HP) [address]ATTN: [place] [address]KZ: 06/09/2017 Secondary NOT GIVENUNK Nirav Insurance:SELF PAY [facility] Number: Effective Repository Date:2017-06-09 06/09/2017 TONYA Simons Primary TONYA Simons [place] [id number] Insurance:CARESOURCEP FRECHETTEDOB: Community JANET olicy Number: [id number], [place] [id number] Repository 75551Qgk: (330) Date:2017-03-17P O [phone] () [address]ATTN: [place] [address]BH: 06/09/2017 Secondary NOT GIVENUNK [place] Insurance:SELF PAY [facility] Number: Effective Repository Date:2017-03-17 05/08/2017 Tonya Simons Primary Tonya Simons Nirav [id number] Insurance:CARESOURCEP FrechetteDOB: Community Janet olicy Number: [id number] Town, [place] [id number] Repository 70659Nbh: (370) Date:2017-03-13P O [phone] () [address]ATTN: [place] [address]ZC: 05/08/2017 Secondary NOT GIVENUNK Nirav Insurance:SELF PAY [facility] Number: Effective Repository Date:2017-03-13
== END 2018-03-27 15:54 | disposition home or self-care (01) ==
LOC: ED 14:44 → MS2 15:58
PROVIDERS: Anesthesiology; Surgery; Admitting Provider Internal Medicine; Emergency Provider Emergency Medicine; Family Provider Internal Medicine; PCP Internal Medicine; Referring Provider Internal Medicine; Visit Provider Internal Medicine
PROC: 0DJ08ZZ Inspection of Upper Intestinal Tract, Via Natural or Artificial Opening Endoscopic (ICD-10-PCS; CPT 43235; principal; 2018-03-26 11:25)
DX: R11.2 Nausea with vomiting, unspecified (principal); E87.6 Hypokalemia; I10 Essential (primary) hypertension; K21.9 Gastro-esophageal reflux disease without esophagitis; K31.84 Gastroparesis; G47.33 Obstructive sleep apnea (adult) (pediatric); M19.90 Unspecified osteoarthritis, unspecified site; K58.0 Irritable bowel syndrome with diarrhea; E11.65 Type 2 diabetes mellitus with hyperglycemia; E86.0 Dehydration; E11.43 Type 2 diabetes mellitus with diabetic autonomic (poly)neuropathy; E78.5 Hyperlipidemia, unspecified; Z79.899 Other long term (current) drug therapy; Z79.4 Long term (current) use of insulin; Z79.51 Long term (current) use of inhaled steroids; L89.312 Pressure ulcer of right buttock, stage 2; E66.01 Morbid (severe) obesity due to excess calories; Z68.41 Body mass index [BMI] 40.0-44.9, adult; Z71.3 Dietary counseling and surveillance; M51.36 Other intervertebral disc degeneration, lumbar region; E55.9 Vitamin D deficiency, unspecified; F32.9 Major depressive disorder, single episode, unspecified; K29.70 Gastritis, unspecified, without bleeding
CPT/HCPCS: 43239; 36415; 78264; 80048; 80053; 80061; 82962; 83036; 83630; 83735; 84100; 85025; 85730; 87493; 87506; 88305; 88313; 88342; 93005; 94640; 96361; 96372; 96374; 97161; 97166; 97530; 97802; 99218; 99282; A9541; J7030; A4216; G0378; J2405

== ENCOUNTER → 2018-10-14 | Outpatient (CLI) | payer MEDICAID, SELFPAY ==
[2018-09-02 15:29] VITALS: BMI 40.6
[2018-10-23 13:37] LABS: Fats, Neutral NORMAL
[2018-10-23 13:38] LABS: Fats, Total NORMAL
== END | disposition home or self-care (01) ==
LOC: LAB 09-30 15:29 → LABSPEC 10-15 08:48
PROVIDERS: Family Provider Internal Medicine; PCP Internal Medicine
DX: R19.7 Diarrhea, unspecified (principal)
CPT/HCPCS: 82705

== ENCOUNTER 2019-01-08 15:00 | Outpatient (RCR) | payer MEDICAID, SELFPAY ==
[2018-10-14 17:02] VITALS: BMI 40.6
[2018-11-11 16:23] VITALS: BMI 40.6
--- NOTE | 2018-12-16 12:00 | HP.PTEVAL ---
Patient's Visit Information FABIOLA RASMUSSEN is a 63 year old F referred to Physical Therapy by JESSY JO with a diagnosis of POSTLAMINECTOMY SYNDROME. BACK PAIN.. Date of Evaluation: 12/16/18 Physical Therapist: Vanita Long PT, Cert MDT - Visit Plan Frequency: 2-3x /Week Duration: 4-6 Weeks Plan: GAIT TRAINING, POSTURE CORRECTION/STRENGTHENING, INSTRUCTION IN APPROPRIATE BODY MECHANICS AND ACTIVITY MODIFICATIONS. DLS STARTING WITH A NEUTRAL SPINE PROGRESSING ROM TOLERATED. DESIREE LE ROM, STRETCHING AND STRENGTHENING. HEP INSTRUCTION. *MINIMAL LIFTING > 10 LBS, BENDING, PUSHING, PULLING, TWISTING AND OVER HEAD EXTENSION FOR 4-6 WEEKS. PATIENT HAS A PERMANANT 20LB LIFTING LIMIT. - Subjective Findings: Work/Leisure: RETIRED. SITS WITH THE ELDERLY MOTHER OF A FRIEND NEEDED. Disability: NO. Present symptoms: MORE PAIN AND NUMBNESS IN LEGS AND FEET. BACK PAIN. 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 LEFT GROIN PAIN. Present since: 2011 BUT HAS BECOME WORSE IN THE LAST FEW MONTHS. Pain Scale: WORST 9/10, LEAST 0/10. Currently: 0/10. Commenced as a result of: PROBLEMS EVER SINCE SURGERY AND RECENT WORSENING FOR NO APPARENT REASON. Symptoms at onset: LEFT HIP AND LEG ALMOST GAVE OUT WHILE WALKING A FEW MONTHS AGO. Worse: STANDING AND WALKING, STANDING IN GROCERY LINE TO CHECK OUT. WALKING TO GROCERY SHOP, TRYING TO DO HOUSEWORK. SDLY - PATIENT REPORTS SHE USE TO BE ABLE TO LIE ON HER LEFT SIDE UNTIL A COUPLE MONTHS AGO - THE NERVE JUST WON'T LET ME DO THAT. Better: SITTING. SUPINE LYING. Disturbed sleep: YES. Previous history/Previous treatment: DR. NOLASCO LAMINECTOMY 2011. PHYSICAL THERAPY. NO CHIROPRACTOR. TRIED INJECTIONS BEFORE AND AFTER BACK SURGERY. LEFT HIP/SCIATIC INJECTION PENDING JAN [address] PATINO WITH COMPREHENSIVE PAIN MGMT. Coughing/sneezing/straining: NEGATIVE. Gait: PATIENT REPORTS SHE CAN WALK FOR SHORT DISTANCES. DISTANCE LIMITED DUE TO BACK PAIN. LEGS START TO BURN AND GET NUMB WITH PROLONGED WALKING. LLE ISN'T RELIABLE IN STANDING OR WALKING. IT WANTS TO BUCKLE. HAS TO GET IN AND OUT OF THE SHOWER QUICKLY. Difficulty initiating urinatin: INCONTINENT. Accidents: MULTIPLE FALLS WITH LAST FALL ABOUT 4 MONTHS AGO. WAS AT [employer]HE[employer]'S HOUSE AND FELL GETTING INTO HOUSE. NO FX'S. WAS REALLY BRUISED UP. CAUGHT TOES ON THRESHOLD. Unexplained weight loss: NO BUT LOST 50 LBS IN A FEW MONTHS FROM FEB TO MAR 2018 DUE TO GASTROPARESIS. Imaging: NONE RECENT. PMH: GASTROPARESIS, IDDM. Recent major surgery: 2011 LUMBAR LAMINECTOMY. OTHER: PATIENT HAS NOT BEEN USING ANY ASSITIVE DEVICES. - Objective Sitting/Standing Posture: POOR. INCREASED KYPHOSIS. Lordosis: REDUCED. Lateral shift: NO. Relevant shift: N/A. Active Correction of posture: BETTER FOR A FEW MINTUTES. Other Observations: INDEP SLOW ANTALGIC GAIT INTO PT WITHOUT ANY LOB AND WITHOUT ANY AD'S. PATIENT IS VERY UE DEPEND TO TRANSFER FROM SIT TO STAND. Motor deficit: RIGHT LE GROSSLY 5/5 WITH MMT'ING EXCEPT HIP 4/5. LLE: HIP FLEX 4-/5, ABD 4-/5, ADD 4-/5, IR 4/5, ER 3+/5, EXT 4-/5, KNEE EXT 4/5, KNEE FLEX 4/5, ANKLE 5/5. Sensory deficit: DESIREE LE'S INTACT AND SYMMETRICAL WITH LT TOUCH TESTING TODAY BUT FEET NT. ROM deficit: TIGHT DESIREE HIP FLEXORS AND HIP ROTATORS. TESTING OF LEFT HIP ER PROVOKES GROIN PAIN. Reflexes: NT. Dural Signs: POSITIVE LLE. Lumbar mvmt loss: flex - MIN. ext - TARI. R SG - TARI. L SG - TARI. PATIENT DENIES INCREASED PAIN WITH LUMBAR ROM TESTING BUT C/O STIFFNESS. Core strength: POOR. Palpation: NO ACUTE TENDERNESS OF LOWER THORACIC, LUMBAR, SACRAL OR DESIREE HIP REGIONS WITH LIGHT PALPATION TODAY. THIS PT RECOMMENDS CANE OR WALKER AT ALL TIMES FOR SAFETY DUE TO HX OF MULTIPLE FALLS AND LLE WEAKNESS AND BUCKLINIG. PATIENT IS AGREEABLE. - Goals Goal 1:: DECREASE C/O BACK AND DESIREE LE SX'S. Goal Time Frame: 4-6 Weeks Goal 2:: IMPROVE PERSONAL CARE, LIFTING, WALKING, SITTING, STANDING, SLEEP, SOCIAL LIFE, TRAVEL AND HOMEMAKING FUNCTION Goal Time Frame: 4-6 Weeks Goal 3:: INSTRUCT IN PROPHYLAXIS Goal Time Frame: 4-6 Weeks - Rehabilitation Potential Rehabilitation Potential: Fair - Anticipated Interventions Patient/Client Instruction: Educate patient on: Condition, Plan of Care, Risk Factors, Benefits of Fitness Program For the Purpose of:: To improve self management Therapeutic Exercise to Include: Strength training, Body mechanics, Postural training, Flexibilty training, Gait and locomotor training, Dynamic Lumbar Stabilization For the Purpose of:: To decrease pain, To improve muscle performance and motor function, To increase tolerance to activity/condition/position, To improve ability of physical actions for home/community/work/leisure, To improve gait and locomotor functions TENS: Yes Cryotherapy (ice pack, ice massage): Yes Thermo therapy (hot pack): Yes Ultrasound (thermal/non thermal): Yes For the Purpose of:: To decrease pain, To decrease swelling/inflammation, To improve nutrient delivery to tissue Thank you for the opportunity to evaluate your patient. For Medicare and Medicare HMO plans, please review the plan of care and approve it. It will need to be FAXED BACK to us at [phone] for Medicare purposes. For Medicare only, by signing this I certify the plan of care. Please let me know if there are questions or concerns regarding this plan of care. Physician Signature: Date:
--- NOTE | 2019-01-08 15:41 | HP.PTDCSUM_ITS ---
HP - PT D/C Summary It has been my pleasure to treat FABIOLA RASMUSSEN under orders from JESSY JO, for the diagnosis of POSTLAMINECTOMY SYNDROME. BACK PAIN. for a total of 6 visit(s). Discharge Date: 01/08/19 Please see the following information for a summary of their discharge status. - Subjective Subjective: PATIENT REPORTS HER AGILITY - BEING ABLE TO GET AROUND - HAS IMPROVED A LITTLE BIT SINCE STARTING PT. SHE REPORTS HER PAIN IS NO BETTER AND NO WORSE OVER-ALL BUT IT IS TEMPORARILY WORSE AFTER PT. PAIN MGMT CONSULT YESTERDAY. SHE ORDERED X-RAYS OF HER UPPER BACK BECAUSE SHE HAS A NEW PAIN THAT STARTS IN HER RIGHT UPPER BACK AND RADIATES TO HER SHOULDER AND CHEST AND HER RIGHT ARM GOES NUMB. LUMBAR JADEN PENDING Jan. PATIENT REPORTS SHE WANTS TO WORK AT HOME AT HER OWN PACE ON HER HOME EX PROGRAM AT THIS TIME. - Pain Lumbar Spine Pain Intensity (Out of 10): 8 LLE Pain Intensity (Out of 10): 0 - Overall Improvement % Improvement: 35 - Objective Objective/Function: INDEP SLOW ANTALGIC GAIT INTO PT WITHOUT ANY LOB AND WITHOUT ANY AD'S. PATIENT IS VERY UE DEPEND TO TRANSFER FROM SIT TO STAND. Motor deficit: RIGHT LE GROSSLY 5/5 WITH MMT'ING EXCEPT HIP 4/5. LLE: HIP FLEX 4- /5, ABD 4-/5, ADD 4-/5, IR 4/5, ER 4-/5, EXT 4-/5, KNEE EXT 5/5, KNEE FLEX 5/5, ANKLE 5/5. Sensory deficit: DESIREE LE'S INTACT AND SYMMETRICAL WITH LT TOUCH TESTING TODAY BUT FEET NT. ROM deficit: TIGHT DESIREE HIP FLEXORS AND HIP ROTATORS. Reflexes: NT. Dural Signs: POSITIVE LLE. Lumbar mvmt loss: flex - MIN. ext - TARI. R SG - TARI. L SG - TARI. PATIENT DENIES INCREASED PAIN WITH LUMBAR ROM TESTING BUT C/O STIFFNESS. Core strength: POOR. Palpation: NO ACUTE TENDERNESS OF LOWER THORACIC, LUMBAR, SACRAL OR DESIREE HIP REGIONS WITH LIGHT PALPATION TODAY. THIS PT STILL RECOMMENDS CANE OR WALKER AT ALL TIMES FOR SAFETY DUE TO HX OF MULTIPLE FALLS AND LLE WEAKNESS AND BUCKLINIG. PATIENT IS AGREEABLE BUT DID NOT BRING HER CANE TODAY. - Goals Goal 1:: DECREASE C/O BACK AND DESIREE LE SX'S. Goal Progress: Not Progressing Goal 2:: IMPROVE PERSONAL CARE, LIFTING, WALKING, SITTING, STANDING, SLEEP, SOCIAL LIFE, TRAVEL AND HOMEMAKING FUNCTION Goal Progress: Progressing Goal 3:: INSTRUCT IN PROPHYLAXIS Goal Progress: Goal Met - Plan Plan: D/C TO HEP. PATIENT AGREEABLE. - D/C Information If there are questions or concerns regarding this patient's physical therapy, please feel free to call me at [phone]. Thank you for the referral of this patient. Sincerely, Vanita Long, PT, Cert MDT
== END 2019-01-08 19:00 | disposition home or self-care (01) ==
LOC: PT 15:00
PROVIDERS: Family Provider Internal Medicine; PCP Internal Medicine
DX: M53.87 Other specified dorsopathies, lumbosacral region (principal); M96.1 Postlaminectomy syndrome, not elsewhere classified
CPT/HCPCS: 97110; 97162; 97530

== ENCOUNTER → 2019-01-29 | Outpatient (CLI) | payer MEDICAID, SELFPAY ==
[2019-01-29 10:52] VITALS: BMI 40.6
[2019-01-29 12:32] LABS: Anion Gap 4 (5-15); BUN 9 mg/dL (7-18); BUN/Creat Ratio 10.2 RATIO (10-20); Calcium,Total 9.4 mg/dL (8.5-10.1); Chloride 108 mmol/L (98-107); Creatinine, Serum 0.88 mg/dL (0.55-1.02); EST Glomerular Filtration Rate 69 mL/min (>60); Est Glom Filt Rate - Afr Amer 83 mL/min (>60); Glucose 145 mg/dL (74-106); Potassium 4.2 mmol/L (3.5-5.1); Sodium Level 141 mmol/L (136-145)
== END | disposition home or self-care (01) ==
LOC: BIMLAB 11:23
PROVIDERS: Family Provider Internal Medicine; PCP Internal Medicine; Visit Provider Internal Medicine
DX: E11.9 Type 2 diabetes mellitus without complications (principal); I10 Essential (primary) hypertension
CPT/HCPCS: 36415; 80048

== ENCOUNTER → 2019-02-04 | Outpatient (CLI) | payer MEDICAID, SELFPAY ==
[2018-11-11 16:23] VITALS: BMI 40.6
[2019-01-29 10:52] VITALS: BMI 40.6
--- NOTE | 2019-02-04 09:56 | RAD_ITS ---
STUDY: X-RAY - THORACIC SPINE REASON FOR EXAM: Female, 63 years old. Back pain. TECHNIQUE: 3 view(s) of the thoracic spine were obtained. COMPARISON: Prior comparable comparison studies are not available for review at this time. FINDINGS: There is an increase in the normal thoracic kyphosis. There is no substantial scoliosis. There is multilevel endplate spondylosis of the thoracic vertebrae. There is multilevel disc space narrowing of the thoracic spine. There are multiple calcified hilar lymph nodes. RAD/Thoracic Spine 3 Views IMPRESSION: 1. Multilevel degenerative disc disease, and spondylosis of the thoracic spine. 2. No radiographic evidence of acute compression fracture. Electronically Signed: Shameka Castellano MD at 8:26 EDT , Service support ,
--- NOTE | 2019-02-04 10:00 | RAD_ITS ---
STUDY: X-RAY - CERVICAL SPINE REASON FOR EXAM: Female, 63 years old. Neck pain. TECHNIQUE: 5 view(s) of the cervical spine were obtained. COMPARISON: Prior comparison studies are not available for review at this time. FINDINGS: There are degenerative changes of the anterior atlantoaxial articulation. Normal odontoid process. There is an exaggerated cervical lordosis. Normal vertebral bodies and endplates. Normal disc space heights. Normal visualized intervertebral neuroforamina. There appear to be calcified hilar lymph nodes. RAD/Cerv Spine 4 or 5 Views IMPRESSION: No radiographic evidence of acute compression or displaced fracture. Electronically Signed: Shameka Castellano MD at 8:24 EDT , Service support ,
== END | disposition home or self-care (01) ==
PROVIDERS: Family Provider Internal Medicine; PCP Internal Medicine
DX: M54.6 Pain in thoracic spine (principal); M79.18 Myalgia, other site
CPT/HCPCS: 72050; 72072

== ENCOUNTER → 2019-03-25 12:57 | Outpatient (CLI) | payer MEDICAID, SELFPAY ==
[2019-03-25 11:28] VITALS: BMI 40.6
[2019-03-29 12:45] LABS: HPV APTIMA, High Risk Negative (Negative)
== END ==
PROVIDERS: Family Provider Internal Medicine; PCP Internal Medicine; Referring Provider Nurse Practitioner Women's Health; Visit Provider Nurse Practitioner Women's Health
DX: Z12.4 Encounter for screening for malignant neoplasm of cervix (principal)
CPT/HCPCS: 87624; 88175; G0145

== ENCOUNTER → 2019-12-01 15:05 | Outpatient (CLI) | payer SELFPAY ==
[2019-12-01 14:50] VITALS: BMI 40.6
[2019-12-01 16:55] LABS: Absolute Lymphocyte Count 1.47 X10^3/uL (0.83-4.51); Absolute Neutrophil Count 3.8 X10^3/uL (2.0-7.7); Basophil# 0.05 X10^3/uL; Basophil% 0.8 % (0-1); Eosinophil# 0.22 X10^3/uL; Eosinophils% 3.6 % (0-5); Hematocrit 40.2 % (37-47); Lymphocyte # 1.47 X10^3/ul (4.0); Lymphocyte % 24.2 % (19-41); Mean Corp Hgb Conc 32.3 g/dL (32-36); Mean Corpuscular Hgb 28.8 pg (27.0-32.0); Mean Corpuscular Volume 88.9 fL (81-99); Monocyte# 0.52 X10^3/uL; Monocyte% 8.6 % (0-10); NRBC Flagged by Analyzer 0 % (0-5); Neutrophil # 3.79 X10^3/uL (2.7-7.7); Neutrophil % 62.5 % (47-70); Platelet Count 187 K/mm3 (150-450); RBC Distribution Width CV 13.2 % (11.6-14.6); RBC Distribution Width SD 42.8 fl (35.1-43.9); Red Blood Count 4.52 M/mm3 (4.2-5.4); White Blood Count 6.1 K/mm3 (4.4-11.0)
[2019-12-01 17:01] LABS: ALB/GLOB Ratio 0.9 RATIO (0.9-2.4); AST(SGOT) 41 U/L (15-37); Alanine Aminotransfer ALT/SGPT 23 U/L (13-56); Alkaline Phosphatase 116 U/L (45-117); Anion Gap 4 (5-15); BUN 6 mg/dL (7-18); BUN/Creat Ratio 7.9 RATIO (10-20); Calcium,Total 9.1 mg/dL (8.5-10.1); Chloride 106 mmol/L (98-107); Creatinine, Serum 0.76 mg/dL (0.55-1.02); EST Glomerular Filtration Rate 81 mL/min (>60); Est Glom Filt Rate - Afr Amer 98 mL/min (>60); Globulin 3.4 g/dL (2.2-4.2); Glucose 218 mg/dL (74-106); Protein, Total 6.4 g/dL (6.4-8.2); Sodium Level 142 mmol/L (136-145)
== END ==
LOC: BIMLAB 15:07
PROVIDERS: PCP Internal Medicine; Referring Provider Internal Medicine; Visit Provider Internal Medicine
DX: E11.9 Type 2 diabetes mellitus without complications (principal); I10 Essential (primary) hypertension
CPT/HCPCS: 36415; 80053; 85025

== ENCOUNTER → 2020-02-17 | Outpatient (CLI) | payer MEDICAID, SELFPAY ==
[2020-01-27 10:15] VITALS: BMI 39.4
== END | disposition home or self-care (01) ==
LOC: MTDU 10:18
PROVIDERS: PCP Internal Medicine; Visit Provider Internal Medicine
DX: J45.901 Unspecified asthma with (acute) exacerbation (principal); R05 Cough; R68.83 Chills (without fever)
CPT/HCPCS: 87635; C9803; U0003

== ENCOUNTER → 2020-03-23 12:50 | Outpatient (CLI) | payer MEDICAID, SELFPAY ==
[2020-03-01 13:10] VITALS: BMI 38.9
--- NOTE | 2020-03-23 13:12 | CT_ITS ---
STUDY: CT ABDOMEN AND PELVIS WITH CONTRAST REASON FOR EXAM: Female, 65 years old. RIGHT LOWER RIB PAIN, GASTROPARESIS X 2 YEARS, FEELS LIKE ABD IS ALWAYS FULL, CONSTIPATION RADIATION DOSAGE (If Supplied By Facility): CTDIvol = ( 18.59 ) mGy, DLP = ( 1266.13 ) mGycm TECHNIQUE: Transaxial images were obtained from the dome of the diaphragm to the symphysis pubis without oral contrast. IV 100mL Isovue-300 was administered. Sagittal and coronal images were reconstructed. Individualized dose optimization techniques were used for this CT. COMPARISON: Comparison is made with prior study dated 07/04/2016 FINDINGS: Minimal linear scarring at the right lung base. The visualized portions of the heart are within normal limits. There is decreased attenuation of the liver consistent with steatosis. Status post cholecystectomy. Borderline splenomegaly. Normal pancreas. Normal bilateral adrenal glands. Normal right kidney. Normal left kidney. Normal visualized stomach. Normal small intestine. Normal colon. The appendix is visualized and appears normal. Normal abdominal aorta. Normal inferior vena cava. Normal retroperitoneum. Normal urinary bladder. There is endometrial thickening. This is greater than expected for the postmenopausal state. Correlation with ultrasound is recommended. Normal abdominal wall. There are diffuse degenerative changes of the visualized lumbar spine. Retrolisthesis of L3 on L4. CT/Abdomen/Pelvis WITH Contrast IMPRESSION: Status post cholecystectomy. Fatty infiltration of the liver. Borderline cardiomegaly. Endometrial thickening. Correlation with ultrasound is recommended. Electronically Signed: Myron English, at 15:02 EST , Service support ,
[2020-03-23 13:25] LABS: Creatinine, Serum 1.12 mg/dL (0.55-1.02); EST Glomerular Filtration Rate 52 mL/min (>60); Est Glom Filt Rate - Afr Amer 63 mL/min (>60)
== END ==
PROVIDERS: PCP Internal Medicine; Referring Provider Internal Medicine; Visit Provider Internal Medicine
DX: R10.9 Unspecified abdominal pain (principal); R11.2 Nausea with vomiting, unspecified; R19.8 Other specified symptoms and signs involving the digestive system and abdomen; E11.43 Type 2 diabetes mellitus with diabetic autonomic (poly)neuropathy; K31.84 Gastroparesis
CPT/HCPCS: 36415; 74177; 82565; Q9967

== ENCOUNTER → 2020-04-10 13:57 | Outpatient (CLI) | payer MEDICAID, SELFPAY ==
[2020-03-01 13:10] VITALS: BMI 38.9
--- NOTE | 2020-04-10 14:00 | US_ITS ---
STUDY: ULTRASOUND OF THE FEMALE PELVIS - COMPLETE REASON FOR EXAM: Female, 65 years old. thickened endo LMP: Menopause TECHNIQUE: Transabdominal and Transvaginal TECHNICAL QUALITY: Adequate. COMPARISON: CT 03/23/2020 FINDINGS: The uterus is anteverted and is in a midline position. The uterus measures 7.4 x 3.7 x 3.0 cm cm. Normal uterine cervix. The endometrium measures 12 mm in thickness, and is hyperechoic. There is no demonstrated endometrial mass. There is no demonstrated myometrial mass. I.U.D. - The patient does not have an I.U.D. The ovaries are not visualized.. There is no fluid in the cul-de-sac. The pre void volume of the bladder was ml. The post void volume of the bladder was ml. Polycystic ovary disease: No. US/Pelvic (Non ) IMPRESSION: Thickened endometrial stripe worrisome for endometrial hyperplasia or mass. Correlation with hysteroscopy would be useful to Electronically Signed: Jered Hendrickson MD at 8:29 EST Tel , Service support ,
== END ==
PROVIDERS: PCP Internal Medicine; Referring Provider Internal Medicine; Visit Provider Internal Medicine
DX: R93.89 Abnormal findings on diagnostic imaging of other specified body structures (principal)
CPT/HCPCS: 76856

== ENCOUNTER 2020-05-09 05:58 | Day surgery (SDC) | payer MEDICAID, SELFPAY ==
[2020-04-25 14:36] VITALS: BMI 38.2
[2020-05-03 11:11] VITALS: BMI 38.4
--- NOTE | 2020-05-08 11:17 | EKG12_ITS ---
Test Reason : PRE OP Blood Pressure : / mmHG Vent. Rate : 083 BPM Atrial Rate : 083 BPM P-R Int : 176 ms QRS Dur : 088 ms QT Int : 398 ms P-R-T Axes : 030 -26 000 degrees QTc Int : 467 ms Normal sinus rhythm Poor R- wave progression Confirmed by TRACEE YUNG, JOSE MANUEL ([id number]), website/blog editor TRELL MCFARLANE ([id number]) on 05/09/2020 8:38:29 AM Referred By: Marielena Galvez Confirmed By:JOSE MANUEL EASLEY MD
[2020-05-08 12:29] LABS: Hematocrit 41.4 % (37-47); Hemoglobin 13.1 g/dL (12.0-15.0); Mean Corp Hgb Conc 31.6 g/dL (32-36); Mean Corpuscular Hgb 28.2 pg (27.0-32.0); Mean Platelet Vol. 10.3 fl (6.2-12.0); Platelet Count 190 K/mm3 (150-450); RBC Distribution Width CV 13.5 % (11.6-14.6); RBC Distribution Width SD 44.4 fl (35.1-43.9); Red Blood Count 4.65 M/mm3 (4.2-5.4); White Blood Count 5.3 K/mm3 (4.4-11.0)
[2020-05-08 12:46] LABS: Anion Gap 5 (5-15); BUN 4 mg/dL (7-18); BUN/Creat Ratio 4.8 RATIO (10-20); Calcium,Total 9.3 mg/dL (8.5-10.1); Chloride 105 mmol/L (98-107); Creatinine, Serum 0.84 mg/dL (0.55-1.02); EST Glomerular Filtration Rate 73 mL/min (>60); Est Glom Filt Rate - Afr Amer 88 mL/min (>60); Glucose 329 mg/dL (74-106); Potassium 3.7 mmol/L (3.5-5.1); Sodium Level 139 mmol/L (136-145)
[2020-05-09] VITALS (7 sets, daily range): BP systolic 139–154; BP diastolic 63–90; PULSE 65–80; RESP 16–17; TEMP 36.4–37.3; O2SAT 95–98; BMI 38.4
--- NOTE | 2020-05-09 07:13 | HP.PCM_ITS ---
- Problem List (1) Swelling of vulva Status: Acute (2) Thickened endometrium Status: Acute Comment: recommend d and c hysteroscopy, cytotec preop, consent signed 04/25 History and Physical Date of Admission: 05/09/20 Intake Vital Signs 04/25/20 Height 5 ft 9 in 04/25/20 Weight: 259 lb 04/14/20 BMI 38.9 Intake Visit Reasons: surgery consult, ref by Dr. Haas Chief Complaint: surgery consult, Levi referral Wardrobe Image Consultant Required: No Is patient in pain?: No Allergies cephalexin Adverse Reaction (Verified 04/25/20 14:37) Vomiting ciprofloxacin [From Cipro] Adverse Reaction (Verified 04/25/20 14:37) Nausea theophylline anhydrous [From Joe-Dur] Adverse Reaction (Verified 04/25/20 14:37) Nausea Medications traMADol [Ultram] 50 mg PO BID PRN PRN 08/19/16 [History Confirmed 04/25/20] calcium carbonate 600 mg lozenges 600 mg PO Q6H PRN PRN 03/19/18 [History Confirmed 04/25/20] Albuterol Inhaler [Ventolin Hfa] 2 puff INHALATION PRN PRN 03/24/18 [History Confirmed 04/25/20] Lactobacillus Acidophilus [Acidophilus] 1 ea PO DAILY 03/24/18 [History Confirmed 04/25/20] fluticasone propionate 220 mcg/actuation HFA aerosol inhaler 2 puff INHALATION BID #12 g 08/04/18 [Rx Confirmed 04/25/20] blood-glucose meter See Dose Instructions .ROUTE .MEDSUPPLY #1 ea 09/02/18 [Rx Confirmed 04/25/20] potassium chloride 20 mEq tablet,extended release(part/cryst) 20 meq PO BID #180 tab 11/25/18 [Rx Confirmed 04/25/20] blood pressure monitor See Rx Instructions .ROUTE .MEDSUPPLY #1 ea 01/29/19 [Rx Confirmed 04/25/20] furosemide 20 mg tablet 20 mg PO BID #60 tab 02/10/19 [Rx Confirmed 04/25/20] acyclovir 200 mg capsule 200 mg PO TID PRN 03/25/19 [History Confirmed 04/25/20] aripiprazole 10 mg tablet 10 mg PO DAILY #90 tab 04/22/19 [Rx Confirmed 04/25/20] atenolol 50 mg tablet See Rx Instructions .ROUTE .COMPLEX #180 tab 05/19/19 [Rx Confirmed 04/25/20] losartan 100 mg tablet 100 mg PO DAILY #90 tab 06/11/19 [Rx Confirmed 04/25/20] ropinirole 1 mg tablet 1 mg PO QHS #90 tab 11/16/19 [Rx Confirmed 04/25/20] Handicap Placard See Rx Instructions .ROUTE .MEDSUPPLY #1 ea 12/01/19 [Rx Confirmed 04/25/20] insulin glargine 100 unit/mL (3 mL) subcutaneous pen 60 unit SC DAILY #15 ml 12/07/19 [Rx Confirmed 04/25/20] insulin lispro 100 unit/mL subcutaneous pen 20 unit SC .TIDAC #15 ml 12/07/19 [R x Confirmed 04/25/20] hydrocortisone 2.5 % topical cream 1 applic TOPICAL BID PRN #30 g 12/16/19 [Rx Confirmed 04/25/20] cetirizine 10 mg tablet 10 mg PO DAILY #90 tab 12/17/19 [Rx Confirmed 04/25/20] ergocalciferol (vitamin D2) 1,250 mcg (50,000 unit) capsule 50,000 unit PO QMONTH #7 cap 12/17/19 [Rx Confirmed 04/25/20] blood sugar diagnostic See Rx Instructions .ROUTE .MEDSUPPLY #50 ea 12/21/19 [Rx Confirmed 04/25/20] cholestyramine-aspartame 4 gram oral powder 4 g PO DAILY PRN #231 g 01/11/20 [Rx Confirmed 04/25/20] tizanidine 4 mg tablet 4 mg PO TID PRN #60 tab 03/06/20 [Rx Confirmed 04/25/20] ondansetron 4 mg disintegrating tablet 4 mg PO Q8H PRN #30 tab 03/14/20 [Rx Confirmed 04/25/20] fluticasone propionate 50 mcg/actuation nasal spray,suspension 2 spray INTRANASAL DAILY #15.8 g 03/28/20 [Rx Confirmed 04/25/20] promethazine 12.5 mg tablet 12.5 mg PO BID PRN #20 tab 04/18/20 [Rx Confirmed 04/25/20] zolpidem 10 mg tablet 10 mg PO QHS PRN #30 tab 04/18/20 [Rx Confirmed 04/25/20] misoprostol 200 mcg tablet 200 mcg PO .complex #2 tab 04/25/20 [Rx Confirmed 04/25/20] Is last menstrual period known: No Post menopausal: Yes Patient : No : No PFSH Medical History Vitamin D deficiency (Chronic) Vision problems (Chronic) Osteoarthritis (Chronic) Back problem (Chronic) Seasonal allergies (Chronic) Shingles (Resolved) Depression (Chronic) Asthma (Chronic) Obstructive sleep apnea (Chronic) IBS (irritable bowel syndrome) (Chronic) Hypersomnia, unspecified (Chronic) GERD (gastroesophageal reflux disease) (Chronic) Type 2 diabetes mellitus (Chronic) Hypertension (Chronic) Abnormal electrocardiogram (Chronic) Hyperlipidemia (Chronic) Dyspnea (Chronic) Body mass index (BMI) of 45.0-49.9 in adult (Chronic) Abnormal cardiovascular stress test (Chronic) Chest pain on exertion (Resolved) Depression (Resolved) Surgical History History of left heart catheterization (Chronic 02/18/18) History of breast surgery (Acute) History of lumbar surgery (Chronic) Hx of cholecystectomy (Chronic) Family History Father Diabetes Heart disease Mother CVA (cerebral vascular accident) Psychiatric care Alzheimer disease Parkinson's disease Melanoma Osteoporosis Social History (Updated 04/25/20 @ 15:[address] Marielena Galvez MD) Smoking Status: Never smoker second hand exposure: No alcohol intake: never substance use type: does not use caffeine: Yes Type: coffee Number of servings: 2 what type of physical activity do you participate in: none seatbelt use: always do you feel safe at home: Yes additional social history: - retired HPI surgery consult, ref by Dr. Haas: Details: FABIOLA RASMUSSEN is a 65 year old who presents for thickened endometrium on ct and us. she denies any vaginal bleeding or discharge but has had increasing lower pelvic cramping and pain for the last few months. she is not sexually active. she is a referral from dr haas for evaluation. Female Reproductive History Questions: Sexually active: No Menopausal Symptoms: No night sweats Pregancy History 0 Elective abortions Hx Para Spontaneous abortions Hx # Term Pregnancies Ectopic pregnancies Hx # Pregnancies Multiple births # of living children ROS Const Constitutional: Denies fatigue, night sweats, weight gain or weight loss ENT ENT: Reports system reviewed and no additional complaints, except as docu Cardio Card: Denies chest pain Resp Resp: Denies cough or dyspnea GI GI: Reports as per HPI; denies constipation, nausea or vomiting : Reports as per HPI; denies nipple discharge, vaginal discharge, vaginal dryness, vaginal odor or vaginal itching Musc Musc: Denies joint pain, back pain or muscle weakness Skin Skin/Breast: Denies hair loss, change in hair, dry skin, breast lump, breast pain, breast skin changes or nipple discharge Neuro Neuro: Reports system reviewed and no additional complaints, except as docu Psych Psych: Reports system reviewed and no additional complaints, except as docu Endo Endo: Denies cold intolerance, excessive sweating, heat intolerance or increased thirst Brijesh/Lymph Hematologic/Lymphatic: Denies easy bleeding, Denies easy bruising, Denies enlarged lymph nodes Exam Const General: cooperative, healthy appearing, comfortable, no acute distress, well developed Orientation: alert [facility] Head: normal to inspection, normocephalic Ears: hearing grossly normal bilaterally, external ears normal Nose: external nose normal, nares normal Face and sinus: normal facial exam Neck Neck: normal visual inspection, no lymphadenopathy Thyroid: thyroid normal Chest Chest palpation & inspection: normal inspection of the chest Resp Effort & Inspection: normal respiratory effort Auscultation: clear to auscultation bilaterally Cardio Rate: regular rate Rhythm: regular rhythm Heart Sounds: S1 normal, S2 normal GI Inspection: normal to inspection, non-distended Palpation: soft, no hepatosplenomegaly Musc Other: gross motor intact no deficits, full bilateral strength Skin General: no rashes or lesions noted Neuro General: alert, awake, moves all extremities, no focal motor deficits Motor: muscle tone normal throughout Extrem General: normal to inspection, no pedal edema Psych Appearance: grossly normal Mental Status: mental status grossly normal Affect: normal affect Speech and Movement: speech and movement normal Assessment & Plan Problems 1. Thickened endometrium R93.89 recommend d and c hysteroscopy, cytotec preop, consent signed 04/25 Plan After discussing the patient's diagnosis and treatment plan options, patient wishes to proceed with surgical management. I have discussed with the patient the risks, benefits, and alternatives of the procedure which include but are not limited to risks of anesthesia, bleeding, infection, possible damage to bowel, bladder, or surrounding vasculature which could lead to additional surgery to evaluate any complications. Patient agrees to procedure and wishes to proceed. ACOG/uptodate references given for additional information regarding procedure. Medications New: misoprostol (Cytotec) 200 mcg PO .complex 2 tabs 1RF Coding Level of Care Code Off vis,new,level 4 Diagnoses Thickened endometrium R93.89 UPDATE- I have seen the patient and performed any clinically relevant updates to the history and physical exam. Marielena Galvez MD
--- NOTE | 2020-05-09 07:30 | EMB_PTH ---
PATIENT: FABIOLA RASMUSSEN LOC: [facility] [place] U#:[id number] AGE/SX: 65/F ROOM: RE05/09/[address]: Dr. Marielena Galvez MD : [id number] BED: DIS: 05/09/2020 SPEC #: [id number] RECD: 05/09/20 09:31 STATUS: CASSIUS DENTON #: [id number] MARLEN: 05/09/20 07:[address]: Marielena Galvez DEPT: SURGICAL PATHOLOGY RECD BY: Mallory Lindsay ENTERED: 05/09/20 11:01 SP TYPE: ENDOM BX/C OT DR: Dr. Chuck Sims MD Tissues: Endometrium, NOS Procedures: Surgery Specimen Level IV HEADER OPERATION: Hysteroscopy, D & C PRE-OP DIAGNOSIS: Thickened endometrium TISSUE SUBMITTED: Polyp and endometrial curettings MICROSCOPIC DIAGNOSIS Endometrial polyp and curettings: Benign endometrial polyp with simple cystic hyperplasia without atypia. Strips of benign superficial endometrium. AM:cristhian 05/10/2020 MICROSCOPIC DESCRIPTION Slides are reviewed. GROSS DESCRIPTION Received in fixative is one container labeled with the patient's name and designated polyp and endometrial curettings. The specimen consists of multiple irregular and polypoid fragments of light to dark merida soft tissue that in aggregate measure 5 x 5 x 0.2 cm. The specimen is totally submitted in two cassettes. / AM:cristhian 05/09/20 TC:1 CPT: 47034
[2020-05-09 07:45] LABS: Bedside Glucose 254 mg/dL (70-110)
--- NOTE | 2020-05-09 08:07 | PCM.OPRPT ---
Problem List (1) Swelling of vulva Status: Acute (2) Thickened endometrium Status: Acute Comment: recommend d and c hysteroscopy, cytotec preop, consent signed 04/25 Report of Operation Date of Procedure: 05/09/20 Pre-Operative Diagnosis: PMB thickened endometrium Post-Operative Diagnosis: same plus endometrial polyp Surgery/Procedure Performed:: d and c hysteroscopy polypectomy Type of Anesthesia:: MAC Special Medications: none Specimen's removed: EMC polyp Drains: none Estimated Blood Loss (mL): minimal Fluids Replaced: crystalloid Description of Procedure: Patient was prepped and draped in a normal sterile fashion under MAC anesthesia. A weighted speculum was placed in the vagina and the anterior lip of the cervix was grasped with a single-tooth tenaculum. A paracervical block was placed with 1% lidocaine. Cervix was progressively dilated to allow passage of a 5 mm hysteroscope. The lining was fully visualized and noted to have a large endometrial polyp filling the entire cavity. Uterine sounded to 8 cm. Curettage was performed and polypectomy performed grasping the polyp with polyp forceps and removing. Additional hysteroscopic evaluation after the polypectomy confirmed complete removal and tissue was sent to sent to pathology. All instruments were removed from the vagina and excellent hemostasis was noted. Patient was awoken and taken to recovery in stable condition. Grafts/Implants Used: none - Complications none Multi Select Codes - Urinary/Genital Urinary/Genital CPT Codes: 55665 Hysteroscopy,EMC, Polypectomy
--- NOTE | 2020-05-09 08:12 | DCINST_ITS ---
Discharge Diet: No Restrictions Discharge Activity: Return to Normal Activity, May Shower, May Take a Tub Bath Allergies/Adverse Reactions: Allergies cephalexin Adverse Reaction (Verified 05/09/20 06:34) Vomiting ciprofloxacin [From Cipro] Adverse Reaction (Verified 05/09/20 06:34) Nausea theophylline anhydrous [From Joe-Dur] Adverse Reaction (Verified 05/09/20 06:34) Nausea Medications to take at Discharge traMADol [Ultram] 50 mg PO BID 08/19/16 Albuterol Inhaler [Ventolin Hfa] 2 puff INHALATION PRN PRN 03/24/18 potassium chloride 20 mEq tablet,extended release(part/cryst) 20 meq PO BID #180 tab 11/25/18 furosemide 20 mg tablet 20 mg PO BID #60 tab 02/10/19 ropinirole 1 mg tablet 1 mg PO QHS #90 tab 11/16/19 insulin lispro 100 unit/mL subcutaneous pen 20 unit SC .TIDAC #15 ml 12/07/19 ergocalciferol (vitamin D2) 1,250 mcg (50,000 unit) capsule 50,000 unit PO QMONTH #7 cap 12/17/19 tizanidine 4 mg tablet 4 mg PO TID PRN #60 tab 03/06/20 promethazine 12.5 mg tablet 12.5 mg PO BID PRN #20 tab 04/18/20 zolpidem 10 mg tablet 10 mg PO QHS PRN #30 tab 04/18/20 cetirizine 10 mg tablet 10 mg PO DAILY #90 tab 04/26/20 Aspirin [Aspirin EC] 81 mg PO DAILY 05/02/20 Atenolol 50 mg PO BID 05/02/20 Calcium Carbonate [Tums] 500 mg PO Q4H PRN PRN 05/02/20 Colon Health 1 cap PO DAILY 05/02/20 Fluticasone 220 Mcg [Flovent 220 Mcg] 2 puff INHALATION 1200 05/02/20 Fluticasone Propionate 2 spray INTRANASAL DAILY PRN 05/02/20 Insulin Glargine,Hum.rec.anlog [Basaglar Kwikpen U-100] 63 unit SC DAILY 05/02/20 Iron,Carbonyl [Carbonyl Iron] 45 mg PO DAILY 05/02/20 Losartan Potassium 100 mg PO QHS 05/02/20 Pantoprazole Sodium [Protonix] 40 mg PO QHS 05/02/20 aripiprazole 10 mg tablet 10 mg PO QHS #90 tab 05/03/20 valacyclovir 500 mg tablet 500 mg PO Q12H #60 tab 05/03/20 blood sugar diagnostic See Rx Instructions .ROUTE .MEDSUPPLY #100 ea 05/05/20 Primary Care Physician: Chuck Sims MD [Primary Care Provider] - Test Results: Test results from this visit will be discussed in further detail at your follow- up appointment, if applicable. Please Follow Up With: Marielena Galvez MD - [phone]
== END 2020-05-09 09:11 | disposition home or self-care (01) ==
LOC: SDC 05:58 → AC 05:58
PROVIDERS: PCP Internal Medicine; Referring Provider Obstetrics & Gynecology; Visit Provider Obstetrics & Gynecology
PROC: 0UDB8ZZ Extraction of Endometrium, Via Natural or Artificial Opening Endoscopic (ICD-10-PCS; CPT 58558; principal; 2020-05-09 07:20)
DX: N84.0 Polyp of corpus uteri (principal); M19.90 Unspecified osteoarthritis, unspecified site; F32.9 Major depressive disorder, single episode, unspecified; K21.9 Gastro-esophageal reflux disease without esophagitis; E11.9 Type 2 diabetes mellitus without complications; I10 Essential (primary) hypertension; E78.5 Hyperlipidemia, unspecified; J44.9 Chronic obstructive pulmonary disease, unspecified; G47.30 Sleep apnea, unspecified; Z91.19 Patient's noncompliance with other medical treatment and regimen; G25.81 Restless legs syndrome; D64.9 Anemia, unspecified; F41.9 Anxiety disorder, unspecified; Z20.822 Contact with and (suspected) exposure to COVID-19; Z79.4 Long term (current) use of insulin; Z79.51 Long term (current) use of inhaled steroids; Z79.899 Other long term (current) drug therapy
CPT/HCPCS: 00952; 58558; 36415; 80048; 82962; 85027; 86850; 86900; 86901; 87426; 88305; 93005; C9803; J7040; J7120; J2405

== ENCOUNTER 2020-08-14 16:00 | Outpatient (RCR) | payer MEDICAID, SELFPAY ==
[2020-05-25 10:51] VITALS: BMI 37.3
--- NOTE | 2020-07-17 12:27 | HP.PTEVAL ---
Patient's Visit Information FABIOLA RASMUSSEN is a 65 year old F referred to Physical Therapy by JESSY JO with a diagnosis of Lumbar disc displacement and pain in thoracic spine. Date of Evaluation: 07/14/20 Physical Therapist: Yang Blankenship DPT - Visit Plan Frequency: 2x /Week Duration: 4 Weeks Plan: Postural stabilizing exercises, stretching thoracic spine and chest work into thoracic extension and pec stretching, ambulating, endurance training, core strengthening - Subjective Pt. has a complaint of mid thoracic pain than radiates around her chest. She states that it feels like a jackhammering around the back and then pain that radiates around to the left. Always occurs when sitting. No pain radiating to arm. Laying down helps calm her when she experiences this. It is intermittent and is not constant. She also has LBP. Pt. had a laminectomy 2011 and it didnt help her back pain. LBP feels like its on fire and goes down into her legs. She is a diabetic and is inconsistent with managing it. Walking and standing makes her pain worse and then leaning forward will alleviate pain. Laying on her back will help her pain go away. Takes ambien to sleep. Her pain increases to a 10/10 when at grocery store in lumbar spine. N/T goes down both legs bilaterally anterior and posterior. Goal: alleviate pain LBP. She had previous PT on Lumbar spine at [facility]. - Pain Lumbar spine Pain Intensity (Out of 10): 0 Pain Intensity Range: 0, 10 thoracic spine Pain Intensity (Out of 10): 0 Pain Intensity Range: 0, 10 - Objective Neuro: sensation WNL bilat. patellar tendon reflex: 1/3 bilat; achilles reflex 1/3 bilat. MMT: Knee flex 5/5 bilat; hip flex: 3+/5 bilat.; L knee ext 4+/5 R knee flex 4-/5. hip abd: 5/5 hip add: 3+/5. Shoulder flex: 5-/5 bilat. shoulder abd: 5-/5 bilat. shoulder ER: 5-/5 bilat. shoulder IR: 5/5 bilat. Gait: ambulated 340 ft with SBA and no AD with no provocation of symptoms; shortened stride length bilaterally with little to no arm swing bilat. Obervation: increased thoracic kyphosis; forward head posture. Hip screen: ROM WNL grossly. repeated flexion x10: no increase in symptoms. repeated ext: x10 no increase in symptoms. thoracic extension is extremely limited; thoracic rotation to the R is more limited than to the L. Negative slump test bilat. - Goals Goal 1:: Decrease lumbar spine pain by 50% to ambulate around grocery store. Goal Time Frame: 4-6 Weeks Goal 2:: Improve mobility of thoracic spine to diminish intermittant pain caused by postural instability Goal 3:: Decrease pain in lumbar and thoracic spine so she can feel comfortable to ambulate 1000 ft. Goal Time Frame: 4-6 Weeks Goal 4:: I with HEP Goal Time Frame: 2-4 Weeks - Rehabilitation Potential Physical Therapy Diagnosis: Pain, postural instability and weakness secondary to lumbar spine pain Rehabilitation Potential: Good - Anticipated Interventions Patient/Client Instruction: Educate patient on: Condition, Plan of Care For the Purpose of:: To decrease pain, To increase ROM, To improve muscle performance and motor function, To increase tolerance to activity/condition/position, To increase flexibility/ROM, To improve safety with gait Therapeutic Exercise to Include: Strength training, Endurance training, Postural training, Beto Exercises, Scapular Strength/Stabilization For the Purpose of:: To decrease pain, To increase ROM, To increase tolerance to activity/condition/position, To increase flexibility/ROM Thank you for the opportunity to evaluate your patient. For Medicare and Medicare HMO plans, please review the plan of care and approve it. It will need to be FAXED BACK to us at [phone] for Medicare purposes. For Medicare only, by signing this I certify the plan of care. Please let me know if there are questions or concerns regarding this plan of care. Physician Signature: Date:
--- NOTE | 2020-09-05 11:31 | HP.PTDCSUM ---
It has been my pleasure to treat FABIOLA RASMUSSEN referred by JESSY JO, with the diagnosis of Lumbar disc displacement and pain in thoracic spine for a total of 8 visit(s). Discharge Date: 08/14/20 Please see the following information for a summary of their discharge status. Subjective: Pt. reports overall doing well. I feel like I am getting stronger and my pain is doing much better. Lumbar spine Pain Intensity (Out of 10): 0 thoracic spine Pain Intensity (Out of 10): 0 % Improvement: 90 Objective/Function: ROM: min loss in all directions without increase in symptoms of both lumbar and thoracic spine. Pt. reports overall no pain currently. Occassional increase in symptoms, but minimal. No other having issues. She is overall ding much better. She is bale to walk in/out of grocery store without issues. 6MWT: 955' with no AD. Pt. is overall doing well. She is to continue with her exercises which she is independent with. Pt. to be DC from PT at this point in time. Goal 1:: Decrease lumbar spine pain by 50% to ambulate around grocery store. Goal Progress: Goal Met Goal 2:: Improve mobility of thoracic spine to diminish intermittant pain caused by postural instability Goal Progress: Goal Met Goal 3:: Decrease pain in lumbar and thoracic spine so she can feel comfortable to ambulate 1000 ft. Goal Progress: Goal Met Goal 4:: I with HEP Goal Progress: Goal Met Plan: DC to HEP at this point in time. Discharge Comments: Pt. is overall doing much better. She was treated with lumbar spine ROM and core stability exercises. Pt. is currently independent with her program and will be DC from PT at this point in time. If there are questions or concerns regarding this patient's physical therapy, please feel free to call me at [phone]. Thank you for the referral of this patient. Sincerely, Yang Blankenship DPT
== END 2020-08-14 19:00 | disposition home or self-care (01) ==
LOC: PT 16:00
PROVIDERS: PCP Internal Medicine
DX: M51.26 Other intervertebral disc displacement, lumbar region (principal)
CPT/HCPCS: 97110; 97161; 97164

== ENCOUNTER → 2020-11-03 10:26 | Outpatient (CLI) | payer MEDICAID, SELFPAY ==
[2020-11-03 09:43] VITALS: BMI 33.2
[2020-11-03 12:04] LABS: Absolute Lymphocyte Count 3.65 X10^3/uL (0.83-4.51); Absolute Neutrophil Count 5.5 X10^3/uL (2.0-7.7); Basophil# 0.11 X10^3/uL; Eosinophil# 0.76 X10^3/uL; Eosinophils% 6.8 % (0-5); Hematocrit 36.3 % (37-47); Hemoglobin 11.2 g/dL (12.0-15.0); Lymphocyte # 3.65 X10^3/ul (0.83-4.51); Lymphocyte % 32.6 % (19-41); Mean Corp Hgb Conc 30.9 g/dL (32-36); Mean Corpuscular Hgb 28.7 pg (27.0-32.0); Mean Corpuscular Volume 93.1 fL (81-99); Mean Platelet Vol. 10.5 fl (6.2-12.0); Monocyte# 1.07 X10^3/uL; Monocyte% 9.6 % (0-10); NRBC Flagged by Analyzer 0 % (0-5); Neutrophil # 5.52 X10^3/uL (2.7-7.7); Neutrophil % 49.4 % (47-70); Platelet Count 294 K/mm3 (150-450); RBC Distribution Width SD 47.8 fl (35.1-43.9); White Blood Count 11.2 K/mm3 (4.4-11.0)
[2020-11-03 12:17] LABS: ALB/GLOB Ratio 0.7 RATIO (0.9-2.4); AST(SGOT) 68 U/L (15-37); Alanine Aminotransfer ALT/SGPT 50 U/L (13-56); Albumin, Serum 2.7 g/dL (3.2-5.0); Alkaline Phosphatase 134 U/L (45-117); Anion Gap 4 (5-15); BUN 32 mg/dL (7-18); BUN/Creat Ratio 26.2 RATIO (10-20); Chloride 109 mmol/L (98-107); Creatinine, Serum 1.22 mg/dL (0.55-1.02); EST Glomerular Filtration Rate 47 mL/min (>60); Est Glom Filt Rate - Afr Amer 57 mL/min (>60); Globulin 3.7 g/dL (2.2-4.2); Glucose 53 mg/dL (74-106); Protein, Total 6.4 g/dL (6.4-8.2); Sodium Level 140 mmol/L (136-145)
== END ==
PROVIDERS: PCP Internal Medicine; Referring Provider Internal Medicine; Visit Provider Internal Medicine
DX: I10 Essential (primary) hypertension (principal)
CPT/HCPCS: 36415; 80053; 85025

== ENCOUNTER → 2021-03-05 11:00 | Outpatient (CLI) | payer MEDICARE, MEDICAID, SELFPAY ==
[2021-03-05 12:40] LABS: Anion Gap 4 (5-15); BUN 17 mg/dL (7-18); Calcium,Total 9.1 mg/dL (8.5-10.1); Chloride 110 mmol/L (98-107); Cholesterol 108 mg/dL (200); Creatinine, Serum 1.06 mg/dL (0.55-1.02); EST Glomerular Filtration Rate 55 mL/min (>60); Est Glom Filt Rate - Afr Amer 67 mL/min (>60); Glucose 221 mg/dL (74-106); High Density Lipoprotein 45 mg/dL; Sodium Level 141 mmol/L (136-145); Triglycerides 54 mg/dL; Very Low Density Lipoprotein 11 mg/dL (5-40)
[2021-03-05 12:49] LABS: Hemoglobin A1c 6.2 % (3.8-5.6)
== END ==
PROVIDERS: PCP Internal Medicine; Referring Provider Internal Medicine; Visit Provider Internal Medicine
DX: E78.00 Pure hypercholesterolemia, unspecified (principal); E11.9 Type 2 diabetes mellitus without complications
CPT/HCPCS: 36415; 80048; 80061; 83036

== ENCOUNTER 2021-06-05 11:07 | Outpatient (CLI) | payer MEDICARE, MEDICAID, SELFPAY ==
[2021-06-05 12:26] LABS: Absolute Lymphocyte Count 1.33 X10^3/uL (0.83-4.51); Absolute Neutrophil Count 3.1 X10^3/uL (2.0-7.7); Basophil# 0.07 X10^3/uL; Basophil% 1.3 % (0-1); Eosinophils% 3.8 % (0-5); Hemoglobin 9.1 g/dL (12.0-15.0); Lymphocyte # 1.33 X10^3/ul (0.83-4.51); Lymphocyte % 25.5 % (19-41); Mean Corp Hgb Conc 28.4 g/dL (32-36); Mean Corpuscular Hgb 23.2 pg (27.0-32.0); Mean Corpuscular Volume 81.6 fL (81-99); Monocyte# 0.51 X10^3/uL; Monocyte% 9.8 % (0-10); NRBC Flagged by Analyzer 0 % (0-5); Neutrophil # 3.09 X10^3/uL (2.7-7.7); Neutrophil % 59.4 % (47-70); Platelet Count 171 K/mm3 (150-450); RBC Distribution Width CV 16.3 % (11.6-14.6); RBC Distribution Width SD 48.3 fl (35.1-43.9); Red Blood Count 3.92 M/mm3 (4.2-5.4); White Blood Count 5.2 K/mm3 (4.4-11.0)
[2021-06-05 12:59] LABS: Vitamin B12 368 pg/mL (211-911); Vitamin D,25 Hydroxy 20.3 ng/mL
[2021-06-05 13:20] LABS: ALB/GLOB Ratio 0.8 RATIO (0.9-2.4); AST(SGOT) 24 U/L (15-37); Alanine Aminotransfer ALT/SGPT 21 U/L (13-56); Albumin, Serum 2.8 g/dL (3.2-5.0); Alkaline Phosphatase 96 U/L (45-117); Anion Gap 3 (5-15); BUN 21 mg/dL (7-18); Calcium,Total 8.6 mg/dL (8.5-10.1); Chloride 111 mmol/L (98-107); Creatinine, Serum 0.91 mg/dL (0.55-1.02); EST Glomerular Filtration Rate 66 mL/min (>60); Est Glom Filt Rate - Afr Amer 79 mL/min (>60); Globulin 3.5 g/dL (2.2-4.2); Glucose 128 mg/dL (74-106); Potassium 5.1 mmol/L (3.5-5.1); Protein, Total 6.3 g/dL (6.4-8.2); Sodium Level 143 mmol/L (136-145)
[2021-06-06 13:34] LABS: Ferritin 6 ng/mL (8-252); Iron 24 ug/dL (50-170); Iron Binding Capacity,Total 388 ug/dL (250-450)
== END 2021-06-05 23:59 | disposition home or self-care (01) ==
LOC: BIMLAB 11:07
PROVIDERS: PCP Internal Medicine; Referring Provider Internal Medicine; Visit Provider Internal Medicine
DX: R94.39 Abnormal result of other cardiovascular function study (principal); Z68.42 Body mass index [BMI] 45.0-49.9, adult; F41.9 Anxiety disorder, unspecified; F32.A Depression, unspecified; D64.9 Anemia, unspecified; E66.9 Obesity, unspecified
CPT/HCPCS: 36415; 80053; 82306; 82607; 82728; 83540; 83550; 84443; 85025

== ENCOUNTER 2021-07-17 10:16 | Outpatient (CLI) | payer MEDICARE, MEDICAID, SELFPAY ==
[2021-07-17 12:10] LABS: Absolute Lymphocyte Count 1.26 X10^3/uL (0.83-4.51); Absolute Neutrophil Count 4.3 X10^3/uL (2.0-7.7); Basophil# 0.07 X10^3/uL; Basophil% 1.1 % (0-1); Eosinophils% 3.1 % (0-5); Hematocrit 44.8 % (37-47); Hemoglobin 13.7 g/dL (12.0-15.0); Lymphocyte # 1.26 X10^3/ul (0.83-4.51); Lymphocyte % 19.4 % (19-41); Mean Corp Hgb Conc 30.6 g/dL (32-36); Mean Corpuscular Hgb 27.2 pg (27.0-32.0); Mean Corpuscular Volume 89.1 fL (81-99); Mean Platelet Vol. 10.9 fl (6.2-12.0); Monocyte# 0.59 X10^3/uL; Monocyte% 9.1 % (0-10); NRBC Flagged by Analyzer 0 % (0-5); Neutrophil # 4.33 X10^3/uL (2.7-7.7); Neutrophil % 66.8 % (47-70); POSITIVE MORPHOLOGY YES; Platelet Count 198 K/mm3 (150-450); RBC Distribution Width SD 68.8 fl (35.1-43.9); Red Blood Count 5.03 M/mm3 (4.2-5.4); White Blood Count 6.5 K/mm3 (4.4-11.0)
[2021-07-17 12:17] LABS: Differential Indicated SCAN CRITERIA MET
[2021-07-17 12:42] LABS: Anisocytosis 1+
== END 2021-07-17 23:59 | disposition home or self-care (01) ==
LOC: BIMLAB 10:17
PROVIDERS: PCP Internal Medicine; Referring Provider Internal Medicine; Visit Provider Internal Medicine
DX: D64.9 Anemia, unspecified (principal)
CPT/HCPCS: 36415; 85025

== ENCOUNTER → 2021-10-15 | Outpatient (CLI) | payer MEDICARE, MEDICAID, SELFPAY ==
[2021-10-15 12:16] LABS: Erythrocyte Sedimentation Rate 8 mm/hr (0-30)
[2021-10-15 12:19] LABS: Absolute Lymphocyte Count 1.38 X10^3/uL (0.83-4.51); Absolute Neutrophil Count 3.7 X10^3/uL (2.0-7.7); Basophil# 0.05 X10^3/uL; Basophil% 0.8 % (0-1); Eosinophil# 0.38 X10^3/uL; Eosinophils% 6.3 % (0-5); Hematocrit 41.9 % (37-47); Hemoglobin 13.4 g/dL (12.0-15.0); Lymphocyte # 1.38 X10^3/ul (0.83-4.51); Mean Corpuscular Hgb 30.9 pg (27.0-32.0); Mean Corpuscular Volume 96.5 fL (81-99); Monocyte# 0.52 X10^3/uL; Monocyte% 8.7 % (0-10); NRBC Flagged by Analyzer 0 % (0-5); Neutrophil # 3.65 X10^3/uL (2.7-7.7); Neutrophil % 60.9 % (47-70); Platelet Count 144 K/mm3 (150-450); RBC Distribution Width CV 13.6 % (11.6-14.6); RBC Distribution Width SD 48.4 fl (35.1-43.9); Red Blood Count 4.34 M/mm3 (4.2-5.4)
[2021-10-15 12:34] LABS: Hemoglobin A1c 5.9 % (3.8-5.6)
[2021-10-15 12:44] LABS: ALB/GLOB Ratio 0.9 RATIO (0.9-2.4); AST(SGOT) 24 U/L (15-37); Alanine Aminotransfer ALT/SGPT 27 U/L (13-56); Albumin, Serum 2.9 g/dL (3.2-5.0); Alkaline Phosphatase 89 U/L (45-117); Anion Gap 7 (5-15); BUN 20 mg/dL (7-18); BUN/Creat Ratio 20.1 RATIO (10-20); Calcium,Total 9.3 mg/dL (8.5-10.1); Chloride 107 mmol/L (98-107); Creatinine, Serum 0.99 mg/dL (0.55-1.02); EST Glomerular Filtration Rate 59 mL/min (>60); Est Glom Filt Rate - Afr Amer 72 mL/min (>60); Globulin 3.4 g/dL (2.2-4.2); Glucose 146 mg/dL (74-106); Potassium 5.1 mmol/L (3.5-5.1); Protein, Total 6.3 g/dL (6.4-8.2); Sodium Level 144 mmol/L (136-145)
== END | disposition home or self-care (01) ==
LOC: BIMLAB 09:44
PROVIDERS: PCP Internal Medicine; Referring Provider Internal Medicine; Visit Provider Internal Medicine
DX: D64.9 Anemia, unspecified (principal); E11.69 Type 2 diabetes mellitus with other specified complication; Z79.4 Long term (current) use of insulin
CPT/HCPCS: 36415; 80053; 83036; 85025; 85652